=== PATIENT | male | born 1975 | race Caucasian/White ===

== ENCOUNTER 2024-08-25 13:56 | Outpatient (AMB) | payer OTHER, SELFPAY ==
--- OUTSIDE RECORDS SUMMARY | 2024-08-25 13:58 | XMS_ITS | Continuity of Care Document ---
Author Name [facility] Organization [facility] Care Team Providers Care Web Development Intern Name Role Phone [facility] Unavailable Unavailable Problems Combined list of problems from Department of Defense and Veterans Affairs facilities. It does not include entries that were removed or entered in error. Problem Status Onset Date Problem Type Date of Resolution Comments Source Adjustment disorder with anxious mood (SNOMED CT 49114645) Active Condition [facility] Chronic post-traumatic stress disorder Active Condition [facility] CLBP - chronic low back pain Active Condition Jun 23, 2019 Entered By: NIYAH DUQUE Comment: MRI DDD L4-S1 [place] Depression (SNOMED CT 86976636) Active Condition [place] Diverticular disease of colon Active Condition Jul 26 Entered By: MARIETTA HERNANDEZ Comment: descending and sigmoid on imaging 12/26 [facility] Exposure to potentially hazardous substance Active Condition Nov 07, 2023 Entered By: PREMA TATUM Comment: Original MARCY Screen completed 08/27/22 [facility] GERD - Gastro-esophageal reflux disease Active Condition Jun 23, 2019 Entered By: NIYAH DUQUE Comment: EGD normal 12/09/18Jul 20, 2024 Entered By: MARIETTA HERNANDEZ Comment: hx hiatal hernia [facility] History of traumatic brain injury Active Condition Jul 26, 2024 Entered By: MARIETTA HERNANDEZ Comment: concussion 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 following training blast [facility] HTN-Hypertension (SCT 03571057) Active Condition [facility] Hyperlipidemia (SNOMED CT 32319169) Active Condition Aug 19, 2024 Entered By: MARIETTA HERNANDEZ Comment: mild, no Rx [place] Migraine Active Condition [facility] Obesity Active Condition Nov 11, 20 24 Entered By: MARIETTA HERNANDEZ Comment: 01/13/24 BMI 42Nov 2023 Entered By: MARIETTA HERNANDEZ Comment: 07/22/24 BMI 42 [place] Obstructive sleep apnea syndrome Active Condition Jan 02, 2019 Entered By: NIYAH DUQUE Comment: using CPAP [facility] Panic disorder with agoraphobia Active Condition [facility] Pilonidal cyst without abscess [facility] Polyarthralgia Active Condition [facility] Resting tremor Active Condition [facility] Screening for malignant neoplasm of colon done Active Condition January 29, 2023 Entered By: ROSA ELENA LEONARDO Comment: Last Colonoscopy done at [facility] 07/17/2022 REPEAT in 5 YEARS = 2026Nov 2023 Entered By: MARIETTA HERNANDEZ Comment: diverticula desending and sigmoid noted 12/26 [place] Tinnitus Active Condition [place] Vitamin D Deficiency ([facility] 85339357) Active Condition [place] Bacteriuria Inactive Condition 07/20/2024 [facility] ECG: normal sinus rhythm Inactive Condition 07/20/2024 Nov 27, 2017 Entered By: NIYAH DUQUE Comment: 11/24 w SA, min voltage [facility] Erythrocytosis Inactive Condition 07/20/2024 Jan 02, 2019 Entered By: NIYAH DUQUE Comment: 03/26 JAK2 NEG, eletrophoresis normal [facility] Inguinal hernia Inactive Condition 07/20/2024 Dec 15, 2018 Entered By: NIYAH DUQUE Comment: right laporoscopic repair 01/02/[address] Betts [facility] Kidney stone Inactive Condition 07/20/2024Dec Entered By: NIYAH DUQUE Comment: LeftJan 02, 2019 Entered By: NIYAH DUQUE Comment: 12/10/18 cystoscopy, left retograde pyelogram-Dr. Mendoza [facility] Pilonidal cyst with abscess (ICD-9-CM 685.0) Inactive Condition 07/20/2024 [facility] Urine screening abnormal Inactive Condition 07/20/2024 [place] Diagnosis: ICD-10-CM M72.2 Plantar fascial fibromatosis Active Diagnosis [place] Diagnosis: ICD-10-CM G47.30 Sleep apnea, unspecified Active Diagnosis [facility] Diagnosis: ICD-10-CM G25.2 Other specified forms of tremor Active Diagnosis [facility] Diagnosis: ICD-10-CM Z02.89 Encounter for other administrative examinations Active Diagnosis [facility] Diagnosis: ICD-10-CM F43.12 Post-traumatic stress disorder, chronic Active Diagnosis [place] Diagnosis: ICD-10-CM Z46.1 Encounter for fitting and adjustment of hearing aid Active Diagnosis [facility] Diagnosis: ICD-10-CM H90.3 Sensorineural hearing loss, bilateral Active Diagnosis [facility] Diagnosis: ICD-10-CM M25.50 Pain in unspecified joint Active Diagnosis [facility] Diagnosis: ICD-10-CM M54.50 Low back pain, unspecified Active Diagnosis [facility] Diagnosis: ICD-10-CM I10 Essential (primary) hypertension Active Diagnosis [place] Diagnosis: ICD-10-CM Z46.0 Encounter for fit/adjst of spectacles and contact lenses Active Diagnosis [facility] Diagnosis: ICD-10-CM H40.053 Ocular hypertension, bilateral Active Diagnosis [facility] Diagnosis: ICD-10-CM H25.813 Combined forms of age-related cataract, bilateral Active Diagnosis [facility] Diagnosis: ICD-10-CM F33.0 Major depressive disorder, recurrent, mild Active Diagnosis [facility] Diagnosis: ICD-10-CM E78.5 Hyperlipidemia, unspecified Active Diagnosis [place] Diagnosis: ICD-10-CM Z00.00 Encntr for general adult medical exam w/o abnormal findings Active Diagnosis [facility] Medications Combined list of outpatient medications from Department of Defense and Veterans Affairs facilities.Medications provided include 1) outpatient medications from the last 15 months, and 2) patient-reported medications. Medication Details Route Status Patient Instructions Prescription Expires Prescription Number Last Dispense Date Ordering Provider Order Date Order Qty Source amLODIPine (U/D) 10 MG ORAL TAB TAKE ONE TABLET BY MOUTH ONCE DAILY FOR BLOOD PRESSURE /HEART, DO NOT TAKE WITH GRAPEFRU IT JUICE Active 10/02/2024 [id number] SHADEAFSHAN ROSA ELENA [address] [place] [address] amLODIPine (U/D) 10 MG ORAL TAB TAKE ONE TABLET BY MOUTH ONCE DAILY FOR BLOOD PRESSURE /HEART, DO NOT TAKE WITH GRAPEFRU IT JUICE Discont inued 08/06/2023 [id number] 3 JOSE EDEN [address] [place] [address] AMLODIPINE BESYLATE 10MG TAB TAKE ONE TABLET BY MOUTH ONCE DAILY FOR BLOOD PRESSURE /HEART, DO NOT TAKE WITH GRAPEFRU IT JUICE ORAL ACTIVE 10/02/2024 [id number] 4 JONATHAN LEONARDO MIMI [address] [place] [address] AMLODIPINE BESYLATE 10MG TAB TAKE ONE TABLET BY MOUTH ONCE DAILY FOR BLOOD PRESSURE /HEART, DO NOT TAKE WITH GRAPEFRU IT JUICE ORAL DISCONT INUED 08/06/2023 [id number] 3 JOSE EDEN 2022 [facility] CHOLECALCIF (VIT D3) 1,000 UNIT ORAL TAB TAKE ONE TABLET BY MOUTH ONCE DAILY FOR VITAMIN D DEFICIEN CY FOR VITAMIN SUPPLEME NTATION 06/13/2024 [id number] 4 ROSA ELENA LEONARDO [address] [place] [address] CHOLECALCIF (VIT D3) 1,000 UNIT ORAL TAB TAKE ONE TABLET BY MOUTH ONCE DAILY FOR VITAMIN D DEFICIEN CY FOR VITAMIN SUPPLEME NTATION 06/13/2024 [id number] 3 ROSA ELENA LEONARDO [address] [place] [address] CHOLECALCIF EFRA 25MCG (1,000UNIT) TAB TAKE ONE TABLET BY MOUTH ONCE DAILY FOR VITAMIN SUPPLEME NTATION ORAL ACTIVE 07/23/2025 [id number] 4 Alea HERNANDEZ 2023 [address] [place] CHOLECALCIF EFRA 25MCG (1,000UNIT) TAB TAKE ONE TABLET BY MOUTH ONCE DAILY FOR VITAMIN D DEFICIEN CY FOR VITAMIN SUPPLEME NTATION ORAL DISCONT INUED 06/13/2024 [id number] 4 SHADESALVATOREJONATHAN Pineda F 2022 [address] [place] Compounded Prilosec Capsule Conventiona l 20 mg Oral TAKE TWO CAPSULES BY MOUTH EVERY MORNING 30 MINUTES BEFORE BREAKFAS T Active 10/02/2024 [id number] 4 SHADESLAVATOREROSA ELENA Pineda F 2023 180 [facility] Compounded Prilosec Capsule Conventiona l 20 mg Oral TAKE TWO CAPSULES BY MOUTH EVERY MORNING 30 MINUTES BEFORE BREAKFAS T Discont inued 08/25/2023 [id number] 3 JOSE EDEN 2023 180 [facility] COZAAR (BRAND) 50 MG ORAL TAB TAKE ONE TABLET BY MOUTH ONCE DAILY FOR BLOOD PRESSURE /HEART Active 11/11/2024 [id number] 4 SHADESALVATOREROSA ELENA Pineda F 2023 90 [facility] DICLOFENAC NA 1% GEL,TOP APPLY 4 GRAMS TOPICALL Y TWICE DAILY NEEDED FOR OSTEOART HRITIS - USE DOSING CARD PROVIDED IN BOX TOPICA L ACTIVE 10/02/2024 [id number] 4 SHADESALVATOREJONATHAN PniedaMIMI F 2023 [address] [place] Diclofenac Sodium 0.01mg/mg, Gel/Jelly, Topical APPLY 4 GRAMS TOPICALL Y TWICE DAILY NEEDED FOR OSTEOART HRITIS - USE DOSING CARD PROVIDED IN BOX Active 10/02/2024 [id number] 4 SHADEROSA ELENA CAVANAUGH F 2023 400 [facility] FUROSEMIDE 20MG TAB TAKE ONE-HALF TABLET BY MOUTH ONCE DAILY TO REMOVE FLUID/CO NTROL BLOOD PRESSURE ORAL ACTIVE 07/23/2025 [id number] 4 Alea HERNANDEZ 2023 [address] [place] FUROSEMIDE 20MG TAB TAKE ONE-HALF TABLET BY MOUTH ONCE DAILY NEEDED TO REMOVE FLUID/CO NTROL BLOOD PRESSURE ORAL DISCONT INUED BY PROVIDE R 04/12/2024 [id number] 4 JONATHAN LEONARDO F 2023 [address] [place] hydrOXYzine HCL (U/D) 25 MG ORAL TAB TAKE ONE TABLET BY MOUTH THREE TIMES DAILY NEEDED FOR ANXIETY Active 09/24/2024 [id number] 4 CARRIE HECTOR F 2023 180 [facility] hydrOXYzine HCL (U/D) 25 MG ORAL TAB TAKE ONE TABLET BY MOUTH THREE TIMES DAILY NEEDED FOR ANXIETY Discont inued 02/13/2024 [id number] 3 CARRIE HECTOR F 2023 180 [facility] HYDROXYZINE HCL 25MG TAB TAKE ONE TABLET BY MOUTH THREE TIMES DAILY NEEDED FOR ANXIETY ORAL ACTIVE 09/24/2024 [id number] 4 SALVATORE BUTLER F 2023 [address] [place] HYDROXYZINE HCL 25MG TAB TAKE ONE TABLET BY MOUTH THREE TIMES DAILY NEEDED FOR ANXIETY ORAL DISCONT INUED 02/13/2024 [id number] 3 BUTLERSALVATORE F 2022 [address] [place] losartan (U/D) 25 MG ORAL TAB TAKE ONE TABLET BY MOUTH ONCE DAILY FOR BLOOD PRESSURE /HEART Discont inued 10/02/2024 [id number] 4 ROSA ELENA LEONARDO 2023 90 [facility] LOSARTAN 25MG TAB TAKE ONE TABLET BY MOUTH ONCE DAILY FOR BLOOD PRESSURE /HEART ORAL DISCONT INUED (EDIT) 10/02/2024 [id number] 4 JONATHAN LEONARDO F 2023 [address] [place] LOSARTAN 50MG TAB TAKE ONE TABLET BY MOUTH ONCE DAILY FOR BLOOD PRESSURE /HEART ORAL ACTIVE 11/11/2024 [id number] 4 JONATHAN LEONARDO F 2023 [address] [place] methocarbam ol (U/D) 500 MG ORAL TAB TAKE ONE TABLET BY MOUTH AT BEDTIME NEEDED FOR MUSCLE SPASM Active 10/02/2024 [id number] 4 ROSA ELENA LEONARDO 2023 90 [facility] methocarbam ol (U/D) 500 MG ORAL TAB TAKE ONE TABLET BY MOUTH THREE TIMES DAILY NEEDED Discont inued 08/06/2023 [id number] 3 JOSE EDEN 2023 60 [facility] METHOCARBAM OL 500MG TAB TAKE ONE TABLET BY MOUTH AT BEDTIME NEEDED FOR MUSCLE SPASM ORAL ACTIVE 10/02/2024 [id number] 4 JONATHAN LEONARDO F 2023 [address] [place] METHOCARBAM OL 500MG TAB TAKE ONE TABLET BY MOUTH THREE TIMES DAILY NEEDED ORAL DISCONT INUED BY PROVIDE R 08/06/2023 [id number] 3 JOSE EDEN 2021 60 [facility] OMEPRAZOLE 20MG CAP,EC TAKE TWO CAPSULES BY MOUTH EVERY MORNING 30 MINUTES BEFORE BREAKFAS T ORAL ACTIVE 10/02/2024 [id number] 4 JONATHAN LEONARDO F 2023 [address] [place] OMEPRAZOLE 20MG CAP,EC TAKE TWO CAPSULES BY MOUTH EVERY MORNING 30 MINUTES BEFORE BREAKFAS T ORAL DISCONT INUED 08/25/2023 [id number] 3 JOSE EDEN 2021 [address] [place] PREDNISONE 50MG TAB TAKE ONE TABLET BY MOUTH ONCE DAILY ORAL ACTIVE 09/18/2024 [id number] 4 Alea HERNANDEZ 2023 7 [place] PROPRANOLOL HCL 10MG TAB TAKE ONE TABLET BY MOUTH TWICE DAILY ORAL DISCONT INUED BY PROVIDE R 08/02/2023 [id number] 3 JOSE EDEN 2021 120 [facility] Propranolol Hydrochlori de (Inderal) Tablet 10 mg Oral TAKE ONE TABLET BY MOUTH TWICE DAILY Discont inued 08/02/2023 [id number] 3 JOSE EDEN 2023 120 [facility] SERTRALINE HCL 100MG TAB TAKE ONE-HALF TABLET BY MOUTH AM FOR 7 DAYS, THEN TAKE ONE TABLET AM FOR 60 DAYS FOR POSTTRAU MATIC STRESS SYNDROME ORAL ACTIVE 05/30/2024 [id number] 4 SALVATORE BUTLER 2023 124 [facility] Immunizations Combined list of available immunizations from the Department of Defense and Veterans Affairs facilities. Immunization Series Date Given Administered By Site Reaction Lot Number CVX Code Drug Neuropsychology Medical Consultant Status Comments Source INFLUENZA, UNSPECIFIED FORMULATION 2023 88 complet ed [facility] INFLUENZA, UNSPECIFIED FORMULATION 2022 88 complet ed [facility] INFLUENZA, UNSPECIFIED FORMULATION 2021 88 complet ed [facility] HEP B, ADULT 2 2017 NONE 43 complet ed [facility] HEP B, ADULT 1 2016 NONE 43 complet ed [facility] TYPHOID (HISTORICAL) 2016 91 complet ed [facility] DTAP, UNSPECIFIED FORMULATION 2007 107 complet ed [facility] TD(ADULT) UNSPECIFIED FORMULATION 2006 139 complet ed [facility] Results Combined list of recent chemistry, hematology and other laboratory results from Department of Defense and Veterans Affairs, ranging from 15 months to all on record, depending upon the facility. Order Name Results Value Reference Range Date Interpretation Specimen Comments Source T-SPOT TB PANEL MYCOBACTER IUM TUBERCULOS IS STIMULATED GAMMA INTERFERON [INTERPRET ATION] IN BLOOD QUALITATIV E Negative 05/21 Specimen Type: BLOOD Comment: A negative test result does not exclude the possibility of exposure to or infection with Mycobacteri um tuberculosi s (M. tuberculosi s). Patients with recent exposure to TB infected individuals exhibiting a negative T-SPOT.TB result should be considered for retesting within 6 weeks or if other relevant clinical symptoms indicate. Results from T-SPOT.TB testing must be used in conjunction with each individual' s epidemiolog ical history, current medical status, and results of other diagnostic evaluations . The T-SPOT.TB test is qualitative and results are reported as positive, borderline, or negative, given that the test controls perform as expected. In line with the Centers for Disease Control and Prevention' s 2010 recommendat ion to report quantitativ e measurement s alongside the qualitative result, the laboratory provides spot counts for information al purposes only. The T-SPOT.TB test should not be interpreted as a quantitativ e test. For additional information , please refer to http://educ ation.[employer] .Cloudmark/faq/FA Q215 (This link is being provided for information al/ educational purposes only.) Test Performed by [employer], [employer] [facility], [address] [place] [address] Julius Bell M.D., Ph.D., Director of Laboratorie s , CLIA [id number] TEST PERFORMED AT: , Ordering Provider: TORREY GRIER Report Released Date/Time: May 14, 2024 03:09 PM Reporting Lab: [facility] [address] [facility] [address] Performing Lab: [facility] [address] [address] [facility] T-SPOT TB PANEL MYCOBACTER IUM TUBERCULOS IS STIMULATED GAMMA INTERFERON ESAT-6 AG SPOT COUNT [#] IN BLOOD 0 05/21 Specimen Type: BLOOD Comment: A negative test result does not exclude the possibility of exposure to or infection with Mycobacteri um tuberculosi s (M. tuberculosi s). Patients with recent exposure to TB infected individuals exhibiting a negative T-SPOT.TB result should be considered for retesting within 6 weeks or if other relevant clinical symptoms indicate. Results from T-SPOT.TB testing must be used in conjunction with each individual' s epidemiolog ical history, current medical status, and results of other diagnostic evaluations . The T-SPOT.TB test is qualitative and results are reported as positive, borderline, or negative, given that the test controls perform as expected. In line with the Centers for Disease Control and Prevention' s 2010 recommendat ion to report quantitativ e measurement s alongside the qualitative result, the laboratory provides spot counts for information al purposes only. The T-SPOT.TB test should not be interpreted as a quantitativ e test. For additional information , please refer to http://educ [employer]/faq/FA Q215 (This link is being provided for information al/ educational purposes only.) Test Performed by [employer] [employer], [address] [place] [address] Julius Bell M.D., Ph.D., Director of Laboratorie s , [facility] [id number] TEST PERFORMED AT: , Ordering Provider: TORREY GRIER E Report Released Date/Time: May 14, 2024 03:09 PM Reporting Lab: [facility] [address] [facility] [address] Performing Lab: [facility] [address] [address] [facility] T-SPOT TB PANEL MYCOBACTER IUM TUBERCULOS IS STIMULATED GAMMA INTERFERON CFP10 AG SPOT COUNT [#] IN BLOOD 0 05/21 Specimen Type: BLOOD Comment: A negative test result does not exclude the possibility of exposure to or infection with Mycobacteri um tuberculosi s (M. tuberculosi s). Patients with recent exposure to TB infected individuals exhibiting a negative T-SPOT.TB result should be considered for retesting within 6 weeks or if other relevant clinical symptoms indicate. Results from T-SPOT.TB testing must be used in conjunction with each individual' s epidemiolog ical history, current medical status, and results of other diagnostic evaluations . The T-SPOT.TB test is qualitative and results are reported as positive, borderline, or negative, given that the test controls perform as expected. In line with the Centers for Disease Control and Prevention' s 2010 recommendat ion to report quantitativ e measurement s alongside the qualitative result, the laboratory provides spot counts for information al purposes only. The T-SPOT.TB test should not be interpreted as a quantitativ e test. For additional information , please refer to http://educ [employer]/faq/FA Q215 (This link is being provided for information al/ educational purposes only.) Test Performed by [employer] [employer], [address] [place] [address] Julius Bell M.D., Ph.D., Director of Laboratorie s , CLIA [id number] TEST PERFORMED AT: , Ordering Provider: TORREY GRIER Report Released Date/Time: May 14, 2024 03:09 PM Reporting Lab: [facility] [address] [facility] [address] Performing Lab: [facility] [address] [address] [facility] T-SPOT TB PANEL MITOGEN STIMULATED GAMMA INTERFERON POSITIVE CONTROL SPOT COUNT [#] IN BLOOD Passed 05/21 Specimen Type: BLOOD Comment: A negative test result does not exclude the possibility of exposure to or infection with Mycobacteri um tuberculosi s (M. tuberculosi s). Patients with recent exposure to TB infected individuals exhibiting a negative T-SPOT.TB result should be considered for retesting within 6 weeks or if other relevant clinical symptoms indicate. Results from T-SPOT.TB testing must be used in conjunction with each individual' s epidemiolog ical history, current medical status, and results of other diagnostic evaluations . The T-SPOT.TB test is qualitative and results are reported as positive, borderline, or negative, given that the test controls perform as expected. In line with the Centers for Disease Control and Prevention' s 2010 recommendat ion to report quantitativ e measurement s alongside the qualitative result, the laboratory provides spot counts for information al purposes only. The T-SPOT.TB test should not be interpreted as a quantitativ e test. For additional information , please refer to http://educ ation.[employer] .com/faq/FA Q215 (This link is being provided for information al/ educational purposes only.) Test Performed by [employer], [employer] [facility], [address] [place] [address] Julius Bell M.D., Ph.D., Director of Laboratorie s , CLIA [id number] TEST PERFORMED AT: , Ordering Provider: TORREY GRIER Report Released Date/Time: May 14, 2024 03:09 PM Reporting Lab: [facility] [address] [facility] [address] Performing Lab: [place] [id number] [facility] T-SPOT TB PANEL GAMMA INTERFERON NEGATIVE CONTROL SPOT COUNT [#] IN BLOOD Passed 05/21 Specimen Type: BLOOD Comment: A negative test result does not exclude the possibility of exposure to or infection with Mycobacteri um tuberculosi s (M. tuberculosi s). Patients with recent exposure to TB infected individuals exhibiting a negative T-SPOT.TB result should be considered for retesting within 6 weeks or if other relevant clinical symptoms indicate. Results from T-SPOT.TB testing must be used in conjunction with each individual' s epidemiolog ical history, current medical status, and results of other diagnostic evaluations . The T-SPOT.TB test is qualitative and results are reported as positive, borderline, or negative, given that the test controls perform as expected. In line with the Centers for Disease Control and Prevention' s 2010 recommendat ion to report quantitativ e measurement s alongside the qualitative result, the laboratory provides spot counts for information al purposes only. The T-SPOT.TB test should not be interpreted as a quantitativ e test. For additional information , please refer to http://educ ation.[employer] .com/faq/FA Q215 (This link is being provided for information al/ educational purposes only.) Test Performed by [employer], [employer] [facility], [address] [place] [address] Julius Bell M.D., Ph.D., Director of Laboratorie s , CLIA [id number] TEST PERFORMED AT: , Ordering Provider: TORREY GRIER Report Released Date/Time: May 14, 2024 03:09 PM Reporting Lab: [facility] [address] [facility] [address] Performing Lab: [address], [address] [place] [address] [facility] HEPATITI S B SURFACE ANTIBODY (HBsAb)- WH HEPATITIS B VIRUS SURFACE AB [PRESENCE] IN SERUM BY IMMUNOASSA Y REACTIVE 05/21 Specimen Type: SERUM Comment: A 'Reactive' result indicates HBsAb results >/= 12.0 mIU/mL and immunity to HBV infection. Ordering Provider: TORREY GRIER Report Released Date/Time: May 14, 2024 03:09 PM Reporting Lab: [address] [address] Performing Lab: [address] [address] [facility] MMRV (IGG) IMMUNE STATUS PANEL MEASLES VIRUS IGG AB [PRESENCE] IN SERUM BY IMMUNOASSA Y REACTIVE 05/21 Specimen Type: SERUM Comment: A result of 'REACTIVE' indicates presence of IgG to Measles, Mumps, Rubella or Varicella following exposure to these viruses through either infection or vaccination . If quantitativ e index values are required for clinical interpretat ion, call Virology Reference lab during weekday business hours. Ordering Provider: TORREY GRIER Report Released Date/Time: May 14, 2024 03:09 PM Reporting Lab: [address] [address] Performing Lab: [address] [address] [facility] MMRV (IGG) IMMUNE STATUS PANEL MUMPS VIRUS IGG AB [PRESENCE] IN SERUM BY IMMUNOASSA Y REACTIVE 05/21 Specimen Type: SERUM Comment: A result of 'REACTIVE' indicates presence of IgG to Measles, Mumps, Rubella or Varicella following exposure to these viruses through either infection or vaccination . If quantitativ e index values are required for clinical interpretat ion, call Virology Reference lab during weekday business hours. Ordering Provider: TORREY GRIER Report Released Date/Time: May 14, 2024 03:09 PM Reporting Lab: [address] [address] Performing Lab: [address] [place] [address] [facility] MMRV (IGG) IMMUNE STATUS PANEL RUBELLA VIRUS IGG AB [PRESENCE] IN SERUM OR PLASMA BY IMMUNOASSA Y REACTIVE 05/21 Specimen Type: SERUM Comment: A result of 'REACTIVE' indicates presence of IgG to Measles, Mumps, Rubella or Varicella following exposure to these viruses through either infection or vaccination . If quantitativ e index values are required for clinical interpretat ion, call Virology Reference lab during weekday business hours. Ordering Provider: TORREY GRIER E Report Released Date/Time: May 14, 2024 03:09 PM Reporting Lab: [address] [address] Performing Lab: [address] [address] [facility] MMRV (IGG) IMMUNE STATUS PANEL VARICELLA ZOSTER VIRUS IGG AB [PRESENCE] IN SERUM BY IMMUNOASSA Y REACTIVE 05/21 Specimen Type: SERUM Comment: A result of 'REACTIVE' indicates presence of IgG to Measles, Mumps, Rubella or Varicella following exposure to these viruses through either infection or vaccination . If quantitativ e index values are required for clinical interpretat ion, call Virology Reference lab during weekday business hours. Ordering Provider: TORREY GRIER E Report Released Date/Time: May 14, 2024 03:09 PM Reporting Lab: [address] [address] Performing Lab: [address] [address] [facility] HEMOGLOB IN A1C PANEL HEMOGLOBIN A1C/HEMOGL OBIN.TOTAL IN BLOOD BY HPLC 5.2 4.0 - 5.6 05/21 Specimen Type: BLOOD Comment: Values obtained from A1C measurement s can vary. For atypical A1C assays, a reported value of 7.0 could actually be between 6.72 and 7.28 if measured by a reference method. A reported value of 9.0 could actually be between 8.73 and 9.27. Ref: http://www. ngsp.org/[place] Pdata.asp Ordering Provider: TORREY GRIER Report Released Date/Time: May 14, 2024 03:09 PM Reporting Lab: [facility] [place] [facility] [address] [facility] [address] Performing Lab: [facility] [place] [facility] [address] [facility] [address] [facility] [place] [facility] LIPID PANEL, NON FASTING CHOLESTERO L [MASS/VOLU ME] IN SERUM OR PLASMA 227 mg/dL 05/21 H Specimen Type: SERUM No comment entered. Ordering Provider: TORREY GRIER Report Released Date/Time: May 14, 2024 03:09 PM Reporting Lab: [facility] [place] [facility] [address] [facility] [address] Performing Lab: [facility] [place] [facility] [address] [facility] [address] [facility] [place] [facility] LIPID PANEL, NON FASTING TRIGLYCERI DE [MASS/VOLU ME] IN SERUM OR PLASMA 143 mg/dL 0 - 150 05/21 Specimen Type: SERUM No comment entered. Ordering Provider: TORREY GRIER Report Released Date/Time: May 14, 2024 03:09 PM Reporting Lab: [facility] [place] [facility] [address] [facility] [address] Performing Lab: [facility] [place] [facility] [address] [facility] [address] [facility] [place] [facility] LIPID PANEL, NON FASTING CHOLESTERO L IN LDL [MASS/VOLU ME] IN SERUM OR PLASMA BY CALCULATIO N 146 mg/dL 0 - 129 05/21 H Specimen Type: SERUM No comment entered. Ordering Provider: TORREY GRIER Report Released Date/Time: May 14, 2024 03:09 PM Reporting Lab: [facility] [place] [facility] [address] [facility] [address] Performing Lab: [facility] [place] [facility] [address] [facility] [address] [facility] [place] [facility] LIPID PANEL, NON FASTING CHOLESTERO L.TOTAL/CH OLESTEROL IN HDL [MASS RATIO] IN SERUM OR PLASMA 4.4 05/21 Specimen Type: SERUM No comment entered. Ordering Provider: TORREY GRIER Report Released Date/Time: May 14, 2024 03:09 PM Reporting Lab: [address] [address] Performing Lab: [address] [address] [facility] LIPID PANEL, NON FASTING CHOLESTERO L IN HDL [MASS/VOLU ME] IN SERUM OR PLASMA 52 mg/dL 40 - 60 05/21 Specimen Type: SERUM No comment entered. Ordering Provider: TORREY GRIER Report Released Date/Time: May 14, 2024 03:09 PM Reporting Lab: [address] [address] Performing Lab: [address] [address] [facility] MICROSCO PIC AUTOMATE D, URINE LEUKOCYTES [#/AREA] IN URINE SEDIMENT BY MICROSCOPY HIGH POWER FIELD 11-20/[H PF] 0 - 5 05/21 H Specimen Type: URINE Comment: If Glucose = >500 and Ketones are positive, please alert the Physician. Ordering Provider: TORREY GRIER Report Released Date/Time: May 14, 2024 03:09 PM Reporting Lab: [address] [address] Performing Lab: [address] [address] [facility] MICROSCO PIC AUTOMATE D, URINE MUCUS [#/AREA] IN URINE SEDIMENT BY MICROSCOPY LOW POWER FIELD MANY/[LP F] 05/21 Specimen Type: URINE Comment: If Glucose = >500 and Ketones are positive, please alert the Physician. Ordering Provider: TORREY GRIER Report Released Date/Time: May 14, 2024 03:09 PM Reporting Lab: [facility] [place] [facility] [address] [facility] [address] Performing Lab: [facility] [place] [facility] [address] [facility] [address] [facility] [place] [facility] MICROSCO PIC AUTOMATE D, URINE ERYTHROCYT ES [#/AREA] IN URINE SEDIMENT BY MICROSCOPY HIGH POWER FIELD 3-5/[HPF ] 0 - 3 05/21 Specimen Type: URINE Comment: If Glucose = >500 and Ketones are positive, please alert the Physician. Ordering Provider: TORREY GRIER Report Released Date/Time: May 14, 2024 03:09 PM Reporting Lab: [facility] [place] [facility] [address] [facility] [address] Performing Lab: [facility] [place] [facility] [address] [facility] [address] [facility] [place] [facility] MICROSCO PIC AUTOMATE D, URINE EPITHELIAL CELLS.SQUA MOUS [#/AREA] IN URINE SEDIMENT BY MICROSCOPY HIGH POWER FIELD FEW/[HPF ] 05/21 Specimen Type: URINE Comment: If Glucose = >500 and Ketones are positive, please alert the Physician. Ordering Provider: TORREY GRIER Report Released Date/Time: May 14, 2024 03:09 PM Reporting Lab: [facility] [place] [facility] [address] [facility] [address] Performing Lab: [facility] [place] [facility] [address] [facility] [address] [facility] [place] [facility] URINALYS IS COLOR OF URINE Yellow 05/21 Specimen Type: URINE Comment: If Glucose = >500 and Ketones are positive, please alert the Physician. Ordering Provider: TORREY GRIER Report Released Date/Time: May 14, 2024 03:09 PM Reporting Lab: [facility] [place] [facility] [address] [facility] [address] Performing Lab: [facility] [place] [facility] [address] [facility] [address] [facility] [place] [facility] URINALYS IS APPEARANCE OF URINE Turbid 05/21 Specimen Type: URINE Comment: If Glucose = >500 and Ketones are positive, please alert the Physician. Ordering Provider: TORREY GRIER Report Released Date/Time: May 14, 2024 03:09 PM Reporting Lab: [facility] [place] [facility] [address] [facility] [address] Performing Lab: [facility] [place] [facility] [address] [facility] [address] [facility] [place] [facility] URINALYS IS GLUCOSE [MASS/VOLU ME] IN URINE Normalmg /dL 05/21 Specimen Type: URINE Comment: If Glucose = >500 and Ketones are positive, please alert the Physician. Ordering Provider: TORREY GRIER Report Released Date/Time: May 14, 2024 03:09 PM Reporting Lab: [facility] [place] [address] [address] Performing Lab: [facility] [place] [place] [facility] [address] [facility] [address] [facility] [place] [facility] URINALYS IS KETONES [MASS/VOLU ME] IN URINE BY TEST STRIP NEGATIVE mg/dL 05/21 Specimen Type: URINE Comment: If Glucose = >500 and Ketones are positive, please alert the Physician. Ordering Provider: TORREY GRIER Report Released Date/Time: May 14, 2024 03:09 PM Reporting Lab: [facility] [place] [facility] [address] [facility] [address] Performing Lab: [facility] [place] [facility] [address] [facility] [address] [facility] [place] [facility] URINALYS IS ERYTHROCYT ES [PRESENCE] IN URINE SEDIMENT BY LIGHT MICROSCOPY NEGATIVE mg/dL 05/21 Specimen Type: URINE Comment: If Glucose = >500 and Ketones are positive, please alert the Physician. Ordering Provider: TORREY GRIER Report Released Date/Time: May 14, 2024 03:09 PM Reporting Lab: [facility] [place] [facility] [address] [facility] [address] Performing Lab: [facility] [place] [facility] [address] [facility] [address] [facility] [place] [facility] URINALYS IS PROTEIN [MASS/VOLU ME] IN URINE BY TEST STRIP 30 mg/dL 05/21 Specimen Type: URINE Comment: If Glucose = >500 and Ketones are positive, please alert the Physician. Ordering Provider: TORREY GRIER Report Released Date/Time: May 14, 2024 03:09 PM Reporting Lab: [facility] [place] [facility] [address] [facility] [address] Performing Lab: [facility] [place] [facility] [address] [facility] [address] [facility] [place] [place] [facility] URINALYS IS NITRITE [PRESENCE] IN URINE NEGATIVE mg/dL 05/21 Specimen Type: URINE Comment: If Glucose = >500 and Ketones are positive, please alert the Physician. Ordering Provider: TORREY GRIER Report Released Date/Time: May 14, 2024 03:09 PM Reporting Lab: [facility] [place] [facility] [address] [facility] [address] Performing Lab: [facility] [place] [facility] [address] [facility] [address] [facility] [place] [facility] URINALYS IS BILIRUBIN. TOTAL [PRESENCE] IN URINE NEGATIVE mg/dL 05/21 Specimen Type: URINE Comment: If Glucose = >500 and Ketones are positive, please alert the Physician. Ordering Provider: TORREY GRIER Report Released Date/Time: May 14, 2024 03:09 PM Reporting Lab: [facility] [place] [facility] [address] [facility] [address] Performing Lab: [facility] [place] [facility] [address] [facility] [address] [facility] [place] [facility] URINALYS IS SPECIFIC GRAVITY OF URINE BY REFRACTOME TRY 1.027 1.016 - 1.022 05/21 H Specimen Type: URINE Comment: If Glucose = >500 and Ketones are positive, please alert the Physician. Ordering Provider: TORREY GRIER Report Released Date/Time: May 14, 2024 03:09 PM Reporting Lab: [facility] [place] [place] [facility] [address] [facility] [address] Performing Lab: [facility] [place] [facility] [address] [facility] [address] [facility] [place] [facility] URINALYS IS PH OF URINE BY TEST STRIP 6.0 5.0 - 9.0 05/21 Specimen Type: URINE Comment: If Glucose = >500 and Ketones are positive, please alert the Physician. Ordering Provider: TORREY GRIER Report Released Date/Time: May 14, 2024 03:09 PM Reporting Lab: [facility] [place] [facility] [address] [facility] [address] Performing Lab: [facility] [place] [facility] [address] [facility] [address] [facility] [place] [facility] URINALYS IS UROBILINOG EN [MASS/VOLU ME] IN URINE BY TEST STRIP Normalmg /dL <2.0 - 2.0 05/21 Specimen Type: URINE Comment: If Glucose = >500 and Ketones are positive, please alert the Physician. Ordering Provider: TORREY GRIER Report Released Date/Time: May 14, 2024 03:09 PM Reporting Lab: [facility] [place] [facility] [address] [facility] [address] Performing Lab: [facility] [facility] [address] [facility] [address] [facility] [place] [facility] URINALYS IS LEUKOCYTE ESTERASE [PRESENCE] IN URINE BY TEST STRIP TRACE 05/21 Specimen Type: URINE Comment: If Glucose = >500 and Ketones are positive, please alert the Physician. Ordering Provider: TORREY GRIER Report Released Date/Time: May 14, 2024 03:09 PM Reporting Lab: [facility] [place] [facility] [address] [facility] [address] Performing Lab: [facility] [place] [address] [address] [facility] [place] [facility] LIVER FUNCTION PROTEIN [MASS/VOLU ME] IN SERUM OR PLASMA 7.6 g/dL 6.0 - 8.3 05/21 Specimen Type: SERUM No comment entered. Ordering Provider: TORREY GRIER Report Released Date/Time: May 14, 2024 03:09 PM Reporting Lab: [facility] [place] [facility] [address] [facility] [address] Performing Lab: [facility] [place] [facility] [address] [facility] [address] [facility] [place] [facility] LIVER FUNCTION ALBUMIN [MASS/VOLU ME] IN SERUM OR PLASMA 4.0 g/dL 3.5 - 5.0 05/21 Specimen Type: SERUM No comment entered. Ordering Provider: TORREY GRIER Report Released Date/Time: May 14, 2024 03:09 PM Reporting Lab: [facility] [place] [facility] [address] [facility] [address] Performing Lab: [facility] [place] [facility] [address] [facility] [address] [facility] [place] [facility] LIVER FUNCTION ALKALINE PHOSPHATAS E [ENZYMATIC ACTIVITY/V OLUME] IN SERUM OR PLASMA 54 U/L 40 - 150 05/21 Specimen Type: SERUM No comment entered. Ordering Provider: TORREY GRIER Report Released Date/Time: May 14, 2024 03:09 PM Reporting Lab: [facility] [place] [facility] [address] [facility] [address] Performing Lab: [facility] [place] [facility] [address] [facility] [address] [facility] [place] [facility] LIVER FUNCTION ASPARTATE AMINOTRANS FERASE [ENZYMATIC ACTIVITY/V OLUME] IN SERUM OR PLASMA 29 U/L 5 - 34 05/21 Specimen Type: SERUM No comment entered. Ordering Provider: TORREY GRIER Report Released Date/Time: May 14, 2024 03:09 PM Reporting Lab: [facility] [place] [facility] [address] [facility] [address] Performing Lab: [facility] [place] [facility] [address] [facility] [address] [facility] LIVER FUNCTION ALANINE AMINOTRANS FERASE [ENZYMATIC ACTIVITY/V OLUME] IN SERUM OR PLASMA 30 U/L 05/21 Specimen Type: SERUM No comment entered. Ordering Provider: TORREY GRIER Report Released Date/Time: May 14, 2024 03:09 PM Reporting Lab: [facility] [place] [facility] [address] [facility] [address] Performing Lab: [facility] W[facility]ITALUSEMAT[facility] [address] [facility] [address] [facility]ERN [facility]OSPITALUSE [facility] LIVER FUNCTION BILIRUBIN. TOTAL [MASS/VOLU ME] IN SERUM OR PLASMA 1.3 mg/dL 0.2 - 1.2 05/21 H Specimen Type: SERUM No comment entered. Ordering Provider: TORREY GRIER Report Released Date/Time: May 14, 2024 03:09 PM Reporting Lab: [facility] [place] [place] [facility] [address] [facility] [address] Performing Lab: [facility]PITALUSETS [facility] [address] [facility] [address] [facility] TRN [facility]ITALUSE [facility] LIVER FUNCTION BILIRUBIN. DIRECT [MASS/VOLU ME] IN SERUM OR PLASMA 0.5 mg/dL 0 - 0.5 05/21 Specimen Type: SERUM No comment entered. Ordering Provider: TORREY GRIER Report Released Date/Time: May 14, 2024 03:09 PM Reporting Lab: [facility] [place] [place] [facility] [address] [facility] [address] Performing Lab: [facility]RL [facility]OSPITALUSETS [facility] [address] [facility] [address] [facility]ITALRL [facility]N [facility] HOSPITALUSE [facility] BASIC METABOLI C PANEL (non-fas ting) UREA NITROGEN [MASS/VOLU ME] IN SERUM OR PLASMA 11 mg/dL 7 - 25 05/21 Specimen Type: SERUM No comment entered. Ordering Provider: NEJMAN,GRAC E Report Released Date/Time: May 14, 2024 03:09 PM Reporting Lab: [facility] [place] [facility] [address] [facility] [address] Performing Lab: [facility] [place] [facility] [address] [facility] [address] [facility] [place] [facility] BASIC METABOLI C PANEL (non-fas ting) GLUCOSE [MASS/VOLU ME] IN SERUM OR PLASMA 97 mg/dL 65 - 100 05/21 Specimen Type: SERUM No comment entered. Ordering Provider: TORREY GRIER Report Released Date/Time: May 14, 2024 03:09 PM Reporting Lab: [facility] [place] [facility] [address] [facility] [address] Performing Lab: [facility] [place] [address] [address] [facility] [place] [facility] BASIC METABOLI C PANEL (non-fas ting) SODIUM [MOLES/VOL UME] IN SERUM OR PLASMA 138 mmol/L 135 - 145 05/21 Specimen Type: SERUM No comment entered. Ordering Provider: TORREY GRIER Report Released Date/Time: May 14, 2024 03:09 PM Reporting Lab: [facility] [place] [facility] [address] [facility] [address] Performing Lab: [facility] [place] [address] [address] [facility] [place] [facility] BASIC METABOLI C PANEL (non-fas ting) POTASSIUM [MOLES/VOL UME] IN SERUM OR PLASMA 3.9 mmol/L 3.5 - 5.0 05/21 Specimen Type: SERUM No comment entered. Ordering Provider: TORREY GRIER Report Released Date/Time: May 14, 2024 03:09 PM Reporting Lab: [facility] [place] [facility] [address] [facility] [address] Performing Lab: [facility] [place] [address] [address] [facility] [place] [facility] BASIC METABOLI C PANEL (non-fas ting) CHLORIDE [MOLES/VOL UME] IN SERUM OR PLASMA 106 mmol/L 100 - 110 05/21 Specimen Type: SERUM No comment entered. Ordering Provider: TORREY GRIER Report Released Date/Time: May 14, 2024 03:09 PM Reporting Lab: [address] [address] Performing Lab: [address] [address] [facility] BASIC METABOLI C PANEL (non-fas ting) CARBON DIOXIDE, TOTAL [MOLES/VOL UME] IN SERUM OR PLASMA 21 meq/L 20 - 30 05/21 Specimen Type: SERUM No comment entered. Ordering Provider: TORREY GRIER Report Released Date/Time: May 14, 2024 03:09 PM Reporting Lab: [address] [address] Performing Lab: [address] [address] [facility] BASIC METABOLI C PANEL (non-fas ting) CREATININE [MASS/VOLU ME] IN SERUM OR PLASMA 0.98 mg/dL 0.50 - 1.40 05/21 Specimen Type: SERUM No comment entered. Ordering Provider: TORREY GRIER Report Released Date/Time: May 14, 2024 03:09 PM [facility] [address] [address] [facility] [address] [address] [facility] BASIC METABOLI C PANEL (non-fas ting) GLOMERULAR FILTRATION RATE/1.73 SQ M.PREDICTE D [VOLUME RATE/AREA] IN SERUM, PLASMA OR BLOOD BY CREATININE -BASED FORMULA (CKD-EPI 2020) >90mL/mi n 60 05/21 Specimen Type: SERUM No comment entered. Ordering Provider: TORREY GRIER Report Released Date/Time: May 14, 2024 03:09 PM Reporting Lab: [facility] [place] [facility] [address] [facility] [address] Performing Lab: [facility] [place] [facility] [address] [facility] [address] [facility] CBC AND DIFF (AUTO) LEUKOCYTES [#/VOLUME] IN BLOOD BY AUTOMATED COUNT 9.16 10*3/uL 4.50 - 11.00 05/21 Specimen Type: BLOOD No comment entered. Ordering Provider: TORREY GRIER Report Released Date/Time: May 14, 2024 03:09 PM Reporting Lab: [facility] [place] [facility] [address] [facility] [address] Performing Lab: [facility] [place] [place] [facility] [address] [facility] [address] [facility] [place] [facility] CBC AND DIFF (AUTO) ERYTHROCYT ES [#/VOLUME] IN BLOOD BY AUTOMATED COUNT 6.29 10*6/uL 4.23 - 5.66 05/21 H Specimen Type: BLOOD No comment entered. Ordering Provider: TORREY GRIER Report Released Date/Time: May 14, 2024 03:09 PM Reporting Lab: [facility] [place] [facility] [address] [facility] [address] Performing Lab: [facility] [place] [facility] [address] [facility] [address] [facility] [place] [facility] CBC AND DIFF (AUTO) HEMOGLOBIN [MASS/VOLU ME] IN BLOOD 17.5 g/dL 12.8 - 17 05/21 H Specimen Type: BLOOD No comment entered. Ordering Provider: TORREY GRIER Report Released Date/Time: May 14, 2024 03:09 PM Reporting Lab: [facility] [place] [facility] [address] [facility] [address] Performing Lab: [facility] [place] [facility] [address] [facility] [address] [facility] [place] [facility] CBC AND DIFF (AUTO) HEMATOCRIT [VOLUME FRACTION] OF BLOOD BY AUTOMATED COUNT 52.6 39.2 - 50.4 05/21 H Specimen Type: BLOOD No comment entered. Ordering Provider: TORREY GRIER Report Released Date/Time: May 14, 2024 03:09 PM Reporting Lab: [facility] [address] [facility] [address] Performing Lab[facility] [facility] [address] [facility] [address] [facility] CBC AND DIFF (AUTO) MCV [ENTITIC VOLUME] BY AUTOMATED COUNT 83.6 fL 82 - 99 05/21 Specimen Type: BLOOD No comment entered. Ordering Provider: TORREY GRIER Report Released Date/Time: May 14, 2024 03:09 PM Reporting Lab: [facility] [address] [facility] [address] Performing Lab: [facility] [place] [facility] [address] [facility] [address] [facility] CBC AND DIFF (AUTO) MCHC [MASS/VOLU ME] BY AUTOMATED COUNT 33.3 g/dL 30.8 - 35.1 05/21 Specimen Type: BLOOD No comment entered. Ordering Provider: TORREY GRIER Report Released Date/Time: May 14, 2024 03:09 PM Reporting Lab: [facility] [address] [facility] [address] Performing Lab: [facility] [place] [facility] [address] [facility] [address] [facility] CBC AND DIFF (AUTO) PLATELETS [#/VOLUME] IN BLOOD BY AUTOMATED COUNT 287 10*3/uL 140 - 360 05/21 Specimen Type: BLOOD No comment entered. Ordering Provider: TORREY GRIER Report Released Date/Time: May 14, 2024 03:09 PM Reporting Lab: [facility] [facility] [address] [facility] [address] Performing Lab: [facility] [place] [facility] [address] [facility] [address] [facility] CBC AND DIFF (AUTO) ERYTHROCYT E DISTRIBUTI ON WIDTH [RATIO] BY AUTOMATED COUNT 13.6 12.0 - 16.0 05/21 Specimen Type: BLOOD No comment entered. Ordering Provider: TORREY GRIER Report Released Date/Time: May 14, 2024 03:09 PM Reporting Lab: [facility] [place] [facility] [address] [facility] [address] Performing Lab: [facility] [place] [facility] [address] [facility] [address] [facility] [facility] [place] [facility] CBC AND DIFF (AUTO) MONOCYTES [#/VOLUME] IN BLOOD BY AUTOMATED COUNT 0.97 10*3/uL 0.30 - 1.10 05/21 Specimen Type: BLOOD No comment entered. Ordering Provider: TORREY GRIER Report Released Date/Time: May 14, 2024 03:09 PM Reporting Lab[facility] [place] [facility] [address] [facility] [address] Performing Lab: [facility] [place] [facility] [address] [facility] [address] [facility] [place] [facility] CBC AND DIFF (AUTO) MCH [ENTITIC MASS] BY AUTOMATED COUNT 27.8 pg 26.2 - 32.6 05/21 Specimen Type: BLOOD No comment entered. Ordering Provider: TORREY GRIER Report Released Date/Time: May 14, 2024 03:09 PM Reporting Lab: [facility] [place] [facility] [address] [facility] [address] Performing Lab: [facility] [place] [facility] [address] [facility] [address] [facility] [place] [facility] CBC AND DIFF (AUTO) NEUTROPHIL S/100 LEUKOCYTES IN BLOOD BY AUTOMATED COUNT 54.4 43.7 - 75.8 05/21 Specimen Type: BLOOD No comment entered. Ordering Provider: TORREY GRIER Report Released Date/Time: May 14, 2024 03:09 PM Reporting Lab: [facility] [place] [facility] [address] [facility] [address] Performing Lab: [facility] [place] [facility] [address] [address] [facility] CBC AND DIFF (AUTO) LYMPHOCYTE S/100 LEUKOCYTES IN BLOOD BY AUTOMATED COUNT 31.6 14.0 - 42.3 05/21 Specimen Type: BLOOD No comment entered. Ordering Provider: TORREY GRIER Report Released Date/Time: May 14, 2024 03:09 PM Reporting Lab: [facility] [place] [facility] [address] [facility] [address] Performing Lab: [facility] [place] [facility] [address] [address] [facility] CBC AND DIFF (AUTO) MONOCYTES/ 100 LEUKOCYTES IN BLOOD BY AUTOMATED COUNT 10.6 5.1 - 13.7 05/21 Specimen Type: BLOOD No comment entered. Ordering Provider: TORREY GRIER Report Released Date/Time: May 14, 2024 03:09 PM Reporting Lab: [facility] [place] [facility] [address] [facility] [address] Performing Lab: [facility] [place] [facility] [address] [facility] [address] [facility] CBC AND DIFF (AUTO) EOSINOPHIL S/100 LEUKOCYTES IN BLOOD BY AUTOMATED COUNT 1.6 0.4 - 6.8 05/21 Specimen Type: BLOOD No comment entered. Ordering Provider: TORREY GRIER Report Released Date/Time: May 14, 2024 03:09 PM Reporting Lab: [facility] [place] [facility] [address] [facility] [address] Performing Lab: [facility] [place] [facility] [address] [facility] [address] [facility] CBC AND DIFF (AUTO) BASOPHILS/ 100 LEUKOCYTES IN BLOOD BY AUTOMATED COUNT 1.0 0.1 - 2.0 05/21 Specimen Type: BLOOD No comment entered. Ordering Provider: TORREY GRIER Report Released Date/Time: May 14, 2024 03:09 PM Reporting Lab: [facility] [place] [facility] [address] [facility] [address] Performing Lab: [facility] [place] [facility] [address] [facility] [address] [facility] CBC AND DIFF (AUTO) NEUTROPHIL S [#/VOLUME] IN BLOOD BY AUTOMATED COUNT 4.99 10*3/uL 2.20 - 7.60 05/21 Specimen Type: BLOOD No comment entered. Ordering Provider: TORREY GRIER Report Released Date/Time: May 14, 2024 03:09 PM Reporting Lab: [facility] [place] [facility] [address] [facility] [address] Performing Lab: [facility] [place] [facility] [address] [facility] [address] [facility] [place] CBC AND DIFF (AUTO) LYMPHOCYTE S [#/VOLUME] IN BLOOD BY AUTOMATED COUNT 2.89 10*3/uL 1.00 - 3.20 05/21 Specimen Type: BLOOD No comment entered. Ordering Provider: TORREY GRIER Report Released Date/Time: May 14, 2024 03:09 PM Reporting Lab: [facility] [place] [facility] [address] [facility] [address] Performing Lab: [facility] [place] [facility] [address] [facility] [address] [facility] CBC AND DIFF (AUTO) EOSINOPHIL S [#/VOLUME] IN BLOOD BY AUTOMATED COUNT 0.15 10*3/uL 0.03 - 0.44 05/21 Specimen Type: BLOOD No comment entered. Ordering Provider: TORREY GRIER Report Released Date/Time: May 14, 2024 03:09 PM Reporting Lab: [facility] [place] [facility] [address] [facility] [address] Performing Lab: [facility] [place] [facility] [address] [facility] [address] [facility] CBC AND DIFF (AUTO) BASOPHILS [#/VOLUME] IN BLOOD BY AUTOMATED COUNT 0.09 10*3/uL 0.01 - 0.13 05/21 Specimen Type: BLOOD No comment entered. Ordering Provider: TORREY GRIER Report Released Date/Time: May 14, 2024 03:09 PM Reporting Lab: [facility] [place] [facility] [address] [facility] [address] Performing Lab: [facility] [place] [facility] [address] [facility] [address] [facility] [place] [facility] CBC AND DIFF (AUTO) IMMATURE GRANULOCYT ES/100 LEUKOCYTES IN BLOOD BY AUTOMATED COUNT 0.8 0.0 - 0.7 05/21 H Specimen Type: BLOOD No comment entered. Ordering Provider: TORREY GRIER Report Released Date/Time: May 14, 2024 03:09 PM Reporting Lab: [facility] [place] [address] [address] Performing Lab: [facility] [place] [facility] [address] [facility] [address] [facility] [place] [facility] CBC AND DIFF (AUTO) IMMATURE GRANULOCYT ES [#/VOLUME] IN BLOOD 0.07 10*3/uL 0.00 - 0.06 05/21 H Specimen Type: BLOOD No comment entered. Ordering Provider: TORREY GRIER Report Released Date/Time: May 14, 2024 03:09 PM Reporting Lab: [facility] [place] [address] [address] Performing Lab: [facility] [place] [facility] [address] [facility] [address] [facility] [place] [facility] CBC AND DIFF (AUTO) NRBC % 0.0 0.0 - 0.0 05/21 Specimen Type: BLOOD No comment entered. Ordering Provider: TORREY GRIER Report Released Date/Time: May 14, 2024 03:09 PM Reporting Lab: [facility] [place] [address] [address] Performing Lab: [facility] [place] [address] [address] [facility] CBC AND DIFF (AUTO) NRBC, ABS 0.00 10*3/uL 0.00 - 0.00 05/21 Specimen Type: BLOOD No comment entered. Ordering Provider: TORREY GRIER Report Released Date/Time: May 14, 2024 03:09 PM Reporting Lab: [facility] [address] [address] Performing Lab: [facility] [address] [facility] [address] [facility] Vital Signs Combined list of inpatient and outpatient Vital Signs from Department of Defense and Veterans Affairs, ranging from 12 months to all on record, depending upon the facility. Vital Sign Value Date Comments Source SYSTOLIC BLOOD PRESSURE 161 08/19/2024 14:17:59 [place] DIASTOLIC BLOOD PRESSURE 104 08/19/2024 14:17:59 [place] PULSE OXIMETRY 97 08/19/2024 14:17:59 [place] WEIGHT 261 08/19/2024 14:17:59 [place] BMI 44kg/m2 08/19/2024 14:17:59 [place] PULSE 75 08/19/2024 14:17:59 [place] SYSTOLIC BLOOD PRESSURE 153 07/22/2024 08:41:22 [place] DIASTOLIC BLOOD PRESSURE 90 07/22/2024 08:41:22 [place] PULSE OXIMETRY 98 07/22/2024 08:41:22 [place] WEIGHT 253 07/22/2024 08:41:22 [place] BMI 42kg/m2 07/22/2024 08:41:22 [place] PULSE 75 07/22/2024 08:41:22 [place] SYSTOLIC BLOOD PRESSURE 137 01/13/2024 08:36:45 [place] DIASTOLIC BLOOD PRESSURE 82 01/13/2024 08:36:45 [place] PULSE OXIMETRY 97 01/13/2024 08:36:45 [place] WEIGHT 250 01/13/2024 08:36:45 [place] BMI 42kg/m2 01/13/2024 08:36:45 [place] PULSE 74 01/13/2024 08:36:45 [place] SYSTOLIC BLOOD PRESSURE 148 12/06/2023 08:32:48 [place] DIASTOLIC BLOOD PRESSURE 85 12/06/2023 08:32:48 [place] PULSE OXIMETRY 96 12/06/2023 08:32:48 [place] WEIGHT 247 12/06/2023 08:32:48 [place] BMI 41kg/m2 12/06/2023 08:32:48 [place] PULSE 72 12/06/2023 08:32:48 [place] SYSTOLIC BLOOD PRESSURE 126 11/05/2023 14:20:00 [place] DIASTOLIC BLOOD PRESSURE 86 11/05/2023 14:20:00 [place] SYSTOLIC BLOOD PRESSURE 126 11/05/2023 14:20:00 [place] DIASTOLIC BLOOD PRESSURE 86 11/05/2023 14:20:00 [place] PULSE 87 11/05/2023 14:20:00 [place] Encounters Combined list of: 1) Encounters from Department of Veterans Affairs facilities going back up to thelas 18 months. 2) Encounters from the Department of Cinario facilities going back up to 280 months. Location Location Details Encounter Type Encounter Number Reason For Visit Attending Provider ADM Date DC Date Status Disposition Source [facility] [place] Outpatient Encounter [id number] 03/04 [facility] [place] Outpatient Encounter [id number] 03/08 [facility] [place] [facility] Outpatient Encounter [id number] 03/08 [facility] [place] [facility] [place] [facility] Outpatient Encounter [id number] 04/05 [facility] [place] [facility] AUTOMATIC BP MONITOR, DIAL [id number] Diagnos is: ICD-10- CM I10 Essenti al (primar y) hyperte nsion<b r/> STELEA,CAR MEN F 04/09 [facility] [place] [facility] OFFICE O/P EST MOD 30-39 MIN [id number] Diagnos is: ICD-10- CM I10 Essenti al (primar y) hyperte nsion<b r/> LIZETTE LEONARDO 04/09 [place] [facility] [place] [facility] Outpatient Encounter [id number] LIZETTE LEONARDO 04/26 [facility] [place] [facility] [facility] OFF/OP EST JANUARY X REQ PHY/QHP [id number] Diagnos is: ICD-10- CM I10 Essenti al (primar y) hyperte nsion<b r/> FALJENARO,JASEN OLAS 05/15 [place] [facility] [place] [place] [facility] OFFICE O/P EST MOD 30-39 MIN [id number] Diagnos is: ICD-10- CM Z00.00 Encntr for general adult medical exam w/o abnorma l finding s
KEKE TATUM ALISON 06/12 [facility] [place] [facility] OFFICE O/P EST MOD 30-39 MIN [id number] Diagnos is: ICD-10- CM E78.5 Hyperli pidemia , unspeci fied
LIZETTE LEONARDO 06/13 [place] [facility] [place] [facility] Outpatient Encounter [id number] 07/10 [facility] [place] [place] [facility] [place] [facility] COLLJ & INTERPJ DATA EA 30 D [id number] Diagnos is: ICD-10- CM G47.30 Sleep apnea, unspeci fied
ASHOK GRANADO 07/22 [facility] [place] [facility] En[facility] [id number] 08/11 [facility] [place] [facility] Outpatient Encounter [id number] 08/[address] [place] [facility] Outpatient Encounter [id number] 08/13 [place] [facility] Encounter [id number] 08/21 [facility] En[facility] [id number] 08/26 [facility] Out[facility] Encounter [id number] 09/13 [facility] [place] [facility] [facility] OFFICE O/P EST LOW 20 MIN [id number] Diagnos is: ICD-10- CM F33.0 Major depress rhys disorde r, recurre nt, mild
CRYSTAL BUTLER OY F 09/24 [place] [facility] [place] [facility] COMPRE OPH EXAM EST PT 1/> [id number] Diagnos is: ICD-10- CM H25.813 Combine d forms of age-rel ated catarac t, bilater al
[place] LIZBETH 09/26 [facility] CMPTR OPHTH IMG OPTIC NERVE [id number] Diagnos is: ICD-10- CM H40.053 Ocular hyperte nsion, bilater al
[place] LIZBETH 09/26 [facility] FIT SPECTACLES MULTIFOCAL [id number] Diagnos is: ICD-10- CM Z46.0 Encount er for fit/adj st of spectac les and contact lenses< br/> LISA LUGO 09/26 [facility] Out[facility] Encounter [id number] 09/27 [facility] [place] OFFICE O/P EST MOD 30 MIN [id number] Diagnos is: ICD-10- CM I10 Essenti al (primar y) hyperte nsion<b r/> LIZETTE LEONARDO MEN F 10/02 [place] [facility] Encounter [id number] 10/02 [facility] Encounter [id number] 10/02 [facility] Encounter [id number] 10/02 [facility] [place] Encounter [id number] 10/02 [facility] Encounter [id number] 10/02 [facility] Out[facility] Encounter [id number] [place] 10/07 [facility] Encounter [id number] 10/17 [facility] [place] [facility] LD OFF/OP EST MAY X REQ PHY/QHP [id number] Diagnos is: ICD-10- CM I10 Essenti al (primar y) hyperte nsion<b r/> [place] PATRICIA 11/05 [place] [facility] Out[facility] Encounter [id number] 11/19 [facility] OFFICE O/P EST LOW 20 MIN [id number] Diagnos is: ICD-10- CM M54.50 Low back pain, unspeci fied
GAUNYA,CHR ISTOPHER M 11/25 [facility] [place] [place] [facility] [place] OFFICE O/P EST LOW 20 MIN [id number] Diagnos is: ICD-10- CM G25.2 Other specifi ed forms of tremor< br/> STELEA,CAR MEN F 12/05 [place] [facility] Out[facility] Encounter [id number] 12/25 [facility] [place] [facility] OFF[facility] O/P EST MOD 30 MIN [id number] Diagnos is: ICD-10- CM I10 Essenti al (primar y) hyperte nsion<b r/> STELEA,CAR MEN F 01/12 [place] [facility] Out[facility] Encounter [id number] 01/26 [facility] Encounter [id number] 02/05 [facility] Out[facility] Encounter [id number] [place] CHASE PATRICIA 02/09 [facility] INFRARED THERAPY [id number] Diagnos is: ICD-10- CM M54.50 Low back pain, unspeci fied
GAUNYA,CHR ISTOPHER M 02/13 [facility] PURE TONE AUDIOMETRY AIR [id number] Diagnos is: ICD-10- CM Z02.89 Encount er for other adminis trative examina tions<b r/> KHRIS DAVENPORT L 02/18 [facility] ACUPUNCT W/O STIMUL ADDL 15M [id number] Diagnos is: ICD-10- CM M25.50 Pain in unspeci fied joint<b r/> GAUNYA,CHR ISTOPHER M 02/27 [facility] HEARING AID EXAM BOTH EARS [id number] Diagnos is: ICD-10- CM H90.3 Sensori neural hearing loss, bilater al
Thea CHRISTOPHER ANIKA E 03/18 [facility] [place] [facility] [place] OFFICE O/P EST LOW 20 MIN [id number] Diagnos is: ICD-10- CM F43.12 Post-tr aumatic stress disorde r, chronic
CRYSTAL BUTLER OY F 03/24 [place] [facility] Out[facility] En[facility] [id number] 03/27 [facility] CONFORMITY EVALUATION [id number] Diagnos is: ICD-10- CM Z46.1 Encount er for fitting and adjustm ent of hearing aid<br/ > MARCUS VANCE 04/01 [facility] [place] [facility] OFFICE O/P EST LOW 20 MIN [id number] Diagnos is: ICD-10- CM F43.12 Post-tr aumatic stress disorde r, chronic
CRYSTAL BUTLER OY F 05/05 [place] [facility] [place] [facility] OFFICE O/P EST MOD 30 MIN [id number] 1. Diagnos is: ICD-10- CM Z02.89 Encount er for other adminis trative examina tions<b r/> RAMBO GRIER 05/22 [facility] [place] Outpatient Encounter [id number] 1.06/09 [facility] [place] [place] [facility] Outpatient Encounter [id number] [facility] [place] [place] [facility] Outpatient Encounter [id number] 1.07/16 [facility] [place] [facility] OFFICE O/P EST MOD 30 MIN [id number] Diagnos is: ICD-10- CM G25.2 Other specifi ed forms of tremor< br/> KEHINDE HERNANDEZ 07/22 [place] [facility] [place] Outpatient Encounter [id number] 07/27 [facility] Out[facility] Encounter [id number] RASHAUN GAMINO 08/12 [facility] En[facility] [id number] 08[facility] [place] [place] [facility] COLLJ & INTERPJ DATA EA 30 D [id number] 1. Diagnos is: ICD-10- CM G47.30 Sleep apnea, unspeci fied
ASHOK [facility]RANADO A [facility] O/P EST MOD 30 MIN [id number] Diagnos is: ICD-10- CM M72.2 Plantar fascial fibroma tosis<b r/> KEHINDE HERNANDEZ 08/19 [facility] [place] [facility] [facility] Outpatient Encounter [id number] 1.08/[facility] Social History Combined list of available smoking, tobacco, and other social history from Department of Defense and Veterans Affairs facilities. Social History Type Response Date Comment Sourc e Tobacco smoking status [facility] VA-TOBACCO NEVER USED 09/24/2023 [facility] D History of tobacco use NE-TOBACCO NEVER USED 08/14/2022 [facility] D History of tobacco use NE-TOBACCO NEVER USED 11/09/2020 [facility] D History of tobacco use VA-TOBACCO NEVER USED 11/10/2019 [facility] D History of tobacco use NE-TOBACCO NEVER USED 11/19/2018 [facility] [place] History of tobacco use QUIT TOBACCO USE > 7 YEARS AGO 10/09/2017 [place] History of tobacco use QUIT TOBACCO USE > 7 YEARS AGO 07/17/2016 [place] History of tobacco use QUIT TOBACCO USE > 7 YEARS AGO 08/09/2015 [place] History of tobacco use QUIT TOBACCO USE > 7 YEARS AGO 04/17/2012 [place] History of tobacco use CURRENT SMOKER 11/18/2008 Pt. quit smoking 15 years ago while his spouse when she was !! [place] This section is an empty social history section. [facility] Plan of Care List of future care activities from Department of Veterans Affairs facilities. Additional future care activities may be listed in the Assessment and Plan section. Date/Time Care Activity Care Activity Detail Facili ty 08/25/2024 AMBULAT[facility] - [facility] 08/25/2024 AMBULATORY - PSYCHIATRY [facility] 10/08/2024 AMBULATORY - MEDICINE AMBULATORY - [place]IC[place] [place] [facility] 10/20/2024 AMBULATORY - MEDICINE [facility] 11[facility]17/2024 AMBULATORY - MEDICINE AMBULATORY - MEDICI NE [place] 01/20/2025 AMBULATORY - MEDICINE AMBULATORY - MEDICI NE [place] 07/22/2024 Consult Order SURGERY/CWM OUTP T Cons Self Defense Instructor's Choice [place] 07/22/2024 Consult Order PHARMACY/SOPC OU TPT Cons Self Defense Instructor's Choice [place]
--- OUTSIDE RECORDS SUMMARY | 2024-08-25 13:59 | XMS_ITS | Encounter Summary ---
Author Name [facility] [place] [facility] [place] [facility] [facility] [place] Address [address] [place] [id number] Care Team Providers Care Mold Yarn Supervisor Name Role Phone MARIETTA HERNANDEZ Primary Care Provider Unavailabl e Insurance Providers: All historical and current Section Date Range: From patient's date of to the date document was created. This section includes the names of all active insurance providers for the patient. Insurance Provider Type of Coverage Plan Name Start of Policy Coverage End of Policy Coverage Group Number Member ID Insurance Provider's Telephone Number Policy Ornelas's Name Patient's Relationship to Policy Ornelas CAREMARK PRESCRIPT ION GEHA Aug 06, 2020 [id number] WELCH,CANDE RODRIGUEZDO PATIENT CAREMARK PRESCRIPT ION GEHA Aug 06, 2020 [id number] WELCH,CANDE GLORIA PATIENT CAREMARK PRESCRIPT ION GEHA Apr 01, 2016 [id number] WELCH,CANDE GLORIA PATIENT CAREMARK PRESCRIPT ION GEHA [employer] Apr 01, 2016 [id number] WELCH,CANDE GLORIA PATIENT CAREMARK PRESCRIPT ION GEHA Apr 01, 2016 [id number] [phone] WELCH,CANDE GLORIA PATIENT CAREMARK PRESCRIPT ION GEHA Apr 01, 2016 [id number] [phone] WELCH,CANDE GLORIA PATIENT CAREMARK PRESCRIPT ION [facility] Mar 09, 2016 [id number] [phone] WELCH,CANDE GLORIA PATIENT [facility] PREFERRED PROVIDER ORGANIZAT ION (PPO) Mathew al [facility] [place] [facility] Apr 01, 2016 [id number] WELCH,CANDE GLORIA PATIENT [facility] DENTAL ONLY [facility] Apr 01, 2016 [id number] WELCH,CANDE GLORIA PATIENT [facility] PREFERRED PROVIDER ORGANIZAT ION (PPO) Mathew al Empl[facility] [place] a Jul 27, 2020 [id number] WELCH,CANDE GLORIA PATIENT [facility] MATHEW AL EMPLO [facility] Sep 09, 2021 [id number] WELCH,CANDE GLORIA PATIENT [facility] MATHEW AL EMPLO [facility] Sep 09, 2021 [id number] WELCH,CANDE GLORIA PATIENT [facility] Sep 09, 2021 [id number] 3GEHA WELCH,CANDE GLORIA PATIENT [facility] PREFERRED PROVIDER ORGANIZAT ION (PPO) [facility] Sep 09, 2023 [id number] WELCH,CANDE GLORIA PATIENT [facility] PREFERRED PROVIDER ORGANIZAT ION (PPO) [facility]AND [facility] Sep 09, 2023 [id number] WELCH,CANDE GLORIA PATIENT [facility] MEDICAL EXPENSE (OPT/PROF ) [facility] Sep 09, 2023 [id number] WELCH,CANDE GLORIA PATIENT [facility] PREFERRED PROVIDER ORGANIZAT ION (PPO) MATHEW AL EMPLO [facility] Sep 09, 2023 [id number] WELCH,CANDE GLORIA PATIENT [facility] PREFERRED PROVIDER ORGANARPAN ADKINS (PPO) MATHEW SMALLWOODToni TRAOREMiriam Sep 09, 2023 [id number] CANDE WELCH PATIENT Selected Encounter This section includes the information on record at [place] for the Encounter. Date/Time Encounter Type Encounter Description Reason Provider Source Sep 24, 2023 03:30 PM OFFICE O/P EST LOW 20 [facility] - IND ICD-10-CM F33.0 Major depressive disorder, recurrent, mild BUTLER,MARVIN F Janny Encounter Template Text not used by [place] Assessments - Encounter Diagnoses This section includes the primary and secondary diagnoses documented for the Encounter. Date/Time Primary/Secondary Diagnosis Diagnosis Name Provider Source Sep 24, 2023 03:50 PM PRIMARY Major depressive disorder, recurrent, mild CARRIE,MARVIN F [facility] Plan of Treatment: Future Appointments (+ 6 months) and Future Tests (+/- 45 days) The Plan of Treatment section includes future care activities for the patient from all [place] treatmentfacilities. This section includes future appointments and future orders which are active, pending or scheduled. Future Appointments This section includes appointments that were scheduled to occur 6 months from the date of the Encounter, up to a maximum of 20 appointments. The data comes from all [place] treatment facilities. Appointment Date/Time Appointment Type Appointme nt Facility Name Sep 26, 2023 08:00 AM AMBULATORY [place]ICINE [place] [facility] [place] [facility] Sep 26, 2023 09:30 AM [place]ORY [place]IC[place] [facility] [place] [facility] Oct 02, 2023 09:30 AM [facility]ORY - MEDICINE [facility] Nov 05, 2023 02:00 PM [facility]ORY - MEDICINE [facility] Nov 26, 2023 08:30 AM [place]ICINE [place] [facility] [place] [facility] Dec 06, 2023 08:30 AM [facility]ORY - [facility]ICINE [facility] Dec 26, 2023 03:30 PM [place]ORY [place]ICINE [place] [facility] [place] [facility] January 13, 2024 08:30 AM [facility]ORY [facility] MEDICINE [facility] Feb 14, 2024 08:30 AM [place]INE [place] [facility] [place] [facility] Feb 19, 2024 08:00 AM AMBUL[place]ORY [place]ICINE [place] [facility] [place] [facility] Feb 28, 2024 08:00 AM AMBULATORY - MEDICINE [place] [facility] [place] [facility] Mar 18, 2024 08:00 AM AMBULATORY - REHAB MEDICIN [facility] [place] [facility] Mar 24, 2024 03:30 PM AMBULATORY - PSYCHIATRY [facility] Lab Results: +/- 30 days of the encounter This section includes the Chemistry and Hematology Lab Results on record with [place] for the patient. Radiology Reports and Pathology Reports are provided separately, in subsequent sections. Lab Results This section contains the Chemistry/Hematology Results that were resulted 30 days before or 30 daysafter the date of the Encounter. Date/Time Source Result Type Result - Unit Interpretation Reference Range Comment Oct 01, 2023 07:33 AM [facility] C REACTIVE PROTEIN (CRPH) Specimen Type : SERUM Comment: Reference range changed on 02/27/11 CRP reference ranges for ages >17 years: hsCRP in mg/L Risk According to AHA/CDC Guidelines <1.0 Lower relative cardiovascular risk. 1.0-3.0 Average cardiovascular risk. 3.1-10.0 Higher cardiovascular risk. Consider retesting in two weeks to exclude a benign transient elevation in the baseline CRP value secondary to infection or inflammation. >10.0 Persistent elevation, upon retesting, may be associated with infection and inflammation. Ordering Provider: ROAS ELENA LEONARDO Report Released Date/Time: Sep 24, 2023 07:10 PM Reporting Lab: [facility] [address] [facility] [address] Performing Lab: [facility]ITALR[facility]ITALTRN [facility] [address] [facility] [address] C REACTIVE PROTEIN (CRPH) 1.98 mg/L See eval. Oct 01, 2023 07:33 AM [facility] THYROID T4 FREE(FT4) Specimen Type: SERUM No comment entered. Ordering Provider: ROSA ELENA LEONARDO Report Released Date/Time: Sep 24, 2023 07:10 PM Reporting Lab: [place] [facility] [address] [facility] [address] Performing Lab: [facility]ITALR[facility]PITALTRN [facility]ENTERUSETS [facility] [address] [facility] [id number] THYROID T4 FREE(FT4) 1.03 ng/dL 0.6-1.6 Oct 01, 2023 07:33 AM [facility] SED RATE, AUTOMATED Specimen Type: BLOOD No comment entered. Ordering Provider: ROSA ELENA LEONARDO Report Released Date/Time: Sep 24, 2023 07:10 PM Reporting Lab: [facility]PITALTRN [facility] [address] [facility] [address] Performing Lab: [place] [facility]ENTER[facility]ETS [address] [address] SED RATE, AUTOMATED 12 mm/h 0-15 Oct 01, 2023 07:33 AM [facility] LIPID PANEL FASTING Specimen Type: SERUM No comment entered. Ordering Provider: ROSA ELENA LEONARDO Report Released Date/Time: Sep 24, 2023 07:10 PM Reporting Lab: [facility]ITALRCARRAW[facility]ERN [address] [address] Performing Lab: [facility] [address] [address] CHOLESTEROL 193 mg/dL TRIGLYCERIDE 124 mg/dL 0-150 LDL calculated 124 mg/dL 0-129 CHOL/HDL 4.4 HDL CHOLESTEROL 44 mg/dL 40-60 Oct 01, 2023 07:33 AM [facility] TSH Specimen Type: SERUM No comment entered. Ordering Provider: ROSA ELENA LEONARDO Report Released Date/Time: Sep 24, 2023 07:10 PM Reporting Lab: [facility]ITALRMON[facility]OSPITALTRN [facility]ENTERUSE[address] [address] Performing Lab: [facility]OSPITALRL TRN [facility] CENTERUSETS [address] [address] TSH 2.98 u[IU]/mL 0.35-5.00 Oct 01, 2023 07:33 AM [facility] BASIC METABOLIC PANEL (fasting) Specime n Type: SERUM No comment entered. Ordering Provider: ROSA ELENA LEONARDO Report Released Date/Time: Sep 24, 2023 07:10 PM Reporting Lab: [facility]ITALRL TRN [facility] CENTERUSETS [address] [address] Performing Lab: [facility]PITALRCARRAWAY [facility] CENTERN [facility]ENTERUSE[address] [address] UREA NITROGEN 9 mg/dL 7-25 GLUCOSE 92 mg/dL 65-100 SODIUM 140 mmol/L 135-145 POTASSIUM 3.6 mmol/L 3.5-5.0 CHLORIDE 107 mmol/L 100-110 CO2 21 meq/L 20-30 CREATININE, Serum 0.83 mg/dL 0.50-1.40 eGFR(CKD-EPI 2020) >90 mL/min >60 Oct 01, 2023 07:33 AM [facility] LIVER FUNCTION Specimen Type: SERUM No comment entered. Ordering Provider: ROSA ELENA LEONARDO Report Released Date/Time: Sep 24, 2023 07:10 PM Reporting Lab: [facility] [address] [facility] [address] Performing Lab: [facility] [address] [facility] [address] PROTEIN,TOTAL 7.1 g/dL 6.0-8.3 ALBUMIN 3.9 g/dL 3.5-5.0 ALKALINE PHOSPHATASE 53 U/L 40-150 AST 30 U/L 5-34 ALT 28 U/L BILIRUBIN, TOTAL 1.0 mg/dL 0.2-1.2 Social History: Smoking Status (Most current) and Tobacco Use (All prior to encounter date) This section includes the most current, and the historical, smoking and tobacco- related health factors from the [place] facility where the Encounter took place. Current Smoking Status This section includes the most current smoking, or tobacco-related health factor, from the [place] facility where the Encounter took place. Date/Time Current Smoking Status Comment Delon novoa Sep 24, 2023 03:30 PM [place]-TOBACCO NEVER USED [facility] Tobacco Use History This section includes a history of the smoking, or tobacco-related health factors, that were collected on or before the date of the Encounter. The data comes from the [place] facility where the Encounter took place. Date/Time Smoking Status/Tobacco Use Comment F acility Aug 14, 2022 01:30 PM VA-TOBACCO NEVER USED [facility] Nov 09, 2020 08:00 AM VA-TOBACCO NEVER USED [facility] Nov 10, 2019 11:10 AM VA-TOBACCO NEVER USED [facility] Nov 19, 2018 07:52 AM VA-TOBACCO NEVER USED [facility] Oct 09, 2017 09:01 AM QUIT TOBACCO USE > 7 YEARS AGO [facility] Jul 17, 2016 08:21 AM QUIT TOBACCO USE > 7 YEARS AGO [facility] Aug 09, 2015 11:33 AM QUIT TOBACCO USE > 7 YEARS AGO [facility] Apr 17, 2012 09:48 AM QUIT TOBACCO USE > 7 YEARS AGO [facility] Nov 18, 2008 10:43 AM CURRENT SMOKER Pt. quit smoking 15 years ago while his spouse when she was !! [facility] Nov 18, 2008 10:43 AM QUIT TOBACCO USE > 7 YEARS AGO quit 15 years ago [facility] Encounter Notes: All associated encounter notes This section contains the clinical notes associated to the Encounter. Date/Time Encounter Note(s) Provider Source Sep 24, 2023 03:22 PM CLINICAL NURSE SPE CIALIST NOTE: LOCAL TITLE: CLINICAL NURSE SPECIALIST/MENTAL HEALTH STANDARD TITLE: CLINICAL NURSE SPECIALIST NOTE DATE OF NOTE: SEP 24, 2023@15:22 ENTRY DATE: SEP 24, 2023@15:22:20 AUTHOR: MARVIN BUTLER EXP COSIGNER: URGENCY: STATUS: COMPLETED Adjustment Disorder with Mixed Anxiety and Depressed Mood -medication management. In person visit -22 min Employed by the [place] [employer], working in [place]- Taking Hydroxyzine to help reduce anxiety when needed - reports good effect- takes prn. SC for PTSD- reports mild anxiety at this time Active problems - Computerized Problem List is the source for the followin. Chronic low back pain 2. Depressive Disorder NOS * 3. Hyperlipidemia * 4. Pilonidal cyst with abscess 5. Pain in joint involving hand 6. Gastroesophageal Reflux Disorder 7. Unspecified Sleep Apnea 8. Hypothyroidism 9. Tinnitus * 10. Obesity 11. Adjustment Disorder with Mixed Anxiety and Depressed Mood The following VA and Non-VA medications were reconciled with the patient: Active Outpatient Medications (including Supplies): AMLODIPINE BESYLATE 10MG TAB TAKE ONE TABLET BY MOUTH ONCE ACTIVE DAILY FOR BLOOD PRESSURE/HEART, DO NOT TAKE WITH GRAPEFRUIT JUICE HYDROXYZINE HCL 25MG TAB TAKE ONE TABLET BY MOUTH THREE ACTIVE TIMES DAILY NEEDED FOR ANXIETY METHOCARBAMOL 500MG TAB TAKE ONE TABLET BY MOUTH THREE ACTIVE TIMES DAILY NEEDED OMEPRAZOLE 20MG CAP,EC TAKE TWO CAPSULES BY MOUTH EVERY ACTIVE MORNING 30 MINUTES BEFORE BREAKFAST PROPRANOLOL HCL 10MG TAB TAKE ONE TABLET BY MOUTH TWICE ACTIVE DAILY Well groomed, friendly MSE:Speech: normal rate, volume, and tone; answered questions appropriately understandable, and relevant to the topic. No S/I, mild anxiety at this time Cognition: intact Memory grossly intact SI/HI: denied suicidal or homicidal ideation or intent Abnormal perceptions: no auditory or visual hallucinations. Thought process: linear Thought content: no delusions Insight/Judgment: Both good at present time. Mood euthymic Assessment: Sleep improved with C pap. Marriage relationship stable His is working and they have a 28 y/o son who will be working out of state Labs/Radiology/Tests/Consultation _x_ none ordered __ obtained: labs reviewed Plan: Continue Hydroxyzine 25mg tid prn for anxiety - good response He also takes Propranolol 10 mg bid for htn which also helps with anxiety Rt in 6 months/prn by request Suicide Screen: C-SSRS Screening [place] Suicide Severity Rating Scale (C-SSRS) screener 1. Over the past month, have you wished you were or wished you could go to sleep and not wake up? No 2. Over the past month, have you had any actual thoughts of killing yourself? No 3. Over the past month, have you been thinking about how you might do this? Response not required due to responses to other questions. 4. Over the past month, have you had these thoughts and had some intention of acting on them? Response not required due to responses to other questions. 5. Over the past month, have you started to work out or worked out the details of how to kill yourself? Response not required due to responses to other questions. 6. If yes, at any time in the past month did you intend to carry out this plan? Response not required due to responses to other questions. 7. In your lifetime, have you ever done anything, started to do anything, or prepared to do anything to end your life (for example, collected pills, obtained a gun, gave away valuables, went to the roof but didn't jump)? No 8. If YES, was this within the past 3 months? Response not required due to responses to other questions. Depression Screening: Perform PHQ-2 A PHQ-2 screen was performed. The score was 0 which is a negative screen for depression. Over the past two weeks, how often have you been bothered by the following problems? 1. Little interest or pleasure in doing things Not at all 2. Feeling down, depressed, or hopeless Not at all Tobacco Use Screening: The patient has never used tobacco. Medication Reconciliation: Outpatient: Has the patient been taking medications as documented in the EMLR? YES: The patient has been taking medications as documented in the EMLR. Essential Medication List for Review used to complete this medication reconciliation. INCLUDED IN THIS LIST: Alphabetical list of active outpatient prescriptions dispensed from this [facility] (local) and dispensed from another [place] or [facility] facility (remote) as well as inpatient orders (local, pending and active), local clinic medications, locally documented non-VA medications, and local prescriptions that have or been discontinued in the past 90 days. - All changes in medications, including all non-VA/Herbal/OTC medications were entered into CPRS. - If there were any medications the patient should no longer take, they were discontinued. - The patient/caregiver was instructed to update this list, discard old lists, and take this list to the next appointment, whether with a VA or non-VA provider. Alcohol Use Screen (AUDIT-C): Alcohol Screen: SCREEN FOR ALCOHOL (AUDIT-C) An alcohol screening test (AUDIT-C) was negative (score=1). 1. How often did you have a drink containing alcohol in the past year? Consider a drink to be a 12 ounce can or bottle of regular beer, 8 ounces of malt liquor, a 5 ounce glass of table wine, or a 1.5 ounce shot of liquor (like scotch, gin, or vodka). Monthly or less 2. How many drinks containing alcohol did you have on a typical day when you were drinking in the past year? One or two drinks 3. How often did you have six or more drinks on one occasion in the past year? Never /es/ Marvin Butler APRN, STAFF CLINICAL NURSE SPECIALIST Signed: 09/24/2023 15:50 MARVIN BUTLER
--- OUTSIDE RECORDS SUMMARY | 2024-08-25 13:59 | XMS_ITS | Encounter Summary ---
Author Name Department [place] Organization [place] Address [address] [place] [address] Care Team Providers Care Club Steward Name Role Phone MARIETTA HERNANDEZ Primary Care [...] CAREMARK PRESCRIPT ION GEHA Aug 06, 2020 [id number] [phone] CANDE WELCH PATIENT CAREMARK PRESCRIPT ION GEHA Aug 06, 2020 [id number] [phone] WELCH,CANDE GLORIA PATIENT CAREMARK PRESCRIPT ION GEHA Apr 01, 2016 [id number] [phone] WELCH,CANDE GLORIA PATIENT CAREMARK PRESCRIPT ION GEHA STAND COLEMAN PLAN Apr 01, 2016 [id number] WELCH,CANDE GLORIA PATIENT CAREMARK PRESCRIPT ION GEHA Apr 01, 2016 [id number] [phone] WELCH,CANDE GLORIA PATIENT CAREMARK PRESCRIPT ION GEHA Apr 01, 2016 [id number] [phone] WELCH,CANDE GLORIA PATIENT CAREMARK PRESCRIPT ION HA Mar 09, 2016 [id number] [phone] WELCH,CANDE GLORIA PATIENT ON LICENSE OF [facility] PREFERRED PROVIDER ORGANIZAT ION (PPO) Mathew al Emplo [place] Hea Apr 01, 2016 [id number] WELCH,CANDE GLORIA PATIENT ON LICENSE OF [facility] DENTAL ONLY DENTAL INSURANCE [facility] CTION DENT Apr 01, 2016 [id number] [phone] WELCH,CANDE GLORIA PATIENT [facility] PREFERRED PROVIDER ORGANIZAT ION (PPO) Mathew al Emplo camarillo [facility] Jul 27, 2020 [id number] WELCH,CANDE GLORIA PATIENT [facility] MATHEW AL EMPLO [place] [facility] Sep 09, 2021 [id number] WELCH,CANDE GLORIA PATIENT [facility] Sep 09, 2021 [id number] 3GEHA WELCH,CANDE GLORIA PATIENT [facility] MATHEW AL EMPLO [facility] Sep 09, 2021 [id number] 3GEHA WELCH,CANDE GLORIA PATIENT [facility] PREFERRED PROVIDER ORGANIZAT ION (PPO) GEHA STAND COLEMAN Sep 09, 2023 [id number] WELCH,CANDE GLORIA PATIENT [facility] PREFERRED PROVIDER ORGANIZAT ION (PPO) GEHA STAND COLEMAN Sep 09, 2023 [id number] 3GEHA WELCH,CANDE GLORIA PATIENT [facility] PREFERRED PROVIDER ORGANIZAT ION (PPO) MATHEW AL EMPLO [place] [facility] Sep 09, 2023 [id number] 3GEHA WELCH,CANDE GLORIA PATIENT [facility] PREFERRED PROVIDER ORGANIZAT ION (PPO) MATHEW AL EMPLO [place] [facility] Sep 09, 2023 [id number] [phone] [facility] MEDICAL EXPENSE (OPT/PROF ) [facility] Sep 09, 2023 [id number] CANDE WELCH PATIENT Selected Encounter This section includes the information on record at [place] for the Encounter. Date/Time Encounter Type Encounter Description Reason Pro vider Source Sep 13, 2023 02:27 PM Outpatient Encounter PRIMARY CARE/MEDICINE IHE Encounter Template Text not used by [place] Plan of Treatment: Future Appointments (+ 6 months) and Future Tests (+/- 45 days) The Plan of Treatment section includes future care activities for the patient from all [place] [facility]. This section includes future appointments and future orders which are active, pending or scheduled. Future Appointments This section includes appointments that were scheduled to occur 6 months from the date of the Encounter, up to a maximum of 20 appointments. The data comes from all [place] treatment facilities. Appointment Date/Time Appointment Type Appointme Facility Name Sep 24, 2023 03:30 PM AMBULATORY - PSYCHIATRY [facility] Sep 26, 2023 08:00 AM AMBULATORY - MEDICINE [place] [facility] [place] [facility] Sep 26, 2023 09:30 AM AMBULATORY - MEDICINE [place] [facility] [place] [facility] Oct 02, 2023 09:30 AM [facility]ICINE [facility] Nov 05, 2023 02:00 PM [facility]BULATORY - MEDICINE [facility] Nov 26, 2023 08:30 AM AMBULATORY - MEDICINE [place] [facility] [place] [facility] Dec 06, 2023 08:30 AM [facility]ATORY - MEDICINE [facility] Dec 26, 2023 03:30 PM AMBULATORY - MEDICINE [place] [facility] [place] [facility] January 13, 2024 08:30 AM [facility]ATORY - MEDICINE [facility] Feb 14, 2024 08:30 AM AMBULATORY - MEDICINE [place] [facility] [place] [facility] Feb 19, 2024 08:00 AM AMBULATORY - MEDICINE [place] [facility] [place] [facility] Feb 28, 2024 08:00 AM AMBULATORY - MEDICINE [place] [facility] [place] [facility] Lab Results: +/- 30 days of the encounter This section includes the Chemistry and Hematology Lab Results on record with [place] for the patient. Radiology Reports and Pathology Reports are provided separately, in subsequent sections. Lab Results This section contains the Chemistry/Hematology Results that were resulted 30 days before or 30 daysafter the date of the Encounter. Date/Time Source Result Type Result - Unit Interpretation Reference Range Comment Oct 01, 2023 07:33 AM [facility] C REACTIVE PROTEIN (CRPH) Specimen Type : [...] associated with infection and inflammation. Ordering Provider: ROSA ELENA LEONARDO Report Released Date/Time: Sep 24, 2023 07:10 PM Reporting Lab: [address] [address] Performing Lab: [facility] [address] [facility] [address] C REACTIVE PROTEIN (CRPH) 1.98 mg/L See eval. Oct 01, 2023 07:33 AM [facility] THYROID T4 FREE(FT4) Specimen Type: SERUM No comment entered. Ordering Provider: ROSA ELENA LEONARDO Report Released Date/Time: Sep 24, 2023 07:10 PM Reporting Lab: [address] [address] Performing Lab: [facility] [address] [facility] [address] THYROID T4 FREE(FT4) 1.03 ng/dL 0.6-1.6 Oct 01, 2023 07:33 AM [facility] SED RATE, AUTOMATED Specimen Type: BLOOD No comment entered. Ordering Provider: ROSA ELENA LEONARDO Report Released Date/Time: Sep 24, 2023 07:10 PM Reporting Lab: [address] [address] Performing Lab: [address] [address] SED RATE, AUTOMATED 12 mm/h 0-15 Oct 01, 2023 07:33 AM [facility] TSH Specimen Type: SERUM No comment entered. Ordering Provider: ROSA ELENA LEONARDO Report Released Date/Time: Sep 24, 2023 07:10 PM Reporting Lab: [facility] [address] [address] Performing Lab: [facility] [address] [address] TSH 2.98 u[IU]/mL 0.35-5.00 Oct 01, 2023 07:33 AM [facility] LIPID PANEL FASTING Specimen Type: SERUM No comment entered. Ordering Provider: ROSA ELENA LEONARDO Report Released Date/Time: Sep 24, 2023 07:10 PM Reporting Lab: [facility] [address] [address] Performing Lab: [facility] [address] [address] CHOLESTEROL 193 mg/dL TRIGLYCERIDE 124 mg/dL 0-150 LDL calculated 124 mg/dL 0-129 CHOL/HDL 4.4 HDL CHOLESTEROL 44 mg/dL 40-60 Oct 01, 2023 07:33 AM [facility] BASIC METABOLIC PANEL (fasting) Specime n Type: SERUM No comment entered. Ordering Provider: ROSA ELENA LEONARDO Report Released Date/Time: Sep 24, 2023 07:10 PM Reporting Lab: [facility] [address] [address] Performing Lab: [facility] [address] [address] UREA NITROGEN 9 mg/dL 7-25 GLUCOSE 92 mg/dL 65-100 SODIUM 140 mmol/L 135-145 POTASSIUM 3.6 mmol/L 3.5-5.0 CHLORIDE 107 mmol/L 100-110 CO2 21 meq/L 20-30 CREATININE, Serum 0.83 mg/dL 0.50-1.40 eGFR(CKD-EPI 2020) >90 mL/min >60 Oct 01, 2023 07:33 AM [facility] LIVER FUNCTION Specimen Type: SERUM No comment entered. Ordering Provider: ROSA ELENA LEONARDO Report Released Date/Time: Sep 24, 2023 07:10 PM Reporting Lab: [facility] [address] [facility] [address] Performing Lab: [facility] [address] [facility] [address] PROTEIN,TOTAL 7.1 g/dL 6.0-8.3 ALBUMIN 3.9 g/dL 3.5-5.0 ALKALINE PHOSPHATASE 53 U/L 40-150 AST 30 U/L 5-34 ALT 28 U/L BILIRUBIN, TOTAL 1.0 mg/dL 0.2-1.2 Encounter Notes: All associated encounter notes This section contains the clinical notes associated to the Encounter. Date/Time Encounter Note(s) Provider Source Sep 13, 2023 02:27 PM ADMINISTRATIVE NOT E: LOCAL TITLE: ADMINISTRATIVE NOTE STANDARD TITLE: ADMINISTRATIVE NOTE DATE OF NOTE: SEP 13, 2023@14:27 ENTRY DATE: SEP 13, 2023@14:28:24 AUTHOR: LUCERO KERR COSIGNER: URGENCY: STATUS: COMPLETED THIS BOX ICER CALLED TO RESCHEDULE 10/11/2023 APPT. NO ANSWER LEFT MESSAGE FOR TO CALL AND RESCHEDULE APPT. ALSO MAILED OUT CANCELLED APPT. JUAN TO . /holger/ VINCE KERR ADVANCED SOCIAL SERVICE ASSISTANT Signed: 09/13/2023 14:29 VINCE KERR [facility]
--- OUTSIDE RECORDS SUMMARY | 2024-08-25 13:59 | XMS_ITS ---
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 Name Role Phone MARIETTA HERNANDEZ Primary Care [...] CAREMARK PRESCRIPT ION GEHA Aug 06, 2020 [id number] CANDE WELCH PATIENT CAREMARK PRESCRIPT ION GEHA Aug 06, 2020 [id number] WELCH,CANDE GLORIA PATIENT CAREMARK PRESCRIPT ION GEHA Apr 01, 2016 [id number] [phone] WELCH,CANDE GLORIA PATIENT CAREMARK PRESCRIPT ION GEHA STAND COLEMAN PLAN Apr 01, 2016 [id number] WELCH,CANDE GLORIA PATIENT CAREMARK PRESCRIPT ION GEHA Apr 01, 2016 [id number] [phone] WELCH,CANDE GLORIA PATIENT CAREMARK PRESCRIPT ION GEHA Apr 01, 2016 [id number] [phone] WELCH,CANDE GLORIA PATIENT CAREMARK PRESCRIPT ION HA Mar 09, 2016 [id number] WELCH,CANDE GLORIA PATIENT [facility] PREFERRED PROVIDER ORGANIZAT ION (PPO) Mathew al Emplo [place] Hea Apr 01, 2016 [id number] WELCH,CANDE GLORIA PATIENT [facility] DENTAL ONLY DENTAL INSURANCE [facility] CTION DENT Apr 01, 2016 [id number] WELCH,CANDE GLORIA PATIENT [facility] PREFERRED PROVIDER ORGANIZAT ION (PPO) Mathew al Emplo [place] [facility] Jul 27, 2020 [id number] WELCH,CANDE GLORIA PATIENT [facility] MATHEW AL EMPLO [place]AR[place] [facility] Sep 09, 2021 [id number] 3GEHA WELCH,CANDE GLORIA PATIENT [facility] Sep 09, 2021 [id number] 3GEHA WELCH,CANDE GLORIA PATIENT [facility] MATHEW AL EMPLO [facility] Sep 09, 2021 [id number] 3GEHA WELCH,CANDE GLORIA PATIENT [facility] PREFERRED PROVIDER ORGANIZAT ION (PPO) GEHA STAND [facility]LE[facility] Sep 09, 2023 [id number] 3 WELCH,CANDE GLORIA PATIENT [facility] PREFERRED PROVIDER ORGANIZAT ION (PPO) GEHA STAND [employer]LEMAN Sep 09, 2023 [id number] 3GEHA WELCH,CANDE GLORIA PATIENT [facility] PREFERRED PROVIDER ORGANIZAT ION (PPO) MATHEW AL EMPLO CAMARILLO [facility] Sep 09, 2023 [id number] 3GEHA WELCH,CANDE GLORIA PATIENT [facility] PREFERRED PROVIDER ORGANIZAT ION (PPO) MATHEW AL EMPLO [place] [facility] Sep 09, 2023 [id number] CANDE WELCH PATIENT [facility] MEDICAL EXPENSE (OPT/PROF ) [facility] Sep 09, 2023 [id number] [phone] CANDE WELCH PATIENT Selected Encounter This section includes the information on record at [place] for the Encounter. Date/Time Encounter Type Encounter Description Reason Pro vider Source Aug 26, 2023 12:49 PM Outpatient Encounter PRIMARY CARE/MEDICINE IHE Encounter Template Text not used by [place] Plan of Treatment: Future Appointments (+ 6 months) and Future Tests (+/- 45 days) The Plan of Treatment section includes future care activities for the patient from all [place] [facility]. This section includes future appointments and future orders which are active, pending or scheduled. Future Appointments This section includes appointments that were scheduled to occur 6 months from the date of the Encounter, up to a maximum of 20 appointments. The data comes from all [place] treatment facilities. Appointment Date/Time Appointment Type Appointme Facility Name Sep 24, 2023 03:30 PM AMBULATORY - PSYCHIATRY [facility] Sep 26, 2023 08:00 AM AMBULATORY - MEDICINE [place] [place] [facility] Sep 26, 2023 09:30 AM AMBULATORY - MEDICINE [place] [facility] [place] [facility] Oct 02, 2023 09:30 AM [facility]BULATORY - MEDICINE [facility] Nov 05, 2023 02:00 PM AMBULATORY - MEDICINE [facility] Nov 26, 2023 08:30 AM AMBULATORY - MEDICINE [place] [facility] [place] [place] [facility] Dec 06, 2023 08:30 AM AMBULATORY - MEDICINE [facility] Dec 26, 2023 03:30 PM AMBULATORY - MEDICINE [place] [facility] [place] [place] [facility] January 13, 2024 08:30 AM AMBULATORY - MEDICINE [facility] Feb 14, 2024 08:30 AM AMBULATORY - MEDICINE [place] [facility] [place] [place] [facility] Feb 19, 2024 08:00 AM AMBULATORY - MEDICINE [place] [facility] [place] [place] [facility] Lab Results: +/- 30 days of the encounter This section includes the Chemistry and Hematology Lab Results on record with [place] for the patient. Radiology Reports and Pathology Reports are provided separately, in subsequent sections. Lab Results This section contains the Chemistry/Hematology Results that were resulted 30 days before or 30 daysafter the date of the Encounter. Date/Time Source Result Type Result - Unit Interpretation Reference Range Comment Aug 06, 2023 07:33 AM [facility] THYROID T4 FREE(FT4) Specimen Type: SERUM No comment entered. Ordering Provider: HEATHER LEONARDO Report Released Date/Time: Jun 13, 2023 03:39 PM Reporting Lab: [facility] [address] [facility] [address] Performing Lab: [facility] [address] [facility] [address] THYROID T4 FREE(FT4) 1.01 ng/dL 0.6-1.6 Aug 06, 2023 07:33 AM [facility] TSH Specimen Type: SERUM No comment entered. Ordering Provider: HEATHER LEONARDO Report Released Date/Time: Jun 13, 2023 03:39 PM Reporting Lab: [facility] [address] [facility] [address] Performing Lab: [facility] [address] [facility] [address] TSH 5.09 u[IU]/mL H 0.35-5.00 Aug 06, 2023 07:33 AM [facility] MICROSCOPIC AUTOMATED, URINE Specimen Type: URINE Comment: If Glucose = >500 and Ketones are positive, please alert the Physician. Ordering Provider: HEATHER LEONARDO Report Released Date/Time: Jun 13, 2023 03:39 PM Reporting Lab: [facility] [address] [facility] [address] Performing Lab: [facility] [address] [facility] [address] UA WBC 0-5 /[HPF] 0-5 UA MUCUS MANY /[LPF] Trace UA RBC 3-5 /[HPF] 0-3 UA SQUAMOUS EPITH FEW /[HPF] Aug 06, 2023 07:33 AM [facility] URINALYSIS Specimen Type: URINE Comment: If Glucose = >500 and Ketones are positive, please alert the Physician. Ordering Provider: HEATHER LEONARDO Report Released Date/Time: Jun 13, 2023 03:39 PM Reporting Lab: [address] [address] Performing Lab: [address] [address] UA COLOR Yellow Yellow UA APPEARANCE Clear Clear UA GLUCOSE NEGATIVE mg/dL Negative UA KETONES TRACE mg/dL Negative UA BLOOD NEGATIVE mg/dL Negative UA PROTEIN 30 mg/dL Negative UA NITRITE NEGATIVE mg/dL Negative UA BILIRUBIN NEGATIVE mg/dL Negative UA SPECIFIC GRAVITY 1.030 H 1.016-1.022 UA pH 5.5 5.0-9.0 UA UROBILINOGEN <2.0 mg/dL <2.0 UA LEUKOCYTE TRACE Negative Aug 06, 2023 07:32 AM [facility] HEPATITIS C ANTIBODY (HCV)-ARC Specimen Type: SERUM Comment: Hep C Ab: No HCV antibody detected. If recent infection is suspected or other evidence suggests HCV infection, consider HCV nucleic acid testing Ordering Provider: ADRIANA EDEN Report Released Date/Time: Aug 31, 2022 02:35 PM Reporting Lab: [address] [address] Performing Lab: [address] [address] HEPATITIS C ANTIBODY NON-REACTIVE NON-REACTIV E Pathology Reports: +/- 30 days of the encounter Pathology Reports For cases when an order for pathology services may have been completed prior to the date of the Encounter, the report list includes the Pathology Reports that were completed up to 30 days before dateof the Encounter. For cases when an order for pathology services may have been completed after the date of the Encounter, the report list also includes the Pathology Reports that were completed up to30 days after date of the Encounter. The data comes from all [facility] facilities. Date/Time Pathology Report Provider Source Aug 06, 2023 07:33 AM MICROBIOLOGY RE PORT: Reporting Lab: [facility] [CLIA# [id number]] [address] [place] [address] Accession [UID]: [id number] [[id number]] Received: Aug 06, 2023@07:33 Collection sample: URINE CLEAN CATCH Collection date: Aug 06, 2023 07:33 Site/Specimen: URINE Provider: HEATHER LEONARDO Test(s) ordered: URINE CULTURE(MWROX).......... completed: Aug 09, 2023 12:43 * BACTERIOLOGY FINAL REPORT => Aug 09, 2023 12:43 TECH CODE: [id number] Bacteriology Remark(s): NO GROWTH IN 24 HOURS, FINAL REPORT TO FOLLOW. FINAL AEROBIC REPORT: NO GROWTH =--=--=--=--=--=--=--=--=--=--=--=--= --=--=--=--=--=--=--=--=--=--=--=--=- -=-- Performing Laboratory: Bacteriology Report Performed By: [facility] [CLIA# [id number]] [address] [place] [phone] [facility] Encounter Notes: All associated encounter notes This section contains the clinical notes associated to the Encounter. Date/Time Encounter Note(s) Provider Source Aug 26, 2023 12:51 PM LETTERS: LOCAL TITLE: PATIENT LETTER (T) STANDARD TITLE: LETTERS DATE OF NOTE: AUG 26, 2023@12:51 ENTRY DATE: AUG 26, 2023@12:51:35 AUTHOR: HEATHER LEONARDO EXP COSIGNER: URGENCY: STATUS: COMPLETED PATIENT LETTER (T) Has ADDENDA DEPARTMENT OF [facility] Toll Free Number Primary Care Telephone Assistance can be reached at extension [phone] [facility] scheduling can be reached at extension [phone] [facility] scheduling can be reached at ext [phone] MOUNIKA WELCH [address], [place], [address] Dear Anton, Your TSH is borderline elevated but with normal free T4-nothing to be done at this time we will continue to monitor. The urine is negative for infection. If you have any questions please call our office back Saturday to Saturday from 8 AM to 4 PM; the phone number is [phone]. Sincerely, Dr. Heather Leonardo 08/26/2023 ADDENDUM STATUS: COMPLETED THIS FRUIT PITTER MAILED LETTER TO SERGEY. /holger/ VINCE KERR ADVANCED ASSISTANT PROFESSOR OF MARINE BIOLOGY Signed: 08/26/2023 13:00 Sincerely, Your Primary Care Team [facility] [address] [address] [place] [address] [phone] [facility] [address] [place] [address] [place] [address] [phone] [facility] [address] [facility],[address] [place] [address] [place] [address] HEATHER LEONARDO [facility]
--- OUTSIDE RECORDS SUMMARY | 2024-08-25 14:00 | XMS_ITS ---
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 Name Role Phone MARIETTA HERNANDEZ Primary Care [...] CAREMARK PRESCRIPT ION GEHA Aug 06, 2020 [id number] [phone] CANDE WELCHDO PATIENT CAREMARK PRESCRIPT ION GEHA Aug 06, 2020 [id number] WELCH,CANDE GLORIA PATIENT CAREMARK PRESCRIPT ION GEHA Apr 01, 2016 [id number] WELCH,CANDE GLORIA PATIENT CAREMARK PRESCRIPT ION GEHA STAND [employer]LE[employer] PLAN Apr 01, 2016 [id number] WELCH,CANDE GLORIA PATIENT CAREMARK PRESCRIPT ION GEHA Apr 01, 2016 [id number] [phone] WELCH,CANDE GLORIA PATIENT CAREMARK PRESCRIPT ION GEHA Apr 01, 2016 [id number] WELCH,CANDE GLORIA PATIENT CAREMARK PRESCRIPT ION [facility] Mar 09, 2016 [id number] [phone] WELCH,CANDE GLORIA PATIENT [facility] PREFERRED PROVIDER ORGANIZAT ION (PPO) Mathew al [facility]pl[facility] [place] He[facility] Apr 01, 2016 [id number] [phone] WELCH,CANDE GLORIA PATIENT [facility] DENTAL ONLY DENTAL INSURANCE [facility] CTION DENT Apr 01, 2016 [id number] WELCH,CANDE GLORIA PATIENT [facility] PREFERRED PROVIDER ORGANIZAT ION (PPO) Mathew al Emplo [place] [facility] Jul 27, 2020 [id number] WELCH,CANDE GLORIA PATIENT [facility] MATHEW AL EMPLO [place] [facility] Sep 09, 2021 [id number] 3GEHA WELCH,CANDE GLORIA PATIENT [facility] MATHEW AL EMPLO [place] A Sep 09, 2021 [id number] 3GEHA WELCH,CANDE GLORIA PATIENT [facility] Sep 09, 2021 [id number] 3GEHA WELCH,CANDE GLORIA PATIENT [facility] PREFERRED PROVIDER ORGANIZAT ION (PPO) [facility] Sep 09, 2023 [id number] WELCH,CANDE GLORIA PATIENT [facility] PREFERRED PROVIDER ORGANIZAT ION (PPO) [facility] Sep 09, 2023 [id number] 3GEHA WELCH,CANDE GLORIA PATIENT [facility] PREFERRED PROVIDER ORGANIZAT ION (PPO) MATHEW AL EMPLO [place] A Sep 09, 2023 [id number] WELCH,CANDE GLORIA PATIENT [facility] MEDICAL EXPENSE (OPT/PROF ) [facility] Sep 09, 2023 [id number] [facility] CANDE WELCH PATIENT [facility] PREFERRED PROVIDER ORGANIZAT ION (PPO) MATHEW SMALLWOODToni TRAOREMiriam Sep 09, 2023 [id number] [facility] CANDE WELCH PATIENT Selected Encounter This section includes the information on record at OR for the Encounter. Date/Time Encounter Type Encounter Description Reason Provider Source Sep 26, 2023 08:00 AM COMPRE OPH EXAM EST PT 1/> OPTOMETRY ICD-10-CM H25.813 Combined forms of age-related cataract, bilateral BRITTNEY,RICH E IHE Encounter Template Text not used by OR Assessments - Encounter Diagnoses This section includes the primary and secondary diagnoses documented for the Encounter. Date/Time Primary/Secondary Diagnosis Diagnosis Name Provider Source Oct 08, 2023 10:59 AM PRIMARY Combined forms of age-related cataract, bilateral BRITTNEY,RICH E [facility] [place] [facility] Oct 08, 2023 10:59 AM SECONDARY Ocular hypertension, bilateral BRITTNEY,RICH E [facility] [place] [facility] Plan of Treatment: Future Appointments (+ 6 months) and Future Tests (+/- 45 days) The Plan of Treatment section includes future care activities for the patient from all OR treatmentfacilities. This section includes future appointments and future orders which are active, pending or scheduled. Future Appointments This section includes appointments that were scheduled to occur 6 months from the date of the Encounter, up to a maximum of 20 appointments. The data comes from all OR treatment facilities. Appointment Date/Time Appointment Type Appointme nt Facility Name Oct 02, 2023 09:30 AM AMBULATORY - MEDICINE [facility] Nov 05, 2023 02:00 PM AMBULATORY - MEDICINE [facility] Nov 26, 2023 08:30 AM AMBULATORY - MEDICINE [place] [facility] [place] [facility] Dec 06, 2023 08:30 AM [facility] Dec 26, 2023 03:30 PM AMBULATORY - MEDICINE [place] [facility] [place] [facility] January 13, 2024 08:30 AM AMBULATORY - MEDICINE [facility] Feb 14, 2024 08:30 AM AMBULATORY - MEDICINE [place] [facility] [place] [facility] Feb 19, 2024 08:00 AM AMBULATORY - MEDICINE OR [facility] [place] [facility] Feb 28, 2024 08:00 AM AMBULATORY - MEDICINE [facility] [place] [facility] Mar 18, 2024 08:00 AM AMBULATORY - REHAB MEDICIN E [facility] [place] [facility] Mar 24, 2024 03:30 PM AMBULATORY - PSYCHIATRY [facility] Lab Results: +/- 30 days of the encounter This section includes the Chemistry and Hematology Lab Results on record with OR for the patient. Radiology Reports and Pathology Reports are provided separately, in subsequent sections. Lab Results This section contains the Chemistry/Hematology Results that were resulted 30 days before or 30 daysafter the date of the Encounter. Date/Time Source Result Type Result - Unit Interpretation Reference Range Comment Oct 01, 2023 07:33 AM MASTIC C REACTIVE PROTEIN (CRPH) Specimen Type : [...] Sep 24, 2023 07:10 PM Reporting [facility] [address] [facility] [address] Performing Lab: [facility] [address] [facility] [address] C REACTIVE PROTEIN (CRPH) 1.98 mg/L See eval. Oct 01, 2023 07:33 AM MASTIC THYROID T4 FREE(FT4) Specimen Type: SERUM No comment entered. Ordering Provider: ROSA ELENA LEONARDO Report Released Date/Time: Sep 24, 2023 07:10 PM Reporting Lab: [place] [facility] [place] [facility] [address] [facility] [address] Performing Lab: [facility]RCLE[facility] HOMETRN [facility]US[facility] [address] [facility] [address] THYROID T4 FREE(FT4) 1.03 ng/dL 0.6-1.6 Oct 01, 2023 07:33 AM MASTIC SED RATE, AUTOMATED Specimen Type: BLOOD No comment entered. Ordering Provider: ROSA ELENA LEONARDO Report Released Date/Time: Sep 24, 2023 07:10 PM Reporting Lab: [facility] [address] [facility] [address] Performing Lab: [facility]ITAL[facility] [address] [address] SED RATE, AUTOMATED 12 mm/h 0-15 Oct 01, 2023 07:33 AM MASTIC TSH Specimen Type: SERUM No comment entered. Ordering Provider: ROSA ELENA LEONARDO Report Released Date/Time: Sep 24, 2023 07:10 PM Reporting Lab: [facility] HOMETRN [address] [address] Performing Lab: [facility]PITALRDECATUR MOR[facility]OSP[facility]-PARK[facility] CAMPUSN [facility]USE[address] [address] TSH 2.98 u[IU]/mL 0.35-5.00 Oct 01, 2023 07:33 AM MASTIC LIPID PANEL FASTING Specimen Type: SERUM No comment entered. Ordering Provider: ROSA ELENA LEONARDO Report Released Date/Time: Sep 24, 2023 07:10 PM Reporting Lab: [facility]ITALRDECAT[facility]PARK[facility] CAMPUSN [address] [address] Performing Lab: [facility] [address] [address] CHOLESTEROL 193 mg/dL TRIGLYCERIDE 124 mg/dL 0-150 LDL calculated 124 mg/dL 0-129 CHOL/HDL 4.4 HDL CHOLESTEROL 44 mg/dL 40-60 Oct 01, 2023 07:33 AM MASTIC BASIC METABOLIC PANEL (fasting) Specime n Type: SERUM No comment entered. Ordering Provider: ROSA ELENA LEONARDO Report Released Date/Time: Sep 24, 2023 07:10 PM Reporting Lab: [facility]ITALRL TRN [facility] [address] Performing Lab: [facility]ITALRCLEBURNE [facility] NURSING HOMETRN [facility]USE[address] [address] UREA NITROGEN 9 mg/dL 7-25 GLUCOSE 92 mg/dL 65-100 SODIUM 140 mmol/L 135-145 POTASSIUM 3.6 mmol/L 3.5-5.0 CHLORIDE 107 mmol/L 100-110 CO2 21 meq/L 20-30 CREATININE, Serum 0.83 mg/dL 0.50-1.40 eGFR(CKD-EPI 2020) >90 mL/min >60 Oct 01, 2023 07:33 AM MASTIC LIVER FUNCTION Specimen Type: SERUM No comment entered. Ordering Provider: ROSA ELENA LEONARDO Report Released Date/Time: Sep 24, 2023 07:10 PM Reporting Lab: [facility] [address] [facility] [address] Performing Lab: [facility] [address] [facility] [address] PROTEIN,TOTAL 7.1 g/dL 6.0-8.3 ALBUMIN 3.9 g/dL 3.5-5.0 ALKALINE PHOSPHATASE 53 U/L 40-150 AST 30 U/L 5-34 ALT 28 U/L BILIRUBIN, TOTAL 1.0 mg/dL 0.2-1.2 Encounter Notes: All associated encounter notes This section contains the clinical notes associated to the Encounter. Date/Time Encounter Note(s) Provider Source Sep 26, 2023 09:11 AM OPTOMETRY NOTE: LOCAL TITLE: OPTOMETRY NOTE STANDARD TITLE: OPTOMETRY NOTE DATE OF NOTE: SEP 26, 2023@09:11 ENTRY DATE: SEP 26, 2023@09:11:11 AUTHOR: KODAK LUGO EXP COSIGNER: URGENCY: STATUS: COMPLETED I saw this patient in conjunction with the student and agree with stated findings and plan as noted below after reviewing both the history and repeating maynard elements of the physical exam now. Patient last seen September 27, 2022 with previous history of ocular hypertension returns today for comprehensive eye examination. He notes increased difficulty reading with his current glasses which are distance vision only. Anterior segment evaluation shows clear cornea, deep and quiet anterior chamber, normal iris without transillumination defects as well as early nuclear sclerosis with peripheral cortical changes right greater than left eye without pseudoexfoliation each eye. Intraocular pressure today is noted to be 20 mmHg right eye 18 mmHg left eye. Pachymetry obtained and thicker than average each eye. Dilated fundus examination shows smaller disc size 0.40 cup-to-disc ratio right eye 0.50 left eye with distinct disc margins and intact rim tissue. Optic nerve OCT obtained with no evidence of nerve fiber layer loss or defect in any quadrant either eye. Normal macula each eye with no evidence of retinal hole, tear, detachment noted. Impression: Early nuclear sclerotic and cortical cataracts each not visually significant at present. Update glasses today. Previous history of ocular hypertension with lower IOP and not meeting criteria of ocular hypertension based on exam today. There is no evidence of pseudoexfoliation, pigment dispersion or positive family history for glaucoma. Pachymetry obtained today and somewhat thicker than average at 566 ??m right eye and 567 ??m left eye. Optic nerve OCT obtained as well which shows robust retinal nerve fiber layer thickness each eye without evidence of defect. Would not repeat visual imaging unless there are concerning changes to disc appearance, elevation in intraocular pressure or other physical signs suggestive of glaucomatous progression either eye. Plan: Patient education as noted above reviewed exam findings now. Order glasses today. Return in 12 months or sooner if need be. He is currently not taking or prescribed any ocular medications. Medication Reconciliation: Outpatient: Has the patient been taking medications as documented in the EMLR? YES: The patient has been taking medications as documented in the EMLR. Essential Medication List for Review used to complete this medication reconciliation. INCLUDED IN THIS LIST: Alphabetical list of active outpatient prescriptions dispensed from this [facility] (local) and dispensed from another OR or [facility] facility (remote) as well as inpatient orders [...] whether with a VA or non-VA provider. Medication List: JLV Link Data on this list may not be complete. Please check JLV. Allergies/ADRs (Tool #5) FACILITY ALLERGY/ADR -------- [facility] NO KNOWN ALLERGIES [facility] [place] [facility] No Known Allergies [facility] NO KNOWN ALLERGIES Med. Reconciliation (Tool #1) INCLUDED IN THIS LIST: Alphabetical list of active outpatient prescriptions dispensed from this OR (local) and dispensed from another OR or [facility] facility (remote) as well as inpatient orders (local pending and active), local clinic medications, locally documented non-VA medications, and local prescriptions that have or been discontinued in the past 90 days. Non-VA Meds Last Documented On: Jul 27, 2020 NOTE The display of VA prescriptions dispensed from another OR or [facility] facility (remote) is limited to active outpatient prescription entries matched to National Drug File at the originating site and may not include some items such as investigational drugs, compounds, etc. NOT INCLUDED IN THIS LIST: Medications self-entered by the patient into personal health records (i.e. Reds[employer]) are NOT included in this list. Non-VA medications documented outside this OR, remote inpatient orders (regardless of status) and remote clinic medications are NOT included in this list. The patient and provider must always discuss medications the patient is taking, regardless of where the medication was dispensed or obtained. OUTPT AMLODIPINE BESYLATE 10MG TAB (Status = ) TAKE ONE TABLET BY MOUTH ONCE DAILY FOR BLOOD PRESSURE/HEART, DO NOT TAKE WITH GRAPEFRUIT JUICE Rx# [id number] Last Released: 07/19/23 Qty/Days Supply: Rx Expiration Date: 08/06/23 Refills Remainin OUTPT CHOLECALCIF 25MCG (D3-1,000UNIT) TAB (Status = Active) TAKE ONE TABLET BY MOUTH ONCE DAILY FOR VITAMIN D DEFICIENCY FOR VITAMIN SUPPLEMENTATION Rx# [id number] Last Released: 06/19/23 Qty/Days Supply: 90/ Rx Expiration Date: 06/13/24 Refills Remainin Indication: FOR VITAMIN D DEFICIENCY OUTPT HYDROXYZINE HCL 25MG TAB (Status = Discontinued) TAKE ONE TABLET BY MOUTH THREE TIMES DAILY NEEDED FOR ANXIETY Rx# [id number] Last Released: 07/19/23 Qty/Days Supply: 180/60 Rx Expiration Date: 02/13/24 Refills Remainin OUTPT HYDROXYZINE HCL 25MG TAB (Status = Active) TAKE ONE TABLET BY MOUTH THREE TIMES DAILY NEEDED FOR ANXIETY Rx# [id number] Last Released: 09/27/23 Qty/Days Supply: 180/60 Rx Expiration Date: 09/24/24 Refills Remainin OUTPT METHOCARBAMOL 500MG TAB (Status = ) TAKE ONE TABLET BY MOUTH THREE TIMES DAILY NEEDED Rx# [id number] Last Released: 07/19/23 Qty/Days Supply: 60/ Rx Expiration Date: 08/06/23 Refills Remainin OUTPT OMEPRAZOLE 20MG EC CAP (Status = ) TAKE TWO CAPSULES BY MOUTH EVERY MORNING 30 MINUTES BEFORE BREAKFAST Rx# [id number] Last Released: 07/19/23 Qty/Days Supply: 180/90 Rx Expiration Date: 08/25/23 Refills Remainin OUTPT PROPRANOLOL HCL 10MG TAB (Status = ) TAKE ONE TABLET BY MOUTH TWICE DAILY Rx# [id number] Last Released: 07/19/23 Qty/Days Supply: 120/60 Rx Expiration Date: 08/02/23 Refills Remainin SUPPLIES PHARMACY TERMS AND POSSIBLE PATIENT ACTIONS INPT = OR inpatient order IV = OR intravenous medication OUTPT = OR outpatient prescription PHARMACY POSSIBLE PATIENT TERMS EXPLANATION ACTIONS -------- ----- ACTIVE A prescription that can be If you have refills, filled at the local [place] pharmacy. you may request a refill of this prescription from your VA pharmacy. CLINIC A medication you received during If you have questions a visit to a OR clinic or about this medication emergency department. contact your OR healthcare team. DISCONTINUED A prescription your provider has Contact your OR stopped. It is no longer healthcare team if you available to be sent to you or need more of this picked up at the OR pharmacy medication. window. A prescription which is too old Contact your VA to fill. This does not refer to healthcare team if you the expiration date of the need more of this medication in the container. medication. NON-VA A medication that came from If this medication someplace other than a VA information is pharmacy. This may be a incorrect or out of prescription from either the VA date, please tell your or non VA providers that was VA healthcare team. filled outside the VA. Or, it may be an [id number] (OTC), herbal, dietary supplements or sample medication. ON HOLD An active prescription that will Contact your VA not be filled until pharmacy pharmacy when you need resolves the issue. more of this medication. PARKED An active prescription that will Contact your VA not be filled until the patient pharmacy when you need requests it. this medication. PENDING This prescription order has been If you have been sent to the pharmacy for review instructed to start and is not ready yet. this medication now, contact your VA pharmacy. SUSPENDED An active prescription that is Contact your OR not scheduled to be filled yet. pharmacy if you need You should receive it before this medication now. you run out. Declines printed copy of medication list now. /holger/ Kodak Lugo OD CHIEF OF OPTOMETRY Signed: 09/29/2023 17:51 KODAK LUGO [facility] [place] [facility] Sep 26, 2023 07:49 AM OPTOMETRY NOTE: LOCAL TITLE: OPTOMETRY NOTE STANDARD TITLE: OPTOMETRY NOTE DATE OF NOTE: SEP 26, 2023@07:49 ENTRY DATE: SEP 26, 2023@07:49:39 AUTHOR: JORGE VICTORIA EXP COSIGNER: KODAK LUGO URGENCY: STATUS: COMPLETED Active problems - Computerized Problem List is the source for the followin. Urine screening abnormal 2. Tremor 3. LBP - Low back pain 4. Arthritis 5. History of colonoscopy 6. Bacteriuria 7. Vitamin D deficiency 8. Chronic post-traumatic stress disorder 9. Heartburn 10. Diverticular disease of colon 11. Kidney stone 12. Erythrocytosis 13. Inguinal hernia 14. Obstructive sleep apnea syndrome 15. HTN-Hypertension (SCT 13250001) 16. ECG: normal sinus rhythm 17. Panic disorder with agoraphobia 18. Anxiety disorder 19. Tremor 20. Chronic low back pain 21. Depression (SNOMED CT 98271205) 22. Hyperlipidemia (SNOMED CT 40143051) 23. Pilonidal cyst with abscess 24. Pain in joint involving hand 25. Gastroesophageal reflux disease (SNOMED CT 989011517) 26. Sleep apnea (SNOMED CT 20574068) 27. Hypothyroidism (SNOMED CT 39806395) 28. Tinnitus * 29. Obesity 30. Adjustment disorder with anxious mood (SNOMED CT 03118978) Active Outpatient Medications (including Supplies): Active Outpatient Medications Status 1) CHOLECALCIF 25MCG (D3-1,000UNIT) TAB TAKE ONE TABLET ACTIVE BY MOUTH ONCE DAILY FOR VITAMIN D DEFICIENCY FOR VITAMIN SUPPLEMENTATION 2) HYDROXYZINE HCL 25MG TAB TAKE ONE TABLET BY MOUTH ACTIVE (S) THREE TIMES DAILY NEEDED FOR ANXIETY Allergies: Patient has answered NKA All medications including those prescribed by outside VA's, community providers, and all OTC meds were reviewed and reconciled with patient to the best of their abilities. This 48 year old MALE is seen today for CEE Chief Complaint: Pt is starting to notice some near vision blur past arms length. No complatins of redness, watering , OLEARY, or glare. OHx (+/-)If Yes, explain: 1. Ocular Hypertension OU 2. Myopia and Astigmatism OU (-) Pain: (-) OLEARY: (-) Diplopia: (-) Flashes: (-) Floaters: (-) Amaurosis Fugax/Tia's: (-) Eye Injury: (-) Eye Surgery: (-) TBI FOHx: (-) Glaucoma/ARMD/Blindness (-) Smoker/Length of Time/PPD: Current Rx with last BCVA: OD: -2.50 -1.00 x 030 20/20 OS: -2.75 -2.00 x 170 20/20 Add: DVA ( )sc (X)cc OD: 20/20 OS: 20/20 Pupils: PERRL (-)APD EOMs: SAFE OU, (-)Pain/Diplopia CVF (facial, peripheral): FTFC OU Subjective Refraction: OD: -2.50 -1.00 x 030 20/20 OS: -2.75 -2.00 x 170 20/20 Add:+1.75 All the above performed by student, reviewed by attending Anterior segment: Performed by student, repeated by attending Lids: clear OU Conj: white and quiet OU Cornea: clear OU AC: 4x4 OU Iris: flat and clear OU, (-) TID OU Lens: ACC 1+ OD, Trace vacoules OS, (-)PXF/PDS OU Vit: clear OU Tonometry: GAT Performed by student, reviewed by attending OD 20 mmHg OS 18 mmHg Time: 8:08 am Pachy OD: 566 OS: 567 Fundus exam: Dilated: XXXX Non dilated: Dilating Drops: 1GTT 1 % Tropicamide OU & 1GTT 2.5% Phenylephrine OU@ 8:10 am (Pt. ed. on side effects, dilation warning given and verbal consent obtained) Patient advised not to drive if they feel they have any symptoms which could affect their ability to drive safely. Patient advised not to engage in any activities which could put themselves or others at risk if they feel they have any symptoms which could affect their ability to perform those activities safely. Performed by student, repeated by attending Vit: clear OU C/D: 0.3/0.3 OD, 0.35/0.35 OS Disc: Rim tissue is pink and healthy OU Macula: flat and clear OU PPole: clear A/V: 2/3 Vessels: normal caliber OU Periph: flat and intact (-)holes, tears, detachments 360 OU Impression/Plan 1. Ocular Hypertension OU - No family Hx of glaucoma with no PDS/PXE seen - Normotensive pressures taken today - OCT shows shows healthy RNFL thickness OU with slightly larger C/D ratio OS>OD - Pachy shows average thickness - Monitor at annual exam 2. Myopia and Astigmatism OU - Updated pt PAL fro first time user - Explained importance of using PAL as much as possible to adjust - Monitor at annual visit 3. Anterior Cortical Cataracts OU -Pt ed cataracts may cause reduction of BCVA and symptoms of glare -Educated the patient on the importance of UV protection -Report any changes to vision such as increased glare or haze -No surgical intervention at this time -Monitor at next visit Return to Clinic 1 year or earlier PRN Patient Education: Glaucoma: Patient was educated regarding glaucoma/glaucoma suspect as well as the natural history of this diagnosis including prognosis. Stress importance of compliance and persistency with glaucoma medication when prescribed, timely follow up as well as the role of ancillary testing. Exclusion criteria for ancillary testing include significantly reduced acuity, mental status changes affecting the patient's ability to attend to the test or other physical limitations that would prohibit the patient's ability to participate in testing. /holger/ JORGE VICTORIA OPTOMETERY STUDENT Signed: 09/26/2023 13:10 /holger/ Kodak Lugo OD CHIEF OF OPTOMETRY Cosigned: 09/29/2023 17:52 JORGE VICTORIA [facility]
--- OUTSIDE RECORDS SUMMARY | 2024-08-25 14:00 | XMS_ITS ---
Author Name [facility] [place] Address [address] [place] [id number] Care Team Providers Care Business Services Officer Name Role Phone MARIETTA HERNANDEZ Primary Care [...] CAREMARK PRESCRIPT ION GEHA Aug 06, 2020 [id number] [phone] CANDE WELCH PATIENT CAREMARK PRESCRIPT ION GEHA Aug 06, 2020 [id number] [phone] WELCHCANDE GLORIA PATIENT CAREMARK PRESCRIPT ION GEHA Apr 01, 2016 [id number] [phone] WELCH,CANDE RODRIGUEZDO PATIENT CAREMARK PRESCRIPT ION GEHA STAND COLEMAN PLAN Apr 01, 2016 [id number] WELCH,CANDE GLORIA PATIENT CAREMARK PRESCRIPT ION GEHA Apr 01, 2016 [id number] WELCH,CANDE RODRIGUEZDO PATIENT CAR[facility]ARK PRESCRIPT ION GEHA Apr 01, 2016 [id number] [phone] WELCH,CANDE GLORIA PATIENT CAREMARK PRESCRIPT ION [facility] Mar 09, 2016 [id number] [phone] WELCH,CANDE GLORIA PATIENT [facility] PREFERRED PROVIDER ORGANIZAT ION (PPO) Mathew al Emplo [place] Hea Apr 01, 2016 [id number] WELCH,CANDE GLORIA PATIENT [facility] DENTAL ONLY DENTAL INSURANCE [facility] CTION DENT Apr 01, 2016 [id number] WELCH,CANDE GLORIA PATIENT [facility] PREFERRED PROVIDER ORGANIZAT ION (PPO) Mathew al Emplo [place] Hea Jul 27, 2020 [id number] WELCH,CANDE GLORIA PATIENT [facility] MATHEW AL EMPLO [place] [facility] Sep 09, 2021 [id number] 3GEHA WELCH,CANDE GLORIA PATIENT [facility] MATHEW AL EMPLO [place] A Sep 09, 2021 [id number] 3GEHA WELCH,CANDE GLORIA PATIENT [facility] Sep 09, 2021 [id number] 3GEHA WELCH,CANDE GLORIA PATIENT [facility] PREFERRED PROVIDER ORGANIZAT ION (PPO) [facility] STAND [facility] Sep 09, 2023 [id number] 3 WELCH,CANDE GLORIA PATIENT [facility] PREFERRED PROVIDER ORGANIZAT ION (PPO) [facility] STAND [facility] Sep 09, 2023 [id number] 3GEHA WELCH,CANDE GLORIA PATIENT [facility] MEDICAL EXPENSE (OPT/PROF ) [facility] Sep 09, 2023 [id number] 3GEHA WELCH,CANDE GLORIA PATIENT [facility] PREFERRED PROVIDER ORGANIZAT ION (PPO) [facility]HEW AL EMPLO [place] Sep 09, 2023 [id number] [facility] PREFERRED PROVIDER ORGANIZAT ION (PPO) MATHEW [facility] [place] MICHAELA Sep 09, 2023 [id number] 3GEHA CANDE WELCH PATIENT Selected Encounter This section includes the information on record at [place] for the Encounter. Date/Time Encounter Type Encounter Description Reason Provider Source Sep 26, 2023 10:31 AM FIT SPECTACLES MULTIFOCAL OPTOMETRY ICD-10-CM Z46.0 Encounter for fit/adjst of spectacles and contact lenses RICH LUGO Janny Encounter Template Text not used by [place] Assessments - Encounter Diagnoses This section includes the primary and secondary diagnoses documented for the Encounter. Date/Time Primary/Secondary Diagnosis Diagnosis Name Provider Source Sep 26, 2023 10:31 AM PRIMARY Encounter for fit/adjst of spectacles and contact lenses DAVID JORGENSEN [place] [facility] [facility] Plan of Treatment: Future Appointments (+ 6 months) and Future Tests (+/- 45 days) The Plan of Treatment section includes future care activities for the patient from all [place] treatmentfacilities. This section includes future appointments and future orders which are active, pending or scheduled. Future Appointments This section includes appointments that were scheduled to occur 6 months from the date of the Encounter, up to a maximum of 20 appointments. The data comes from all [place] treatment facilities. Appointment Date/Time Appointment Type Appointme nt Facility Name Oct 02, 2023 09:30 AM [facility]BULATORY - MEDICINE [facility] Nov 05, 2023 02:00 PM AMBULATORY - MEDICINE [facility] Nov 26, 2023 08:30 AM [place]ORY [place]ICINE [place] [facility] [place] [facility] Dec 06, 2023 08:30 AM AMBULATORY - MEDICINE [facility] Dec 26, 2023 03:30 PM AMBULATORY - MEDICINE [place] [facility] [facility] January 13, 2024 08:30 AM AMBULATORY - MEDICINE [facility] Feb 14, 2024 08:30 AM AMBULATORY - MEDICINE [place] [facility] [facility] Feb 19, 2024 08:00 AM AMBULATORY - [place]ICINE [place] [facility] [facility] Feb 28, 2024 08:00 AM AM[place]ULATORY - [place]ICINE [place] [facility] Mar 18, 2024 08:00 AM AMBULATORY - REHAB MEDICIN [place] [facility] [facility] Mar 24, 2024 03:30 PM AMBULATORY - PSYCHIATRY [facility] Lab Results: +/- 30 days of the encounter This section includes the Chemistry and Hematology Lab Results on record with [place] for the patient. Radiology Reports and Pathology Reports are provided separately, in subsequent sections. Lab Results This section contains the Chemistry/Hematology Results that were resulted 30 days before or 30 daysafter the date of the Encounter. Date/Time Source Result Type Result - Unit Interpretation Reference Range Comment Oct 01, 2023 07:33 AM [facility] C REACTIVE PROTEIN (CRPH) Specimen Type : [...] Sep 24, 2023 07:10 PM Reporting Lab: [facility] [address] [address] Performing Lab: [facility] [address] [facility] [address] C REACTIVE PROTEIN (CRPH) 1.98 mg/L See robert. Oct 01, 2023 07:33 AM [facility] THYROID T4 FREE(FT4) Specimen Type: SERUM No comment entered. Ordering Provider: ROSA ELENA LEONARDO Report Released Date/Time: Sep 24, 2023 07:10 PM Reporting Lab: [facility] [address] [address] Performing Lab: [facility] [address] [facility] [address] THYROID T4 FREE(FT4) 1.03 ng/dL 0.6-1.6 Oct 01, 2023 07:33 AM [facility] SED RATE, AUTOMATED Specimen Type: BLOOD No comment entered. Ordering Provider: ROSA ELENA LEONARDO Report Released Date/Time: Sep 24, 2023 07:10 PM Reporting Lab: [facility]TRN [facility] [address] Performing Lab: [facility] TRN [facility]AREUSETS [address] [address] SED RATE, AUTOMATED 12 mm/h 0-15 Oct 01, 2023 07:33 AM [facility] LIPID PANEL FASTING Specimen Type: SERUM No comment entered. Ordering Provider: ROSA ELENA LEONARDO Report Released Date/Time: Sep 24, 2023 07:10 PM Reporting Lab: [facility] [address] [address] Performing Lab: [facility] [address] [address] CHOLESTEROL 193 mg/dL TRIGLYCERIDE 124 mg/dL 0-150 LDL calculated 124 mg/dL 0-129 CHOL/HDL 4.4 HDL CHOLESTEROL 44 mg/dL 40-60 Oct 01, 2023 07:33 AM [facility] TSH Specimen Type: SERUM No comment entered. Ordering Provider: ROSA ELENA LEONARDO Report Released Date/Time: Sep 24, 2023 07:10 PM Reporting Lab: [facility] [address] [address] Performing Lab: [facility] [address] TSH 2.98 u[IU]/mL 0.35-5.00 Oct 01, 2023 07:33 AM [facility] BASIC METABOLIC PANEL (fasting) Specime n Type: SERUM No comment entered. Ordering Provider: ROSA ELENA LEONARDO Report Released Date/Time: Sep 24, 2023 07:10 PM Reporting Lab: [facility]ENTERTRN [facility]ARE[facility]ETS [address] [address] Performing Lab: [facility] [address] UREA NITROGEN 9 mg/dL 7-25 GLUCOSE 92 mg/dL 65-100 SODIUM 140 mmol/L 135-145 POTASSIUM 3.6 mmol/L 3.5-5.0 CHLORIDE 107 mmol/L 100-110 CO2 21 meq/L 20-30 CREATININE, Serum 0.83 mg/dL 0.50-1.40 eGFR(CKD-EPI 2020) >90 mL/min >60 Oct 01, 2023 07:33 AM [facility] LIVER FUNCTION Specimen Type: SERUM No comment entered. Ordering Provider: ROSA ELENA LEONARDO Report Released Date/Time: Sep 24, 2023 07:10 PM Reporting Lab: [facility] [address] [address] Performing Lab: [facility] [address] [address] PROTEIN,TOTAL 7.1 g/dL 6.0-8.3 ALBUMIN 3.9 g/dL 3.5-5.0 ALKALINE PHOSPHATASE 53 U/L 40-150 AST 30 U/L 5-34 ALT 28 U/L BILIRUBIN, TOTAL 1.0 mg/dL 0.2-1.2 Encounter Notes: All associated encounter notes This section contains the clinical notes associated to the Encounter. Date/Time Encounter Note(s) Provider Source Sep 26, 2023 10:31 AM OPTOMETRY NOTE: LOCAL TITLE: OPTOMETRY NOTE STANDARD TITLE: OPTOMETRY NOTE DATE OF NOTE: SEP 26, 2023@10:31 ENTRY DATE: SEP 26, 2023@10:31:21 AUTHOR: STACY SOUZA EXP COSIGNER: URGENCY: STATUS: COMPLETED OPTOMETRY NOTE Has ADDENDA prog photo hearn The quote provided below is for informational purposes only. Please verify prior to the creation of a purchase order. MOUNIKA WELCH 1898 RX INFORMATION OD -2.50 -1.00 X30 Add:+1.75 Pzm:0.00 Dir: Prz2:0.00 Dir2: OS -2.75 -2.00 X170 Add:+1.75 Pzm:0.00 Dir: Prz2:0.00 Dir2: FITTING INFORMATION FPD: NPD:-3 Love:R:30.0 L:29.5 SEG HT:R:23 L:23 Tint:None Shade:None VA Billable Items FRAME: SLICK HEARN [phone] Right Lens: POLY VA PROGRESSIVE PHOTOCHROMIC HEARN 1.586 POLY Left Lens: POLY VA PROGRESSIVE PHOTOCHROMIC HEARN 1.586 POLY KLEAR ANTI-REFLECTIVE COATING /holger/ STACY SOUZA PULLMAN CLERK Signed: 09/26/2023 10:31 Receipt Acknowledged By: 09/26/2023 10:36 /holger/ DAVID JORGENSEN OPTOMETRY TECH 09/26/2023 ADDENDUM STATUS: COMPLETED PDS Supervisor Labor Gang fit patient with 1 pair(s) of progressive photo hearn eyeglasses on 09/26/2023. OPT HT entered consult(s) as requested for provider signature. /holger/ DAVID JORGENSEN OPTOMETRY TECH Signed: 09/26/2023 10:39 STACY SOUZA [place] [facility]
--- OUTSIDE RECORDS SUMMARY | 2024-08-25 14:00 | XMS_ITS ---
Author Name [facility] [place] [facility] [place] Address [address] [place] [address] Care Team Providers Care Space Buyer Name Role Phone MARIETTA HERNANDEZ Primary Care [...] CAREMARK PRESCRIPT ION GEHA Aug 06, 2020 [id number] [phone] CANDE WELCH PATIENT CAREMARK PRESCRIPT ION GEHA Aug 06, 2020 [id number] [phone] WELCH,CANDE RODRIGUEZDO PATIENT CAREMARK PRESCRIPT ION GEHA Apr 01, 2016 [id number] WELCH,CANDE CASTRO PATIENT CAREMARK PRESCRIPT ION GEHA STAND COLEMAN PLAN Apr 01, 2016 [id number] WELCH,CANDE GLROIA PATIENT CAREMARK PRESCRIPT ION GEHA Apr 01, 2016 [id number] [phone] CANDE WELCHDO PATIENT CAREMARK PRESCRIPT ION GEHA Apr 01, 2016 [id number] [phone] WELCH,CANDE GLORIA PATIENT CAREMARK PRESCRIPT ION [facility] Mar 09, 2016 [id number] [phone] WELCH,CANDE GLORIA PATIENT [facility] PREFERRED PROVIDER ORGANIZAT ION (PPO) Mathew al Emplo [place] Hea Apr 01, 2016 [id number] WELCH,CANDE GLORIA PATIENT [facility] DENTAL ONLY DENTAL INSURANCE [facility] CTION DENT Apr 01, 2016 [id number] WELCH,CANDE GLORIA PATIENT [facility] PREFERRED PROVIDER ORGANIZAT ION (PPO) Mathew al Emplo [place] [facility] Jul 27, 2020 [id number] WELCH,CANDE GLORIA PATIENT [facility] MATHEW AL EMPLO [place] [facility] Sep 09, 2021 [id number] 3GEHA WELCH,CANDE GLORIA PATIENT [facility] Sep 09, 2021 [id number] 3GEHA WELCH,CANDE GLORIA PATIENT [facility] MATHEW AL EMPLO [place] [facility] Sep 09, 2021 [id number] 3GEHA WELCH,CANDE GLORIA PATIENT [facility] MEDICAL EXPENSE (OPT/PROF ) [facility] Sep 09, 2023 [id number] 3GEHA WELCH,CANDE GLORIA PATIENT [facility] PREFERRED PROVIDER ORGANIZAT ION (PPO) [facility] STAND [facility] Sep 09, 2023 [id number] 3 WELCH,CANDE GLORIA PATIENT [facility] PREFERRED PROVIDER ORGANIZAT ION (PPO) [facility] STAND [facility] Sep 09, 2023 [id number] 3GEHA WELCH,CANDE GLORIA PATIENT [facility] PREFERRED PROVIDER ORGANIZAT ION (PPO) MATHEW AL EMPLO [place] [facility] Sep 09, 2023 [id number] 3 CANDE WELCH PATIENT [facility] PREFERRED PROVIDER ORGANIZAT ION (PPO) [facility] Sep 09, 2023 [id number] 3GEHA CANDE WELCH PATIENT Selected Encounter This section includes the information on record at [place] for the Encounter. Date/Time Encounter Type Encounter Description Reason Provider Source Sep 26, 2023 09:30 AM CMPTR OPHTH IMG OPTIC NERVE OPTOMETRY ICD-10-CM H40.053 Ocular hypertension, bilateral RICH LUGO IHE Encounter Template Text not used by [place] Assessments - Encounter Diagnoses This section includes the primary and secondary diagnoses documented for the Encounter. Date/Time Primary/Secondary Diagnosis Diagnosis Name Provider Source Oct 18, 2023 02:27 PM PRIMARY Ocular hypertension, bilateral RICH LUGO [place] [facility] [facility] Plan of Treatment: Future Appointments (+ 6 months) and Future Tests (+/- 45 days) The Plan of Treatment section includes future care activities for the patient from all [place] treatmentfacilities. This section includes future appointments and future orders which are active, pending or scheduled. Future Appointments This section includes appointments that were scheduled to occur 6 months from the date of the Encounter, up to a maximum of 20 appointments. The data comes from all [place] treatment facilities. Appointment Date/Time Appointment Type Appointme nt Facility Name Oct 02, 2023 09:30 AM AMBULATORY - MEDICINE [facility] Nov 05, 2023 02:00 PM AMBULATORY - MEDICINE [facility] Nov 26, 2023 08:30 AM AMBULATORY - MEDICINE [place] C [place] [facility] Dec 06, 2023 08:30 AM AMBULATORY - MEDICINE [facility] Dec 26, 2023 03:30 PM AMBULATORY - MEDICINE [place] C [place] [facility] January 13, 2024 08:30 AM AMBULATORY - MEDICINE [facility] Feb 14, 2024 08:30 AM AMBULATORY - MEDICINE [place] C [place] [facility] Feb 19, 2024 08:00 AM AMBULATORY - MEDICINE [place] C [place] [facility] Feb 28, 2024 08:00 AM AMBULATORY - MEDICINE [place] C [place] [facility] Mar 18, 2024 08:00 AM AM[facility]ULAT[facility] - [facility] Mar 24, 2024 03:30 PM AMBULATORY - PSYCHIATRY [facility] Lab Results: +/- 30 days of the encounter This section includes the Chemistry and Hematology Lab Results on record with [place] for the patient. Radiology Reports and Pathology Reports are provided separately, in subsequent sections. Lab Results This section contains the Chemistry/Hematology Results that were resulted 30 days before or 30 daysafter the date of the Encounter. Date/Time Source Result Type Result - Unit Interpretation Reference Range Comment Oct 01, 2023 07:33 AM [facility] C REACTIVE PROTEIN (CRPH) Specimen Type : [...] Sep 24, 2023 07:10 PM Reporting Lab: [facility] [address] [address] Performing Lab: [facility] [address] [address] C REACTIVE PROTEIN (CRPH) 1.98 mg/L See robert. Oct 01, 2023 07:33 AM [facility] THYROID T4 FREE(FT4) Specimen Type: SERUM No comment entered. Ordering Provider: ROSA ELENA LEONARDO Report Released Date/Time: Sep 24, 2023 07:10 PM Reporting Lab: [facility] [address] [address] Performing Lab: [facility] [address] [address] THYROID T4 FREE(FT4) 1.03 ng/dL 0.6-1.6 Oct 01, 2023 07:33 AM [facility] SED RATE, AUTOMATED Specimen Type: BLOOD No comment entered. Ordering Provider: ROSA ELENA LEONARDO Report Released Date/Time: Sep 24, 2023 07:10 PM Reporting Lab: [facility] [address] [address] Performing Lab: [facility] [address] [address] SED RATE, AUTOMATED 12 mm/h 0-15 Oct 01, 2023 07:33 AM [facility] TSH Specimen Type: SERUM No comment entered. Ordering Provider: ROSA ELENA LEONARDO Report Released Date/Time: Sep 24, 2023 07:10 PM Reporting Lab: [facility] [address] [address] Performing Lab: [facility] [address] [address] TSH 2.98 u[IU]/mL 0.35-5.00 Oct 01, 2023 07:33 AM [facility] LIPID PANEL FASTING Specimen Type: SERUM No comment entered. Ordering Provider: ROSA ELENA LEONARDO Report Released Date/Time: Sep 24, 2023 07:10 PM Reporting Lab: [facility] [address] [address] Performing Lab: [facility] [address] [address] CHOLESTEROL 193 mg/dL TRIGLYCERIDE 124 mg/dL 0-150 LDL calculated 124 mg/dL 0-129 CHOL/HDL 4.4 HDL CHOLESTEROL 44 mg/dL 40-60 Oct 01, 2023 07:33 AM [facility] BASIC METABOLIC PANEL (fasting) Specime n Type: SERUM No comment entered. Ordering Provider: ROSA ELENA LEONARDO Report Released Date/Time: Sep 24, 2023 07:10 PM Reporting Lab: [facility] [address] Performing Lab: [facility] [address] [address] UREA NITROGEN 9 mg/dL 7-25 GLUCOSE 92 mg/dL 65-100 SODIUM 140 mmol/L 135-145 POTASSIUM 3.6 mmol/L 3.5-5.0 CHLORIDE 107 mmol/L 100-110 CO2 21 meq/L 20-30 CREATININE, Serum 0.83 mg/dL 0.50-1.40 eGFR(CKD-EPI 2020) >90 mL/min >60 Oct 01, 2023 07:33 AM [facility] LIVER FUNCTION Specimen Type: SERUM No comment entered. Ordering Provider: ROSA ELENA LEONARDO Report Released Date/Time: Sep 24, 2023 07:10 PM Reporting Lab: [facility] [address] [address] Performing Lab: [facility] [address] [address] PROTEIN,TOTAL 7.1 g/dL 6.0-8.3 ALBUMIN 3.9 g/dL 3.5-5.0 ALKALINE PHOSPHATASE 53 U/L 40-150 AST 30 U/L 5-34 ALT 28 U/L BILIRUBIN, TOTAL 1.0 mg/dL 0.2-1.2 Encounter Notes: All associated encounter notes This section contains the clinical notes associated to the Encounter. Date/Time Encounter Note(s) Provider Source Sep 26, 2023 09:00 AM OPTOMETRY CONSULT: LOCAL TITLE: CONSULT REPORT/OPTOMETRY OCT STANDARD TITLE: OPTOMETRY CONSULT DATE OF NOTE: SEP 26, 2023@09:00 ENTRY DATE: SEP 26, 2023@09:00:42 AUTHOR: JORGE VICTORIA EXP COSIGNER: JONNATHAN LUGO URGENCY: STATUS: COMPLETED CONSULT REPORT/OPTOMETRY OCT Has ADDENDA OPTIC NERVE OCT REPORT: OCT of optic nerve obtained for patient with ocular hypertension ===== OD: Signal Strength 9/10 Average RNFL Thickness: 91 Disc Area: 1.53 vertical C/D 0.37 SECTORS: normal all sectors OS: Signal Strength 9/10 Average RNFL Thickness: 90 Disc Area: 1.65 vertical C/D 0.50 SECTORS: normal all sectors Pachy OD: 566 OS: 567 Baseline OCT, shows healthy RNFL thickness OU with slightly larger C/D ratio OS>OD with corneal thickness being slightly thicker than average ===== ASSESSMENT/PLAN: 1. Ocular Hypertension OU - No family Hx of glaucoma with no PDS/PXE seen - Normotensive pressures taken today - OCT shows shows healthy RNFL thickness OU with slightly larger C/D ratio OS>OD - Pachy shows average thickness - Monitor at annual exam /holger/ JORGE VICTORIA OPTOMETERY STUDENT Signed: 09/26/2023 13:09 /holger/ Jonnathan Lugo OD CHIEF OF OPTOMETRY Cosigned: 09/29/2023 17:52 09/29/2023 ADDENDUM STATUS: COMPLETED Review optic nerve OCT of patient followed as bilateral ocular hypertensive in the past. IOP lower on exam today with robust retinal nerve fiber layer thickness each eye and without evidence of glaucomatous loss or defect. Would not repeat visual imaging unless there are concerning changes to disc appearance, elevation in intraocular pressure or other signs suggestive of glaucomatous progression. /holger/ Jonnathan Lugo OD CHIEF OF OPTOMETRY Signed: 09/29/2023 17:53 JORGE VICTORIA CNTRL WSTRN [facility]
--- OUTSIDE RECORDS SUMMARY | 2024-08-25 14:01 | XMS_ITS | Encounter Summary ---
Author Name [facility] [facility] [place] Address [address] [place] [address] Care Team Providers Care Angle Furnaceman Name Role Phone MARIETTA HERNANDEZ Primary Care [...] CAREMARK PRESCRIPT ION GEHA Aug 06, 2020 [id number] [phone] WELCH,CANDE GLORIA PATIENT CAREMARK PRESCRIPT ION GEHA Aug 06, 2020 [id number] [phone] WELCH,CANDE GLORIA PATIENT CAREMARK PRESCRIPT ION GEHA Apr 01, 2016 [id number] WELCH,CANDE GLORIA PATIENT CAREMARK PRESCRIPT ION GEHA STAND COLEMAN PLAN Apr 01, 2016 [id number] [phone] WELCH,CANDE GLORIA PATIENT CAREMARK PRESCRIPT ION GEHA Apr 01, 2016 [id number] WELCH,CANDE GLORIA PATIENT CAREMARK PRESCRIPT ION GEHA Apr 01, 2016 [id number] WELCH,CANDE GLORIA PATIENT CAREMARK PRESCRIPT ION [facility] Mar 09, 2016 [id number] WELCH,CANDE GLORIA PATIENT [facility] PREFERRED PROVIDER ORGANIZAT ION (PPO) Mathew al [facility] [place] [facility] Apr 01, 2016 [id number] WELCH,CANDE GLORIA PATIENT [facility] DENTAL ONLY [facility] Apr 01, 2016 [id number] WELCH,CANDE GLORIA PATIENT [facility] PREFERRED PROVIDER ORGANIZAT ION (PPO) Mathew al [facility] [place] [facility] Jul 27, 2020 [id number] [phone] WELCH,CANDE GLORIA PATIENT [facility] MATHEW AL EM[facility] Sep 09, 2021 [id number] WELCH,CANDE GLORIA PATIENT [facility] Sep 09, 2021 [id number] 3GEHA WELCH,CANDE GLORIA PATIENT [facility] MATHEW AL [facility] Sep 09, 2021 [id number] 3GEHA WELCH,CANDE GLORIA PATIENT [facility] MEDICAL EXPENSE (OPT/PROF ) [facility] Sep 09, 2023 [id number] 3GEHA WELCH,CANDE GLORIA PATIENT [facility] PREFERRED PROVIDER ORGANIZAT ION (PPO) [facility] Sep 09, 2023 [id number] WELCH,CANDE GLORIA PATIENT [facility] PREFERRED PROVIDER ORGANIZAT ION (PPO) [facility] Sep 09, 2023 [id number] 3GEHA WELCH,CANDE GLORIA PATIENT [facility] PREFERRED PROVIDER ORGANIZAT ION (PPO) [facility] Sep 09, 2023 [id number] 3 WELCH,CANDE GLORIA PATIENT [facility] PREFERRED PROVIDER ORGANIZAT ION (PPO) MATHEW WALKERMiriam Sep 09, 2023 [id number] CANDE WELCH PATIENT Selected Encounter This section includes the information on record at [place] for the Encounter. Date/Time Encounter Type Encounter Description Reason Provider Source Oct 02, 2023 09:30 AM OFFICE O/P EST MOD 30 MIN PRIMARY CARE/MEDICINE ICD-10-CM I10 Essential (primary) hypertension ROSA ELENA LEONARDO Janny Encounter Template Text not used by [place] Assessments - Encounter Diagnoses This section includes the primary and secondary diagnoses documented for the Encounter. Date/Time Primary/Secondary Diagnosis Diagnosis Name Provider Source Oct 11, 2023 01:26 PM PRIMARY Essential (primary) hypertension SHADESALVATOREROSA ELENA Pineda GENNY Oct 11, 2023 01:26 PM SECONDARY Pain in unspecified joint ROSA ELENA LEONARDO Oct 11, 2023 01:26 PM SECONDARY Vitamin D deficiency, unspecified SHADEROSA ELENA [place]AVA[place]UGHFIELD Plan of Treatment: Future Appointments (+ 6 months) and Future Tests (+/- 45 days) The Plan of Treatment section includes future care activities for the patient [facility] This section includes future appointments and future orders which are active, pending or scheduled. Future Appointments This section includes appointments that were scheduled to occur 6 months from the date of the Encounter, up to a maximum of 20 appointments. The data comes from all [place] treatment facilities. Appointment Date/Time Appointment Type Appointme nt Facility Name Nov 05, 2023 02:00 PM AMBULATORY - MEDICINE [facility] Nov 26, 2023 08:30 AM [facility] [place] [facility] [facility] [place] [facility] Dec 06, 2023 08:30 AM [facility]ATORY - MEDICINE [facility] Dec 26, 2023 03:30 PM [facility] [place] [facility] [place] [facility] January 13, 2024 08:30 AM AMBULATORY - MEDICINE [facility] Feb 14, 2024 08:30 AM [facility]INE [facility] [place] [facility] Feb 19, 2024 08:00 AM [facility] [place] [facility] [facility] [place] [facility] Feb 28, 2024 08:00 AM AMBULATORY [facility] MEDICINE [facility] [place] [facility] Mar 18, 2024 08:00 AM AMBULATORY - REHAB MEDICIN [facility] [place] [facility] Mar 24, 2024 03:30 PM AMBULATORY - PSYCHIATRY [facility] Apr 01, 2024 08:00 AM AMBULATORY - REHAB MEDICIN E [facility] [place] [facility] Lab Results: +/- 30 days of the encounter This section includes the Chemistry and Hematology Lab Results on record with [place] for the patient. Radiology Reports and Pathology Reports are provided separately, in subsequent sections. Lab Results This section contains the Chemistry/Hematology Results that were resulted 30 days before or 30 daysafter the date of the Encounter. Date/Time Source Result Type Result - Unit Interpretation Reference Range Comment Oct 01, 2023 07:33 AM [facility] C REACTIVE PROTEIN (CRPH) Specimen Type : SERUM Comment: Reference range changed on 02/27/11 [facility] reference ranges for ages >17 years: hsCRP [...] Sep 24, 2023 07:10 PM Reporting [facility]: [facility] [address] [facility] [address] Performing Lab: [facility] [address] [facility] [facility] [facility] [address] C REACTIVE PROTEIN (CRPH) 1.98 mg/L See eval. Oct 01, 2023 07:33 AM [facility] THYROID T4 FREE(FT4) Specimen Type: SERUM No comment entered. Ordering Provider: ROSA ELENA LEONARDO Report Released Date/Time: Sep 24, 2023 07:10 PM Reporting Lab: [place] [facility] [place] [facility] [address] [facility] [address] Performing Lab: [facility] [address] [facility] [address] THYROID T4 FREE(FT4) 1.03 ng/dL 0.6-1.6 Oct 01, 2023 07:33 AM [facility] SED RATE, AUTOMATED Specimen Type: BLOOD No comment entered. Ordering Provider: ROSA ELENA LEONARDO Report Released Date/Time: Sep 24, 2023 07:10 PM Reporting Lab: [facility] [address] [address] Performing Lab: [facility] [address] [address] SED RATE, AUTOMATED 12 mm/h 0-15 Oct 01, 2023 07:33 AM [facility] TSH Specimen Type: SERUM No comment entered. Ordering Provider: ROSA ELENA LEONARDO Report Released Date/Time: Sep 24, 2023 07:10 PM Reporting Lab: [facility] [address] [address] Performing Lab: [facility] [address] TSH 2.98 u[IU]/mL 0.35-5.00 Oct 01, 2023 07:33 AM [facility] LIPID PANEL FASTING Specimen Type: SERUM No comment entered. Ordering Provider: ROSA ELENA LEONARDO Report Released Date/Time: Sep 24, 2023 07:10 PM Reporting Lab: [facility]ITALTR[facility] [address] Performing Lab: [facility] [address] CHOLESTEROL 193 mg/dL TRIGLYCERIDE 124 mg/dL 0-150 LDL calculated 124 mg/dL 0-129 CHOL/HDL 4.4 HDL CHOLESTEROL 44 mg/dL 40-60 Oct 01, 2023 07:33 AM [facility] BASIC METABOLIC PANEL (fasting) Specime n Type: SERUM No comment entered. Ordering Provider: ROSA ELENA LEONARDO Report Released Date/Time: Sep 24, 2023 07:10 PM Reporting Lab: [facility]TR[facility] [address] Performing Lab: [facility]ITALTRN [facility] [address] [address] UREA NITROGEN 9 mg/dL 7-25 GLUCOSE 92 mg/dL 65-100 SODIUM 140 mmol/L 135-145 POTASSIUM 3.6 mmol/L 3.5-5.0 CHLORIDE 107 mmol/L 100-110 CO2 21 meq/L 20-30 CREATININE, Serum 0.83 mg/dL 0.50-1.40 eGFR(CKD-EPI 2020) >90 mL/min >60 Oct 01, 2023 07:33 AM [facility] LIVER FUNCTION Specimen Type: SERUM No comment entered. Ordering Provider: ROSA ELENA LEONARDO Report Released Date/Time: Sep 24, 2023 07:10 PM Reporting Lab: [facility] [address] [facility] [address] Performing Lab: [address] [address] PROTEIN,TOTAL 7.1 g/dL 6.0-8.3 ALBUMIN 3.9 g/dL 3.5-5.0 ALKALINE PHOSPHATASE 53 U/L 40-150 AST 30 U/L 5-34 ALT 28 U/L BILIRUBIN, TOTAL 1.0 mg/dL 0.2-1.2 Vital Signs: All taken on the encounter date This section contains inpatient and outpatient Vital Signs collected on the date of the Encounter. Date/Time Temperature Pulse Blood Pressure Respiratory Rate SP02 Pain Height Weight Body Mass Index Source Oct 02, 2023 09:33 AM 97.6 64 150/90 98 240 40 [facility] IELD Social History: Smoking Status (Most current) and Tobacco Use (All prior to encounter date) This section includes the most current, and the historical, smoking and tobacco- related health factors from the [place] facility where the Encounter took place. Current Smoking Status This section includes the most current smoking, or tobacco-related health factor, from the [place] facility where the Encounter took place. Date/Time Current Smoking Status Comment Delon novoa Sep 24, 2023 03:30 PM [place]-TOBACCO NEVER USED [facility] Tobacco Use History This section includes a history of the smoking, or tobacco-related health factors, that were collected on or before the date of the Encounter. The data comes from the [place] facility where the Encounter took place. Date/Time Smoking Status/Tobacco Use Comment F acility Aug 14, 2022 01:30 PM [facility]-TOBACCO NEVER USED [facility] Nov 09, 2020 08:00 AM [facility]-TOBACCO NEVER USED [facility] Nov 10, 2019 11:10 AM VA-TOBACCO NEVER USED [facility] Nov 19, 2018 07:52 AM [facility]-TOBACCO NEVER USED [facility] Oct 09, 2017 09:01 AM QUIT TOBACCO USE > 7 YEARS AGO [facility] Jul 17, 2016 08:21 AM QUIT TOBACCO USE > 7 YEARS AGO [facility] Aug 09, 2015 11:33 AM QUIT TOBACCO USE > 7 YEARS AGO [facility] Apr 17, 2012 09:48 AM QUIT TOBACCO USE > 7 YEARS AGO [facility] Nov 18, 2008 10:43 AM CURRENT SMOKER Pt. quit smoking 15 years ago while his spouse when she was !! [facility] Nov 18, 2008 10:43 AM QUIT TOBACCO USE > 7 YEARS AGO quit 15 years ago [facility] Encounter Notes: All associated encounter notes This section contains the clinical notes associated to the Encounter. Date/Time Encounter Note(s) Provider Source Oct 02, 2023 09:33 AM PREVENTIVE MEDICIN E NURSING NOTE: LOCAL TITLE: CLINICAL REMINDERS/NURSING STANDARD TITLE: PREVENTIVE MEDICINE NURSING NOTE DATE OF NOTE: OCT 02, 2023@09:33 ENTRY DATE: OCT 02, 2023@09:33:56 AUTHOR: KRISTY CLEMENTSIGNER: URGENCY: STATUS: COMPLETED Advance Directive Screen MH AD: Patient does not have a completed advance directive on file at any facility, [place] or outside. S/he is not interested in completing one at this time. The patient received education about Advance Directives and written notification of his/her rights. Homelessness/Food Insecurity Screen: In the past 2 months, have you been living in stable housing that you own, rent, or stay in as part of a household? Yes - Living in stable housing. Are you worried or concerned that in the next 2 months you may NOT have stable housing that you own, rent, or stay in as part of a household? No - Not worried about housing near future [facility] [place] reports the following: Within the past 12 months, you worried whether your food would run out before you got money to buy more. Never true Within the past 12 months, the food you bought just didn't last and you didn't have money to get more. Never true PTSD Screening: PC-PTSD-5 A PTSD screening test (PC-PTSD-5) was negative (score=0). IN THE PAST MONTH, have you ever had any experience that was so frightening, horrible or traumatic. For example: A serious accident or fire a physical or sexual assault or abuse An earthquake or flood A war Seeing someone be killed or seriously injured Having a loved one through homicide or suicide 1. Have you ever experienced this kind of event? NO 2. Had nightmares about the event(s) or thought about the event(s) when you did not want to? Response not required due to responses to other questions. 3. Tried hard not to think about the event(s) or went out of your way to avoid situations that reminded you of the event(s)? Response not required due to responses to other questions. 4. Been constantly on guard, watchful, or easily startled? Response not required due to responses to other questions. 5. [place] numb or detached from people, activities, or your surroundings? Response not required due to responses to other questions. 6. [place] guilty or unable to stop blaming yourself or others for the event(s) or any problems the event(s) may have caused? Response not required due to responses to other questions. Influenza Immunization: The patient has received the seasonal influenza vaccine for the current season at another location. Documented: INFLUENZA, UNSPECIFIED FORMULATION Historical Date Administered: Jul 2023 Exact date unknown Outside Location: Outside Healthcare Provider Information Source: FROM PATIENT'S RECALL Td / Tdap Immunization: The patient declines to receive the recommended dose of Td/Tdap vaccine. Immunization: TD(ADULT) UNSPECIFIED FORMULATION Refusal Reason: PATIENT DECISION Patient refuses all immunization(s) in the Td group Date Documented: 10/02/23 09:35 Sexual Orientation: The patient thinks of their sexual orientation as: Straight or Heterosexual /es/ KRISTY CLEMENTS LPN Licensed Practical Nurse Signed: 10/02/2023 09:35 KRISTY CLEMENTS [facility] Oct 02, 2023 09:02 AM PHYSICIAN NOTE: LOCAL TITLE: NOTE STANDARD TITLE: PHYSICIAN NOTE DATE OF NOTE: OCT 02, 2023@09:02 ENTRY DATE: OCT 02, 2023@09:02:51 AUTHOR: ROSA ELENA LEONARDO EXP COSIGNER: URGENCY: STATUS: COMPLETED NOTE Has ADDENDA HISTORY OF PRESENT ILLNESS: MOUNIKA JR WELCH, is a 48 yo MALE , who presents at the [facility] for follow up visit for chronic medical conditions. [facility] had blood work done recently and the results were discussed with the patient today in office Non- [facility] providers PCP- Joy MATTHEWS Active problems - Computerized Problem List is the source for the followin-hypercholesterolemia 2-hypertriglyceridemia 3-elevated TSH 4-vitamin D insufficiency 5-mild elevated ESR 6- Uncontrolled HTN 7-chronic polyarthralgia The following VA and Non-VA meds were reconciled with patient: Active Outpatient Medications (including Supplies): Issue Date Status Last Fill Active Outpatient Medications Refills Expiration 1) CHOLECALCIF 25MCG (D3-1,000UNIT) TAB ACTIVE Issu:06-13-23 Qty: 90 for 90 days Sig: TAKE ONE Refills: 3 Last:06-14-23 TABLET BY MOUTH ONCE DAILY FOR VITAMIN Expr:06-13-24 D DEFICIENCY FOR VITAMIN SUPPLEMENTATION 2) HYDROXYZINE HCL 25MG TAB Qty: 180 for ACTIVE Issu:09-24-23 60 days Sig: TAKE ONE TABLET BY MOUTH Refills: 3 Last:09-26-23 THREE TIMES DAILY NEEDED FOR Expr:09-24-24 ANXIETY ALLERGIES: ========= Patient has answered [facility] LAB HISTORY: ESR12 Total cholesterol 193 and triglycerides 124 and LDL 124 TSH normal 2.98 PMH: Essential hypertension, GERD, vitamin D deficiency, PTSD/ anxiety,kidney stones, obesity, hypothyroidism- not on meds at this time, tinnitus, AGUILA on CPAP, Chronic low back pain, esential tremors SURGICAL HISTORY: B/L Inguinal hernia repair right knee surgery- bursectomy 3; pilonial cyst removal x3 FAMILY HISTORY: mother- DM, HTN father- DM, HTN 1 brother- HTN SOCIAL HISTORY: with one child Smoking quit in 1992 Drugs denies Alcohol denies HISTORY: PERIOD OF SERVICE - [employer] FROM Apr TO Apr COMBAT SERVICE INDICATED: No REVIEW OF SYSTEMS: CONSTITUTIONAL: negative for fever, chills, fatigue CARDIOVASCULAR: negative for chest pain, SOB , legs edema; somethimes palpitations RESPIRATORY: negative for cough or wheezing GASTROINTESTINAL: negative for abd pain, no N/V/D/C GENITOURINARY: negative for dysuria, MUSCULOSKELETAL: positive for chronic low back pain, hips, shoulders- on & off PHYSICAL EXAMINATION: GENERAL: WD/obese , seems to be in NAD the moment of examination HEART: S1/S2 ,RRR no murmurs, LUNGS: MIRIAM, CTA B/L, no wheezes, rales/ rhonchi/ crackles ABDOMEN: Soft, NT/ND, bowel sounds positive EXTREMITIES: no edema of lower extremities, NEUROLOGIC: AAO x3, ASSESSMENT/PLAN: 0-apvmylspmclqezxuvjan-udywavzu with changing in his diet and exercise program I advised to continue healthy diet and exercise 4-pyssydgikexlmakiirzt-jdihlu limits after changing his diet 3-elevated TSH-normal limits We will continue to monitor 4-vitamin D insufficiency-improving with supplements Continue to monitor 5-mild elevated ESR-now in normal limits 6- Uncontrolled HTN -elevated blood pressure today in office but asymptomatic The states his blood pressure at home sometimes is in 170 or low 180s I added losartan 25 mg p.o. daily I advised to decrease salt and caffeine intake and continue to exercise as tolerated I advised him to monitor blood pressure daily and keep a logbook The will follow up with our PACT RN in a few weeks 7- Chronic multiple joints pain-continue methocarbamol at nighttime as needed for muscle spasms Diclofenac gel ordered He states does not want to use NSAIDs p.o. too much; he states sometimes he uses ibuprofen Acupuncture consultation placed FOLLOW UP: ========= RTC - annual with fasting labs - january 2024 Today's documentation was made using voice recognition software. This note may contain spelling/grammatical errors secondary to this software. Every effort is made to correct errors, but if mistakes are found they need to be taken in context. UPCOMING APPOINTMENTS: 10/02/2023 09:30 CWM/SO/PACT EIGHT 03/24/2024 15:30 SPOPC/MHC/CARRIE No barriers; Patient understands and agrees to current treatment plan. If pt has any questions, concerns, or changes in current health status he/she will call or come [facility]. /holger/ ROSA ELENA LEONARDO MD PRIMARY CARE PHYSICIAN Signed: 10/02/2023 10:18 10/02/2023 ADDENDUM STATUS: COMPLETED Please note the propranolol was prescribed by mental health team; I will defer to mental health team the renewal of propranolol if consider appropriate [facility] is aware of this /holger/ ROSA ELENA LEONARDO MD PRIMARY CARE PHYSICIAN Signed: 10/02/2023 10:54 ROSA ELENA LEONARDO
--- OUTSIDE RECORDS SUMMARY | 2024-08-25 14:02 | XMS_ITS ---
Author Name [facility] Organization [facility] Address [address] [place] [id number] Care Team Providers Care Public Health Physician Name Role Phone MARIETTA HERNANDEZ Primary Care [...] CAREMARK PRESCRIPT ION GEHA Aug 06, 2020 [id number] CANDE WELCHDO PATIENT CAREMARK PRESCRIPT ION GEHA Aug 06, 2020 [id number] [phone] WELCH,CANDE GLORIA PATIENT CAREMARK PRESCRIPT ION GEHA Apr 01, 2016 [id number] WELCH,CANDE GLORIA PATIENT CAREMARK PRESCRIPT ION GEHA [facility] Apr 01, 2016 [id number] [phone] WELCH,CANDE GLORIA PATIENT CAREMARK PRESCRIPT ION GEHA Apr 01, 2016 [id number] WELCH,CANDE GLORIA PATIENT CAREMARK PRESCRIPT ION GEHA Apr 01, 2016 [id number] [phone] WELCH,CANDE GLORIA PATIENT CAREMARK PRESCRIPT ION [facility] Mar 09, 2016 [id number] [phone] WELCH,CANDE GLORIA PATIENT [facility] PREFERRED PROVIDER ORGANIZAT ION (PPO) Mathew al [facility] Apr 01, 2016 [id number] [phone] WELCH,CANDE GLORIA PATIENT [facility] DENTAL ONLY [facility] Apr 01, 2016 [id number] WELCH,CANDE GLORIA PATIENT [facility] PREFERRED PROVIDER ORGANIZAT ION (PPO) Mathew al [facility] Jul 27, 2020 [id number] WELCH,CANDE GLORIA PATIENT [facility]W AL [facility] Sep 09, 2021 [id number] 3GEHA WELCH,CANDE GLORIA PATIENT [facility] Sep 09, 2021 [id number] 3GEHA WELCH,CANDE GLORIA PATIENT [facility] MATHEW AL EMPLO [facility] Sep 09, 2021 [id number] WELCH,CANDE GLORIA PATIENT [facility] MEDICAL EXPENSE (OPT/PROF ) [facility] Sep 09, 2023 [id number] 3GEHA WELCH,CANDE GLORIA PATIENT [facility] PREFERRED PROVIDER ORGANIZAT ION (PPO) [facility] STAND [facility] Sep 09, 2023 [id number] WELCH,CANDE GLORIA PATIENT [facility] PREFERRED PROVIDER ORGANIZAT ION (PPO) [facility] STAND [facility] Sep 09, 2023 [id number] 3GEHA WELCH,CANDE GLORIA PATIENT [facility] PREFERRED PROVIDER ORGANIZAT ION (PPO) MATHEW AL EMPLO [facility] Sep 09, 2023 [id number] CANDE WELCH PATIENT [facility] PREFERRED PROVIDER ORGANIZAT ION (PPO) [facility]W [facility] Sep 09, 2023 [id number] CANDE WELCH PATIENT Selected Encounter This section includes the information on record at DC for the Encounter. Date/Time Encounter Type Encounter Description Reason Pro vider Source Oct 02, 2023 01:47 PM Outpatient Encounter OPTOMETRY IHE Encounter Template Text not used by DC Plan of Treatment: Future Appointments (+ 6 months) and Future Tests (+/- 45 days) The Plan of Treatment section includes future care activities for the patient from [facility] [place] This section includes future appointments and future orders which are active, pending or scheduled. Future Appointments This section includes appointments that were scheduled to occur 6 months from the date of the Encounter, up to a maximum of 20 appointments. The data comes from all [place] treatment facilities. Appointment Date/Time Appointment Type Appointme nt Facility Name Nov 05, 2023 02:00 PM AMBULATORY - MEDICINE [facility] Nov 26, 2023 08:30 AM AMBULATORY - MEDICINE [place] [facility] [place] [facility] Dec 06, 2023 08:30 AM [facility]ATORY - MEDICINE [facility] Dec 26, 2023 03:30 PM AMBULATORY - MEDICINE [place] [facility] [place] [facility] January 13, 2024 08:30 AM AMBULATORY - MEDICINE [facility] Feb 14, 2024 08:30 AM AMBULATORY - MEDICINE [place] [facility] [place] [facility] Feb 19, 2024 08:00 AM AMBULATORY - MEDICINE DC [facility] [place] [facility] Feb 28, 2024 08:00 AM AMBULATORY - MEDICINE [place] [facility] [place] [facility] Mar 18, 2024 08:00 AM AMBULATORY - REHAB MEDICIN E [facility] [place] [facility] Mar 24, 2024 03:30 PM AMBULATORY - PSYCHIATRY [facility] Apr 01, 2024 08:00 AM AMBULATORY - REHAB MEDICIN E [facility] [place] [facility] Lab Results: +/- 30 days of the encounter This section includes the Chemistry and Hematology Lab Results on record with DC for the patient. Radiology Reports and Pathology Reports are provided separately, in subsequent sections. Lab Results This section contains the Chemistry/Hematology Results that were resulted 30 days before or 30 daysafter the date of the Encounter. Date/Time Source Result Type Result - Unit Interpretation Reference Range Comment Oct 01, 2023 07:33 AM [facility] C REACTIVE PROTEIN (CRPH) Specimen Type : [...] Sep 24, 2023 07:10 PM Reporting [facility] [address] [facility] [address] Performing Lab: [facility] [address] [address] C REACTIVE PROTEIN (CRPH) 1.98 mg/L See eval. Oct 01, 2023 07:33 AM [facility] THYROID T4 FREE(FT4) Specimen Type: SERUM No comment entered. Ordering Provider: ROSA ELENA LEONARDO Report Released Date/Time: Sep 24, 2023 07:10 PM Reporting Lab: [facility] [address] [facility] [address] Performing Lab: [facility]ITAL[facility] [address] [facility] [address] THYROID T4 FREE(FT4) 1.03 ng/dL 0.6-1.6 Oct 01, 2023 07:33 AM [facility] SED RATE, AUTOMATED Specimen Type: BLOOD No comment entered. Ordering Provider: ROSA ELENA LEONARDO Report Released Date/Time: Sep 24, 2023 07:10 PM Reporting Lab: [facility]TR[facility]ITAL[facility] [address] [facility] [address] Performing Lab: [facility] [address] [facility] [address] SED RATE, AUTOMATED 12 mm/h 0-15 Oct 01, 2023 07:33 AM [facility] TSH Specimen Type: SERUM No comment entered. Ordering Provider: ROSA ELENA LEONARDO Report Released Date/Time: Sep 24, 2023 07:10 PM Reporting Lab: [facility] [address] [address] Performing Lab: [address] [address] TSH 2.98 u[IU]/mL 0.35-5.00 Oct 01, 2023 07:33 AM [facility] LIPID PANEL FASTING Specimen Type: SERUM No comment entered. Ordering Provider: ROSA ELENA LEONARDO Report Released Date/Time: Sep 24, 2023 07:10 PM Reporting Lab: [address] [address] Performing Lab: [address] [address] CHOLESTEROL 193 mg/dL TRIGLYCERIDE 124 mg/dL 0-150 LDL calculated 124 mg/dL 0-129 CHOL/HDL 4.4 HDL CHOLESTEROL 44 mg/dL 40-60 Oct 01, 2023 07:33 AM [facility] BASIC METABOLIC PANEL (fasting) Specime n Type: SERUM No comment entered. Ordering Provider: ROSA ELENA LEONARDO Report Released Date/Time: Sep 24, 2023 07:10 PM Reporting Lab: [address] [address] Performing Lab: [facility] [address] [address] UREA NITROGEN 9 mg/dL 7-25 GLUCOSE 92 mg/dL 65-100 SODIUM 140 mmol/L 135-145 POTASSIUM 3.6 mmol/L 3.5-5.0 CHLORIDE 107 mmol/L 100-110 CO2 21 meq/L 20-30 CREATININE, Serum 0.83 mg/dL 0.50-1.40 eGFR(CKD-EPI 2020) >90 mL/min >60 Oct 01, 2023 07:33 AM [facility] LIVER FUNCTION Specimen Type: SERUM No comment entered. Ordering Provider: ROSA ELENA LEONARDO Report Released Date/Time: Sep 24, 2023 07:10 PM Reporting Lab: [facility] CARLOS ALBERTOHerbie [facility] [address] [facility] [address] Performing Lab: [facility] [address] [facility] [address] PROTEIN,TOTAL 7.1 g/dL 6.0-8.3 ALBUMIN 3.9 g/dL 3.5-5.0 ALKALINE PHOSPHATASE 53 U/L 40-150 AST 30 U/L 5-34 ALT 28 U/L BILIRUBIN, TOTAL 1.0 mg/dL 0.2-1.2 Encounter Notes: All associated encounter notes This section contains the clinical notes associated to the Encounter. Date/Time Encounter Note(s) Provider Source Oct 02, 2023 01:47 PM LETTERS: LOCAL TITLE: PATIENT LETTER (B) STANDARD TITLE: LETTERS DATE OF NOTE: OCT 02, 2023@13:47 ENTRY DATE: OCT 02, 2023@13:47:18 AUTHOR: KWAME WALLACE COSIGNER: URGENCY: STATUS: COMPLETED [facility] Toll Free Number , ext [phone] OCT 02, 2023 MOUNIKA WELCH [address], [place] [address] Dear MOUNIKA WELCH JR Thank you for choosing the Department of [facility] ([place]) [facility] as your primary choice for health care. As a partner in your health care, we are contacting you in writing since we have been unsuccessful in our attempts to reach you to date. We want to assure you we are doing everything possible to schedule Veterans for their [place] medical care appointments. Our records indicate you are due for an appointment in optomtry Thank you for choosing [facility] ([place]) [facility] as your primary choice for health care. As a partner in your health care, we are contacting you in writing since we have been unsuccessful in our attempts to reach you to date. We want to assure you we are doing everything possible to schedule Veterans for their [place] medical care appointments. If you would like to be seen, please contact [facility] at [phone] Ext. [phone] to schedule an appointment. Thank you for your service to our nation, and we look forward to hearing from you soon. Sincerely, [facility] [address] [address] [place] [address] ext. [phone] [facility] Outpatient [facility] [address] [facility] [address] [place] [address] [place] [address] [phone] [facility] [address] [address] [place] [address] ext. [phone] [facility] [address] [place] [address] ext. [phone] K[facility] WALLACE [facility]
--- OUTSIDE RECORDS SUMMARY | 2024-08-25 14:02 | XMS_ITS | Encounter Summary ---
Author Name [facility] [place] [facility] [place] [facility] [place] Address [address] [place] [id number] Care Team Providers Care Handbag Stitcher Name Role Phone MARIETTA HERNANDEZ Primary Care [...] CAREMARK PRESCRIPT ION GEHA Aug 06, 2020 [id number] CANDE WELCH PATIENT CAREMARK PRESCRIPT ION GEHA Aug 06, 2020 [id number] [phone] WELCH,CANDE GLORIA PATIENT CAREMARK PRESCRIPT ION GEHA Apr 01, 2016 [id number] WELCH,CANDE GLORIA PATIENT CAREMARK PRESCRIPT ION GEHA [employer] [employer] [facility] Apr 01, 2016 [id number] WELCH,CANDE GLORIA PATIENT CAREMARK PRESCRIPT ION GEHA Apr 01, 2016 [id number] WELCH,CANDE GLORIA PATIENT CAREMARK PRESCRIPT ION GEHA Apr 01, 2016 [id number] [phone] WELCH,CANDE GLORIA PATIENT CAREMARK PRESCRIPT ION [facility] Mar 09, 2016 [id number] [phone] WELCH,CANDE GLORIA PATIENT [facility] PREFERRED PROVIDER ORGANIZAT ION (PPO) Mathew al [facility] [place] [facility] Apr 01, 2016 [id number] WELCH,CANDE GLORIA PATIENT [facility] DENTAL ONLY DENTAL INSURANCE [facility] CTION DENT Apr 01, 2016 [id number] WELCH,CANDE GLORIA PATIENT [facility] PREFERRED PROVIDER ORGANIZAT ION (PPO) Mathew al [facility] [place] [facility] [place] Jul 27, 2020 [id number] WELCH,CANDE GLORIA PATIENT [facility] MAT[place]W AL [facility] [place] [facility] Sep 09, 2021 [id number] 3GEHA WELCH,CANDE GLORIA PATIENT [facility] Sep 09, 2021 [id number] 3GEHA WELCH,CANDE GLORIA PATIENT [facility] MATHEW AL EMPLO [facility] Sep 09, 2021 [id number] 3GEHA WELCH,CANDE GLORIA PATIENT [facility] PREFERRED PROVIDER ORGANIZAT ION (PPO) [facility] STAND [facility] Sep 09, 2023 [id number] 3 WELCH,CANDE GLORIA PATIENT [facility] PREFERRED PROVIDER ORGANIZAT ION (PPO) GEHA STAND [facility] Sep 09, 2023 [id number] 3GEHA WELCH,CANDE GLORIA PATIENT [facility] PREFERRED PROVIDER ORGANIZAT ION (PPO) [place] [facility] [place] [facility] Sep 09, 2023 [id number] 3GEHA WELCH,CANDE GLORIA PATIENT [facility] PREFERRED PROVIDER ORGANIZAT ION (PPO) [place] [facility] [place] [facility] Sep 09, 2023 [id number] 3 CANDE WELCH PATIENT [facility] MEDICAL EXPENSE (OPT/PROF ) [facility] Sep 09, 2023 [id number] CANDE WELCH PATIENT Selected Encounter This section includes the information on record at [place] for the Encounter. Date/Time Encounter Type Encounter Description Reason Provider Source Nov 05, 2023 02:00 PM OFF/OP EST JANUARY X REQ PHY/QHP PRIMARY CARE/MEDICINE ICD-10-CM I10 Essential (primary) hypertension HARINDER ARRIOLA Janny Encounter Template Text not used by [place] Assessments - Encounter Diagnoses This section includes the primary and secondary diagnoses documented for the Encounter. Date/Time Primary/Secondary Diagnosis Diagnosis Name Provider Source Nov 16, 2023 06:54 AM PRIMARY Essential (primary) hypertension HARINDER ARRIOLA Nov 16, 2023 06:54 AM SECONDARY Other specified counseling HARINDER ARRIOLA Plan of Treatment: Future Appointments (+ 6 months) and Future Tests (+/- 45 days) The Plan of Treatment section includes future care activities for the patient from all [place] [facility]. This section includes future appointments and future orders which are active, pending or scheduled. Future Appointments This section includes appointments that were scheduled to occur 6 months from the date of the Encounter, up to a maximum of 20 appointments. The data comes from all [place] treatment facilities. Appointment Date/Time Appointment Type Appointme nt Facility Name Nov 26, 2023 08:30 AM [place] [facility] [place] [facility] Dec 06, 2023 08:30 AM AMBULATORY [facility] MED[facility] Dec 26, 2023 03:30 PM [place] [facility] [place] [facility] January 13, 2024 08:30 AM AMBULATORY [facility] MED[facility] Feb 14, 2024 08:30 AM [place] [facility] [place] [facility] Feb 19, 2024 08:00 AM [place] [facility] [place] [facility] Feb 28, 2024 08:00 AM [place] [facility] [place] [facility] Mar 18, 2024 08:00 AM AMBULATORY - REHAB MEDICIN [place] [facility] [place] [facility] Mar 24, 2024 03:30 PM AMBULATORY - PSYCHIATRY [facility] Apr 01, 2024 08:00 AM AMBULATORY - RE[facility]AB MEDICIN E [facility] May 05, 2024 03:30 PM AMBULATORY - PSYCHIATRY [facility] Active, Pending, and Scheduled Orders This section includes a listing of several types of active, pending, and scheduled orders, including clinic medications orders, diagnostic test orders, procedure orders and consult orders; where the start date of the order is 45 days before the date of the Encounter or 45 days after the date of theEncounter. The data comes from all [place] treatment facilities. Test Date/Time Test Type Test Details Facility Name Dec 06, 2023 09:02 AM Consult Order COMMUNITY CARE-NEUROLOGY Cons [facility] [employer] [facility] [place] Vital Signs: All taken on the encounter date This section contains inpatient and outpatient Vital Signs collected on the date of the Encounter. Date/Time Temperature Pulse Blood Pressure Respiratory Rate SP02 Pain Height Weight Body Mass Index Source Nov 05, 2023 02:20 PM 87 126/86 [facility] Social History: Smoking Status (Most current) and Tobacco Use (All prior to encounter date) This section includes the most current, and the historical, smoking and tobacco- related health factors from the [place] facility where the Encounter took place. Current Smoking Status This section includes the most current smoking, or tobacco-related health factor, from the [place] facility where the Encounter took place. Date/Time Current Smoking Status Comment Delon novoa Sep 24, 2023 03:30 PM VA-TOBACCO NEVER USED [place] Tobacco Use History This section includes a history of the smoking, or tobacco-related health factors, that were collected on or before the date of the Encounter. The data comes from the [place] facility where the Encounter took place. Date/Time Smoking Status/Tobacco Use Comment F acility Aug 14, 2022 01:30 PM VA-TOBACCO NEVER USED [place] Nov 09, 2020 08:00 AM VA-TOBACCO NEVER USED [place] Nov 10, 2019 11:10 AM VA-TOBACCO NEVER USED [place] Nov 19, 2018 07:52 AM VA-TOBACCO NEVER USED [place] Oct 09, 2017 09:01 AM QUIT TOBACCO USE > 7 YEARS AGO [place] Jul 17, 2016 08:21 AM QUIT TOBACCO USE > 7 YEARS AGO [place] Aug 09, 2015 11:33 AM QUIT TOBACCO USE > 7 YEARS AGO [place] Apr 17, 2012 09:48 AM QUIT TOBACCO USE > 7 YEARS AGO [place] Nov 18, 2008 10:43 AM CURRENT SMOKER Pt. quit smoking 15 years ago while his spouse when she was !! [place] Nov 18, 2008 10:43 AM QUIT TOBACCO USE > 7 YEARS AGO quit 15 years ago [place] Encounter Notes: All associated encounter notes This section contains the clinical notes associated to the Encounter. Date/Time Encounter Note(s) Provider Source Nov 20, 2023 12:33 PM ADDENDUM: LOCAL TITLE: Addendum STANDARD TITLE: ADDENDUM DATE OF NOTE: NOV 20, 2023@12:33:55 ENTRY DATE: NOV 20, 2023@12:33:56 AUTHOR: ROSA ELENA LEONARDO EXP COSIGNER: URGENCY: STATUS: COMPLETED I did not see anything documented in my note about tremor of his hands. We can discuss about his issue with a next visit in the office in the beginning of January or he can make earlier appointment to see me. /holger/ ROSA ELENA LEONARDO MD PRIMARY CARE PHYSICIAN Signed: 11/20/2023 12:34 Receipt Acknowledged By: 11/20/2023 13:00 /holger/ LESLYE WAKEFIELD RN-BC REGISTERED NURSE ======== --- Original Document --- 11/05/23 PRIMARY CARE NURSE NOTE: Patient identity was verified using two identifiers, per [place] Policy: Full Name, Date of MOUNIKA WELCH is a 48 year old who presents to the clinic for bp check per ROSA ELENA LEONARDO for diagnosis of: hypertension Visit Type: Clinic Scheduled Blood Pressure Check: S: Evaluation of blood pressure O: Blood Pressure Readings BP monitor reading #1 Systolic/diastolic: 142/92, Pulse: 87 BP monitor reading #2, after resting for 10 minutes: Systolic/diastolic: 126/86, Pulse: 87 Home BP monitor readings: as noted below. had photos on phone of readings but no record of dates or times. [place] reports that he does not check bp daily. bp results provided are noted below. 143/96 131/88 137/98 128/87 153/92 155/102 145/88 165/106 Abnormal Blood Pressure Symptom Review: Patient reports: Lightheadedness: No Dizziness: No Recent Fall: No Chest Pain: No SOB: No Vision Changes: No Headache: Yes reports hx of chronic headaches that occur daily. Edema: No Cough: No Other: A: Blood Pressure Medication Review: Changes since last appointment? Yes Patient-reported adherence to regimen? No BP medicine taken today? Yes, Time: [place] reports that due to his work schedule he has not been consistent with taking bp medications daily or at a consistent time of day. Active and Recently Outpatient Medications (including Supplies): Active Outpatient Medications Status === 1) AMLODIPINE BESYLATE 10MG TAB TAKE ONE TABLET BY MOUTH ACTIVE ONCE DAILY FOR BLOOD PRESSURE/HEART, DO NOT TAKE WITH GRAPEFRUIT JUICE 2) CHOLECALCIF 25MCG (D3-1,000UNIT) TAB TAKE ONE TABLET ACTIVE BY MOUTH ONCE DAILY FOR VITAMIN D DEFICIENCY FOR VITAMIN SUPPLEMENTATION 3) DICLOFENAC NA 1% TOP GEL APPLY 4 GRAMS TOPICALLY ACTIVE TWICE DAILY NEEDED FOR OSTEOARTHRITIS - USE DOSING CARD PROVIDED IN BOX 4) HYDROXYZINE HCL 25MG TAB TAKE ONE TABLET BY MOUTH ACTIVE THREE TIMES DAILY NEEDED FOR ANXIETY 5) LOSARTAN 25MG TAB TAKE ONE TABLET BY MOUTH ONCE DAILY ACTIVE FOR BLOOD PRESSURE/HEART 6) METHOCARBAMOL 500MG TAB TAKE ONE TABLET BY MOUTH AT ACTIVE BEDTIME NEEDED FOR MUSCLE SPASM 7) OMEPRAZOLE 20MG EC CAP TAKE TWO CAPSULES BY MOUTH ACTIVE EVERY MORNING 30 MINUTES BEFORE BREAKFAST Nursing reviewed medications and no changes at this time. Comments: Relevant Labs: FREE T-4 (WR): 1.03 CRP HI SENSITIVITY (WR): 1.98 GLUCOSE: 92 UREA NITROGEN: 9 SODIUM: 140 POTASSIUM: 3.6 CHLORIDE: 107 CO2: 21 CHOLESTEROL: 193 PROTEIN,TOTAL: 7.1 ALBUMIN: 3.9 ALKALINE PHOSPHATASE: 53 SGOT: 30 SGPT: 28 TRIGLYCERIDE: 124 LDL CHOL: 124 CHOL/HDL RATIO: 4.4 HDL: 44 BILIRUBIN,TOT.: 1.0 TSH (Access): 2.98 CREATININE-EGFR: 0.83 eGFR CKD-EPI 2020: >90 SED RATE AUTO: 12 FREE T-4 (WR): 1.01 TSH (Access): 5.09 H WBC/HPF: 0-5 RBC/HPF: 3-5 MUCUS: MANY SQUAMOUS EPITHELIAL: FEW Color, Urine (AX 4280): Yellow Appearance, Urine (AX 4280): Clear Glucose, Urine (AX 4280): NEGATIVE Ketones, Urine (AX 4280): TRACE Blood, Urine (AX 4280): NEGATIVE Protein, Urine (AX 4280): 30 Nitrite, Urine (AX 4280): NEGATIVE Bilirubin, Urine (AX 4280): NEGATIVE Specific Rhame, (AX 4280): 1.030 H pH, Urine ([id number]): 5.5 Urobilinogen, Urine (AX 4280): <2.0 Leukocyte Esterase, (AX 4280): TRACE HEPATITIS C AB: NON-REACTIVE HGB A1C (WR): 5.3 GLUCOSE: 89 UREA NITROGEN: 12 SODIUM: 139 POTASSIUM: 3.6 CHLORIDE: 104 CO2: 21 CHOLESTEROL: 217 H TRIGLYCERIDE: 153 H LDL CHOL: 139 H CHOL/HDL RATIO: 4.6 HDL: 47 CREATININE-EGFR: 0.98 eGFR CKD-EPI 2020: >90 WBC/HPF: 21-50 H RBC/HPF: 3-5 MUCUS: MANY SQUAMOUS EPITHELIAL: FEW Color, Urine (AX 4280): Yellow Appearance, Urine (AX 4280): Turbid Glucose, Urine (AX 4280): NEGATIVE Ketones, Urine (AX 4280): TRACE Blood, Urine (AX 4280): NEGATIVE Protein, Urine (AX 4280): 10 Nitrite, Urine (AX 4280): NEGATIVE Bilirubin, Urine (AX 4280): NEGATIVE Specific Rhame, (AX 4280): 1.026 H pH, Urine ([id number]): 6.0 Urobilinogen, Urine (AX 4280): <2.0 Leukocyte Esterase, (AX 4280): MODERATE HLA B27: Negative CCP AB: Negative ANTINUCLEAR ANTIBODY: NEG WBC: 8.47 RBC: 6.33 H HGB: 17.6 H HCT: 52.5 H MCV: 82.9 MCHC: 33.5 RDW: 12.9 PLT: 287 MCH: 27.8 SED RATE AUTO: 19 H VITAMIN D, 25-HYDROXY: 28 L VITAMIN D, 25-OH, D3: 28 VITAMIN D, 25-OH, D2: <4 RHEUM FACT (WR): <15 CRP HI SENSITIVITY (WR): 4.68 HEPATITIS B SURFACE ANTIGEN: Non Reactive HEPATITIS B SURFACE ANTIBODY: REACTIVE GLUCOSE: 92 UREA NITROGEN: 12 SODIUM: 140 POTASSIUM: 3.6 CHLORIDE: 105 CO2: 23 CHOLESTEROL: 220 H PROTEIN,TOTAL: 7.5 ALBUMIN: 4.2 ALKALINE PHOSPHATASE: 50 SGOT: 35 H SGPT: 32 TRIGLYCERIDE: 155 H LDL CHOL: 142 H CHOL/HDL RATIO: 4.7 VIT. B12 (WROX): 777 HDL: 47 BILIRUBIN,TOT.: 1.9 H BILIRUBIN,DIR.: 0.6 H TSH (Access): 5.84 H CREATININE-EGFR: 0.93 eGFR CKD-EPI 2020: >90 HEPATITIS C AB: NON-REACTIVE HGB A1C (WR): 5.3 Knowledge Assessment: good Patient received education on the following topics today: HTN/Stroke & his personal risk factors Diet: discussed Caffeine Intake: discussed Alcohol Intake: discussed Exercise: discussed Other habits: sleep, pain, and stress Life style modifications encouraged: Increase aerobic physical activity (30-45 minutes most days of the week), Limit alcohol intake, Reduce intake of saturated fat and cholesterol, Reduce sodium intake, Weight reduction Barriers to learning: None If other, list here: Strategy/motivation for lifestyle change: 's has been able to make positive changes to manage her diabetes and he is proud of her. Referral to [facility] peer partner: No Patient verbalized understanding: Yes Patient agreed with plan: Yes PCP notified: No P: Return to clinic/ Return to PCP clinic Clinician plan: Author advised [place] that will forward results of today's bp check to PCP and PACT will contact if changes to plan of care are recommended by PCP. Author provided [place] with nurse bp clinic handouts and reviewed information with . [place] verbalized understanding of information provided by author. reports that he does not exercise as much as he would like to due to chronic pain issues throughout his body. 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 Good reports that he does have cpap that he uses but still has difficult time with falling asleep and then waking up due to flashbacks and other issues. [place] reports that he has daily headaches, that are also listed as service connected, that he has experienced for many years. Author discussed with Good how all of the issues noted above can negatively impact his blood pressure. Author strongly encouraged Good to set a goal to find a way to take his blood pressure medications as prescribed daily by finding a time that he thinks he will be able to follow through with taking his medications. Author will follow up with Good in 3-4 weeks to see how he is doing with his bp management. Author encouraged to contact PACT as needed. Good has concerns about tremors in both hands that he has experienced for a while and discussed with PCP. reports that it causes him frustration when trying to use eating utensils or do any fine or gross motor movements involving his hands. [place] would like to have further evaluation of the tremors by specialty that PCP feels is appropriate. HTN Assess for Elevated BP>=140/90: Repeat blood pressure: 126/86 Other Reason: Good presented for nurse visit for bp check and results of visit will be forwarded to PCP for review and advice. The patient was counseled on the importance of regular exercise and/or physical activity in the control of blood pressure. The patient has a limited ability to exercise but was encouraged to increase physical activity as much as possible since any increase in activity may be beneficial in improving blood pressure control. The patient was counseled on the importance of diet and weight loss/ control in the regulation of blood pressure. The patient was counseled to reduce their weight to within 10 percent of their ideal body weight. The possible improvement in blood pressure control with even 5 to 10 pounds of weight loss was reviewed. The contribution of dietary sodium to elevated blood pressure was reviewed. The patient was counseled to have a goal sodium intake of 1500mg per day, with no more than 2300mg per day. The patient was counseled that a diet low in dietary saturated and trans fats is beneficial in lowering blood pressure. The patient was counseled that a diet rich in fresh fruits, vegetables and whole grains is beneficial in lowering blood pressure. The patient was counseled to limit alcohol intake to no more than 2 drinks per day for men and 1 drink per day for women. RHS Screen: RHS Screen Session Format: Face to Face Environmental Check Upon inquiry, the individual reports that the environment is safe to proceed. Informed Consent to Screen and Document The individual consents to proceed with screening. The individual consents to documentation of responses. PRIMARY SCREEN: In the past 12 months, how often did a current or former intimate partner (e.g., boyfriend, girlfriend, , , sexual partner): 1. Scream or curse at you Never 2. Insult or talk down to you Never 3. Threaten you with harm Never 4. Physically hurt you Never 5. Force or pressure you to have sexual contact against your will, or when you were unable to say no Never ?? The HITS tool (items 1-4 above) is [place] copyright protected by Imtiaz Oliveira MD, and the user has full rights to use it throughout the [place] system. PRIMARY SCREEN RESULT: The Primary Screen is NEGATIVE. The individual answered never to all forms of IPV above (i.e., answered never to all 5 items) The individual accepts education and/or resources: Yes - Offered verbal universal education about IPV EDUCATION: The individual indicated readiness to learn. Education offered during this session as noted above. The individual indicated understanding by asking relevant questions and making appropriate comments. No barriers to learning were observed or identified. /es/ GENTRY WAKEFIELDN RN-BC REGISTERED NURSE Signed: 11/06/2023 10:02 Receipt Acknowledged By: 11/11/2023 12:59 /es/ ROSA ELENA LEONARDO MD PRIMARY CARE PHYSICIAN 11/11/2023 ADDENDUM STATUS: COMPLETED I noticed his blood pressure is mostly elevated; I increase losartan to 50 mg p.o. daily. Please advised the to continue with his amlodipine Please advise the to keep low salt and caffeine intake and exercise as tolerated He should monitor blood pressure daily please follow-up with him a blood pressure readings in 1 month. He should monitor blood pressure 2 hours after taking the antihypertensive medications Please inform the [place] Thank you /katty LEONARDO MD PRIMARY CARE PHYSICIAN Signed: 11/11/2023 13:00 Receipt Acknowledged By: 11/14/2023 08:15 /LESLYE Manuel RN-ELSA REGISTERED NURSE 11/11/2023 ADDENDUM STATUS: COMPLETED Called and left voicemail requesting call back to PACT at [phone] /LESLYE Manuel RN-ELSA REGISTERED NURSE Signed: 11/11/2023 16:04 11/14/2023 ADDENDUM STATUS: COMPLETED [place] returned call to author and was advised of message above from provider. will watch for arrival of new medication dosing. [place] is inquiring into symptoms reported during nurse bp visit as noted below: has concerns about tremors in both hands that he has experienced for a while and discussed with PCP. reports that it causes him frustration when trying to use eating utensils or do any fine or gross motor movements involving his hands. would like to have further evaluation of the tremors by specialty that PCP feels is appropriate. /LESLYE Manuel RNREYNA REGISTERED NURSE Signed: 11/14/2023 08:17 Receipt Acknowledged By: 11/20/2023 12:33 /katty LEONARDO MD PRIMARY CARE PHYSICIAN ROSA ELENA LEONARDO [place] Nov 14, 2023 08:15 AM ADDENDUM: LOCAL TITLE: Addendum STANDARD TITLE: ADDENDUM DATE OF NOTE: NOV 14, 2023@08:15:56 ENTRY DATE: NOV 14, 2023@08:15:57 AUTHOR: HARINDER ARRIOLA COSIGNER: URGENCY: STATUS: COMPLETED returned call to author and was advised of message above from provider. [place] will watch for arrival of new medication dosing. is inquiring into symptoms reported during nurse bp visit as noted below: [place] has concerns about tremors in both hands that he has experienced for a while and discussed with PCP. reports that it causes him frustration when trying to use eating utensils or do any fine or gross motor movements involving his hands. [place] would like to have further evaluation of the tremors by specialty that PCP feels is appropriate. /holger/ LESLYE WAKEFIELD RN-BC REGISTERED NURSE Signed: 11/14/2023 08:17 Receipt Acknowledged By: 11/20/2023 12:33 /holger/ ROSA ELENA LEONARDO MD PRIMARY CARE PHYSICIAN ======== --- Original Document --- 11/05/23 PRIMARY CARE NURSE NOTE: Patient identity was verified using two identifiers, per [place] Policy: Full Name, Date of MOUNIKA WELCH is a 48 year old who presents to the clinic for bp check per ROSA ELENA LEONARDO for diagnosis of: hypertension Visit Type: Clinic Scheduled Blood Pressure Check: S: Evaluation of blood pressure O: Blood Pressure Readings BP monitor reading #1 Systolic/diastolic: 142/92, Pulse: 87 BP monitor reading #2, after resting for 10 minutes: Systolic/diastolic: 126/86, Pulse: 87 Home BP monitor readings: as noted below. had photos on phone of readings but no record of dates or times. reports that he does not check bp daily. bp results provided are noted below. 143/96 131/88 137/98 128/87 153/92 155/102 145/88 165/106 Abnormal Blood Pressure Symptom Review: Patient reports: Lightheadedness: No Dizziness: No Recent Fall: No Chest Pain: No SOB: No Vision Changes: No Headache: Yes [place] reports hx of chronic headaches that occur daily. Edema: No Cough: No Other: A: Blood Pressure Medication Review: Changes since last appointment? Yes Patient-reported adherence to regimen? No BP medicine taken today? Yes, Time: [place] reports that due to his work schedule he has not been consistent with taking bp medications daily or at a consistent time of day. Active and Recently Outpatient Medications (including Supplies): Active Outpatient Medications Status === 1) AMLODIPINE BESYLATE 10MG TAB TAKE ONE TABLET BY MOUTH ACTIVE ONCE DAILY FOR BLOOD PRESSURE/HEART, DO NOT TAKE WITH GRAPEFRUIT JUICE 2) CHOLECALCIF 25MCG (D3-1,000UNIT) TAB TAKE ONE TABLET ACTIVE BY MOUTH ONCE DAILY FOR VITAMIN D DEFICIENCY FOR VITAMIN SUPPLEMENTATION 3) DICLOFENAC NA 1% TOP GEL APPLY 4 GRAMS TOPICALLY ACTIVE TWICE DAILY NEEDED FOR OSTEOARTHRITIS - USE DOSING CARD PROVIDED IN BOX 4) HYDROXYZINE HCL 25MG TAB TAKE ONE TABLET BY MOUTH ACTIVE THREE TIMES DAILY NEEDED FOR ANXIETY 5) LOSARTAN 25MG TAB TAKE ONE TABLET BY MOUTH ONCE DAILY ACTIVE FOR BLOOD PRESSURE/HEART 6) METHOCARBAMOL 500MG TAB TAKE ONE TABLET BY MOUTH AT ACTIVE BEDTIME NEEDED FOR MUSCLE SPASM 7) OMEPRAZOLE 20MG EC CAP TAKE TWO CAPSULES BY MOUTH ACTIVE EVERY MORNING 30 MINUTES BEFORE BREAKFAST Nursing reviewed medications and no changes at this time. Comments: Relevant Labs: FREE T-4 (WR): 1.03 CRP HI SENSITIVITY (WR): 1.98 GLUCOSE: 92 UREA NITROGEN: 9 SODIUM: 140 POTASSIUM: 3.6 CHLORIDE: 107 CO2: 21 CHOLESTEROL: 193 PROTEIN,TOTAL: 7.1 ALBUMIN: 3.9 ALKALINE PHOSPHATASE: 53 SGOT: 30 SGPT: 28 TRIGLYCERIDE: 124 LDL CHOL: 124 CHOL/HDL RATIO: 4.4 HDL: 44 BILIRUBIN,TOT.: 1.0 TSH (Access): 2.98 CREATININE-EGFR: 0.83 eGFR CKD-EPI 2020: >90 SED RATE AUTO: 12 FREE T-4 (WR): 1.01 TSH (Access): 5.09 H WBC/HPF: 0-5 RBC/HPF: 3-5 MUCUS: MANY SQUAMOUS EPITHELIAL: FEW Color, Urine (AX 4280): Yellow Appearance, Urine (AX 4280): Clear Glucose, Urine (AX 4280): NEGATIVE Ketones, Urine (AX 4280): TRACE Blood, Urine (AX 4280): NEGATIVE Protein, Urine (AX 4280): 30 Nitrite, Urine (AX 4280): NEGATIVE Bilirubin, Urine (AX 4280): NEGATIVE Specific Rhame, (AX 4280): 1.030 H pH, Urine ([id number]): 5.5 Urobilinogen, Urine (AX 4280): <2.0 Leukocyte Esterase, (AX 4280): TRACE HEPATITIS C AB: NON-REACTIVE HGB A1C (WR): 5.3 GLUCOSE: 89 UREA NITROGEN: 12 SODIUM: 139 POTASSIUM: 3.6 CHLORIDE: 104 CO2: 21 CHOLESTEROL: 217 H TRIGLYCERIDE: 153 H LDL CHOL: 139 H CHOL/HDL RATIO: 4.6 HDL: 47 CREATININE-EGFR: 0.98 eGFR CKD-EPI 2020: >90 WBC/HPF: 21-50 H RBC/HPF: 3-5 MUCUS: MANY SQUAMOUS EPITHELIAL: FEW Color, Urine (AX 4280): Yellow Appearance, Urine (AX 4280): Turbid Glucose, Urine (AX 4280): NEGATIVE Ketones, Urine (AX 4280): TRACE Blood, Urine (AX 4280): NEGATIVE Protein, Urine (AX 4280): 10 Nitrite, Urine (AX 4280): NEGATIVE Bilirubin, Urine (AX 4280): NEGATIVE Specific Rhame, (AX 4280): 1.026 H pH, Urine ([id number]): 6.0 Urobilinogen, Urine (AX 4280): <2.0 Leukocyte Esterase, (AX 4280): MODERATE HLA B27: Negative CCP AB: Negative ANTINUCLEAR ANTIBODY: NEG WBC: 8.47 RBC: 6.33 H HGB: 17.6 H HCT: 52.5 H MCV: 82.9 MCHC: 33.5 RDW: 12.9 PLT: 287 MCH: 27.8 SED RATE AUTO: 19 H VITAMIN D, 25-HYDROXY: 28 L VITAMIN D, 25-OH, D3: 28 VITAMIN D, 25-OH, D2: <4 RHEUM FACT (WR): <15 CRP HI SENSITIVITY (WR): 4.68 HEPATITIS B SURFACE ANTIGEN: Non Reactive HEPATITIS B SURFACE ANTIBODY: REACTIVE GLUCOSE: 92 UREA NITROGEN: 12 SODIUM: 140 POTASSIUM: 3.6 CHLORIDE: 105 CO2: 23 CHOLESTEROL: 220 H PROTEIN,TOTAL: 7.5 ALBUMIN: 4.2 ALKALINE PHOSPHATASE: 50 SGOT: 35 H SGPT: 32 TRIGLYCERIDE: 155 H LDL CHOL: 142 H CHOL/HDL RATIO: 4.7 VIT. B12 (WROX): 777 HDL: 47 BILIRUBIN,TOT.: 1.9 H BILIRUBIN,DIR.: 0.6 H TSH (Access): 5.84 H CREATININE-EGFR: 0.93 eGFR CKD-EPI 2020: >90 HEPATITIS C AB: NON-REACTIVE HGB A1C (WR): 5.3 Knowledge Assessment: good Patient received education on the following topics today: HTN/Stroke & his personal risk factors Diet: discussed Caffeine Intake: discussed Alcohol Intake: discussed Exercise: discussed Other habits: sleep, pain, and stress Life style modifications encouraged: Increase aerobic physical activity (30-45 minutes most days of the week), Limit alcohol intake, Reduce intake of saturated fat and cholesterol, Reduce sodium intake, Weight reduction Barriers to learning: None If other, list here: Strategy/motivation for lifestyle change: Good's has been able to make positive changes to manage her diabetes and he is proud of her. Referral to [facility] peer partner: No Patient verbalized understanding: Yes Patient agreed with plan: Yes PCP notified: No P: Return to clinic/ Return to PCP clinic Clinician plan: Author advised that will forward results of today's bp check to PCP and PACT will contact [place] if changes to plan of care are recommended by PCP. Author provided [place] with nurse bp clinic handouts and reviewed information with [place]. verbalized understanding of information provided by author. Good reports that he does not exercise as much as he would like to due to chronic pain issues throughout his body. 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 Good reports that he does have cpap that he uses but still has difficult time with falling asleep and then waking up due to flashbacks and other issues. Good reports that he has daily headaches, that are also listed as service connected, that he has experienced for many years. Author discussed with how all of the issues noted above can negatively impact his blood pressure. Author strongly encouraged [place] to set a goal to find a way to take his blood pressure medications as prescribed daily by finding a time that he thinks he will be able to follow through with taking his medications. Author will follow up with [place] in 3-4 weeks to see how he is doing with his bp management. Author encouraged [place] to contact PACT as needed. [place] has concerns about tremors in both hands that he has experienced for a while and discussed with PCP. reports that it causes him frustration when trying to use eating utensils or do any fine or gross motor movements involving his hands. would like to have further evaluation of the tremors by specialty that PCP feels is appropriate. HTN Assess for Elevated BP>=140/90: Repeat blood pressure: 126/86 Other Reason: presented for nurse visit for bp check and results of visit will be forwarded to PCP for review and advice. The patient was counseled on the importance of regular exercise and/or physical activity in the control of blood pressure. The patient has a limited ability to exercise but was encouraged to increase physical activity as much as possible since any increase in activity may be beneficial in improving blood pressure control. The patient was counseled on the importance of diet and weight loss/ control in the regulation of blood pressure. The patient was counseled to reduce their weight to within 10 percent of their ideal body weight. The possible improvement in blood pressure control with even 5 to 10 pounds of weight loss was reviewed. The contribution of dietary sodium to elevated blood pressure was reviewed. The patient was counseled to have a goal sodium intake of 1500mg per day, with no more than 2300mg per day. The patient was counseled that a diet low in dietary saturated and trans fats is beneficial in lowering blood pressure. The patient was counseled that a diet rich in fresh fruits, vegetables and whole grains is beneficial in lowering blood pressure. The patient was counseled to limit alcohol intake to no more than 2 drinks per day for men and 1 drink per day for women. RHS Screen: RHS Screen Session Format: Face to Face Environmental Check Upon inquiry, the individual reports that the environment is safe to proceed. Informed Consent to Screen and Document The individual consents to proceed with screening. The individual consents to documentation of responses. PRIMARY SCREEN: In the past 12 months, how often did a current or former intimate partner (e.g., boyfriend, girlfriend, , , sexual partner): 1. Scream or curse at you Never 2. Insult or talk down to you Never 3. Threaten you with harm Never 4. Physically hurt you Never 5. Force or pressure you to have sexual contact against your will, or when you were unable to say no Never ?? The HITS tool (items 1-4 above) is [place] copyright protected by Imtiaz Oliveira MD, and the user has full rights to use it throughout the [place] system. PRIMARY SCREEN RESULT: The Primary Screen is NEGATIVE. The individual answered never to all forms of IPV above (i.e., answered never to all 5 items) The individual accepts education and/or resources: Yes - Offered verbal universal education about IPV EDUCATION: The individual indicated readiness to learn. Education offered during this session as noted above. The individual indicated understanding by asking relevant questions and making appropriate comments. No barriers to learning were observed or identified. /holger/ LESLYE WAKEFIELD RN-BC REGISTERED NURSE Signed: 11/06/2023 10:02 Receipt Acknowledged By: 11/11/2023 12:59 /katty LEONARDO MD PRIMARY CARE PHYSICIAN 11/11/2023 ADDENDUM STATUS: COMPLETED I noticed his blood pressure is mostly elevated; I increase losartan to 50 mg p.o. daily. Please advised the to continue with his amlodipine Please advise the to keep low salt and caffeine intake and exercise as tolerated He should monitor blood pressure daily please follow-up with him a blood pressure readings in 1 month. He should monitor blood pressure 2 hours after taking the antihypertensive medications Please inform the [place] Thank you /katty LEONARDO MD PRIMARY CARE PHYSICIAN Signed: 11/11/2023 13:00 Receipt Acknowledged By: 11/14/2023 08:15 /LESLYE Manuel RN-BC REGISTERED NURSE 11/11/2023 ADDENDUM STATUS: COMPLETED Called and left voicemail requesting call back to PACT at [phone] /LESLYE Manuel RN-BC REGISTERED NURSE Signed: 11/11/2023 16:04 HARINDER ARRIOLA Nov 11, 2023 12:59 PM ADDENDUM: LOCAL TITLE: Addendum STANDARD TITLE: ADDENDUM DATE OF NOTE: NOV 11, 2023@12:59:17 ENTRY DATE: NOV 11, 2023@12:59:18 AUTHOR: ROSA ELENA LEONARDO EXP COSIGNER: URGENCY: STATUS: COMPLETED I noticed his blood pressure is mostly elevated; I increase losartan to 50 mg p.o. daily. Please advised the [place] to continue with his amlodipine Please advise the [place] to keep low salt and caffeine intake and exercise as tolerated He should monitor blood pressure daily please follow-up with him a blood pressure readings in 1 month. He should monitor blood pressure 2 hours after taking the antihypertensive medications Please inform the [place] Thank you /holger/ ROSA ELENA LEONARDO MD PRIMARY CARE PHYSICIAN Signed: 11/11/2023 13:00 Receipt Acknowledged By: 11/14/2023 08:15 /holger/ LESLYE WAKEFIELD RN-BC REGISTERED NURSE ======== --- Original Document --- 11/05/23 PRIMARY CARE NURSE NOTE: Patient identity was verified using two identifiers, per [place] Policy: Full Name, Date of MOUNIKA WELCH is a 48 year old who presents to the clinic for bp check per ROSA ELENA LEONARDO for diagnosis of: hypertension Visit Type: Clinic Scheduled Blood Pressure Check: S: Evaluation of blood pressure O: Blood Pressure Readings BP monitor reading #1 Systolic/diastolic: 142/92, Pulse: 87 BP monitor reading #2, after resting for 10 minutes: Systolic/diastolic: 126/86, Pulse: 87 Home BP monitor readings: as noted below. [place] had photos on phone of readings but no record of dates or times. reports that he does not check bp daily. bp results provided are noted below. 143/96 131/88 137/98 128/87 153/92 155/102 145/88 165/106 Abnormal Blood Pressure Symptom Review: Patient reports: Lightheadedness: No Dizziness: No Recent Fall: No Chest Pain: No SOB: No Vision Changes: No Headache: Yes reports hx of chronic headaches that occur daily. Edema: No Cough: No Other: A: Blood Pressure Medication Review: Changes since last appointment? Yes Patient-reported adherence to regimen? No BP medicine taken today? Yes, Time: reports that due to his work schedule he has not been consistent with taking bp medications daily or at a consistent time of day. Active and Recently Outpatient Medications (including Supplies): Active Outpatient Medications Status === 1) AMLODIPINE BESYLATE 10MG TAB TAKE ONE TABLET BY MOUTH ACTIVE ONCE DAILY FOR BLOOD PRESSURE/HEART, DO NOT TAKE WITH GRAPEFRUIT JUICE 2) CHOLECALCIF 25MCG (D3-1,000UNIT) TAB TAKE ONE TABLET ACTIVE BY MOUTH ONCE DAILY FOR VITAMIN D DEFICIENCY FOR VITAMIN SUPPLEMENTATION 3) DICLOFENAC NA 1% TOP GEL APPLY 4 GRAMS TOPICALLY ACTIVE TWICE DAILY NEEDED FOR OSTEOARTHRITIS - USE DOSING CARD PROVIDED IN BOX 4) HYDROXYZINE HCL 25MG TAB TAKE ONE TABLET BY MOUTH ACTIVE THREE TIMES DAILY NEEDED FOR ANXIETY 5) LOSARTAN 25MG TAB TAKE ONE TABLET BY MOUTH ONCE DAILY ACTIVE FOR BLOOD PRESSURE/HEART 6) METHOCARBAMOL 500MG TAB TAKE ONE TABLET BY MOUTH AT ACTIVE BEDTIME NEEDED FOR MUSCLE SPASM 7) OMEPRAZOLE 20MG EC CAP TAKE TWO CAPSULES BY MOUTH ACTIVE EVERY MORNING 30 MINUTES BEFORE BREAKFAST Nursing reviewed medications and no changes at this time. Comments: Relevant Labs: FREE T-4 (WR): 1.03 CRP HI SENSITIVITY (WR): 1.98 GLUCOSE: 92 UREA NITROGEN: 9 SODIUM: 140 POTASSIUM: 3.6 CHLORIDE: 107 CO2: 21 CHOLESTEROL: 193 PROTEIN,TOTAL: 7.1 ALBUMIN: 3.9 ALKALINE PHOSPHATASE: 53 SGOT: 30 SGPT: 28 TRIGLYCERIDE: 124 LDL CHOL: 124 CHOL/HDL RATIO: 4.4 HDL: 44 BILIRUBIN,TOT.: 1.0 TSH (Access): 2.98 CREATININE-EGFR: 0.83 eGFR CKD-EPI 2020: >90 SED RATE AUTO: 12 FREE T-4 (WR): 1.01 TSH (Access): 5.09 H WBC/HPF: 0-5 RBC/HPF: 3-5 MUCUS: MANY SQUAMOUS EPITHELIAL: FEW Color, Urine (AX 4280): Yellow Appearance, Urine (AX 4280): Clear Glucose, Urine (AX 4280): NEGATIVE Ketones, Urine (AX 4280): TRACE Blood, Urine (AX 4280): NEGATIVE Protein, Urine (AX 4280): 30 Nitrite, Urine (AX 4280): NEGATIVE Bilirubin, Urine (AX 4280): NEGATIVE Specific Rhame, (AX 4280): 1.030 H pH, Urine ([id number]): 5.5 Urobilinogen, Urine (AX 4280): <2.0 Leukocyte Esterase, (AX 4280): TRACE HEPATITIS C AB: NON-REACTIVE HGB A1C (WR): 5.3 GLUCOSE: 89 UREA NITROGEN: 12 SODIUM: 139 POTASSIUM: 3.6 CHLORIDE: 104 CO2: 21 CHOLESTEROL: 217 H TRIGLYCERIDE: 153 H LDL CHOL: 139 H CHOL/HDL RATIO: 4.6 HDL: 47 CREATININE-EGFR: 0.98 eGFR CKD-EPI 2020: >90 WBC/HPF: 21-50 H RBC/HPF: 3-5 MUCUS: MANY SQUAMOUS EPITHELIAL: FEW Color, Urine (AX 4280): Yellow Appearance, Urine (AX 4280): Turbid Glucose, Urine (AX 4280): NEGATIVE Ketones, Urine (AX 4280): TRACE Blood, Urine (AX 4280): NEGATIVE Protein, Urine (AX 4280): 10 Nitrite, Urine (AX 4280): NEGATIVE Bilirubin, Urine (AX 4280): NEGATIVE Specific Rhame, (AX 4280): 1.026 H pH, Urine ([id number]): 6.0 Urobilinogen, Urine (AX 4280): <2.0 Leukocyte Esterase, (AX 4280): MODERATE HLA B27: Negative CCP AB: Negative ANTINUCLEAR ANTIBODY: NEG WBC: 8.47 RBC: 6.33 H HGB: 17.6 H HCT: 52.5 H MCV: 82.9 MCHC: 33.5 RDW: 12.9 PLT: 287 MCH: 27.8 SED RATE AUTO: 19 H VITAMIN D, 25-HYDROXY: 28 L VITAMIN D, 25-OH, D3: 28 VITAMIN D, 25-OH, D2: <4 RHEUM FACT (WR): <15 CRP HI SENSITIVITY (WR): 4.68 HEPATITIS B SURFACE ANTIGEN: Non Reactive HEPATITIS B SURFACE ANTIBODY: REACTIVE GLUCOSE: 92 UREA NITROGEN: 12 SODIUM: 140 POTASSIUM: 3.6 CHLORIDE: 105 CO2: 23 CHOLESTEROL: 220 H PROTEIN,TOTAL: 7.5 ALBUMIN: 4.2 ALKALINE PHOSPHATASE: 50 SGOT: 35 H SGPT: 32 TRIGLYCERIDE: 155 H LDL CHOL: 142 H CHOL/HDL RATIO: 4.7 VIT. B12 (WROX): 777 HDL: 47 BILIRUBIN,TOT.: 1.9 H BILIRUBIN,DIR.: 0.6 H TSH (Access): 5.84 H CREATININE-EGFR: 0.93 eGFR CKD-EPI 2020: >90 HEPATITIS C AB: NON-REACTIVE HGB A1C (WR): 5.3 Knowledge Assessment: good Patient received education on the following topics today: HTN/Stroke & his personal risk factors Diet: discussed Caffeine Intake: discussed Alcohol Intake: discussed Exercise: discussed Other habits: sleep, pain, and stress Life style modifications encouraged: Increase aerobic physical activity (30-45 minutes most days of the week), Limit alcohol intake, Reduce intake of saturated fat and cholesterol, Reduce sodium intake, Weight reduction Barriers to learning: None If other, list here: Strategy/motivation for lifestyle change: Good's has been able to make positive changes to manage her diabetes and he is proud of her. Referral to [facility] peer partner: No Patient verbalized understanding: Yes Patient agreed with plan: Yes PCP notified: No P: Return to clinic/ Return to PCP clinic Clinician plan: Author advised [place] that will forward results of today's bp check to PCP and PACT will contact if changes to plan of care are recommended by PCP. Author provided [place] with nurse bp clinic handouts and reviewed information with [place]. [place] verbalized understanding of information provided by author. reports that he does not exercise as much as he would like to due to chronic pain issues throughout his body. 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 [place] reports that he does have cpap that he uses but still has difficult time with falling asleep and then waking up due to flashbacks and other issues. reports that he has daily headaches, that are also listed as service connected, that he has experienced for many years. Author discussed with how all of the issues noted above can negatively impact his blood pressure. Author strongly encouraged [place] to set a goal to find a way to take his blood pressure medications as prescribed daily by finding a time that he thinks he will be able to follow through with taking his medications. Author will follow up with Good in 3-4 weeks to see how he is doing with his bp management. Author encouraged Good to contact [facility] as needed. Good has concerns about tremors in both hands that he has experienced for a while and discussed with PCP. Good reports that it causes him frustration when trying to use eating utensils or do any fine or gross motor movements involving his hands. Good would like to have further evaluation of the tremors by specialty that PCP feels is appropriate. HTN Assess for Elevated BP>=140/90: Repeat blood pressure: 126/86 Other Reason: Good presented for nurse visit for bp check and results of visit will be forwarded to PCP for review and advice. The patient was counseled on the importance of regular exercise and/or physical activity in the control of blood pressure. The patient has a limited ability to exercise but was encouraged to increase physical activity as much as possible since any increase in activity may be beneficial in improving blood pressure control. The patient was counseled on the importance of diet and weight loss/ control in the regulation of blood pressure. The patient was counseled to reduce their weight to within 10 percent of their ideal body weight. The possible improvement in blood pressure control with even 5 to 10 pounds of weight loss was reviewed. The contribution of dietary sodium to elevated blood pressure was reviewed. The patient was counseled to have a goal sodium intake of 1500mg per day, with no more than 2300mg per day. The patient was counseled that a diet low in dietary saturated and trans fats is beneficial in lowering blood pressure. The patient was counseled that a diet rich in fresh fruits, vegetables and whole grains is beneficial in lowering blood pressure. The patient was counseled to limit alcohol intake to no more than 2 drinks per day for men and 1 drink per day for women. RHS Screen: RHS Screen Session Format: Face to Face Environmental Check Upon inquiry, the individual reports that the environment is safe to proceed. Informed Consent to Screen and Document The individual consents to proceed with screening. The individual consents to documentation of responses. PRIMARY SCREEN: In the past 12 months, how often did a current or former intimate partner (e.g., boyfriend, girlfriend, , , sexual partner): 1. Scream or curse at you Never 2. Insult or talk down to you Never 3. Threaten you with harm Never 4. Physically hurt you Never 5. Force or pressure you to have sexual contact against your will, or when you were unable to say no Never ?? The HITS tool (items 1-4 above) is [place] copyright protected by Imtiaz Oliveira MD, and the user has full rights to use it throughout the [place] system. PRIMARY SCREEN RESULT: The Primary Screen is NEGATIVE. The individual answered never to all forms of IPV above (i.e., answered never to all 5 items) The individual accepts education and/or resources: Yes - Offered verbal universal education about IPV EDUCATION: The individual indicated readiness to learn. Education offered during this session as noted above. The individual indicated understanding by asking relevant questions and making appropriate comments. No barriers to learning were observed or identified. /holger/ LESLYE WAKEFIELD RN-BC REGISTERED NURSE Signed: 11/06/2023 10:02 Receipt Acknowledged By: 11/11/2023 12:59 /katty LEONARDO MD PRIMARY CARE PHYSICIAN 11/11/2023 ADDENDUM STATUS: COMPLETED Called [place] and left voicemail requesting call back to PACT at [phone] /LESLYE Manuel RN-BC REGISTERED NURSE Signed: 11/11/2023 16:04 ROSA ELENA LEONARDO Nov 05, 2023 03:15 PM NURSING NOTE: LOCAL TITLE: PRIMARY CARE NURSE NOTE STANDARD TITLE: NURSING NOTE DATE OF NOTE: NOV 05, 2023@15:15 ENTRY DATE: NOV 05, 2023@21:41:59 AUTHOR: HARINDER ARRIOLA EXP COSIGNER: URGENCY: STATUS: COMPLETED PRIMARY CARE NURSE NOTE Has ADDENDA Patient identity was verified using two identifiers, per [place] Policy: Full Name, Date of MOUNIKA WELCH is a 48 year old who presents to the clinic for bp check per ROSA ELENA LEONARDO for diagnosis of: hypertension Visit Type: Clinic Scheduled Blood Pressure Check: S: Evaluation of blood pressure O: Blood Pressure Readings BP monitor reading #1 Systolic/diastolic: 142/92, Pulse: 87 BP monitor reading #2, after resting for 10 minutes: Systolic/diastolic: 126/86, Pulse: 87 Home BP monitor readings: as noted below. [place] had photos on phone of readings but no record of dates or times. reports that he does not check bp daily. bp results provided are noted below. 143/96 131/88 137/98 128/87 153/92 155/102 145/88 165/106 Abnormal Blood Pressure Symptom Review: Patient reports: Lightheadedness: No Dizziness: No Recent Fall: No Chest Pain: No SOB: No Vision Changes: No Headache: Yes reports hx of chronic headaches that occur daily. Edema: No Cough: No Other: A: Blood Pressure Medication Review: Changes since last appointment? Yes Patient-reported adherence to regimen? No BP medicine taken today? Yes, Time: [place] reports that due to his work schedule he has not been consistent with taking bp medications daily or at a consistent time of day. Active and Recently Outpatient Medications (including Supplies): Active Outpatient Medications Status === 1) AMLODIPINE BESYLATE 10MG TAB TAKE ONE TABLET BY MOUTH ACTIVE ONCE DAILY FOR BLOOD PRESSURE/HEART, DO NOT TAKE WITH GRAPEFRUIT JUICE 2) CHOLECALCIF 25MCG (D3-1,000UNIT) TAB TAKE ONE TABLET ACTIVE BY MOUTH ONCE DAILY FOR VITAMIN D DEFICIENCY FOR VITAMIN SUPPLEMENTATION 3) DICLOFENAC NA 1% TOP GEL APPLY 4 GRAMS TOPICALLY ACTIVE TWICE DAILY NEEDED FOR OSTEOARTHRITIS - USE DOSING CARD PROVIDED IN BOX 4) HYDROXYZINE HCL 25MG TAB TAKE ONE TABLET BY MOUTH ACTIVE THREE TIMES DAILY NEEDED FOR ANXIETY 5) LOSARTAN 25MG TAB TAKE ONE TABLET BY MOUTH ONCE DAILY ACTIVE FOR BLOOD PRESSURE/HEART 6) METHOCARBAMOL 500MG TAB TAKE ONE TABLET BY MOUTH AT ACTIVE BEDTIME NEEDED FOR MUSCLE SPASM 7) OMEPRAZOLE 20MG EC CAP TAKE TWO CAPSULES BY MOUTH ACTIVE EVERY MORNING 30 MINUTES BEFORE BREAKFAST Nursing reviewed medications and no changes at this time. Comments: Relevant Labs: FREE T-4 (WR): 1.03 CRP HI SENSITIVITY (WR): 1.98 GLUCOSE: 92 UREA NITROGEN: 9 SODIUM: 140 POTASSIUM: 3.6 CHLORIDE: 107 CO2: 21 CHOLESTEROL: 193 PROTEIN,TOTAL: 7.1 ALBUMIN: 3.9 ALKALINE PHOSPHATASE: 53 SGOT: 30 SGPT: 28 TRIGLYCERIDE: 124 LDL CHOL: 124 CHOL/HDL RATIO: 4.4 HDL: 44 BILIRUBIN,TOT.: 1.0 TSH (Access): 2.98 CREATININE-EGFR: 0.83 eGFR CKD-EPI 2020: >90 SED RATE AUTO: 12 FREE T-4 (WR): 1.01 TSH (Access): 5.09 H WBC/HPF: 0-5 RBC/HPF: 3-5 MUCUS: MANY SQUAMOUS EPITHELIAL: FEW Color, Urine (AX 4280): Yellow Appearance, Urine (AX 4280): Clear Glucose, Urine (AX 4280): NEGATIVE Ketones, Urine (AX 4280): TRACE Blood, Urine (AX 4280): NEGATIVE Protein, Urine (AX 4280): 30 Nitrite, Urine (AX 4280): NEGATIVE Bilirubin, Urine (AX 4280): NEGATIVE Specific Rhame, (AX 4280): 1.030 H pH, Urine ([id number]): 5.5 Urobilinogen, Urine (AX 4280): <2.0 Leukocyte Esterase, (AX 4280): TRACE HEPATITIS C AB: NON-REACTIVE HGB A1C (WR): 5.3 GLUCOSE: 89 UREA NITROGEN: 12 SODIUM: 139 POTASSIUM: 3.6 CHLORIDE: 104 CO2: 21 CHOLESTEROL: 217 H TRIGLYCERIDE: 153 H LDL CHOL: 139 H CHOL/HDL RATIO: 4.6 HDL: 47 CREATININE-EGFR: 0.98 eGFR CKD-EPI 2020: >90 WBC/HPF: 21-50 H RBC/HPF: 3-5 MUCUS: MANY SQUAMOUS EPITHELIAL: FEW Color, Urine (AX 4280): Yellow Appearance, Urine (AX 4280): Turbid Glucose, Urine (AX 4280): NEGATIVE Ketones, Urine (AX 4280): TRACE Blood, Urine (AX 4280): NEGATIVE Protein, Urine (AX 4280): 10 Nitrite, Urine (AX 4280): NEGATIVE Bilirubin, Urine (AX 4280): NEGATIVE Specific Rhame, (AX 4280): 1.026 H pH, Urine ([id number]): 6.0 Urobilinogen, Urine (AX 4280): <2.0 Leukocyte Esterase, (AX 4280): MODERATE HLA B27: Negative CCP AB: Negative ANTINUCLEAR ANTIBODY: NEG WBC: 8.47 RBC: 6.33 H HGB: 17.6 H HCT: 52.5 H MCV: 82.9 MCHC: 33.5 RDW: 12.9 PLT: 287 MCH: 27.8 SED RATE AUTO: 19 H VITAMIN D, 25-HYDROXY: 28 L VITAMIN D, 25-OH, D3: 28 VITAMIN D, 25-OH, D2: <4 RHEUM FACT (WR): <15 CRP HI SENSITIVITY (WR): 4.68 HEPATITIS B SURFACE ANTIGEN: Non Reactive HEPATITIS B SURFACE ANTIBODY: REACTIVE GLUCOSE: 92 UREA NITROGEN: 12 SODIUM: 140 POTASSIUM: 3.6 CHLORIDE: 105 CO2: 23 CHOLESTEROL: 220 H PROTEIN,TOTAL: 7.5 ALBUMIN: 4.2 ALKALINE PHOSPHATASE: 50 SGOT: 35 H SGPT: 32 TRIGLYCERIDE: 155 H LDL CHOL: 142 H CHOL/HDL RATIO: 4.7 VIT. B12 (WROX): 777 HDL: 47 BILIRUBIN,TOT.: 1.9 H BILIRUBIN,DIR.: 0.6 H TSH (Access): 5.84 H CREATININE-EGFR: 0.93 eGFR CKD-EPI 2020: >90 HEPATITIS C AB: NON-REACTIVE HGB A1C (WR): 5.3 Knowledge Assessment: good Patient received education on the following topics today: HTN/Stroke & his personal risk factors Diet: discussed Caffeine Intake: discussed Alcohol Intake: discussed Exercise: discussed Other habits: sleep, pain, and stress Life style modifications encouraged: Increase aerobic physical activity (30-45 minutes most days of the week), Limit alcohol intake, Reduce intake of saturated fat and cholesterol, Reduce sodium intake, Weight reduction Barriers to learning: None If other, list here: Strategy/motivation for lifestyle change: 's has been able to make positive changes to manage her diabetes and he is proud of her. Referral to [facility] peer partner: No Patient verbalized understanding: Yes Patient agreed with plan: Yes PCP notified: No P: Return to clinic/ Return to PCP clinic Clinician plan: Author advised [place] that will forward results of today's bp check to PCP and PACT will contact if changes to plan of care are recommended by PCP. Author provided Good with nurse bp clinic handouts and reviewed information with . [place] verbalized understanding of information provided by author. Good reports that he does not exercise as much as he would like to due to chronic pain issues throughout his body. 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 Good reports that he does have cpap that he uses but still has difficult time with falling asleep and then waking up due to flashbacks and other issues. Good reports that he has daily headaches, that are also listed as service connected, that he has experienced for many years. Author discussed with Good how all of the issues noted above can negatively impact his blood pressure. Author strongly encouraged Good to set a goal to find a way to take his blood pressure medications as prescribed daily by finding a time that he thinks he will be able to follow through with taking his medications. Author will follow up with [place] in 3-4 weeks to see how he is doing with his bp management. Author encouraged [place] to contact PACT as needed. Good has concerns about tremors in both hands that he has experienced for a while and discussed with PCP. reports that it causes him frustration when trying to use eating utensils or do any fine or gross motor movements involving his hands. [place] would like to have further evaluation of the tremors by specialty that PCP feels is appropriate. HTN Assess for Elevated BP>=140/90: Repeat blood pressure: 126/86 Other Reason: presented for nurse visit for bp check and results of visit will be forwarded to PCP for review and advice. The patient was counseled on the importance of regular exercise and/or physical activity in the control of blood pressure. The patient has a limited ability to exercise but was encouraged to increase physical activity as much as possible since any increase in activity may be beneficial in improving blood pressure control. The patient was counseled on the importance of diet and weight loss/ control in the regulation of blood pressure. The patient was counseled to reduce their weight to within 10 percent of their ideal body weight. The possible improvement in blood pressure control with even 5 to 10 pounds of weight loss was reviewed. The contribution of dietary sodium to elevated blood pressure was reviewed. The patient was counseled to have a goal sodium intake of 1500mg per day, with no more than 2300mg per day. The patient was counseled that a diet low in dietary saturated and trans fats is beneficial in lowering blood pressure. The patient was counseled that a diet rich in fresh fruits, vegetables and whole grains is beneficial in lowering blood pressure. The patient was counseled to limit alcohol intake to no more than 2 drinks per day for men and 1 drink per day for women. RHS Screen: RHS Screen Session Format: Face to Face Environmental Check Upon inquiry, the individual reports that the environment is safe to proceed. Informed Consent to Screen and Document The individual consents to proceed with screening. The individual consents to documentation of responses. PRIMARY SCREEN: In the past 12 months, how often did a current or former intimate partner (e.g., boyfriend, girlfriend, , , sexual partner): 1. Scream or curse at you Never 2. Insult or talk down to you Never 3. Threaten you with harm Never 4. Physically hurt you Never 5. Force or pressure you to have sexual contact against your will, or when you were unable to say no Never ?? The HITS tool (items 1-4 above) is [place] copyright protected by Imtiaz Oliveira MD, and the user has full rights to use it throughout the [place] system. PRIMARY SCREEN RESULT: The Primary Screen is NEGATIVE. The individual answered never to all forms of IPV above (i.e., answered never to all 5 items) The individual accepts education and/or resources: Yes - Offered verbal universal education about IPV EDUCATION: The individual indicated readiness to learn. Education offered during this session as noted above. The individual indicated understanding by asking relevant questions and making appropriate comments. No barriers to learning were observed or identified. /holger/ LESLYE WAKEFIELD RN-BC REGISTERED NURSE Signed: 11/06/2023 10:02 Receipt Acknowledged By: 11/11/2023 12:59 /katty LEONARDO MD PRIMARY CARE PHYSICIAN 11/11/2023 ADDENDUM STATUS: COMPLETED I noticed his blood pressure is mostly elevated; I increase losartan to 50 mg p.o. daily. Please advised the [place] to continue with his amlodipine Please advise the [place] to keep low salt and caffeine intake and exercise as tolerated He should monitor blood pressure daily please follow-up with him a blood pressure readings in 1 month. He should monitor blood pressure 2 hours after taking the antihypertensive medications Please inform the [place] Thank you /katty LEONARDO MD PRIMARY CARE PHYSICIAN Signed: 11/11/2023 13:00 Receipt Acknowledged By: 11/14/2023 08:15 /LESLYE Manuel RN-BC REGISTERED NURSE 11/11/2023 ADDENDUM STATUS: COMPLETED Called [place] and left voicemail requesting call back to PACT at [phone] /LESLYE Manuel RN-ELSA REGISTERED NURSE Signed: 11/11/2023 16:04 11/14/2023 ADDENDUM STATUS: COMPLETED [place] returned call to author and was advised of message above from provider. [place] will watch for arrival of new medication dosing. is inquiring into symptoms reported during nurse bp visit as noted below: has concerns about tremors in both hands that he has experienced for a while and discussed with PCP. [place] reports that it causes him frustration when trying to use eating utensils or do any fine or gross motor movements involving his hands. would like to have further evaluation of the tremors by specialty that PCP feels is appropriate. /LESLYE Manuel REGISTERED NURSE Signed: 11/14/2023 08:17 Receipt Acknowledged By: 11/20/2023 12:33 /katty LEONARDO MD PRIMARY CARE PHYSICIAN 11/20/2023 ADDENDUM STATUS: COMPLETED I did not see anything documented in my note about tremor of his hands. We can discuss about his issue with a next visit in the office in the beginning of January or he can make earlier appointment to see me. /katty LEONARDO MD PRIMARY CARE PHYSICIAN Signed: 11/20/2023 12:34 Receipt Acknowledged By: * AWAITING SIGNATURE * HARINDER ARRIOLA KRISTIN [place]
--- OUTSIDE RECORDS SUMMARY | 2024-08-25 14:02 | XMS_ITS ---
Author Name [facility] [facility] [place] Address [address] [place] [id number] Care Team Providers Care Green Inspector Name Role Phone MARIETTA HERNANDEZ Primary Care [...] CAREMARK PRESCRIPT ION GEHA Aug 06, 2020 [id number] CANDE WELCHDO PATIENT CAREMARK PRESCRIPT ION GEHA Aug 06, 2020 [id number] [phone] WELCH,CANDE GLORIA PATIENT CAREMARK PRESCRIPT ION GEHA Apr 01, 2016 [id number] WELCH,CANDE GLORIA PATIENT CAREMARK PRESCRIPT ION GEHA [facility] [employer] Apr 01, 2016 [id number] WELCH,CANDE GLORIA PATIENT CAREMARK PRESCRIPT ION GEHA Apr 01, 2016 [id number] WELCH,CANDE GLORIA PATIENT CAREMARK PRESCRIPT ION GEHA Apr 01, 2016 [id number] [phone] WELCH,CANDE GLORIA PATIENT CAREMARK PRESCRIPT ION [facility] Mar 09, 2016 [id number] WELCH,CANDE GLORIA PATIENT [facility] PREFERRED PROVIDER ORGANIZAT ION (PPO) Mathew al [facility] [place] [facility] Apr 01, 2016 [id number] [phone] WELCH,CANDE GLORIA PATIENT [facility] DENTAL ONLY DENTAL INSURANCE [facility] CTION DENT Apr 01, 2016 [id number] [phone] WELCH,CANDE GLORIA PATIENT [facility] PREFERRED PROVIDER ORGANIZAT ION (PPO) Mathew al [facility] [place] [facility] Jul 27, 2020 [id number] WELCH,CANDE GLORIA PATIENT [facility] MATHEW AL EMPLO [place] [facility] Sep 09, 2021 [id number] 3GEHA WELCH,CANDE GLORIA PATIENT [facility] Sep 09, 2021 [id number] 3GEHA WELCH,CANDE GLORIA PATIENT [facility] MATHEW AL EMPLO [facility] Sep 09, 2021 [id number] 3GEHA WELCH,CANDE GLORIA PATIENT [facility] MEDICAL EXPENSE (OPT/PROF ) [facility] Sep 09, 2023 [id number] WELCH,CANDE GLORIA PATIENT [facility] PREFERRED PROVIDER ORGANIZAT ION (PPO) [facility] STAND [facility]LE[facility] Sep 09, 2023 [id number] WELCH,CANDE GLORIA PATIENT [facility] PREFERRED PROVIDER ORGANIZAT ION (PPO) [facility] STAND [facility] Sep 09, 2023 [id number] 3GEHA WELCH,CANDE GLORIA PATIENT [facility] PREFERRED PROVIDER ORGANIZAT ION (PPO) MATHEW AL EMPLO [place] [facility] Sep 09, 2023 [id number] CANDE WELCH PATIENT [facility] PREFERRED PROVIDER ORGANIZAT JDE (PPO) [facility]W [facility] TRAOR[facility] Sep 09, 2023 [id number] CANDE WELCH PATIENT Selected Encounter This section includes the information on record at [place] for the Encounter. Date/Time Encounter Type Encounter Description Reason Pro vider Source Oct 02, 2023 10:19 AM Outpatient Encounter [facility] Encounter Template Text not used by [place] Plan of Treatment: Future Appointments (+ 6 months) and Future Tests (+/- 45 days) The Plan of Treatment section includes future care activities for the [facility] [place] [facility] This section includes future appointments and future orders which are active, pending or scheduled. Future Appointments This section includes appointments that were scheduled to occur 6 months from the date of the Encounter, up to a maximum of 20 appointments. The data comes from all [place] treatment facilities. Appointment Date/Time Appointment Type Appointme nt Facility Name Nov 05, 2023 02:00 PM AMBULATORY - MEDICINE [facility] Nov 26, 2023 08:30 AM AMBULATORY - MEDICINE [place] [facility] [place] [facility] Dec 06, 2023 08:30 AM AMBULATORY - MEDICINE [facility] Dec 26, 2023 03:30 PM AMBULATORY - MEDICINE [place] [facility] [facility] January 13, 2024 08:30 AM AMBULATORY - MEDICINE [facility] Feb 14, 2024 08:30 AM AMBULATORY - MEDICINE [place] [facility] [place] [facility] Feb 19, 2024 08:00 AM AMBULATORY - MEDICINE [place] [facility] [place] [facility] Feb 28, 2024 08:00 AM AMBULATORY - MEDICINE [place] [facility] [place] [facility] Mar 18, 2024 08:00 AM AMBULATORY - REHAB MEDICIN [facility] [place] [facility] Mar 24, 2024 03:30 PM AMBULATORY - PSYCHIATRY [facility] Apr 01, 2024 08:00 AM AMBULATORY - REHAB MEDICIN [facility] [place] [facility] Lab Results: +/- 30 days of the encounter This section includes the Chemistry and Hematology Lab Results on record with [place] for the patient. Radiology Reports and Pathology Reports are provided separately, in subsequent sections. Lab Results This section contains the Chemistry/Hematology Results that were resulted 30 days before or 30 daysafter the date of the Encounter. Date/Time Source Result Type Result - Unit Interpretation Reference Range Comment Oct 01, 2023 07:33 AM [facility] C REACTIVE PROTEIN (CRPH) Specimen Type : SERUM Comment: Reference range changed on 02/27/11 [facility] reference ranges for ages >17 years: hsCRP [...] Sep 24, 2023 07:10 PM Reporting Lab: [facility] [address] [facility] [address] Performing Lab: [facility] [address] [facility] [address] C REACTIVE PROTEIN (CRPH) 1.98 mg/L See eval. Oct 01, 2023 07:33 AM [facility] THYROID T4 FREE(FT4) Specimen Type: SERUM No comment entered. Ordering Provider: ROSA ELENA LEONARDO Report Released Date/Time: Sep 24, 2023 07:10 PM Reporting Lab: [facility] [address] [facility] [address] Performing Lab: [facility] [address] [facility] [facility] [address] THYROID T4 FREE(FT4) 1.03 ng/dL 0.6-1.6 Oct 01, 2023 07:33 AM [facility] SED RATE, AUTOMATED Specimen Type: BLOOD No comment entered. Ordering Provider: ROSA ELENA LEONARDO Report Released Date/Time: Sep 24, 2023 07:10 PM Reporting Lab: [facility] [address] [facility] [address] Performing Lab: [facility] [address] SED RATE, AUTOMATED 12 mm/h 0-15 Oct 01, 2023 07:33 AM [facility] TSH Specimen Type: SERUM No comment entered. Ordering Provider: ROSA ELENA LEONARDO Report Released Date/Time: Sep 24, 2023 07:10 PM Reporting Lab: [facility] [address] [address] Performing Lab: [facility] [address] [address] TSH 2.98 u[IU]/mL 0.35-5.00 Oct 01, 2023 07:33 AM [facility] LIPID PANEL FASTING Specimen Type: SERUM No comment entered. Ordering Provider: ROSA ELENA LEONARDO Report Released Date/Time: Sep 24, 2023 07:10 PM Reporting Lab: [facility] [address] [address] Performing Lab: [address] [address] CHOLESTEROL 193 mg/dL TRIGLYCERIDE 124 mg/dL 0-150 LDL calculated 124 mg/dL 0-129 CHOL/HDL 4.4 HDL CHOLESTEROL 44 mg/dL 40-60 Oct 01, 2023 07:33 AM [facility] BASIC METABOLIC PANEL (fasting) Specime n Type: SERUM No comment entered. Ordering Provider: ROSA ELENA LEONARDO Report Released Date/Time: Sep 24, 2023 07:10 PM Reporting Lab: [facility] [address] [address] Performing Lab: [facility] [address] [address] UREA NITROGEN 9 mg/dL 7-25 GLUCOSE 92 mg/dL 65-100 SODIUM 140 mmol/L 135-145 POTASSIUM 3.6 mmol/L 3.5-5.0 CHLORIDE 107 mmol/L 100-110 CO2 21 meq/L 20-30 CREATININE, Serum 0.83 mg/dL 0.50-1.40 eGFR(CKD-EPI 2020) >90 mL/min >60 Oct 01, 2023 07:33 AM [facility] LIVER FUNCTION Specimen Type: SERUM No comment entered. Ordering Provider: ROSA ELENA LEONARDO Report Released Date/Time: Sep 24, 2023 07:10 PM Reporting Lab: [facility] [address] [facility] [address] Performing Lab: [facility] [address] [address] PROTEIN,TOTAL 7.1 g/dL 6.0-8.3 ALBUMIN 3.9 g/dL 3.5-5.0 ALKALINE PHOSPHATASE 53 U/L 40-150 AST 30 U/L 5-34 ALT 28 U/L BILIRUBIN, TOTAL 1.0 mg/dL 0.2-1.2 Encounter Notes: All associated encounter notes This section contains the clinical notes associated to the Encounter. Date/Time Encounter Note(s) Provider Source Oct 02, 2023 11:24 AM ADDENDUM: LOCAL TITLE: Addendum STANDARD TITLE: ADDENDUM DATE OF NOTE: OCT 02, 2023@11:24:23 ENTRY DATE: OCT 02, 2023@11:24:24 AUTHOR: MARVIN BUTLER EXP COSIGNER: URGENCY: STATUS: COMPLETED Of course - no problems with change /holger/ Marvin Butler APRN, STAFF CLINICAL NURSE SPECIALIST Signed: 10/02/2023 11:26 Receipt Acknowledged By: 10/02/2023 11:59 /katty Puente Nurse ====== --- Original Document --- 10/02/23 MHC/MEDICATION REFIL NOTE: presents to clinic, had alternate appt with pcp and the team would like to consider dc'ing medication. propanalol. would like to consult MH provider at this time to see if this would be ok. please call, number on file has been confirmed. states issue appears to be BP is through the roof /holger/ THADDEUS HUNTER ADVANCED SERVICE DELIVERY MANAGEMENT CONSULTANT Signed: 10/02/2023 10:23 Receipt Acknowledged By: 10/02/2023 11:58 /katty OLSEN Registered Nurse 10/02/2023 11:23 /katty Butler APRN, STAFF CLINICAL NURSE SPECIALIST 10/02/2023 ADDENDUM STATUS: UNSIGNED You may not VIEW this UNSIGNED Addendum. MARVIN BUTLER Oct 02, 2023 10:20 AM MENTAL HEALTH MEDI CATION MGT NOTE: LOCAL TITLE: MHC/MEDICATION REFIL NOTE STANDARD TITLE: MENTAL HEALTH MEDICATION MGT NOTE DATE OF NOTE: OCT 02, 2023@10:20 ENTRY DATE: OCT 02, 2023@10:20:14 AUTHOR: THADDEUS HUNTER EXP COSIGNER: URGENCY: STATUS: COMPLETED MHC/MEDICATION REFIL NOTE Has ADDENDA presents to clinic, had alternate appt with pcp and the team would like to consider dc'ing medication. propanalol. would like to consult MH provider at this time to see if this would be ok. please call, number on file has been confirmed. states issue appears to be BP is through the roof /holger/ THADDEUS HUNTER ADVANCED SERVICE DELIVERY MANAGEMENT CONSULTANT Signed: 10/02/2023 10:23 Receipt Acknowledged By: 10/02/2023 11:58 /katty OLSEN Registered Nurse 10/02/2023 11:23 /holger/ Marvin Butler APRN, STAFF CLINICAL NURSE SPECIALIST 10/02/2023 ADDENDUM STATUS: COMPLETED Of course - no problems with change /katty Butler APRN, STAFF CLINICAL NURSE SPECIALIST Signed: 10/02/2023 11:26 Receipt Acknowledged By: 10/02/2023 11:59 /katty OLSEN Registered Nurse 10/02/2023 ADDENDUM STATUS: COMPLETED Left generic VM stating ok to discontinue that med . left my call back info if he has questions /katty OLSEN Registered Nurse Signed: 10/02/2023 12:00 THADDEUS HUNTER
--- OUTSIDE RECORDS SUMMARY | 2024-08-25 14:02 | XMS_ITS | Encounter Summary ---
Author Name Department of Vetera Affairs ([place]) Organization Department of Vetera [place] Affairs ([place]) Address [address] [place] [id number] Care Team Providers Care Automobile Rental Representative Name Role Phone MARIETTA HERNANDEZ Primary Care [...] CAREMARK PRESCRIPT ION GEHA Aug 06, 2020 [id number] [phone] CANDE WELCH PATIENT CAREMARK PRESCRIPT ION GEHA Aug 06, 2020 [id number] [phone] WELCH,CANDE GLORIA PATIENT CAREMARK PRESCRIPT ION GEHA Apr 01, 2016 [id number] WELCH,CANDE GLORIA PATIENT CAREMARK PRESCRIPT ION GEHA STAND [employer] PLAN Apr 01, 2016 [id number] WELCH,CANDE GLORIA PATIENT CAREMARK PRESCRIPT ION GEHA Apr 01, 2016 [id number] WELCH,CANDE GLORIA PATIENT CAREMARK PRESCRIPT ION GEHA Apr 01, 2016 [id number] [phone] WELCH,CANDE GLORIA PATIENT CAREMARK PRESCRIPT ION [facility] Mar 09, 2016 [id number] WELCH,CANDE GLORIA PATIENT [facility] PREFERRED PROVIDER ORGANIZAT ION (PPO) [facility]w [facility] [place] [facility] Apr 01, 2016 [id number] WELCH,CANDE GLORIA PATIENT [facility] DENTAL ONLY DENTAL INSURANCE [facility] CTION DENT Apr 01, 2016 [id number] [phone] WELCH,CANDE GLORIA PATIENT [facility] PREFERRED PROVIDER ORGANIZAT ION (PPO) Mathew al [facility] [place] [facility] Jul 27, 2020 [id number] [phone] WELCH,CANDE GLORIA PATIENT [facility] Sep 09, 2021 [id number] 3GEHA WELCH,CANDE GLORIA PATIENT [facility] Sep 09, 2021 [id number] 3GEHA WELCH,CANDE GLORIA PATIENT [facility] MAT[facility]W AL [facility] Sep 09, 2021 [id number] 3GEHA WELCH,CANDE GLORIA PATIENT [facility] MEDICAL EXPENSE (OPT/PROF ) [facility] Sep 09, 2023 [id number] 3GEHA WELCH,CANDE GLORIA PATIENT [facility] PREFERRED PROVIDER ORGANIZAT ION (PPO) [facility] STAND [facility] Sep 09, 2023 [id number] WELCH,CANDE GLORIA PATIENT [facility] PREFERRED PROVIDER ORGANIZAT ION (PPO) [facility] STAND [facility] Sep 09, 2023 [id number] 3GEHA WELCH,CANDE GLORIA PATIENT [facility] PREFERRED PROVIDER ORGANIZAT ION (PPO) [facility]HEW AL [facility] Sep 09, 2023 [id number] CANDE WELCH PATIENT [facility] PREFERRED PROVIDER ORGANARPAN ADKINS (PPO) MATHEW COXE MICHAELA Sep 09, 2023 [id number] CANDE WELCH PATIENT Selected Encounter This section includes the information on record at OR for the Encounter. Date/Time Encounter Type Encounter Description Reason Pro vider Source Nov 20, 2023 01:00 PM Outpatient Encounter PRIMARY CARE/MEDICINE IHE Encounter Template Text not used by OR Plan of Treatment: Future Appointments (+ 6 months) and Future Tests (+/- 45 days) The Plan of Treatment section includes future care activities for the patient from all [place] [facility]. This section includes future appointments and [...] - MEDICINE [place] [facility] [place] [place] [facility] Dec 06, 2023 08:30 AM AMBULATORY - MEDICINE [facility] Dec 26, 2023 03:30 PM AMBULATORY - MEDICINE [place] [facility] [place] [facility] January 13, 2024 08:30 AM AMBULATORY - MEDICINE [facility] Feb 14, 2024 08:30 AM AMBULATORY - MEDICINE [place] [facility] [place] [facility] Feb 19, 2024 08:00 AM AMBULATORY - MEDICINE [place] [facility] [place] [facility] Feb 28, 2024 08:00 AM AMBULATORY - MEDICINE [place] [facility] [place] [facility] Mar 18, 2024 08:00 AM AMBULATORY - REHAB MEDICIN [facility] [place] [facility] Mar 24, 2024 03:30 PM AMBULATORY - PSYCHIATRY [facility] Apr 01, 2024 08:00 AM AMBULATORY - REHAB MEDICIN E [facility] [place] [facility] May 05, 2024 03:30 PM AMBULATORY - PS[facility]CHIATRY [facility] May 22, 2024 09:15 AM AMBULATORY - MEDICINE [place] [facility] [place] [facility] Active, Pending, and Scheduled Orders This section includes a listing of several types of active, pending, and scheduled orders, including clinic medications orders, diagnostic test orders, procedure orders and consult orders; where the start date of the order is 45 days before the date of the Encounter or 45 days after the date of theEncounter. The data comes from all [place] treatment facilities. Test Date/Time Test Type Test Details Facility Name Dec 06, 2023 09:02 AM Consult Order [facility]-NEUROLOGY Cons [facility] [employer] [facility] [place] Encounter Notes: All associated encounter notes This section contains the clinical notes associated to the Encounter. Date/Time Encounter Note(s) Provider Source Nov 20, 2023 01:00 PM ADMINISTRATIVE NOT E: LOCAL TITLE: ADMINISTRATIVE NOTE STANDARD TITLE: ADMINISTRATIVE NOTE DATE OF NOTE: NOV 20, 2023@13:00 ENTRY DATE: NOV 20, 2023@13:00:30 AUTHOR: HARINDER ARRIOLA COSIGNER: URGENCY: STATUS: COMPLETED ADMINISTRATIVE NOTE Has ADDENDA Please contact [place] and offer him a problem focused visit for hand tremor assessment. /holger/ LESLYE WAKEFIELD RN-BC REGISTERED NURSE Signed: 11/20/2023 13:00 Receipt Acknowledged By: 11/20/2023 14:00 /katty KERR ADVANCED SPECIAL AGENT IN CHARGE 11/20/2023 ADDENDUM STATUS: COMPLETED THIS MILLER HEAD WET PROCESS HAD SPOKEN TO TO SCHEDULE F2F APPT. WITH CWM/SO/PACT EIGHT PROVIDER FOR F/U HAND TREMORS ON 12/06/2023 AT 8:30AM. /katty KERR ADVANCED SPECIAL AGENT IN CHARGE Signed: 11/20/2023 14:02 HARINDER ARRIOLA
--- OUTSIDE RECORDS SUMMARY | 2024-08-25 14:02 | XMS_ITS ---
Author Name Department of Vetera Affairs ([place]) Organization Department of Vetera ns Affairs [place] Address [address] [place] [address] Care Team Providers Care Patient Experience Coordinator Name Role Phone MARIETTA HERNANDEZ Primary Care [...] CAREMARK PRESCRIPT ION GEHA Aug 06, 2020 [id number] CANDE WELCHDO PATIENT CAREMARK PRESCRIPT ION GEHA Aug 06, 2020 [id number] WELCH,CANDE GLORIA PATIENT CAREMARK PRESCRIPT ION GEHA Apr 01, 2016 [id number] WELCH,CANDE GLORIA PATIENT CAREMARK PRESCRIPT ION GEHA [employer] PL[employer] Apr 01, 2016 [id number] [phone] WELCH,CANDE GLORIA PATIENT CAREMARK PRESCRIPT ION GE[facility] Apr 01, 2016 [id number] WELCH,CANDE GLORIA PATIENT CAREMARK PRESCRIPT ION GE[facility] Apr 01, 2016 [id number] WELCH,CANDE GLORIA PATIENT CAREMARK PRESCRIPT ION [facility] Mar 09, 2016 [id number] WELCH,CANDE GLORIA PATIENT [facility] PREFERRED PROVIDER ORGANIZAT ION (PPO) Mathew [facility] [place] [facility] Apr 01, 2016 [id number] WELCH,CANDE GLORIA PATIENT [facility] DENTAL ONLY DENTAL INSURANCE [facility] DENT Apr 01, 2016 [id number] [phone] WELCH,CANDE GLORIA PATIENT [facility] PREFERRED PROVIDER ORGANIZAT ION (PPO) Mathew al [facility] [place] [facility] Jul 27, 2020 [id number] WELCH,CANDE GLORIA PATIENT [facility] MATHEW AL EMPL[facility] [place] [facility] Sep 09, 2021 [id number] [phone] WELCH,CANDE GLORIA PATIENT [facility] MATHEW AL EMPLO [place] [facility] Sep 09, 2021 [id number] 3GEHA WELCH,CANDE GLORIA PATIENT [facility] Sep 09, 2021 [id number] 3GEHA WELCH,CANDE GLORIA PATIENT [facility] PREFERRED PROVIDER ORGANIZAT ION (PPO) [facility] Sep 09, 2023 [id number] 3 WELCH,CANDE GLORIA PATIENT [facility] PREFERRED PROVIDER ORGANIZAT ION (PPO) [facility] STAND [facility] Sep 09, 2023 [id number] 3GEHA WELCH,CANDE GLORIA PATIENT [facility] MEDICAL EXPENSE (OPT/PROF ) [facility] Sep 09, 2023 [id number] 3GEHA WELCH,CANDE GLORIA PATIENT [facility] PREFERRED PROVIDER ORGANIZAT ION (PPO) MATHEW AL [facility]O [place] [facility] Sep 09, 2023 [id number] CANDE WELCH PATIENT [facility] PREFERRED PROVIDER ORGANIZAT ION (PPO) [facility] Sep 09, 2023 [id number] 3GEHA CANDE WELCH PATIENT Selected Encounter This section includes the information on record at [place] for the Encounter. Date/Time Encounter Type Encounter Description Reason Pro vider Source Oct 17, 2023 01:35 PM Outpatient Encounter OPTOMETRY IHE Encounter Template Text not used by ME Plan of Treatment: Future Appointments (+ 6 months) and Future Tests (+/- 45 days) The Plan of Treatment section includes future care activities for the patient from all [place] [facility]. This section includes future appointments and future orders which are active, pending or scheduled. Future Appointments This section includes appointments that were scheduled to occur 6 months from the date of the Encounter, up to a maximum of 20 appointments. The data comes from all [place] treatment facilities. Appointment Date/Time Appointment Type Appointme nt Facility Name Nov 05, 2023 02:00 PM AMBULATORY - MEDICINE [facility] Nov 26, 2023 08:30 AM AMBULATORY - MEDICINE [place] [facility] [place] [place] [facility] Dec 06, 2023 08:30 AM AM[facility]ULATORY - MEDICINE [facility] Dec 26, 2023 03:30 PM AMBULATORY - MEDICINE [place] [place] [facility] January 13, 2024 08:30 AM AM[facility]ULATORY - MEDICINE [facility] Feb 14, 2024 08:30 AM AMBULATORY - MEDICINE [place] [facility] [place] [place] [facility] Feb 19, 2024 08:00 AM AMBULATORY - MEDICINE [place] [facility] [place] [place] [facility] Feb 28, 2024 08:00 AM AMBULATORY - MEDICINE [place] [place] [facility] Mar 18, 2024 08:00 AM AMBULATORY - REHAB MEDICIN E [facility] [place] [place] [facility] Mar 24, 2024 03:30 PM AMBULATORY - PSYCHIATRY [facility] Apr 01, 2024 08:00 AM AMBULATORY - REHAB MEDICIN E [facility] [place] [place] [facility] Lab Results: +/- 30 days of the encounter This section includes the Chemistry and Hematology Lab Results on record with ME for the patient. Radiology Reports and Pathology Reports are provided separately, in subsequent sections. Lab Results This section contains the Chemistry/Hematology Results that were resulted 30 days before or 30 daysafter the date of the Encounter. Date/Time Source Result Type Result - Unit Interpretation Reference Range Comment Oct 01, 2023 07:33 AM [facility] C REACTIVE PROTEIN (CRPH) Specimen Type : [...] Sep 24, 2023 07:10 PM Reporting [facility]: [facility] [address] [address] Performing Lab: [facility] [address] [facility] [address] C REACTIVE PROTEIN (CRPH) 1.98 mg/L See eval. Oct 01, 2023 07:33 AM [facility] THYROID T4 FREE(FT4) Specimen Type: SERUM No comment entered. Ordering Provider: ROSA ELENA LEONARDO Report Released Date/Time: Sep 24, 2023 07:10 PM Reporting Lab: [facility] [address] [address] Performing Lab: [facility] [address] [facility] [address] THYROID T4 FREE(FT4) 1.03 ng/dL 0.6-1.6 Oct 01, 2023 07:33 AM [facility] SED RATE, AUTOMATED Specimen Type: BLOOD No comment entered. Ordering Provider: ROSA ELENA LEONARDO Report Released Date/Time: Sep 24, 2023 07:10 PM Reporting Lab: [facility] [address] [address] Performing Lab: [facility] [address] [address] SED RATE, AUTOMATED 12 mm/h 0-15 Oct 01, 2023 07:33 AM [facility] LIPID PANEL FASTING Specimen Type: SERUM No comment entered. Ordering Provider: ROSA ELENA LEONARDO Report Released Date/Time: Sep 24, 2023 07:10 PM Reporting Lab: [facility] [address] [address] Performing Lab: [address] [address] CHOLESTEROL 193 mg/dL TRIGLYCERIDE 124 mg/dL 0-150 LDL calculated 124 mg/dL 0-129 CHOL/HDL 4.4 HDL CHOLESTEROL 44 mg/dL 40-60 Oct 01, 2023 07:33 AM [facility] TSH Specimen Type: SERUM No comment entered. Ordering Provider: ROSA ELENA LEONARDO Report Released Date/Time: Sep 24, 2023 07:10 PM Reporting Lab: [address] [address] Performing Lab: [address] [address] TSH 2.98 u[IU]/mL 0.35-5.00 Oct 01, 2023 07:33 AM [facility] BASIC METABOLIC PANEL (fasting) Specime n Type: SERUM No comment entered. Ordering Provider: ROSA ELENA LEONARDO Report Released Date/Time: Sep 24, 2023 07:10 PM Reporting Lab: [address] [address] Performing Lab: [address] [address] UREA NITROGEN 9 mg/dL 7-25 GLUCOSE 92 mg/dL 65-100 SODIUM 140 mmol/L 135-145 POTASSIUM 3.6 mmol/L 3.5-5.0 CHLORIDE 107 mmol/L 100-110 CO2 21 meq/L 20-30 CREATININE, Serum 0.83 mg/dL 0.50-1.40 eGFR(CKD-EPI 2020) >90 mL/min >60 Oct 01, 2023 07:33 AM [facility] LIVER FUNCTION Specimen Type: SERUM No comment entered. Ordering Provider: ROSA ELENA LEONARDO Report Released Date/Time: Sep 24, 2023 07:10 PM Reporting Lab: [facility] [address] [address] Performing Lab: [facility] [address] [address] PROTEIN,TOTAL 7.1 g/dL 6.0-8.3 ALBUMIN 3.9 g/dL 3.5-5.0 ALKALINE PHOSPHATASE 53 U/L 40-150 AST 30 U/L 5-34 ALT 28 U/L BILIRUBIN, TOTAL 1.0 mg/dL 0.2-1.2 Encounter Notes: All associated encounter notes This section contains the clinical notes associated to the Encounter. Date/Time Encounter Note(s) Provider Source Oct 17, 2023 01:35 PM TELEPHONE ENCOUNTE R NOTE: LOCAL TITLE: TELEPHONE NOTE/SPECIALTY CLINIC STANDARD TITLE: TELEPHONE ENCOUNTER NOTE DATE OF NOTE: OCT 17, 2023@13:35 ENTRY DATE: OCT 17, 2023@13:35:32 AUTHOR: KWAME WALLACE EXP COSIGNER: URGENCY: STATUS: COMPLETED RTC pid 10/03/2024 dispositioned due to veterans failure to respond to all contact efforts per department standards. 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
--- OUTSIDE RECORDS SUMMARY | 2024-08-25 14:02 | XMS_ITS | Encounter Summary ---
Author Name [place] Address [address] [place] [address] Care Team Providers Care City Carrier Assistant Name Role Phone MARIETTA HERNANDEZ Primary Care [...] CAREMARK PRESCRIPT ION GEHA Aug 06, 2020 [id number] CANDE WELCHDO PATIENT CAREMARK PRESCRIPT ION GEHA Aug 06, 2020 [id number] WELCH,CANDE GLORIA PATIENT CAREMARK PRESCRIPT ION GEHA Apr 01, 2016 [id number] [phone] WELCH,CANDE GLORIA PATIENT CAREMARK PRESCRIPT ION GEHA STAND COLEMAN PLAN Apr 01, 2016 [id number] WELCH,CANDE GLORIA PATIENT CAREMARK PRESCRIPT ION GEHA Apr 01, 2016 [id number] [phone] WELCH,CANDE GLORIA PATIENT CAREMARK PRESCRIPT ION GEHA Apr 01, 2016 [id number] [phone] WELCH,CANDE GLORIA PATIENT CAREMARK PRESCRIPT ION [facility] Mar 09, 2016 [id number] [phone] WELCH,CANDE GLORIA PATIENT [facility] PREFERRED PROVIDER ORGANIZAT ION (PPO) Mathew al Emplo [place] [facility] Apr 01, 2016 [id number] [phone] WELCH,CANDE GLORIA PATIENT [facility] DENTAL ONLY DENTAL INSURANCE [facility] CTION DENT Apr 01, 2016 [id number] WELCH,CANDE GLORIA PATIENT [facility] PREFERRED PROVIDER ORGANIZAT ION (PPO) Mathew al Emplo [place] [facility] Jul 27, 2020 [id number] [phone] WELCH,CANDE GLORIA PATIENT [facility] MATHEW AL EMPLO [place] [facility] Sep 09, 2021 [id number] WELCH,CANDE GLORIA PATIENT [facility] Sep 09, 2021 [id number] WELCH,CANDE GLORIA PATIENT [facility] MATHEW AL EMPLO [facility] Sep 09, 2021 [id number] 3GEHA WELCH,CANDE GLORIA PATIENT [facility] PREFERRED PROVIDER ORGANIZAT ION (PPO) [facility] STAND [facility] Sep 09, 2023 [id number] WELCH,CANDE GLORIA PATIENT [facility] PREFERRED PROVIDER ORGANIZAT ION (PPO) GEHA STAND COLEMAN Sep 09, 2023 [id number] 3GEHA WELCH,CANDE GLORIA PATIENT [facility] PREFERRED PROVIDER ORGANIZAT ION (PPO) MATHEW AL EMPLO [facility] Sep 09, 2023 [id number] 3GEHA WELCH,CANDE GLORIA PATIENT [facility] PREFERRED PROVIDER ORGANIZAT ION (PPO) MATHEW AL EMPLO [facility] Sep 09, 2023 [id number] [phone] [facility] MEDICAL EXPENSE (OPT/PROF ) [facility] Sep 09, 2023 [id number] [phone] CANDE WELCH PATIENT Selected Encounter This section includes the information on record at [place] for the Encounter. Date/Time Encounter Type Encounter Description Reason Pro vider Source Oct 02, 2023 02:13 PM Outpatient Encounter [facility] IHE Encounter Template Text not used by [place] Plan of Treatment: Future Appointments (+ 6 months) and Future Tests (+/- 45 days) The Plan of Treatment section includes future care activities for the patient from [facility] [place] [facility] [place] This section includes future appointments and future [...] - MEDICINE [place] [facility] Dec 06, 2023 08:30 AM AMBULATORY - MEDICINE [facility] Dec 26, 2023 03:30 PM [place] [facility] January 13, 2024 08:30 AM AMBULATORY - MEDICINE [facility] Feb 14, 2024 08:30 AM AM[place]UL[place]ORY [place]IC[place] [facility] Feb 19, 2024 08:00 AM AMBULATORY [place]ICINE [place] [facility] Feb 28, 2024 08:00 AM AMBULATORY - [place]ICINE [place] [facility] Mar 18, 2024 08:00 AM AMBULATORY - REHAB MEDICIN [place] [place] [facility] Mar 24, 2024 03:30 PM AMBULATORY - PSYCHIATRY [facility] Apr 01, 2024 08:00 AM AMBULATORY - REHAB MEDICIN E [place] [place] [facility] Lab Results: +/- 30 days of the encounter This section includes the Chemistry and Hematology Lab Results on record with [place] for the patient. Radiology Reports and Pathology Reports are provided separately, in subsequent sections. Lab Results This section contains the Chemistry/Hematology Results that were resulted 30 days before or 30 daysafter the date of the Encounter. Date/Time Source Result Type Result - Unit Interpretation Reference Range Comment Oct 01, 2023 07:33 AM [place] C REACTIVE PROTEIN (CRPH) Specimen Type : [...] Sep 24, 2023 07:10 PM Reporting Lab: [facility] [address] [address] Performing Lab: [facility] [address] [address] C REACTIVE PROTEIN (CRPH) 1.98 mg/L See eval. Oct 01, 2023 07:33 AM [place] THYROID T4 FREE(FT4) Specimen Type: SERUM No comment entered. Ordering Provider: ROSA ELENA LEONARDO Report Released Date/Time: Sep 24, 2023 07:10 PM Reporting Lab: [facility] [address] [address] Performing Lab: [facility]ITALRATMORE [facility]OSPITALTRN [facility]ITALUSETS [facility] [address] [address] THYROID T4 FREE(FT4) 1.03 ng/dL 0.6-1.6 Oct 01, 2023 07:33 AM [place] SED RATE, AUTOMATED Specimen Type: BLOOD No comment entered. Ordering Provider: ROSA ELENA LEONARDO Report Released Date/Time: Sep 24, 2023 07:10 PM Reporting Lab: [facility]ITALRATMORE [facility]PITALTRN [facility]ITALUSETS [facility] [address] [address] Performing Lab: [facility]TR[facility]ITALUSE[address] [address] SED RATE, AUTOMATED 12 mm/h 0-15 Oct 01, 2023 07:33 AM [place] TSH Specimen Type: SERUM No comment entered. Ordering Provider: ROSA ELENA LEONARDO Report Released Date/Time: Sep 24, 2023 07:10 PM Reporting Lab: [facility] [address] [address] Performing Lab: [facility] [address] [address] TSH 2.98 u[IU]/mL 0.35-5.00 Oct 01, 2023 07:33 AM [place] LIPID PANEL FASTING Specimen Type: SERUM No comment entered. Ordering Provider: ROSA ELENA LEONARDO Report Released Date/Time: Sep 24, 2023 07:10 PM Reporting Lab: [facility] [address] [address] Performing Lab: [address] [address] CHOLESTEROL 193 mg/dL TRIGLYCERIDE 124 mg/dL 0-150 LDL calculated 124 mg/dL 0-129 CHOL/HDL 4.4 HDL CHOLESTEROL 44 mg/dL 40-60 Oct 01, 2023 07:33 AM [place] BASIC METABOLIC PANEL (fasting) Specime n Type: SERUM No comment entered. Ordering Provider: ROSA ELENA LEONARDO Report Released Date/Time: Sep 24, 2023 07:10 PM Reporting Lab: [facility] [address] [address] Performing Lab: [facility] [address] [address] [place] NITROGEN 9 mg/dL 7-25 GLUCOSE 92 mg/dL 65-100 SODIUM 140 mmol/L 135-145 POTASSIUM 3.6 mmol/L 3.5-5.0 CHLORIDE 107 mmol/L 100-110 CO2 21 meq/L 20-30 CREATININE, Serum 0.83 mg/dL 0.50-1.40 eGFR(CKD-EPI 2020) >90 mL/min >60 Oct 01, 2023 07:33 AM [place] LIVER FUNCTION Specimen Type: SERUM No comment entered. Ordering Provider: ROSA ELENA LEONARDO Report Released Date/Time: Sep 24, 2023 07:10 PM Reporting Lab: [facility] [address] [address] Performing Lab: [facility]ENTERHer[facility] [address] [address] PROTEIN,TOTAL 7.1 g/dL 6.0-8.3 ALBUMIN 3.9 g/dL 3.5-5.0 ALKALINE PHOSPHATASE 53 U/L 40-150 AST 30 U/L 5-34 ALT 28 U/L BILIRUBIN, TOTAL 1.0 mg/dL 0.2-1.2 Encounter Notes: All associated encounter notes This section contains the clinical notes associated to the Encounter. Date/Time Encounter Note(s) Provider Source Oct 02, 2023 02:13 PM LETTERS: LOCAL TITLE: PATIENT LETTER (B) STANDARD TITLE: LETTERS DATE OF NOTE: OCT 02, 2023@14:13 ENTRY DATE: OCT 02, 2023@14:13:42 AUTHOR: HEMA CARMICHAEL EXP COSIGNER: URGENCY: STATUS: COMPLETED [facility] Toll Free Number ext [phone] [facility] scheduling can be reached at ext. [phone] [facility]- ext. [phone] [facility]- ext. [phone] [facility]- ext. [phone] OCT 02, 2023 MOUNIKA WELCH [address] [place] [address] Dear MOUNIKA WELCH JR Thank you for choosing the [facility] as your primary choice for health care. As a partner in your health care, we are contacting you in writing since we have been unsuccessful in our attempts to reach you to date. We want to assure you we are doing everything possible to schedule Veterans for their VA medical care appointments. Our records indicate you are due for an appointment in acupuncture. If you would like to be seen, please contact [facility] at ext. [phone] to schedule an appointment. Thank you for your service to our nation, and we look forward to hearing from you soon. Sincerely, [facility] [address] [facility] [address] [place] [address] [place] [address] ext [phone] [place] [facility] Outpatient [facility] [address] [address] [place] [address] [place] [address] ext. [phone] HEMA CARMICHAEL [place] CNTRL W[facility]IB[facility]WY[facility]
--- OUTSIDE RECORDS SUMMARY | 2024-08-25 14:02 | XMS_ITS ---
Author Name [facility] [place] Address [address] [place] [address] Care Team Providers Care Almond Blancher Hand Name Role Phone MARIETTA HERNANDEZ Primary Care [...] CAREMARK PRESCRIPT ION GEHA Aug 06, 2020 [id number] CANDE WELCHDO PATIENT CAREMARK PRESCRIPT ION GEHA Aug 06, 2020 [id number] [phone] WELCH,CANDE GLORIA PATIENT CAREMARK PRESCRIPT ION GEHA Apr 01, 2016 [id number] WELCH,CANDE GLORIA PATIENT CAREMARK PRESCRIPT ION GEHA STAND COLEMAN PLAN Apr 01, 2016 [id number] WELCH,CANDE GLORIA PATIENT CAREMARK PRESCRIPT ION GEHA Apr 01, 2016 [id number] WELCH,CANDE GLORIA PATIENT CAREMARK PRESCRIPT ION GEHA Apr 01, 2016 [id number] [phone] WELCH,CANDE GLORIA PATIENT CAREMARK PRESCRIPT ION HA Mar 09, 2016 [id number] WELCH,CANDE GLORIA PATIENT [facility] PREFERRED PROVIDER ORGANIZAT ION (PPO) Mathew al Emplo [place] Hea Apr 01, 2016 [id number] [phone] WELCH,CANDE GLORIA PATIENT [facility] DENTAL ONLY DENTAL INSURANCE [facility] CTION DENT Apr 01, 2016 [id number] WELCH,CANDE GLORIA PATIENT [facility] PREFERRED PROVIDER ORGANIZAT ION (PPO) Mathew al Emplo [place] [facility] Jul 27, 2020 [id number] WELCH,CANDE GLORIA PATIENT [facility] MATHEW AL EMPLO [place] [facility] Sep 09, 2021 [id number] 3GEHA WELCH,CANDE GLORIA PATIENT [facility] Sep 09, 2021 [id number] 3GEHA WELCH,CANDE GLORIA PATIENT [facility] MATHEW AL EMPLO [facility] Sep 09, 2021 [id number] 3GEHA WELCH,CANDE GLORIA PATIENT [facility] PREFERRED PROVIDER ORGANIZAT ION (PPO) HA STAND [facility] Sep 09, 2023 [id number] WELCH,CANDE GLORIA PATIENT [facility] PREFERRED PROVIDER ORGANIZAT ION (PPO) GEHA STAND COLEMAN Sep 09, 2023 [id number] WELCH,CANDE GLORIA PATIENT [facility] PREFERRED PROVIDER ORGANIZAT ION (PPO) MATHEW AL EMPLO [place] [facility] Sep 09, 2023 [id number] WELCH,CANDE GLORIA PATIENT [facility] PREFERRED PROVIDER ORGANIZAT ION (PPO) MATHEW AL EMPLO [place] [facility] Sep 09, 2023 [id number] [phone] CANDE WELCH PATIENT [facility] MEDICAL EXPENSE (OPT/PROF ) [facility] Sep 09, 2023 [id number] [phone] CANDE WELCH PATIENT Selected Encounter This section includes the information on record at [place] for the Encounter. Date/Time Encounter Type Encounter Description Reason Pro vider Source Oct 02, 2023 01:46 PM Outpatient Encounter OPTOMETRY IHE Encounter Template Text not used by [place] Plan of Treatment: Future Appointments (+ 6 months) and Future Tests (+/- 45 days) The Plan of Treatment section includes future care activities for the patient from all [place] [facility]. This section includes future appointments and future orders which are active, pending or scheduled. Future Appointments This section includes appointments that were scheduled to occur 6 months from the date of the Encounter, up to a maximum of 20 appointments. The data comes from all [place] treatment facilities. Appointment Date/Time Appointment Type Appointme nt Facility Name Nov 05, 2023 02:00 PM AMBULATORY - MEDICINE [facility] Nov 26, 2023 08:30 AM AMBULATORY - MEDICINE [place] [facility] Dec 06, 2023 08:30 AM AMBULATORY - MEDICINE [facility] Dec 26, 2023 03:30 PM AMBULATORY - MEDICINE [place] [facility] January 13, 2024 08:30 AM AMBULATORY - MEDICINE [facility] Feb 14, 2024 08:30 AM AMBULATORY - MEDICINE [place] [facility] Feb 19, 2024 08:00 AM AMBULATORY - MEDICINE [place] [facility] Feb 28, 2024 08:00 AM AMBULATORY - MEDICINE [place] [facility] Mar 18, 2024 08:00 AM AMBULATORY - REHAB MEDICIN E [place] [facility] [place] [facility] Mar 24, 2024 03:30 PM AMBULATORY - PSYCHIATRY [facility] Apr 01, 2024 08:00 AM AMBULATORY - REHAB MEDICIN E [place] [place] [facility] Lab Results: +/- 30 days of the encounter This section includes the Chemistry and Hematology Lab Results on record with [place] for the patient. Radiology Reports and Pathology Reports are provided separately, in subsequent sections. Lab Results This section contains the Chemistry/Hematology Results that were resulted 30 days before or 30 daysafter the date of the Encounter. Date/Time Source Result Type Result - Unit Interpretation Reference Range Comment Oct 01, 2023 07:33 AM [place] C REACTIVE PROTEIN (CRPH) Specimen Type : [...] Sep 24, 2023 07:10 PM Reporting Lab: [facility] [address] [facility] [address] Performing Lab: [facility]ITALR[facility]ITALN [facility] [address] [address] C REACTIVE PROTEIN (CRPH) 1.98 mg/L See eval. Oct 01, 2023 07:33 AM [place] THYROID T4 FREE(FT4) Specimen Type: SERUM No comment entered. Ordering Provider: ROSA ELENA LEONARDO Report Released Date/Time: Sep 24, 2023 07:10 PM Reporting Lab: [facility]ITALRWALK[facility]ENTERTRN [facility]USEBR[facility] [address] [address] Performing Lab: [facility]ITALRNOR[facility] HOSPITALN [facility]ITAL[facility] [address] [address] THYROID T4 FREE(FT4) 1.03 ng/dL 0.6-1.6 Oct 01, 2023 07:33 AM [place] SED RATE, AUTOMATED Specimen Type: BLOOD No comment entered. Ordering Provider: ROSA ELENA LEONARDO Report Released Date/Time: Sep 24, 2023 07:10 PM Reporting Lab: [facility]ITALRWALKER BAP[facility] CENTERTRN [facility]ITALUSETS [facility] [address] [address] Performing Lab: [facility]ITALUSEBRUNSWICK [facility] [address] [address] SED RATE, AUTOMATED 12 mm/h 0-15 Oct 01, 2023 07:33 AM [place] TSH Specimen Type: SERUM No comment entered. Ordering Provider: ROSA ELENA LEONARDO Report Released Date/Time: Sep 24, 2023 07:10 PM Reporting Lab: [address] [address] Performing Lab: [address] [address] TSH 2.98 u[IU]/mL 0.35-5.00 Oct 01, 2023 07:33 AM [place] BASIC METABOLIC PANEL (fasting) Specime n Type: SERUM No comment entered. Ordering Provider: ROSA ELENA LEONARDO Report Released Date/Time: Sep 24, 2023 07:10 PM Reporting Lab: [address] [address] Performing Lab: [address] [address] [place] NITROGEN 9 mg/dL 7-25 GLUCOSE 92 mg/dL 65-100 SODIUM 140 mmol/L 135-145 POTASSIUM 3.6 mmol/L 3.5-5.0 CHLORIDE 107 mmol/L 100-110 CO2 21 meq/L 20-30 CREATININE, Serum 0.83 mg/dL 0.50-1.40 eGFR(CKD-EPI 2020) >90 mL/min >60 Oct 01, 2023 07:33 AM [place] LIVER FUNCTION Specimen Type: SERUM No comment entered. Ordering Provider: ROSA ELENA LEONARDO Report Released Date/Time: Sep 24, 2023 07:10 PM Reporting Lab: [address] [address] Performing Lab: [address] [address] PROTEIN,TOTAL 7.1 g/dL 6.0-8.3 ALBUMIN 3.9 g/dL 3.5-5.0 ALKALINE PHOSPHATASE 53 U/L 40-150 AST 30 U/L 5-34 ALT 28 U/L BILIRUBIN, TOTAL 1.0 mg/dL 0.2-1.2 Oct 01, 2023 07:33 AM [place] LIPID PANEL FASTING Specimen Type: SERUM No comment entered. Ordering Provider: ROSA ELENA LEONARDO Report Released Date/Time: Sep 24, 2023 07:10 PM Reporting Lab: [facility] [address] [facility] [address] Performing Lab: [facility] [address] [facility] [address] CHOLESTEROL 193 mg/dL TRIGLYCERIDE 124 mg/dL 0-150 LDL calculated 124 mg/dL 0-129 CHOL/HDL 4.4 HDL CHOLESTEROL 44 mg/dL 40-60 Encounter Notes: All associated encounter notes This section contains the clinical notes associated to the Encounter. Date/Time Encounter Note(s) Provider Source Oct 02, 2023 01:46 PM ADMINISTRATIVE NOT E: LOCAL TITLE: ADMINISTRATIVE RECALL NOTE STANDARD TITLE: ADMINISTRATIVE NOTE DATE OF NOTE: OCT 02, 2023@13:46 ENTRY DATE: OCT 02, 2023@13:46:24 AUTHOR: KWAME WALLACE EXP COSIGNER: URGENCY: STATUS: COMPLETED RTC orders: Unable to contact patient: Attempts to contact: 1st attempt: Left voicemail 2nd attempt: Letter mailedDisposition onFe 3rd attempt: 4th attempt: /holger/ KWAME WALLACE ADVANCED DIRECTOR REHABILITATION PROGRAM Signed: 10/02/2023 13:46 KWAME WALLACE [facility]
--- OUTSIDE RECORDS SUMMARY | 2024-08-25 14:02 | XMS_ITS ---
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 Name Role Phone MARIETTA HERNANDEZ Primary Care [...] CAREMARK PRESCRIPT ION GEHA Aug 06, 2020 [id number] CANDE WELCH PATIENT CAREMARK PRESCRIPT ION GEHA Aug 06, 2020 [id number] [phone] WELCH,CANDE GLORIA PATIENT CAREMARK PRESCRIPT ION GEHA Apr 01, 2016 [id number] WELCH,CANDE GLORIA PATIENT CAREMARK PRESCRIPT ION GEHA STAND COLEMAN PLAN Apr 01, 2016 [id number] [phone] WELCH,CANDE GLORIA PATIENT CAREMARK PRESCRIPT ION GEHA Apr 01, 2016 [id number] [phone] WELCH,CANDE GLORIA PATIENT CAREMARK PRESCRIPT ION GEHA Apr 01, 2016 [id number] WELCH,CANDE GLORIA PATIENT CAREMARK PRESCRIPT ION HA Mar 09, 2016 [id number] WELCH,CANDE GLORIA PATIENT [facility] PREFERRED PROVIDER ORGANIZAT ION (PPO) Mathew al Emplo [place] Hea Apr 01, 2016 [id number] WELCH,CANDE GLORIA PATIENT [facility] DENTAL ONLY DENTAL INSURANCE [facility] CTION DENT Apr 01, 2016 [id number] WELCH,CANDE GLORIA PATIENT [facility] PREFERRED PROVIDER ORGANIZAT ION (PPO) Mathew al Emplo [place] [facility] Jul 27, 2020 [id number] WELCH,CANDE GLORIA PATIENT [facility] MATHEW AL EMPLO [place] [facility] Sep 09, 2021 [id number] 3GEHA WELCH,CANDE GLORIA PATIENT [facility] Sep 09, 2021 [id number] 3GEHA WELCH,CANDE GLORIA PATIENT [facility] MATHEW AL EMPLO [facility] Sep 09, 2021 [id number] 3GEHA WELCH,CANDE GLORIA PATIENT [facility] PREFERRED PROVIDER ORGANIZAT ION (PPO) GEHA STAND COLEMAN Sep 09, 2023 [id number] WELCH,CANDE GLORIA PATIENT [facility] PREFERRED PROVIDER ORGANIZAT ION (PPO) GEHA STAND COLEMAN Sep 09, 2023 [id number] 3GEHA WELCH,CANDE GLORIA PATIENT [facility] PREFERRED PROVIDER ORGANIZAT ION (PPO) MATHEW AL EMPLO [place] [facility] Sep 09, 2023 [id number] 3GEHA WELCH,CANDE GLORIA PATIENT [facility] PREFERRED PROVIDER ORGANIZAT ION (PPO) MATHEW AL EMPLO [place] [facility] Sep 09, 2023 [id number] CANDE WELCH PATIENT [facility] MEDICAL EXPENSE (OPT/PROF ) [facility] Sep 09, 2023 [id number] CANDE WELCH PATIENT Selected Encounter This section includes the information on record at CT for the Encounter. Date/Time Encounter Type Encounter Description Reason Provider Source Oct 07, 2023 04:27 PM Outpatient Encounter PRIMARY CARE/MEDICINE HARINDER ARRIOLA Encounter Template Text not used by CT Plan of Treatment: Future Appointments (+ 6 months) and Future Tests (+/- 45 days) The Plan of Treatment section includes future care activities for the patient from all [facility]. This section includes future appointments and future orders which are active, pending or scheduled. Future Appointments This section includes appointments that were scheduled to occur 6 months from the date of the Encounter, up to a maximum of 20 appointments. The data comes from all CT treatment facilities. Appointment Date/Time Appointment Type Appointme nt Facility Name Nov 05, 2023 02:00 PM AMBULATORY - MEDICINE [facility] Nov 26, 2023 08:30 AM AMBULATORY - MEDICINE [facility] [place] [facility] Dec 06, 2023 08:30 AM AMBULATORY - MEDICINE [facility] Dec 26, 2023 03:30 PM AMBULATORY - MEDICINE [facility] [place] [facility] January 13, 2024 08:30 AM [facility] Feb 14, 2024 08:30 AM AMBULATORY - MEDICINE [facility] [place] [facility] Feb 19, 2024 08:00 AM AMBULATORY - MEDICINE [facility] [place] [facility] Feb 28, 2024 08:00 AM AMBULATORY - MEDICINE [facility] [place] [facility] Mar 18, 2024 08:00 AM AMBULATORY - REHAB MEDICIN [facility] [place] [facility] Mar 24, 2024 03:30 PM AMBULATORY - PSYCHIATRY [facility] Apr 01, 2024 08:00 AM AMBULATORY - REHAB MEDICIN E [facility] [place] [facility] Lab Results: +/- 30 days of the encounter This section includes the Chemistry and Hematology Lab Results on record with CT for the patient. Radiology Reports and Pathology Reports are provided separately, in subsequent sections. Lab Results This section contains the Chemistry/Hematology Results that were resulted 30 days before or 30 daysafter the date of the Encounter. Date/Time Source Result Type Result - Unit Interpretation Reference Range Comment Oct 01, 2023 07:33 AM [facility] C REACTIVE PROTEIN (CRPH) Specimen Type : SERUM Comment: Reference range changed on 02/27/11 [facility] reference ranges for ages >17 [...] Sep 24, 2023 07:10 PM Reporting Lab: [facility] [address] [facility] [address] Performing Lab: [facility] [address] [facility] [address] C REACTIVE PROTEIN (CRPH) 1.98 mg/L See eval. Oct 01, 2023 07:33 AM [facility] THYROID T4 FREE(FT4) Specimen Type: SERUM No comment entered. Ordering Provider: ROSA ELENA LEONARDO Report Released Date/Time: Sep 24, 2023 07:10 PM Reporting Lab: [facility] [address] [address] Performing Lab: [facility]TR[facility] [address] [facility] [address] THYROID T4 FREE(FT4) 1.03 ng/dL 0.6-1.6 Oct 01, 2023 07:33 AM [facility] SED RATE, AUTOMATED Specimen Type: BLOOD No comment entered. Ordering Provider: ROSA ELENA LEONARDO Report Released Date/Time: Sep 24, 2023 07:10 PM Reporting Lab: [facility] [address] Performing Lab: [facility] [address] SED RATE, AUTOMATED 12 mm/h 0-15 Oct 01, 2023 07:33 AM [facility] TSH Specimen Type: SERUM No comment entered. Ordering Provider: ROSA ELENA LEONARDO Report Released Date/Time: Sep 24, 2023 07:10 PM Reporting Lab: [facility] [address] [facility] [address] Performing Lab: [facility] [address] [address] TSH 2.98 u[IU]/mL 0.35-5.00 Oct 01, 2023 07:33 AM [facility] BASIC METABOLIC PANEL (fasting) Specime n Type: SERUM No comment entered. Ordering Provider: ROSA ELENA LEONARDO Report Released Date/Time: Sep 24, 2023 07:10 PM Reporting Lab: [address] [address] Performing Lab: [facility] [address] [address] UREA NITROGEN 9 mg/dL 7-25 GLUCOSE 92 mg/dL 65-100 SODIUM 140 mmol/L 135-145 POTASSIUM 3.6 mmol/L 3.5-5.0 CHLORIDE 107 mmol/L 100-110 CO2 21 meq/L 20-30 CREATININE, Serum 0.83 mg/dL 0.50-1.40 eGFR(CKD-EPI 2020) >90 mL/min >60 Oct 01, 2023 07:33 AM [facility] LIVER FUNCTION Specimen Type: SERUM No comment entered. Ordering Provider: ROSA ELENA LEONARDO Report Released Date/Time: Sep 24, 2023 07:10 PM Reporting Lab: [facility] [address] [address] Performing Lab: [address] [address] PROTEIN,TOTAL 7.1 g/dL 6.0-8.3 ALBUMIN 3.9 g/dL 3.5-5.0 ALKALINE PHOSPHATASE 53 U/L 40-150 AST 30 U/L 5-34 ALT 28 U/L BILIRUBIN, TOTAL 1.0 mg/dL 0.2-1.2 Oct 01, 2023 07:33 AM [facility] LIPID PANEL FASTING Specimen Type: SERUM No comment entered. Ordering Provider: ROSA ELENA LEONARDO Report Released Date/Time: Sep 24, 2023 07:10 PM Reporting Lab: [facility] [address] [facility] [address] Performing Lab: [address] [address] CHOLESTEROL 193 mg/dL TRIGLYCERIDE 124 mg/dL 0-150 LDL calculated 124 mg/dL 0-129 CHOL/HDL 4.4 HDL CHOLESTEROL 44 mg/dL 40-60 Encounter Notes: All associated encounter notes This section contains the clinical notes associated to the Encounter. Date/Time Encounter Note(s) Provider Source Oct 08, 2023 10:48 AM ADDENDUM: LOCAL TITLE: Addendum STANDARD TITLE: ADDENDUM DATE OF NOTE: OCT 08, 2023@10:48:22 ENTRY DATE: OCT 08, 2023@10:48:22 AUTHOR: HARINDER ARRIOLA EXP COSIGNER: URGENCY: STATUS: COMPLETED Forwarding information received from [place] via secure message to PCP for update. [place] is currently taking amlodipine as ordered, awaiting delivery of losartan medication, and has discontinued propanolol. /holger/ LESLYE WAKEFIELD RN-BC REGISTERED NURSE Signed: 10/08/2023 10:51 Receipt Acknowledged By: 10/09/2023 08:47 /holger/ ROSA ELENA LEONARDO MD PRIMARY CARE PHYSICIAN ========= --- Original Document --- 10/08/23 PRIMARY CARE SECURE MESSAGING: ------Original Message -------- Sent: 10/07/2023 07:44 PM ET From: MOUNIKA WELCH To: Miriam LEONARDO,_PRIMARYCARE_[facility] Subject: General:General Inquiry I am still on the amlodipine and yes the propranolol has been discontinued. I haven't received the losartan yet, it's been shipped. /katty KERR ADVANCED ACID PURIFIER Signed: 10/08/2023 09:35 Receipt Acknowledged By: 10/08/2023 10:48 /LESLYE Manuel RN-ELSA REGISTERED NURSE HARINDER ARRIOLA [facility] Oct 08, 2023 09:35 AM PRIMARY CARE SECUR E MESSAGING: LOCAL TITLE: PRIMARY CARE SECURE MESSAGING STANDARD TITLE: PRIMARY CARE SECURE MESSAGING DATE OF NOTE: OCT 08, 2023@09:35 ENTRY DATE: OCT 08, 2023@09:35 AUTHOR: LUCERO KERR COSIGNER: URGENCY: STATUS: COMPLETED PRIMARY CARE SECURE MESSAGING Has ADDENDA ------Original Message -------- Sent: 10/07/2023 07:44 PM ET From: MOUNIKA WELCH To: Miriam LEONARDO,_PRIMARYCARE_[facility] Subject: General:General Inquiry I am still on the amlodipine and yes the propranolol has been discontinued. I haven't received the losartan yet, it's been shipped. /katty KERR ADVANCED ACID PURIFIER Signed: 10/08/2023 09:35 Receipt Acknowledged By: 10/08/2023 10:48 /holger/ LESLYE WAKEFIELD RN-ELSA REGISTERED NURSE 10/08/2023 ADDENDUM STATUS: COMPLETED Forwarding information received from [place] via secure message to PCP for update. [place] is currently taking amlodipine as ordered, awaiting delivery of losartan medication, and has discontinued propanolol. /LESLYE Manuel REGISTERED NURSE Signed: 10/08/2023 10:51 Receipt Acknowledged By: * AWAITING SIGNATURE * ROSA ELENA LEONARDO SHAR I K [facility] [place] [facility] Oct 07, 2023 04:27 PM PRIMARY CARE SECUR E MESSAGING: LOCAL TITLE: PRIMARY CARE SECURE MESSAGING STANDARD TITLE: PRIMARY CARE SECURE MESSAGING DATE OF NOTE: OCT 07, 2023@16:27 ENTRY DATE: OCT 07, 2023@16:27:52 AUTHOR: HARINDER ARRIOLA EXP COSIGNER: URGENCY: STATUS: COMPLETED ------Original Message -------- Sent: 10/07/2023 04:27 PM ET From: HARINDER ARRIOLA To: MOUNIKA WELCH Subject: General:General Inquiry good afternoon, We received your secure message last week and just wanted to verify what blood pressure medications you are taking at this time. According to your medication list we have the following medications noted: Amlodipine besylate 10 mg daily losartan 25 mg daily I do see the propranolol was discontinued from your active medication list Harinder Parker RN /holger/ GENTRY WAKEFIELDN RN-BC REGISTERED NURSE Signed: 10/07/2023 16:27 HARINDER ARRIOLA [facility]
--- OUTSIDE RECORDS SUMMARY | 2024-08-25 14:02 | XMS_ITS ---
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 Name Role Phone MARIETTA HERNANDEZ Primary Care [...] CAREMARK PRESCRIPT ION GEHA Aug 06, 2020 [id number] [phone] CANDE WELCHDO PATIENT CAREMARK PRESCRIPT ION GEHA Aug 06, 2020 [id number] [phone] WELCH,CANDE GLORIA PATIENT CAREMARK PRESCRIPT ION GEHA Apr 01, 2016 [id number] WELCH,CANDE GLORIA PATIENT CAREMARK PRESCRIPT ION GEHA [employer] PLAN Apr 01, 2016 [id number] [phone] WELCH,CANDE GLORIA PATIENT CAREMARK PRESCRIPT ION GEHA Apr 01, 2016 [id number] [phone] WELCH,CANDE GLORIA PATIENT CAREMARK PRESCRIPT ION GEHA Apr 01, 2016 [id number] [phone] WELCH,CANDE GLORIA PATIENT CAREMARK PRESCRIPT ION [facility] Mar 09, 2016 [id number] WELCH,CANDE GLORIA PATIENT [facility] PREFERRED PROVIDER ORGANIZAT ION (PPO) Mathew al [facility] [place] Hea Apr 01, 2016 [id number] [phone] WELCH,CANDE GLORIA PATIENT [facility] DENTAL ONLY DENTAL INSURANCE [facility] CTION DENT Apr 01, 2016 [id number] WELCH,CANDE GLORIA PATIENT [facility] PREFERRED PROVIDER ORGANIZAT ION (PPO) Mathew al Empl[facility] [place] Hea Jul 27, 2020 [id number] WELCH,CANDE GLORIA PATIENT [facility] MATHEW AL EMPLO [place] [facility] Sep 09, 2021 [id number] [phone] WELCH,CANDE GLORIA PATIENT [facility] MATHEW AL EMPLO [place] A Sep 09, 2021 [id number] WELCH,CANDE GLORIA PATIENT [facility]3] Sep 09, 2021 [id number] WELCH,CANDE GLORIA PATIENT [facility] PREFERRED PROVIDER ORGANIZAT ION (PPO) [facility] STAND [facility] Sep 09, 2023 [id number] WELCH,CANDE GLORIA PATIENT [facility] PREFERRED PROVIDER ORGANIZAT ION (PPO) [facility] STAND [facility] Sep 09, 2023 [id number] WELCH,CANDE GLORIA PATIENT [facility] PREFERRED PROVIDER ORGANIZAT ION (PPO) MATHEW AL EMPLO [place]AR[place]O A Sep 09, 2023 [id number] WELCH,CANDE GLORIA PATIENT [facility] MEDICAL EXPENSE (OPT/PROF ) [facility] Sep 09, 2023 [id number] CANDE WELCH PATIENT [facility] PREFERRED PROVIDER ORGANIZAT JED (PPO) MATHEW SMALLWOODToni TRAOREMiriam Sep 09, 2023 [id number] CANDE WELCH PATIENT Selected Encounter This section includes the information on record at [place] for the Encounter. Date/Time Encounter Type Encounter Description Reason Pro vider Source Oct 02, 2023 01:29 PM Outpatient Encounter PRIMARY CARE/MEDICINE IHE Encounter Template Text not used by ME Plan of Treatment: Future Appointments (+ 6 months) and Future Tests (+/- 45 days) The Plan of Treatment section includes future care activities for the patient [facility] This section includes future appointments and [...] 2023 02:00 PM AMBULATORY - MEDICINE [facility] Nov 26, 2023 08:30 AM AMBULATORY - MEDICINE [place] [place] [facility] Dec 06, 2023 08:30 AM AMBULATORY - MEDICINE [facility] Dec 26, 2023 03:30 PM AMBULATORY - MEDICINE [place] [facility] [place] [facility] January 13, 2024 08:30 AM [facility] Feb 14, 2024 08:30 AM AMBULATORY - MEDICINE [place] [facility] [place] [facility] Feb 19, 2024 08:00 AM AMBULATORY - MEDICINE [place] [place] [facility] Feb 28, 2024 08:00 AM AMBULATORY - MEDICINE [place] [facility] [place] [facility] Mar 18, 2024 08:00 AM AMBULATORY - REHAB MEDICIN E [place] [facility] [place] [facility] Mar 24, 2024 03:30 PM AMBULATORY - [facility]ATRY [facility] Apr 01, 2024 08:00 AM AMBULATORY - REHAB MEDICIN E [place] [facility] [place] [facility] Lab Results: +/- 30 days [...] Range Comment Oct 01, 2023 07:33 AM [place] C REACTIVE PROTEIN (CRPH) Specimen Type : [...] Sep 24, 2023 07:10 PM Reporting Lab: [facility] [address] [address] Performing Lab: [facility] [address] [address] C REACTIVE PROTEIN (CRPH) 1.98 mg/L See eval. Oct 01, 2023 07:33 AM [place] THYROID T4 FREE(FT4) Specimen Type: SERUM No comment entered. Ordering Provider: ROSA ELENA LEONARDO Report Released Date/Time: Sep 24, 2023 07:10 PM Reporting Lab: [facility] [address] [address] Performing Lab: [facility]N [facility]ITALUS[facility] [address] [address] THYROID T4 FREE(FT4) 1.03 ng/dL 0.6-1.6 Oct 01, 2023 07:33 AM [place] SED RATE, AUTOMATED Specimen Type: BLOOD No comment entered. Ordering Provider: ROSA ELENA LEONARDO Report Released Date/Time: Sep 24, 2023 07:10 PM Reporting Lab: [facility]ITALTRN [facility] [address] [facility] [address] Performing Lab: [facility]PITALUSE[address] [address] SED RATE, AUTOMATED 12 mm/h 0-15 Oct 01, 2023 07:33 AM [place] TSH Specimen Type: SERUM No comment entered. Ordering Provider: ROSA ELENA LEONARDO Report Released Date/Time: Sep 24, 2023 07:10 PM Reporting Lab: [facility] [address] [address] Performing Lab: [facility] [address] [address] TSH 2.98 u[IU]/mL 0.35-5.00 Oct 01, 2023 07:33 AM [place] LIPID PANEL FASTING Specimen Type: SERUM No comment entered. Ordering Provider: ROSA ELENA LEONARDO Report Released Date/Time: Sep 24, 2023 07:10 PM Reporting Lab: [facility] [address] [address] Performing Lab: [facility] [address] [address] CHOLESTEROL 193 mg/dL TRIGLYCERIDE 124 mg/dL 0-150 LDL calculated 124 mg/dL 0-129 CHOL/HDL 4.4 HDL CHOLESTEROL 44 mg/dL 40-60 Oct 01, 2023 07:33 AM [place] BASIC METABOLIC PANEL (fasting) Specime n Type: SERUM No comment entered. Ordering Provider: ROSA ELENA LEONARDO Report Released Date/Time: Sep 24, 2023 07:10 PM Reporting Lab: [facility] [address] [address] Performing Lab: [facility] [address] [address] UREA NITROGEN 9 mg/dL 7-25 GLUCOSE 92 mg/dL 65-100 SODIUM 140 mmol/L 135-145 POTASSIUM 3.6 mmol/L 3.5-5.0 CHLORIDE 107 mmol/L 100-110 CO2 21 meq/L 20-30 CREATININE, Serum 0.83 mg/dL 0.50-1.40 eGFR(CKD-EPI 2020) >90 mL/min >60 Oct 01, 2023 07:33 AM [place] LIVER FUNCTION Specimen Type: SERUM No comment entered. Ordering Provider: ROSA ELENA LEONARDO Report Released Date/Time: Sep 24, 2023 07:10 PM Reporting Lab: [facility]AM[facility] [address] [address] Performing Lab: [address] [address] PROTEIN,TOTAL 7.1 g/dL 6.0-8.3 ALBUMIN 3.9 g/dL 3.5-5.0 ALKALINE PHOSPHATASE 53 U/L 40-150 AST 30 U/L 5-34 ALT 28 U/L BILIRUBIN, TOTAL 1.0 mg/dL 0.2-1.2 Encounter Notes: All associated encounter notes This section contains the clinical notes associated to the Encounter. Date/Time Encounter Note(s) Provider Source Oct 04, 2023 01:26 PM ADDENDUM: LOCAL TITLE: Addendum STANDARD TITLE: ADDENDUM DATE OF NOTE: OCT 04, 2023@13:26:25 ENTRY DATE: OCT 04, 2023@13:26:26 AUTHOR: ROSA ELENA LEONARDO EXP COSIGNER: URGENCY: STATUS: COMPLETED I already started the [place] on losartan on October 02, 2023. We have to see the response to this medication prior to add new medication. Thank you /holger/ ROSA ELENA LEONARDO MD PRIMARY CARE PHYSICIAN Signed: 10/04/2023 13:27 Receipt Acknowledged By: 10/07/2023 16:19 /holger/ LESLYE WAKEFIELD RN-BC REGISTERED NURSE ========= --- Original Document --- 10/02/23 PRIMARY CARE SECURE MESSAGING: ------Original Message -------- Sent: 10/02/2023 12:05 PM ET From: MOUNIKA WELCH To: Miriam LEONARDO,_PRIMARYCARE_[facility] Subject: Medication:Propranolol Spoke with Marvin's nurse and she said it is ok for me to stop the propranolol so I can start the new high blood pressure med. /holger/ VINCE KERR ADVANCED PIN CLEANER Signed: 10/02/2023 13:29 Receipt Acknowledged By: 10/02/2023 14:05 /holger/ LESLYE WAKEFIELD RN-BC REGISTERED NURSE 10/02/2023 ADDENDUM STATUS: COMPLETED forwarding information provide by above to PCP for review. /holger/ LESLYE WAKEFIELD RN-ELSA REGISTERED NURSE Signed: 10/02/2023 14:06 Receipt Acknowledged By: 10/04/2023 13:25 /katty LEONARDO MD PRIMARY CARE PHYSICIAN ROSA ELENA LEONARDO [place] [facility] [place] [facility] Oct 02, 2023 02:05 PM ADDENDUM: LOCAL TITLE: Addendum STANDARD TITLE: ADDENDUM DATE OF NOTE: OCT 02, 2023@14:05:58 ENTRY DATE: OCT 02, 2023@14:05:59 AUTHOR: HARINDER ARRIOLA COSIGNER: URGENCY: STATUS: COMPLETED forwarding information provide by Good above to PCP for review. /LESLYE Manuel RN-ELSA REGISTERED NURSE Signed: 10/02/2023 14:06 Receipt Acknowledged By: 10/04/2023 13:25 /holger/ ROSA ELENA LEONARDO MD PRIMARY CARE PHYSICIAN ========= --- Original Document --- 10/02/23 PRIMARY CARE SECURE MESSAGING: ------Original Message -------- Sent: 10/02/2023 12:05 PM ET From: MOUNIKA WELCH To: Miriam LEONARDO,_PRIMARYCARE_[facility] Subject: Medication:Propranolol Spoke with Marvin's nurse and she said it is ok for me to stop the propranolol so I can start the new high blood pressure med. /holger/ VINCE KERR ADVANCED PIN CLEANER Signed: 10/02/2023 13:29 Receipt Acknowledged By: 10/02/2023 14:05 /holger/ LESLYE WAKEFIELD RN-BC REGISTERED NURSE HARINDER ARRIOLA [facility] [place] [facility] Oct 02, 2023 01:29 PM PRIMARY CARE SECUR E MESSAGING: LOCAL TITLE: PRIMARY CARE SECURE MESSAGING STANDARD TITLE: PRIMARY CARE SECURE MESSAGING DATE OF NOTE: OCT 02, 2023@13:29 ENTRY DATE: OCT 02, 2023@13:29:43 AUTHOR: LUCERO KERR COSIGNER: URGENCY: STATUS: COMPLETED PRIMARY CARE SECURE MESSAGING Has ADDENDA ------Original Message -------- Sent: 10/02/2023 12:05 PM ET From: MOUNIKA WELCH To: Miriam LEONARDO,_PRIMARYCARE_[facility] Subject: Medication:Propranolol Spoke with Marvin's nurse and she said it is ok for me to stop the propranolol so I can start the new high blood pressure med. /holger/ VINCE KERR ADVANCED PIN CLEANER Signed: 10/02/2023 13:29 Receipt Acknowledged By: 10/02/2023 14:05 /LESLYE Manuel RN-ELSA REGISTERED NURSE 10/02/2023 ADDENDUM STATUS: COMPLETED forwarding information provide by above to PCP for review. /holger/ LESLYE WAKEFIELD RN-ELSA REGISTERED NURSE Signed: 10/02/2023 14:06 Receipt Acknowledged By: 10/04/2023 13:25 /holger/ ROSA ELENA LEONARDO MD PRIMARY CARE PHYSICIAN 10/04/2023 ADDENDUM STATUS: COMPLETED I already started the on losartan on October 02, 2023. We have to see the response to this medication prior to add new medication. Thank you /katty LEONARDO MD PRIMARY CARE PHYSICIAN Signed: 10/04/2023 13:27 Receipt Acknowledged By: 10/07/2023 16:19 /LESLYE Manuel RN-ELSA REGISTERED NURSE 10/07/2023 ADDENDUM STATUS: COMPLETED Reply sent to via secure message /es/ GENTRY WAKEFIELDN RN-BC REGISTERED NURSE Signed: 10/07/2023 16:28 LUCERO KERR [facility]TRL [facility]
--- OUTSIDE RECORDS SUMMARY | 2024-08-25 14:02 | XMS_ITS ---
Author Name [facility] [place] [facility] [place] [facility] [place] [facility] [place] Address [address] [place] [address] Care Team Providers Care Operator Control Room Name Role Phone MARIETTA HERNANDEZ Primary Care [...] CAREMARK PRESCRIPT ION GEHA Aug 06, 2020 [id number] CANDE WELCH PATIENT CAREMARK PRESCRIPT ION GEHA Aug 06, 2020 [id number] [phone] WELCH,CANDE RODRIGUEZDO PATIENT CAREMARK PRESCRIPT ION GEHA Apr 01, 2016 [id number] WELCH,CANDE CASTRO PATIENT CAREMARK PRESCRIPT ION GEHA [facility] [employer] [facility] Apr 01, 2016 [id number] [phone] WELCH,CANDE GLORIA PATIENT CAREMARK PRESCRIPT ION GEHA Apr 01, 2016 [id number] WELCH,CANDE RODRIGUEZDO PATIENT CAREMARK PRESCRIPT ION GEHA Apr 01, 2016 [id number] [phone] WELCH,CANDE GLORIA PATIENT CAREMARK PRESCRIPT ION [facility] Mar 09, 2016 [id number] WELCH,CANDE GLORIA PATIENT [facility] PREFERRED PROVIDER ORGANIZAT ION (PPO) Mathew al [facility] [place] [facility] Apr 01, 2016 [id number] [phone] WELCH,CANDE GLORIA PATIENT [facility] DENTAL ONLY DENTAL INSURANCE [facility] CTION DENT Apr 01, 2016 [id number] WELCH,CANDE GLORIA PATIENT [facility] PREFERRED PROVIDER ORGANIZAT ION (PPO) Mathew al Empl[facility] [place] [facility] Jul 27, 2020 [id number] [phone] WELCH,CANDE GLORIA PATIENT [facility] MATHEW AL EMPLO [place] [facility] Sep 09, 2021 [id number] 3GEHA WELCH,CANDE GLORIA PATIENT [facility] Sep 09, 2021 [id number] 3GEHA WELCH,CANDE GLORIA PATIENT [facility] MATHEW AL EMPLO [place] [facility] Sep 09, 2021 [id number] 3GEHA WELCH,CANDE GLORIA PATIENT [facility] MEDICAL EXPENSE (OPT/PROF ) [facility] Sep 09, 2023 [id number] 3GEHA WELCH,CANDE GLORIA PATIENT [facility] PREFERRED PROVIDER ORGANIZAT ION (PPO) [facility] STAND [facility] Sep 09, 2023 [id number] WELCH,CANDE GLORIA PATIENT [facility] PREFERRED PROVIDER ORGANIZAT ION (PPO) [facility] STAND [facility] Sep 09, 2023 [id number] 3GEHA WELCH,CANDE GLORIA PATIENT [facility] PREFERRED PROVIDER ORGANIZAT ION (PPO) MATHEW AL EMPLO [place] [facility] Sep 09, 2023 [id number] [phone] CANDE WELCH PATIENT [facility] PREFERRED PROVIDER ORGANIZAT ION (PPO) MATHEW [facility] Sep 09, 2023 [id number] CANDE WELCH PATIENT Selected Encounter This section includes the information on record at [place] for the Encounter. Date/Time Encounter Type Encounter Description Reason Provider Source Nov 26, 2023 08:30 AM OFFICE O/P EST LOW 20 MIN CI TREATMENT ICD-10-CM M54.50 Low back pain, unspecified GAUNYA,ROSENDA PHER M E Encounter Template Text not used by [place] Assessments - Encounter Diagnoses This section includes the primary and secondary diagnoses documented for the Encounter. Date/Time Primary/Secondary Diagnosis Diagnosis Name Provider Source Nov 26, 2023 09:24 AM PRIMARY Low back pain, unspecified GAUNYA,ROSENDA PHER M [place] [facility] [place] [facility] Nov 26, 2023 09:24 AM SECONDARY Pain in unspecified joint GAUNYA,ROSENDA PHER M [place] [facility] [place] [facility] Nov 26, 2023 09:24 AM SECONDARY Post-traumatic stress disorder, chronic GAUNYA,ROSENDA PHER M [place] [facility] [place] [facility] Plan of Treatment: Future Appointments (+ 6 months) and Future Tests (+/- 45 days) The Plan of Treatment section includes future care activities for the patient from all [place] treatmentfacilities. This section includes future appointments and future orders which are active, pending or scheduled. Future Appointments This section includes appointments that were scheduled to occur 6 months from the date of the Encounter, up to a maximum of 20 appointments. The data comes from all [place] treatment facilities. Appointment Date/Time Appointment Type Appointme nt Facility Name Dec 06, 2023 08:30 AM AMBULATORY - MEDICINE [facility] Dec 26, 2023 03:30 PM AMBULATORY - MEDICINE [place] [facility] [place] [facility] January 13, 2024 08:30 AM AMBULATORY - MEDICINE [facility] Feb 14, 2024 08:30 AM AMBULATORY - MEDICINE [place] [facility] [place] [facility] Feb 19, 2024 08:00 AM AMBULATORY - MEDICINE [place] [facility] [place] [facility] Feb 28, 2024 08:00 AM AMBULATORY - MEDICINE [place] [facility] [place] [facility] Mar 18, 2024 08:00 AM AMBULATORY - REHAB MEDICIN E [facility] [place] [facility] Mar 24, 2024 03:30 PM AMBULATORY - PSYCHIATRY [facility] Apr 01, 2024 08:00 AM [facility] [place] [facility] May 05, 2024 03:30 PM AMBULATORY - PSYCHIATRY [facility] May 22, 2024 09:15 AM AMBULATORY - MEDICINE [facility] Active, Pending, and Scheduled Orders This section includes a listing of several types of active, pending, and scheduled orders, including clinic medications orders, diagnostic test orders, procedure orders and consult orders; where the start date of the order is 45 days before the date of the Encounter or 45 days after the date of theEncounter. The data comes from all [place] treatment facilities. Test Date/Time Test Type Test Details Facility Name Dec 06, 2023 09:02 AM Consult Order [facility] [employer] [facility] Encounter Notes: All associated encounter notes This section contains the clinical notes associated to the Encounter. Date/Time Encounter Note(s) Provider Source Nov 26, 2023 09:09 AM ACUPUNCTURE CONSULT: LOCAL TITLE: CONSULT REPORT/ACUPUNCTURE STANDARD TITLE: ACUPUNCTURE CONSULT DATE OF NOTE: NOV 26, 2023@09:09 ENTRY DATE: NOV 26, 2023@09:09:28 AUTHOR: ROMMEL RAMAN EXP COSIGNER: URGENCY: STATUS: COMPLETED MOUNIKA WELCH JR is a 48 WHITE MALE who presents with Polyarthralgia, low back pain, elbow and shoulder pain, knee pain. PTSD. Active Problem Exposure to potentially hazardous s 11/07/2023 PREMA TATUM Polyarthralgia M25.50 10/02/2023 ROSA ELENA LEONARDO Vitamin D Deficiency ([facility] [id number]) 10/02/2023 ROSA ELENA LEONARDO Urine screening abnormal R82.90 06/13/2023 ROSA ELENA LEONARDO Tremor R25.1 04/09/2023 ROSA ELENA LEONARDO LBP - Low back pain M54.50 04/09/2023 ROSA ELENA LEONARDO Arthritis M19.90 04/09/2023 JORDENROSA ELENA Chip History of colonoscopy Z98.890 01/29/2023 SHADEAFSHANROSA ELENA Chip Bacteriuria R69. 09/11/2022 JOSE EDEN Vitamin D deficiency E55.9 07/27/2020 SHANIKA DUQUE Chronic post-traumatic stress disor 06/14/2020 HECTOR BUTLER Heartburn R12. 07/27/2020 SHANIKA DUQUE Diverticular disease of colon K57.3 07/13/2021 JOSE EDEN Kidney stone N20.0 01/02/2019 SHANIKA DUQUE Erythrocytosis D75.0 01/02/2019 SHANIKA DUQUE Inguinal hernia R69. 12/15/2018 SHANIKA DUQUE Obstructive sleep apnea syndrome G4 06/14/2022 JUSTA JACKSON Yaniv HTN-Hypertension ([facility] [id number]) I10 12/13/2017 SHANIKA DUQUE ECG: normal sinus rhythm R69. 11/27/2017 SHANIKA DUQUE Panic disorder with agoraphobia R69 10/30/2016 HECTOR BUTLER Anxiety disorder F32.A 08/14/2022 HECTOR BUTLER Tremor 781.0 02/21/2015 LEOBARDO,JODI Chronic low back pain M54.5 06/23/2019 SHANIKA DUQUE Depression (SNOMED CT 13831546) F33 11/10/2019 HECTOR BUTLER Hyperlipidemia (SNOMED CT 23232820) 08/09/2015 SHANIKA DUQUE Pilonidal cyst with abscess (ICD-9- 10/31/2012 LEOBARDO,JODI Pain in joint involving hand (ICD-9 10/23/2012 LEOBARDO,JODI Gastroesophageal reflux disease (SN 08/09/2015 SHANIKA DUQUE Sleep apnea (SNOMED CT 57236096) G4 03/30/2017 DORENE RAGLAND Hypothyroidism (SNOMED CT 37961927) 07/13/2021 JOSE EDEN Tinnitus * (ICD-9-CM 388.30) 388.30 11/22/2008 LEOBARDORICKYJODI Obesity 278.00 11/22/2008 LEOBARDOJODI Adjustment disorder with anxious mo 05/28/2018 HECTOR BUTLER Date Nov CC / HPI - Good presents with a long history of joint pain. 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 Good states his primary pain site is his low back. He states the pain is bilateral and a constant 6-7/10. He states that a couple times a month the pain can get as bad as 10/10 and he is unable to get out of bed for a few days. Good states he has a TENS unit which can help with the pain along with ibuprofen. Good sleeps in an adjustable bed and finds raising his legs is helpful at night. Good has utilized career center advisor in the past but has not done so recently. Good also has chronic pain in his shoulders and elbows. For the past several months his right elbow has been exceptionally painful and Good reports that doing something as simple as opening a pickle jar can be excruciatingly painful. At its worst pain is 8/10. Good states there is no visible swelling or discoloration in his elbow. Elbow does not feel hot. Good also has bilateral knee pain which is an average of 5/10. Good states he has trouble tying his shoes and wears adjustable laces that do not require tying. Good states his sleep is poor and that he has sleep apnea. He gets about 4 broken hours of sleep per night. He wakes hourly and states his mind often races at night and he suffers from night terrors. He also reports that he is hypervigilant and often hears noises in the house. Godo is not currently utilizing mental health services at the [place] and states he does not want to be on more medication. Appetite is mixed. 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 Bowel movements are regular and unremarkable reports no issues with urination. TREATMENT HISTORY of Main Complaint: states he is utilize chiropractic and pain medication for symptom management. CLIENT GOALS FOR TREATMENT: Reduce joint pain and feel more functional. PAST MEDICAL HISTORY: See co-morbidity in Assessment PAST SURGICAL HISTORY: Hernia surgery REVIEW OF SYSTEMS: Except for what is mentioned in the HPI/SYMPTOMS there are no complaint of: Headache, Radicalgia, weakness, fever, sore throat, chest pain, shortness of breath, joint swelling, dizziness, vision loss, unexplained weight loss, bowel or bladder incontinence/retention or saddle anesthesia OBJECTIVE: Unless otherwise noted noted in HPI/Symptoms. General: . Patient in no apparent distress . appropriate attire . here with equanimity Skin: . No effusion/edema . No ecchymosis . No erythema MUSCULOSKELETAL: Observed . no signs of trauma Ambulation . independent ambulation . non-antalgic ambulation Physical Ability to Transfer: . Patient was able to get on/off the treatment table unassisted. Posture . no antalgic posture Extremities . functional AROM BACK / SPINE . no overt deformity of spine . no pelvic unleveling NEUROLOGIC: Mentation . A&Ox3 Gait [ ]antalgic [X]non-antalgic [ ]ataxic [ ]Wheel Chair, Walker, Cane ASSESSMENT / SUMMARY Affected Channel(s)/OM Dx: Qi and blood stagnation. Qi deficiency Medical Decision Making (MDM) [ ]Straightforward o [ ]Minimal = 1 self-limited or minor problem [ ]Low o - 2 or more self-limited or minor problems o - 1 stable chronic illness o - 1 acute, uncomplicated illness or injury [X]Moderate o - 1 or more chronic illness with exacerbation, progression or side effect from treatment o - 2 or more stable chronic illnesses o - 1 undiagnosed new problem w/uncertain prognosis o - 1 acute illness w/ systemic symptoms o - 1 acute complicated injury [ ]High o - 1 or more chronic illnesses w/ severe exacerbation, progression, or side effect from treatment o - 1 acute or chronic illness/injury that poses threat to life or bodily function PLAN / RECOMMENDATION: Weekly or biweekly acupuncture for several visits then assess. Refer for nutritional consult. Refer for yoga consult. Follow-up visit [X]1 WEEK [ ]2 WEEKS [ ]3 WEEKS [ ]1 MONTH FREQUENCY OF CARE [X]1 X WEEKLY, [ ]2 X WEEKLY [X]Bi-Weekly, [ ]Monthly, [ ]Other Seeking: [ ]access to acupuncture for: [X]pain control [X]Stress/anxiety reduction, [ ]Depression [ ]Other mental health: [ ]Addiction/dependence: [ ]Nicotine [ ]Alcohol [ ]Chemical [ ]Other: Patient Education: [X]Encouraged self-care management using active therapies. [X](exercises, therapeutic movement, PT, biofeedback, smoking cessation, health coaching) to manage chronic pain while engaging passive therapies (acupuncture / chiropractic / massage) to manage [ ]acute / [ ]subacute (persistent) pain. [ ]Counseled not to view exercise as an analgesic, but as modalities to improve flexibility, strength, and conditioning. [ ]Additionally, counseled to stay within tolerances when doing daily tasks / exercise i.e. use pacing to moderate aggravation of sx. [ ]Attempt 2 to 3 times per week [ ]Modify as needed [ ]Refrain from exercises if aggravation or new symptoms appear [ ]Do not use acupressure over area where you have a wound, severe swelling or lump, active infection, recent blood clots, rash, or areas that are numb. However, you may use other points away from these areas. If you take medications to thin your blood, or have a bleeding or clotting disorder, only use light pressure. [X]Self-care management encouraged by focus on self-care strategies to improve flexibility, strength and conditioning, not to view exercise as an analgesic yet modalities to improve gross motion as chronic pain undermines core movements. [X]Discussed expected course of condition and self-care management via weight-management, healthy diet, regular exercise within patient tolerance and pragmatic use of passive modalities for short-term relief stressing not to solely rely on passive modalities. Also counseled on non-pharmacological therapies/treatments such as acupuncture / acupressure on acute episodes of pain. Furthermore, consider exercise therapy, yoga, qigong, mak chi, relaxation technique and/or cognitive-behavior methodologies regarding chronic and/or persistent sub-acute pain. INSTRUCTIONS: [X]Rest, hydrate, eat [ ]BFA Patient Information Home Removal - [ ]Remove after 3 days and dispose of in approved sharpes container or comparable container - [ ]or return to clinic or PCP in three days to remove auricular needles - [ ]Pyonex Needle: remove prior to bathing per fitter up INFORMED CONSENT: Oral Consent obtained on Nov The patient was positioned comfortably. Oral consent was obtained. There was no evidence of infection at the site of needle insertions. Time out was conducted by Rommel Raman L.Ac. Correct patient was identified using two identifiers. Acupuncture treatment including risk/side effects, benefits, alternatives to treatment and the management plan were reviewed with the patient who expressed understanding and agreed. Correct procedure verified by the patient and the provider. PROCEDURES: Number of Acupuncture Sets: [ ]1 [X]2 [ ]3 Set 1 TIME SPENT: 15 Minutes Position:[X]Prone [ ]Supine [ ]Left Side [ ] Right Side [ ]Seated Chair [ ] Massage Chair Points used: [X]Ear:[ ]Left [ ]Right [X]Bilateral [X]BFA Protocol, [ ][place] Protocol, [ ] Ear: [ ]Rangel Men, [ ]Point Zero, [ ]Sympathetic [X]Ear Other:Standard acupuncture needles not retained. [ ]Head: [ ]Neck: [ ]Torso: [ ]Hip / Glute Area: [ ]LUE: [ ]RUE: [ ]LLE: [ ]RLE: Set 2 TIME SPENT: 15 Minutes Position:[X]Prone [ ]Supine [ ]Left Side [ ] Right Side [ ]Seated Chair [ ] Massage Chair Points used: [ ]Ear:[ ]Left [ ]Right [ ]Bilateral [ ]BFA Protocol, [ ][place] Protocol, [ ] Ear: [ ]Rangel Men, [ ]Point Zero, [ ]Sympathetic [ ]Ear Other: [ ]Head: [ ]Neck: [ ]Torso: [ ]Hip / Glute Area: [X]LUE:LK, DB, DAVION 7, LI 10 [X]RUE:LK, DB, DAVION 7, LI 10 [X]LLE:GB 34, ST 36, SP 9, SP 6, KD 3, GB 40, LR 3 [X]RLE:GB 34, ST 36, SP 9, SP 6, KD 3, GB 40, LR 3 [ ]Other therapies: [ ]Cold Laser [ ]Cupping: [ ]Peizo Pen: [ ]External Qigong: [X]TDP Lamp:Right elbow 25 minutes [ ]Tui Na: [ ]Guasha: [X]Nutrition Counseling:Discussed Nightshade elimination diet. The procedures were performed and needles removed without complication. Treatment Response: [ ]nominal / [ ]negative / [ ]aborted due to [ ]F/U PRN self-schedule upon unresolving re-aggravation or with degrading pain control An RTC order will be necessary if patient is seeking self-schedule beyond one year; If beyond three years, a new consult is required /holger/ ROMMEL RAMAN LA.C DIPL.AC SITE ACQUISITION MANAGER Signed: 11/26/2023 09:41 ROMMEL RAMAN CN[facility]L [facility]
--- OUTSIDE RECORDS SUMMARY | 2024-08-25 14:03 | XMS_ITS | Encounter Summary ---
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 Name Role Phone MARIETTA HERNANDEZ Primary Care [...] CAREMARK PRESCRIPT ION GEHA Aug 06, 2020 [id number] CANDE WELCHDO PATIENT CAREMARK PRESCRIPT ION GEHA Aug 06, 2020 [id number] WELCH,CANDE GLORIA PATIENT CAREMARK PRESCRIPT ION GEHA Apr 01, 2016 [id number] WELCH,CANDE GLORIA PATIENT CAREMARK PRESCRIPT ION GEHA STAND COLEMAN PLAN Apr 01, 2016 [id number] WELCH,CANDE GLORIA PATIENT CAREMARK PRESCRIPT ION GEHA Apr 01, 2016 [id number] WELCH,CANDE GLORIA PATIENT CAREMARK PRESCRIPT ION GEHA Apr 01, 2016 [id number] [phone] WELCH,CANDE GLORIA PATIENT CAREMARK PRESCRIPT ION [facility] Mar 09, 2016 [id number] [phone] WELCH,CANDE GLORIA PATIENT [facility] PREFERRED PROVIDER ORGANIZAT ION (PPO) Mathew al Emplo [place] Hea Apr 01, 2016 [id number] WELCH,CANDE GLORIA PATIENT [facility] DENTAL ONLY DENTAL INSURANCE [facility] Apr 01, 2016 [id number] WELCH,CANDE GLORIA PATIENT [facility] PREFERRED PROVIDER ORGANIZAT ION (PPO) Mathew al Emplo [place] a Jul 27, 2020 [id number] [phone] WELCH,CANDE GLORIA PATIENT [facility] MATHEW AL EMPLO [place] [facility] Sep 09, 2021 [id number] [phone] WELCH,CANDE GLORIA PATIENT [facility] MATHEW AL EMPLO [place] A Sep 09, 2021 [id number] WELCH,CANDE GLORIA PATIENT [facility] Sep 09, 2021 [id number] 3GEHA WELCH,CANDE GLORIA PATIENT [facility] PREFERRED PROVIDER ORGANIZAT ION (PPO) [facility] STAND [facility] Sep 09, 2023 [id number] WELCH,CANDE GLORIA PATIENT [facility] PREFERRED PROVIDER ORGANIZAT ION (PPO) [facility] STAND [facility] Sep 09, 2023 [id number] WELCH,CANDE GLORIA PATIENT [facility] PREFERRED PROVIDER ORGANIZAT ION (PPO) MATHEW AL EMPLO [place] A Sep 09, 2023 [id number] 3 WELCH,CANDE GLORIA PATIENT [facility] MEDICAL EXPENSE (OPT/PROF ) [facility] Sep 09, 2023 [id number] CANDE WELCH PATIENT [facility] PREFERRED PROVIDER ORGANARPAN ADKINS (PPO) MATHEW SANDERS DAHLIA TRAOREMiriam Sep 09, 2023 [id number] [facility] CANDE WELCH PATIENT Selected Encounter This section includes the information on record at [place] for the Encounter. Date/Time Encounter Type Encounter Description Reason Pro vider Source Dec 26, 2023 03:42 PM Outpatient Encounter [facility] TREATMENT IHE Encounter Template Text not used by PA Plan of Treatment: Future Appointments (+ 6 months) and Future Tests (+/- 45 days) The Plan of Treatment section includes future care activities for the patient from [facility] This section includes future appointments and future orders which are active, pending or scheduled. Future Appointments This section includes appointments that were scheduled to occur 6 months from the date of the Encounter, up to a maximum of 20 appointments. The data comes from all [facility]. Appointment Date/Time Appointment Type Appointme nt Facility Name January 13, 2024 08:30 AM AMBULATORY - MEDICINE [facility] Feb 14, 2024 08:30 AM AMBULATORY - MEDICINE [place] [facility] Feb 19, 2024 08:00 AM AMBULATORY - MEDICINE [facility] [place] [facility] Feb 28, 2024 08:00 AM AMBULATORY - MEDICINE [place] [facility] Mar 18, 2024 08:00 AM AMBULATORY - REHAB MEDICIN E [place] [place] [facility] Mar 24, 2024 03:30 PM AMBULATORY - PSYCHIATRY [facility] Apr 01, 2024 08:00 AM AMBULATORY - REHAB MEDICIN E [place] [facility] May 05, 2024 03:30 PM AMBULATORY - PSYCHIATRY [facility] May 22, 2024 09:15 AM AMBULATORY - MEDICINE [facility] Active, Pending, and Scheduled Orders This section includes a listing of several types of active, pending, and scheduled orders, including clinic medications orders, diagnostic test orders, procedure orders and consult orders; where the start date of the order is 45 days before the date of the Encounter or 45 days after the date of theEncounter. The data comes from all VA treatment facilities. Test Date/Time Test Type Test Details Facility Name Dec 06, 2023 09:02 AM Consult Order COMMUNITY CARE-NEUROLOGY Cons Insurance Appraiser's Choice [place] Encounter Notes: All associated encounter notes This section contains the clinical notes associated to the Encounter. Date/Time Encounter Note(s) Provider Source Dec 26, 2023 03:42 PM CLERICAL NOTE: LOCAL TITLE: APPOINTMENT NO SHOW STANDARD TITLE: CLERICAL NOTE DATE OF NOTE: DEC 26, 2023@15:42 ENTRY DATE: DEC 26, 2023@15:42:35 AUTHOR: TALI CORDOVA COSIGNER: URGENCY: STATUS: COMPLETED Per embroidery supervisor's message, this is considered a low risk clinic. Per scheduling directive for low risk clinics contact attempts are not needed. RTC PID has been dispositioned. Patient Name: MOUNIKA WELCH JR Patient SSN: [id number] Date and time of Appointment No show : 12/26/23 15:42 PATIENT PHONE - PHONE NUMBER [CELLULAR] - Patient's medical record was reviewed. Follow-up actions were determined and initiated: Please check/complete as applies: [ ]Telephoned Directly [ ]Re-scheduled for next available appt [ ]Sent a N0-show letter ( must call for appointment) [X]Other (Emergent/Overbook, etc.): Additional Comments: Per embroidery supervisor's message, this is considered a low risk clinic. Per scheduling directive for low risk clinics contact attempts are not needed. RTC PID 12/17/2023 has been dispositioned. Future acupuncture appts already scheduled. Future Clinic Visits 01/13/2024 08:30 CWM/SO/PACT EIGHT 01/31/2024 08:30 CWM/NO/ACUPUNCTURE R1 02/14/2024 08:30 CWM/NO/ACUPUNCTURE R1 03/24/2024 15:30 SPOPC/MHC/BUTLER 10/08/2024 07:30 CWM/NO/OPTOMETRY/AIME DA /es/ TALI CORDOVA Signed: 12/26/2023 15:43 TALI CORDOVA [facility]
--- OUTSIDE RECORDS SUMMARY | 2024-08-25 14:03 | XMS_ITS | Encounter Summary ---
Author Name [facility] [place] Address [address] [place] [id number] Care Team Providers Care Talent Development Director Name Role Phone MARIETTA HERNANDEZ Primary Care [...] CAREMARK PRESCRIPT ION GEHA Aug 06, 2020 [id number] WELCH,CANDE RODRIGUEZDO PATIENT CAREMARK PRESCRIPT ION GEHA Aug 06, 2020 [id number] WELCH,CANDE GLORIA PATIENT CAREMARK PRESCRIPT ION GEHA Apr 01, 2016 [id number] [phone] WELCH,CANDE GLORIA PATIENT CAREMARK PRESCRIPT ION GEHA STAND COLEMAN PLAN Apr 01, 2016 [id number] WELCH,CANDE GLORIA PATIENT CAREMARK PRESCRIPT ION GEHA Apr 01, 2016 [id number] WELCH,CANDE GLORIA PATIENT CAREMARK PRESCRIPT ION GEHA Apr 01, 2016 [id number] WELCH,CANDE GLORIA PATIENT CAREMARK PRESCRIPT ION [facility] Mar 09, 2016 [id number] WELCH,CANDE GLORIA PATIENT [facility] PREFERRED PROVIDER ORGANIZAT ION (PPO) Mathew al Emplo [place] [facility] Apr 01, 2016 [id number] WELCH,CANDE GLORIA PATIENT [facility] DENTAL ONLY [facility] Apr 01, 2016 [id number] [phone] WELCH,CANDE GLORIA PATIENT [facility] PREFERRED PROVIDER ORGANIZAT ION (PPO) Mathew al Emplo [place] [facility] Jul 27, 2020 [id number] [phone] WELCH,CANDE GLORIA PATIENT [facility] MATHEW AL EMPLO [facility] Sep 09, 2021 [id number] WELCH,CANDE GLORIA PATIENT [facility] Sep 09, 2021 [id number] 3GEHA WELCH,CANDE GLORIA PATIENT [facility] MATHEW AL EMPLO [facility] Sep 09, 2021 [id number] WELCH,CANDE GLORIA PATIENT [facility] MEDICAL EXPENSE (OPT/PROF ) [facility] Sep 09, 2023 [id number] WELCH,CANDE GLORIA PATIENT [facility] PREFERRED PROVIDER ORGANIZAT ION (PPO) [facility] Sep 09, 2023 [id number] WELCH,CANDE GLORIA PATIENT [facility] PREFERRED PROVIDER ORGANIZAT ION (PPO) [facility] Sep 09, 2023 [id number] 3GEHA WELCH,CANDE GLORIA PATIENT [facility] PREFERRED PROVIDER ORGANIZAT ION (PPO) MATHEW AL EMPLO [facility] Sep 09, 2023 [id number] 3 WELCH,CANDE GLORIA PATIENT [facility] PREFERRED PROVIDER ORGANIZAT ION (PPO) MATHEW DAO Sep 09, 2023 [id number] CANDE WELCH PATIENT Selected Encounter This section includes the information on record at [place] for the Encounter. Date/Time Encounter Type Encounter Description Reason Provider Source Dec 06, 2023 08:30 AM OFFICE O/P EST LOW 20 MIN PRIMARY CARE/MEDICINE ICD-10-CM G25.2 Other specified forms of tremor ROSA ELENA LEONARDO Janny Encounter Template Text not used by [place] Assessments - Encounter Diagnoses This section includes the primary and secondary diagnoses documented for the Encounter. Date/Time Primary/Secondary Diagnosis Diagnosis Name Provider Source Dec 24, 2023 02:03 PM PRIMARY Other specified forms of tremor ROSA ELENA LEONARDO GENNY Dec 24, 2023 02:03 PM SECONDARY Essential (primary) hypertension ROSA ELENA LEONARDO Chip ALGER Plan of Treatment: Future Appointments (+ 6 months) and Future Tests (+/- 45 days) The Plan of Treatment section includes future care activities for the patient from all [place] treatmentfacilities. This section includes future appointments and future orders which are active, pending or scheduled. Future Appointments This section includes appointments that were scheduled to occur 6 months from the date of the Encounter, up to a maximum of 20 appointments. The data comes from all [place] treatment facilities. Appointment Date/Time Appointment Type Appointme nt Facility Name Dec 26, 2023 03:30 PM AMBULATORY - MEDICINE [place] [facility] January 13, 2024 08:30 AM AMBULATORY - MEDICINE [facility] Feb 14, 2024 08:30 AM AMBULATORY - MEDICINE [place] [facility] Feb 19, 2024 08:00 AM AMBULATORY - MEDICINE [place] [facility] Feb 28, 2024 08:00 AM AMBULATORY - MEDICINE [place] [facility] Mar 18, 2024 08:00 AM AMBULATORY - REHAB MEDICIN [place] [place] [facility] Mar 24, 2024 03:30 PM AMBULATORY - PSYCHIATRY [facility] Apr 01, 2024 08:00 AM AMBULATORY - REHAB MEDICIN [place] [place] [facility] May 05, 2024 03:30 PM AMBULATORY - PSYCHIATRY [facility] May 22, 2024 09:15 AM AMBULATORY - MEDICINE [facility] Active, Pending, and Scheduled Orders This section includes a listing of several types of active, pending, and scheduled orders, including clinic medications orders, diagnostic test orders, procedure orders and consult orders; where the start date of the order is 45 days before the date of the Encounter or 45 days after the date of theEncounter. The data comes from all [place] treatment facilities. Test Date/Time Test Type Test Details Facility Name Dec 06, 2023 09:02 AM Consult Order COMMUNITY CARE-NEUROLOGY Cons Education Faculty Member's Choice ALGER Vital Signs: All taken on the encounter date This section contains inpatient and outpatient Vital Signs collected on the date of the Encounter. Date/Time Temperature Pulse Blood Pressure Respiratory Rate SP02 Pain Height Weight Body Mass Index Source Dec 06, 2023 08:32 AM 72 148/85 96 247 41 [facility] IE Social History: Smoking Status (Most current) and Tobacco Use (All prior to encounter date) This section includes the most current, and the historical, smoking and tobacco- related health factors from the [place] facility where the Encounter took place. Current Smoking Status This section includes the most current smoking, or tobacco-related health factor, from the [place] facility where the Encounter took place. Date/Time Current Smoking Status Comment Delon novoa Sep 24, 2023 03:30 PM VA-TOBACCO NEVER USED ALGER Tobacco Use History This section includes a history of the smoking, or tobacco-related health factors, that were collected on or before the date of the Encounter. The data comes from the [place] facility where the Encounter took place. Date/Time Smoking Status/Tobacco Use Comment F acchelo Aug 14, 2022 01:30 PM VA-TOBACCO NEVER USED ALGER Nov 09, 2020 08:00 AM VA-TOBACCO NEVER USED ALGER Nov 10, 2019 11:10 AM VA-TOBACCO NEVER USED ALGER Nov 19, 2018 07:52 AM VA-TOBACCO NEVER USED ALGER Oct 09, 2017 09:01 AM QUIT TOBACCO USE > 7 YEARS AGO ALGER Jul 17, 2016 08:21 AM QUIT TOBACCO USE > 7 YEARS AGO ALGER Aug 09, 2015 11:33 AM QUIT TOBACCO USE > 7 YEARS AGO ALGER Apr 17, 2012 09:48 AM QUIT TOBACCO USE > 7 YEARS AGO ALGER Nov 18, 2008 10:43 AM CURRENT SMOKER Pt. quit smoking 15 years ago while his spouse when she was !! ALGER Nov 18, 2008 10:43 AM QUIT TOBACCO USE > 7 YEARS AGO quit 15 years ago ALGER Encounter Notes: All associated encounter notes This section contains the clinical notes associated to the Encounter. 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 He states noticed the tremors first time in 1997 , but the symptoms become worse no new labs Active problems - Computerized Problem List is the source for the followin- Biltaeral hands resting tremors 2-essential hypertension The following VA and Non-VA meds were reconciled with patient: Active Outpatient Medications (including Supplies): Issue Date Status Last Fill Active Outpatient Medications Refills Expiration === 1) AMLODIPINE BESYLATE 10MG TAB Qty: 90 ACTIVE Issu:10-02-23 for 90 days Sig: TAKE ONE TABLET BY Refills: 2 Last:10-04-23 MOUTH ONCE DAILY FOR BLOOD Expr:10-02-24 PRESSURE/HEART, DO NOT TAKE WITH GRAPEFRUIT JUICE 2) CHOLECALCIF 25MCG (D3-1,000UNIT) TAB ACTIVE Issu:06-13-23 Qty: 90 for 90 days Sig: TAKE ONE Refills: 3 Last:10-06-23 TABLET BY MOUTH ONCE DAILY FOR VITAMIN Expr:06-13-24 D DEFICIENCY FOR VITAMIN SUPPLEMENTATION 3) DICLOFENAC NA 1% TOP GEL Qty: 400 for ACTIVE Issu:10-02-23 90 days Sig: APPLY 4 GRAMS TOPICALLY Refills: 3 Last:10-02-23 TWICE DAILY NEEDED FOR Expr:10-02-24 OSTEOARTHRITIS - USE DOSING CARD PROVIDED IN BOX 4) HYDROXYZINE HCL 25MG TAB Qty: 180 for ACTIVE Issu:09-24-23 60 days Sig: TAKE ONE TABLET BY MOUTH Refills: 3 Last:09-26-23 THREE TIMES DAILY NEEDED FOR Expr:09-24-24 ANXIETY 5) LOSARTAN 50MG TAB Qty: 90 for 90 days ACTIVE Issu:11-11-23 Sig: TAKE ONE TABLET BY MOUTH ONCE Refills: 1 Last:11-11-23 DAILY FOR BLOOD PRESSURE/HEART Expr:11-11-24 6) METHOCARBAMOL 500MG TAB Qty: 90 for 90 ACTIVE Issu:10-02-23 days Sig: TAKE ONE TABLET BY MOUTH AT Refills: 1 Last:10-02-23 BEDTIME NEEDED FOR MUSCLE SPASM Expr:10-02-24 7) OMEPRAZOLE 20MG EC CAP Qty: 180 for 90 ACTIVE Issu:10-02-23 days Sig: TAKE TWO CAPSULES BY MOUTH Refills: 3 Last:10-07-23 EVERY MORNING 30 MINUTES BEFORE Expr:10-02-24 BREAKFAST ALLERGIES: ========= Patient has answered NKA LAB HISTORY: No new labs HISTORY: PERIOD OF SERVICE - [facility] FROM Apr TO Apr COMBAT SERVICE INDICATED: No REVIEW OF SYSTEMS: No fever, chills, fatigue No chest pain shortness of breath or palpitations No cough or wheezing No headaches or dizziness; positive for bilateral hands resting tremors getting progressively worse Negative for ataxia negative for tremor voice PHYSICAL EXAMINATION: WD/obese seems to be in nonacute distress at the moment of examination S1-S2 positive, RRR MIRIAM, CTA bilateral Abdomen soft nontender to palpation No edema lower extremities AAO x3; ambulates without help ASSESSMENT/PLAN: 1- Biltaeral hands resting tremors See HPI The noticed a change in his handwriting The tremor is present at rest and getting worse trying to work with his hands He denies any caffeine intake; alcohol only social, no smoking 2-essential hypertension-mild elevated today in office but asymptomatic The states did not take losartan or amlodipine in the morning as he takes both medications in the afternoon He states his systolic blood pressure usually is in the 130s FOLLOW UP: ========= RTC -annual in January with fasting labs Today's documentation was made using voice recognition software. This note may contain spelling/grammatical errors secondary to this software. Every effort is made to correct errors, but if mistakes are found they need to be taken in context. UPCOMING APPOINTMENTS: 12/26/2023 15:30 CWM/NO/[place] ACUP G 01/13/2024 08:30 CWM/SO/PACT EIGHT WH 01/31/2024 08:30 CWM/NO/ACUPUNCTURE R1 02/14/2024 08:30 CWM/NO/ACUPUNCTURE R1 03/24/2024 15:30 SPOPC/MHC/BUTLER 10/08/2024 07:30 CWM/NO/OPTOMETRY/BRITTNEY No barriers; Patient understands and agrees to current treatment plan. If pt has any questions, concerns, or changes in current health status he/she will call or come in to the VA. Medication Reconciliation: Outpatient: Has the patient been taking medications as documented in the EMLR? YES: The patient has been taking medications as documented in the EMLR. Essential Medication List for Review used to complete this medication reconciliation. INCLUDED IN THIS LIST: Alphabetical list of active outpatient prescriptions dispensed from this [place] (local) and dispensed from another VA or DoD facility (remote) as well as inpatient orders [...] whether with a VA or non-VA provider. JLV Link Data on this list may not be complete. Please check JLV. Allergies/ADRs (Tool #5) FACILITY ALLERGY/ADR -------- [facility] NO KNOWN ALLERGIES [place] [facility] [facility] No Known Allergies [facility] NO KNOWN ALLERGIES [facility] NoGloary (Tool #1) INCLUDED IN THIS LIST: Alphabetical list of active outpatient prescriptions dispensed from this [place] (local) and dispensed from another VA or DoD facility (remote) as well as inpatient orders (local pending and active), local clinic medications, locally documented non-VA medications, and local prescriptions that have or been discontinued in the past 90 days. Non-VA Meds Last Documented On: Jul 27, 2020 NOTE The display of VA prescriptions dispensed from another VA or DoD facility (remote) is limited to active outpatient prescription entries matched to National Drug File at the originating site and may not include some items such as investigational drugs, compounds, etc. NOT INCLUDED IN THIS LIST: Medications self-entered by the patient into personal health records (i.e. [employer]) are NOT included in this list. Non-VA medications documented outside this [place], remote inpatient orders (regardless of status) and remote clinic medications are NOT included in this list. The patient and provider must always discuss medications the patient is taking, regardless of where the medication was dispensed or obtained. -- OUTPT AMLODIPINE BESYLATE 10MG TAB (Status = Active) TAKE ONE TABLET BY MOUTH ONCE DAILY FOR BLOOD PRESSURE/HEART, DO NOT TAKE WITH GRAPEFRUIT JUICE Rx# [id number] Last Released: 10/04/23 Qty/Days Supply: Rx Expiration Date: 10/02/24 Refills Remainin OUTPT CHOLECALCIF 25MCG (D3-1,000UNIT) TAB (Status = Active) TAKE ONE TABLET BY MOUTH ONCE DAILY FOR VITAMIN D DEFICIENCY FOR VITAMIN SUPPLEMENTATION Rx# [id number] Last Released: 06/19/23 Qty/Days Supply: Rx Expiration Date: 06/13/24 Refills Remainin Indication: FOR VITAMIN D DEFICIENCY OUTPT DICLOFENAC NA 1% TOP GEL (Status = Active) APPLY 4 GRAMS TOPICALLY TWICE DAILY NEEDED FOR OSTEOARTHRITIS - USE DOSING CARD PROVIDED IN BOX Rx# [id number] Last Released: 10/05/23 Qty/Days Supply: 400/ Rx Expiration Date: 10/02/24 Refills Remainin Indication: FOR JOINT PAIN OUTPT HYDROXYZINE HCL 25MG TAB (Status = Discontinued) TAKE ONE TABLET BY MOUTH THREE TIMES DAILY NEEDED FOR ANXIETY Rx# [id number] Last Released: 07/19/23 Qty/Days Supply: 180/60 Rx Expiration Date: 02/13/24 Refills Remainin OUTPT HYDROXYZINE HCL 25MG TAB (Status = Active) TAKE ONE TABLET BY MOUTH THREE TIMES DAILY NEEDED FOR ANXIETY Rx# [id number] Last Released: 09/27/23 Qty/Days Supply: 18060 Rx Expiration Date: 09/24/24 Refills Remainin OUTPT LOSARTAN 25MG TAB (Status = Discontinued) TAKE ONE TABLET BY MOUTH ONCE DAILY FOR BLOOD PRESSURE/HEART Rx# [id number] Last Released: 10/04/23 Qty/Days Supply: 90 Rx Expiration Date: 10/02/24 Refills Remainin Indication: FOR HIGH BLOOD PRESSURE OUTPT LOSARTAN 50MG TAB (Status = Active) TAKE ONE TABLET BY MOUTH ONCE DAILY FOR BLOOD PRESSURE/HEART Rx# [id number] Last Released: 11/13/23 Qty/Days Supply: 90 Rx Expiration Date: 11/11/24 Refills Remainin Indication: FOR HIGH BLOOD PRESSURE OUTPT METHOCARBAMOL 500MG TAB (Status = Active) TAKE ONE TABLET BY MOUTH AT BEDTIME NEEDED FOR MUSCLE SPASM Rx# [id number] Last Released: 10/04/23 Qty/Days Supply: Rx Expiration Date: 10/02/24 Refills Remainin Indication: FOR MUSCLE SPASM OUTPT OMEPRAZOLE 20MG EC CAP (Status = Active) TAKE TWO CAPSULES BY MOUTH EVERY MORNING 30 MINUTES BEFORE BREAKFAST Rx# [id number] Last Released: 10/04/23 Qty/Days Supply: Rx Expiration Date: 10/02/24 Refills Remainin -- SUPPLIES -- /holger/ ROSA ELENA LEONARDO MD PRIMARY CARE PHYSICIAN Signed: 12/06/2023 09:02 ROSA ELENA LEONARDO ALGER
--- OUTSIDE RECORDS SUMMARY | 2024-08-25 14:04 | XMS_ITS ---
Author Name [facility] [place] Address [address] [place] [id number] Care Team Providers Care Bowling Floor Desk Clerk Name Role Phone MARIETTA HERNANDEZ Primary Care [...] CAREMARK PRESCRIPT ION GEHA Aug 06, 2020 [id number] [phone] CANDE WELCHDO PATIENT CAREMARK PRESCRIPT ION GEHA Aug 06, 2020 [id number] [phone] WELCH,CANDE GLORIA PATIENT CAREMARK PRESCRIPT ION GEHA Apr 01, 2016 [id number] [phone] WELCH,CANDE GLORIA PATIENT CAREMARK PRESCRIPT ION GEHA STAND COLEMAN PLAN Apr 01, 2016 [id number] WELCH,CANDE GLORIA PATIENT CAREMARK PRESCRIPT ION GEHA Apr 01, 2016 [id number] [phone] WELCH,CANDE GLORIA PATIENT CAREMARK PRESCRIPT ION GEHA Apr 01, 2016 [id number] WELCH,CANDE GLORIA PATIENT CAREMARK PRESCRIPT ION [facility] Mar 09, 2016 [id number] WELCH,CANDE GLORIA PATIENT [facility] PREFERRED PROVIDER ORGANIZAT ION (PPO) Mathew al Empl[facility] [place] [facility] Apr 01, 2016 [id number] WELCH,CANDE GLORIA PATIENT [facility] DENTAL ONLY [facility] Apr 01, 2016 [id number] [phone] WELCH,CANDE GLORIA PATIENT [facility] PREFERRED PROVIDER ORGANIZAT ION (PPO) Mathew al Emplo [place] [facility] Jul 27, 2020 [id number] WELCH,CANDE GLORIA PATIENT [facility] MATHEW AL EMPLO [facility] Sep 09, 2021 [id number] 3GEHA WELCH,CANDE GLORIA PATIENT [facility] Sep 09, 2021 [id number] 3GEHA WELCH,CANDE GLORIA PATIENT [facility] MATHEW AL EMPLO [facility] Sep 09, 2021 [id number] 3GEHA WELCH,CANDE GLORIA PATIENT [facility] MEDICAL EXPENSE (OPT/PROF ) [facility] Sep 09, 2023 [id number] 3GEHA WELCH,CANDE GLORIA PATIENT [facility] PREFERRED PROVIDER ORGANIZAT ION (PPO) [facility] STAND [facility] Sep 09, 2023 [id number] 3 WELCH,CANDE GLORIA PATIENT [facility] PREFERRED PROVIDER ORGANIZAT ION (PPO) [facility] STAND [facility] Sep 09, 2023 [id number] 3GEHA WELCH,CANDE GLORIA PATIENT [facility] PREFERRED PROVIDER ORGANIZAT ION (PPO) MATHEW [place] EMPLO [place] [facility] Sep 09, 2023 [id number] CANDE WELCH PATIENT [facility] PREFERRED PROVIDER ORGANIZAT ION (PPO) MATHEW [facility] MICHAELA Sep 09, 2023 [id number] CANDE WELCH PATIENT Selected Encounter This section includes the information on record at [place] for the Encounter. Date/Time Encounter Type Encounter Description Reason Provider Source Feb 14, 2024 08:30 AM INFRARED THERAPY CI TREATMENT ICD-10-CM M54.50 Low back pain, unspecified GAUNYA,ROSENDA PHER M E Encounter Template Text not used by [place] Assessments - Encounter Diagnoses This section includes the primary and secondary diagnoses documented for the Encounter. Date/Time Primary/Secondary Diagnosis Diagnosis Name Provider Source Mar 13, 2024 01:14 PM PRIMARY Low back pain, unspecified GAUNYA,ROSENDA PHER M [place] [facility] [facility] Mar 13, 2024 01:14 PM SECONDARY Pain in right elbow GAUNYA,ROSENDA PHER M [place] [facility] [place] [facility] Mar 13, 2024 01:14 PM SECONDARY Pain in thoracic spine GAUNYA,ROSENDA PHER M [place] [facility] [place] [facility] Mar 13, 2024 01:14 PM SECONDARY Pain in unspecified joint GAUNYA,ROSENDA PHER M [place] [facility] [place] [facility] Mar 13, 2024 01:14 PM SECONDARY Post-traumatic stress disorder, chronic GAUNYA,ROSENDA PHER M [place] [facility] [place] [facility] Plan of Treatment: Future Appointments (+ 6 months) and Future Tests (+/- 45 days) The Plan of Treatment section includes future care activities for the patient from all [place] [facility] This section includes future appointments and future orders which are active, pending or scheduled. Future Appointments This section includes appointments that were scheduled to occur 6 months from the date of the Encounter, up to a maximum of 20 appointments. The data comes from all [place] treatment facilities. Appointment Date/Time Appointment Type Appointme nt Facility Name Feb 19, 2024 08:00 AM [facility]BULATORY - [facility] Feb 28, 2024 08:00 AM AMBULATORY - MEDICINE [place] [facility] Mar 18, 2024 08:00 AM AMBULATORY - [facility] Mar 24, 2024 03:30 PM AMBULATORY - PSYCHIATRY [facility] Apr 01, 2024 08:00 AM AMBULATORY - REHAB MEDICIN E [place] [place] [facility] May 05, 2024 03:30 PM AMBULATORY - PSYCHIATRY [facility] May 22, 2024 09:15 AM AMBULATORY - MEDICINE [place] C [facility]TRL [facility] Jul 22, 2024 09:00 AM AMBULATORY - MEDICINE [facility] Encounter Notes: All associated encounter notes This section contains the clinical notes associated to the Encounter. Date/Time Encounter Note(s) Provider Source Feb 14, 2024 08:50 AM ACUPUNCTURE NOTE: LOCAL TITLE: ACUPUNCTURE TREATMENT STANDARD TITLE: ACUPUNCTURE NOTE DATE OF NOTE: FEB 14, 2024@08:50 ENTRY DATE: FEB 14, 2024@08:50:18 AUTHOR: ROMMEL MARQUIS EXP COSIGNER: URGENCY: STATUS: COMPLETED VISIT Number: MOUNIKA WELCH JR is a 49 WHITE MALE who presents with Low back pain, Shoulder/upper back pain, Right elbow pain, generalized joint pain Active Problem Resting tremor G25.2 12/06/2023 ROSA ELENA LEONARDO Exposure to potentially hazardous s 11/07/2023 PREMA TATUM Polyarthralgia M25.50 10/02/2023 ROSA ELENA LEONARDO Vitamin D Deficiency ([facility] [id number]) 10/02/2023 ROSA ELENA LEONARDO Urine screening abnormal R82.90 06/13/2023 ROSA ELENA LEONARDO Tremor R25.1 04/09/2023 ROSA ELENA LEONARDO LBP - Low back pain M54.50 04/09/2023 ROSA ELENA LEONARDO Arthritis M19.90 04/09/2023 ROSA ELENA LEONARDO History of colonoscopy Z98.890 01/29/2023 ROSA ELENA LEONARDO Bacteriuria R69. 09/11/2022 JOSE EDEN Vitamin D deficiency E55.9 07/27/2020 SHANIKA DUQUE Chronic post-traumatic stress disor 06/14/2020 HECTOR BUTLER Heartburn R12. 07/27/2020 SHANIKA DUQUE Diverticular disease of colon K57.3 07/13/2021 JOSE EDEN Kidney stone N20.0 01/02/2019 SHANIKA DUQUE Erythrocytosis D75.0 01/02/2019 SHANIKA DUQUE Inguinal hernia R69. 12/15/2018 SHANIKA DUQUE Obstructive sleep apnea syndrome G4 06/14/2022 JUSTA MUSE HTN-Hypertension ([facility] [id number]) I10 12/13/2017 SHANIKA DUQUE ECG: normal sinus rhythm R69. 11/27/2017 SHANIKA DUQUE Panic disorder with agoraphobia R69 10/30/2016 HECTOR BUTLER Anxiety disorder F32.A 08/14/2022 HECTOR BUTLER Tremor 781.0 02/21/2015 LEOBARDOJODI SHAH Chronic low back pain M54.5 06/23/2019 SHANIKA DUQUE Depression (SNOMED CT 27059729) F33 11/10/2019 HECTOR BUTLER Hyperlipidemia (SNOMED CT 83601085) 08/09/2015 SHANIKA DUQUE Pilonidal cyst with abscess (ICD-9- 10/31/2012 LEOBARDOJODI Pain in joint involving hand (ICD-9 10/23/2012 LEOBARDO,JODI Gastroesophageal reflux disease (SN 08/09/2015 SHANIKA DUQUE Sleep apnea (SNOMED CT 27842929) G4 03/30/2017 DORENE RAGLAND Hypothyroidism (SNOMED CT 26675667) 07/13/2021 JOSE EDEN Tinnitus * (ICD-9-CM 388.30) 388.30 11/22/2008 LEOBARDO,JODI Obesity 278.00 11/22/2008 LEOBARDO,JODI Adjustment disorder with anxious mo 05/28/2018 HECTOR BUTLER Date Feb CC / HPI - Good presents with [...] is helpful at night. Good has utilized customer care coordinator in the past but has not done [...] and often hears noises in the house. Good is not currently utilizing mental health services at the [place] and states he does not want to be on more medication. Appetite is mixed. 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 Often eats grab and go foods while at work and sometimes has to skip dinner if his is not home on time before his night manager. Bowel movements are regular and unremarkable Good reports no issues with urination. RESPONSE TO PREVIOUS TREATMENT. [place] reports that he had a moderate reduction of pain that lasted a couple of days. missed his subsequent acupuncture appointment and we discussed frequency of treatment as an essential element of acupuncture. Good is going to try to come in more frequently in the initial phases of care. [place] states today that his low back is his primary pain site. He is also having pain between his scapula and across his upper trapezius. He also reports that his right elbow is quite sore today. Generalized joint pain is elevated. _ OBJECTIVE General: . Patient in no apparent distress [...] Gait [ ]antalgic [X]non-antalgic [ ]ataxic [ ]wheel chair, walker, cane ASSESSMENT / SUMMARY Affected Channel: Medical Decision Making (MDM) [ ]Straightforward o [...] life or bodily function PLAN / RECOMMENDATION: Follow-up [ ]1 WEEK [X]2 WEEKS [ ]3 WEEKS [ ]1 MONTH FREQUENCY OF CARE [ ]1 X WEEKLY, [ ]2 X WEEKLY [ ]Bi-Weekly, [ ]Monthly, [ ]Other Seeking: [ ]access to acupuncture for: [X]pain control [ ]frequency or [ ]as needed [X]Stress/anxiety reduction, [ ]Other mental health [ ]Addiction/dependence: [ ]Nicotene [ ]Alcohol [ ]Chemical Patient Education: [ ]Encouraged self-care management using active therapies [ ](exercises, therapeutic movement, PT, biofeedback, smoking cessation, health coaching) to manage chronic pain while engaging passive therapies (acupuncture / chiropractic / massage) to manage [ ]acute / [ ]subacute (persistent) pain [ ]Counseled not to view exercise as [...] or clotting disorder, only use light pressure. [ ]Self-care management encouraged by focus on self-care strategies to improve flexibility, strength and conditioning, not to view exercise as an analgesic yet modalities to improve gross motion as chronic pain undermines core movements. [ ]Discussed expected course of condition and self-care management [...] ]Pyonex Needle: remove prior to bathing per senior center director INFORMED CONSENT: Oral Consent obtained on Feb The patient was positioned comfortably. Oral consent was obtained. There was no evidence of infection at the site of needle insertions. Time out was conducted by Rommel Marquis L.Ac. Correct patient was identified using two identifiers. Acupuncture treatment including risk/side effects, benefits, alternatives to treatment and the management plan were reviewed with the patient who expressed understanding and agreed. Correct procedure verified by the patient and the provider. PROCEDURES: Set 1 TIME SPENT: 15 Minutes Position:[X]Prone [ ]Supine [ ]Left Side [ ]Right Side [ ]Seated Chair [ ] Massage Chair Points used: [X]Ear:[ ]Left [ ]Right [X]Bilateral [X]BFA Protocol, [ ]NADA Protocol, [ ]Shen[place], Point Zero, Sympathetic [ ] Ear: [ ]Rangel Men, [ ]Point Zero, [ ]Sympathetic [ ]Ear Other: [ ]Head: [ ]Neck: [ ]Torso: [ ]Hip / Glute Area: [ ]LUE: [ ]RUE: [ ]LLE: [ ]RLE: Set 2 TIME SPENT: 15 Minutes Position:[X]Prone [ ]Supine [ ]Left Side [ ]Right Side [ ]Seated Chair [ ] Massage Chair Points used: [ ]Ear:[ ]Left [ ]Right [ ]Bilateral [ ]BFA Protocol, [ ]NADA Protocol, [ ][place]hen[place], Point Zero, Sympathetic [ ] Ear: [ ]Rangel Men, [ ]Point Zero, [ ]Sympathetic [ ]Ear Other: [ ]Head: [ ]Neck: [ ]Torso: [ ]Hip / Glute Area: [X] LUE: LK, DB, ZB, SI 4 [X] RUE: Marie Tze, Marie Hsien, LI 10, LI 11 [X] LLE: LR 4.2, LR 4.5, LR 4.8, LR 5, SP 5.5, SP 6, KD 7 [X] RLE: UB 65, GB 41, GB 40, GB 34 [ ]Other therapies: [ ]Cupping: [ ]Cold Laser [ ]Peizo Pen: [ ]External Qigong: [X]TDP Lamp:Right elbow [ ]Tui Na: [ ]Guasha: [ ]Nutrition Counseling: The procedures were performed and needles removed without complication. Treatment Response: [X]nominal / [ ]negative / [ ]aborted due to [ ]F/U PRN self-schedule upon unresolving re-aggravation or with degrading pain control An RTC order will be necessary if patient is seeking self-schedule beyond one year; If beyond three years, a new consult is required /holger/ ROMMEL MARQUIS LA.C DIPL.AC GRADE RECORDER Signed: 02/14/2024 11:42 ROMMEL MARQUIS CNTRL [facility]
--- OUTSIDE RECORDS SUMMARY | 2024-08-25 14:04 | XMS_ITS ---
Author Name [place] Address [address] [place] [id number] Care Team Providers Care Fly Rail Operator Name Role Phone MARIETTA HERNANDEZ Primary [...] CAREMARK PRESCRIPT ION GEHA Aug 06, 2020 [id number] [phone] CANDE WELCH PATIENT CAREMARK PRESCRIPT ION GEHA Aug 06, 2020 [id number] WELCH,CANDE GLORIA PATIENT CAREMARK PRESCRIPT ION GEHA Apr 01, 2016 [id number] WELCH,CANDE GLORIA PATIENT CAREMARK PRESCRIPT ION GEHA STAND COLEMAN PLAN Apr 01, 2016 [id number] 300 WELCH,CANDE GLORIA PATIENT CAREMARK PRESCRIPT ION GEHA Apr 01, 2016 [id number] WELCH,CANDE GLORIA PATIENT CAREMARK PRESCRIPT ION GEHA Apr 01, 2016 [id number] [phone] WELCH,CANDE GLORIA PATIENT CAREMARK PRESCRIPT ION HA Mar 09, 2016 [id number] WELCH,CANDE GLORIA PATIENT [facility] PREFERRED PROVIDER ORGANIZAT ION (PPO) Mathew al Emplo [place] [facility] Apr 01, 2016 [id number] [phone] WELCH,CANDE GLORIA PATIENT [facility] DENTAL ONLY D[facility]AL [facility]ANCE [facility] Apr 01, 2016 [id number] WELCH,CANDE GLORIA PATIENT [facility] PREFERRED PROVIDER ORGANIZAT ION (PPO) Mathew al Emplo [place] [facility] Jul 27, 2020 [id number] 3 WELCH,CANDE GLORIA PATIENT [facility] MATHEW AL EMPLO [place] [facility] Sep 09, 2021 [id number] 3GEHA WELCH,CANDE GLORIA PATIENT [facility] Sep 09, 2021 [id number] 3GEHA WELCH,CANDE GLORIA PATIENT [facility] MATHEW AL EMPLO [facility] Sep 09, 2021 [id number] 3GEHA WELCH,CANDE GLORIA PATIENT [facility] PREFERRED PROVIDER ORGANIZAT ION (PPO) GEHA STAND [place]LEMAN Sep 09, 2023 [id number] 3 WELCH,CANDE GLORIA PATIENT [facility] PREFERRED PROVIDER ORGANIZAT ION (PPO) GEHA STAND [employer]MAN Sep 09, 2023 [id number] 3GEHA WELCH,CANDE GLORIA PATIENT [facility] PREFERRED PROVIDER ORGANIZAT ION (PPO) MATHEW AL EMPLO [place] [facility] Sep 09, 2023 [id number] 3GEHA WELCH,CANDE GLORIA PATIENT [facility] PREFERRED PROVIDER ORGANIZAT ION (PPO) MATHEW AL EMPLO [place] [facility] Sep 09, 2023 [id number] CANDE WELCH PATIENT [facility] MEDICAL EXPENSE (OPT/PROF ) [facility] Sep 09, 2023 [id number] 3GEHA CANDE WELCH PATIENT Selected Encounter This section includes the information on record at [place] for the Encounter. Date/Time Encounter Type Encounter Description Reason Provider Source Feb 10, 2024 11:45 AM Outpatient Encounter PRIMARY CARE/MEDICINE HARINDER ARRIOLA Encounter Template Text not used by [place] Plan of Treatment: Future Appointments (+ 6 months) and Future Tests (+/- 45 days) The Plan of Treatment section includes future care activities for the patient from all [place] [facility]. This section includes future appointments and future orders which are active, pending or scheduled. Future Appointments This section includes appointments that were scheduled to occur 6 months from the date of the Encounter, up to a maximum of 20 appointments. The data comes from all [place] treatment facilities. Appointment Date/Time Appointment Type Appointme nt Facility Name Feb 14, 2024 08:30 AM AM[place]ULATORY [place]ICINE [place] [facility] Feb 19, 2024 08:00 AM AMBULATORY - MEDICINE [place] [facility] Feb 28, 2024 08:00 AM AMBULATORY - MEDICINE [place] [facility] Mar 18, 2024 08:00 AM AMBULATORY - REHAB MEDICIN E [place] [facility] [place] [facility] Mar 24, 2024 03:30 PM AMBULATORY - PS[facility]CHIATRY [facility] Apr 01, 2024 08:00 AM AMBULATORY - REHAB MEDICIN E [place] [place] [facility] May 05, 2024 03:30 PM AMBULATORY - [facility]RY [facility] May 22, 2024 09:15 AM AMBULATORY - MEDICINE [place] [facility] Jul 22, 2024 09:00 AM AMBULATORY - MEDICINE [facility] Encounter Notes: All associated encounter notes This section contains the clinical notes associated to the Encounter. Date/Time Encounter Note(s) Provider Source Feb 10, 2024 11:45 AM PRIMARY CARE SECUR E MESSAGING: LOCAL TITLE: PRIMARY CARE SECURE MESSAGING STANDARD TITLE: PRIMARY CARE SECURE MESSAGING DATE OF NOTE: FEB 10, 2024@11:45 ENTRY DATE: FEB 10, 2024@12:46 AUTHOR: HARINDER ARRIOLA EXP COSIGNER: URGENCY: STATUS: COMPLETED ------Original Message ----- Sent: 02/10/2024 12:45 PM ET From: HARINDER ARRIOLA To: WELCH MOUNIKA Subject: General:General Inquiry Good afternoon, Your community care neurology consult was placed on 12/06/23 and has been sent to [facility]. [address], [address] [place] [address] Group for review and scheduling. Your [place] authorization number is [id number]. If you would like to follow up with that clinic to check on status of authorization and to discuss scheduling consult visit you can reach out to them at the above noted contact number. If you are in need of any other assistance, please reach out. Harinder Parker RN /holger/ GENTRY WAKEFIELDN RN-BC REGISTERED NURSE Signed: 02/10/2024 12:46 HARINDER ARRIOLA [place] [facility]
--- OUTSIDE RECORDS SUMMARY | 2024-08-25 14:04 | XMS_ITS | Encounter Summary ---
Author Name [facility] [place] [facility] [place] Address [address] [place] [id number] Care Team Providers Care Driver Sales Name Role Phone MARIETTA HERNANDEZ Primary Care [...] CAREMARK PRESCRIPT ION GEHA Aug 06, 2020 [id number] CANDE WELCHDO PATIENT CAREMARK PRESCRIPT ION GEHA Aug 06, 2020 [id number] WELCH,CANDE GLORIA PATIENT CAREMARK PRESCRIPT ION GEHA Apr 01, 2016 [id number] WELCH,CANDE GLORIA PATIENT CAREMARK PRESCRIPT ION GEHA STAND [employer] PLAN Apr 01, 2016 [id number] WELCH,CANDE GLORIA PATIENT CAREMARK PRESCRIPT ION GEHA Apr 01, 2016 [id number] WELCH,CANDE GLORIA PATIENT CAREMARK PRESCRIPT ION GEHA Apr 01, 2016 [id number] WELCH,CANDE GLORIA PATIENT CAREMARK PRESCRIPT ION [facility] Mar 09, 2016 [id number] [phone] WELCH,CANDE GLORIA PATIENT [facility] PREFERRED PROVIDER ORGANIZAT ION (PPO) Mathew al [facility] [facility] Apr 01, 2016 [id number] WELCH,CANDE GLORIA PATIENT [facility] DENTAL ONLY DENTAL INSURANCE [facility] CTION DENT Apr 01, 2016 [id number] WELCH,CANDE GLORIA PATIENT [facility] PREFERRED PROVIDER ORGANIZAT ION (PPO) Mathew al [facility] [place] a Jul 27, 2020 [id number] 3 WELCH,CANDE GLORIA PATIENT [facility] MATHEW AL EM[facility] Sep 09, 2021 [id number] 3GEHA WELCH,CANDE GLORIA PATIENT [facility] MAT[facility]W AL EMPLO [facility] Sep 09, 2021 [id number] 3GEHA WELCH,CANDE GLORIA PATIENT [facility] Sep 09, 2021 [id number] 3GEHA WELCH,CANDE GLORIA PATIENT [facility] PREFERRED PROVIDER ORGANIZAT ION (PPO) [facility]AND [facility] Sep 09, 2023 [id number] 3 WELCH,CANDE GLORIA PATIENT [facility] PREFERRED PROVIDER ORGANIZAT ION (PPO) [facility] Sep 09, 2023 [id number] 3GEHA WELCH,CANDE GLORIA PATIENT [facility] PREFERRED PROVIDER ORGANIZAT ION (PPO) [facility]W [facility] EMPLO [place] [facility] Sep 09, 2023 [id number] 3 WELCH,CANDE GLORIA PATIENT [facility] MEDICAL EXPENSE (OPT/PROF ) [facility] Sep 09, 2023 [id number] 3GEHA WELCH,CANDE GLORIA PATIENT [facility] PREFERRED PROVIDER ORGANIZAT ION (PPO) MATHEW WALKERMiriam Sep 09, 2023 [id number] CANDE WELCH PATIENT Selected Encounter This section includes the information on record at [place] for the Encounter. Date/Time Encounter Type Encounter Description Reason Provider Source January 13, 2024 08:30 AM OFFICE O/P EST MOD 30 MIN PRIMARY CARE/MEDICINE ICD-10-CM I10 Essential (primary) hypertension ROSA ELENA LEONARDO Janny Encounter Template Text not used by [place] Assessments - Encounter Diagnoses This section includes the primary and secondary diagnoses documented for the Encounter. Date/Time Primary/Secondary Diagnosis Diagnosis Name Provider Source Jun 17, 2024 12:46 PM PRIMARY Essential (primary) hypertension SHADELEROSA ELENA Pineda [place] Jun 17, 2024 12:46 PM SECONDARY Hyperlipidemia, unspecified STELEA,ROSA ELENA Saunders [place] Jun 17, 2024 12:46 PM SECONDARY Tremor, unspecified STELEA,ROSA ELENA Saunders [place] Jun 17, 2024 12:46 PM SECONDARY Vitamin D deficiency, unspecified STELEALIZETTEROSA ELENA Chip [place] Plan of Treatment: Future Appointments (+ 6 months) and Future Tests (+/- 45 days) The Plan of Treatment section includes future care activities for the patient [facility] [place] [facility] This section includes future appointments and future orders which are active, pending or scheduled. Future Appointments This section includes appointments that were scheduled to occur 6 months from the date of the Encounter, up to a maximum of 20 appointments. The data comes from all [place] treatment facilities. Appointment Date/Time Appointment Type Appointme nt Facility Name Feb 14, 2024 08:30 AM AMBULATORY [place] MEDICINE [place] [facility] [place] [facility] Feb 19, 2024 08:00 AM AMBULATORY - MEDICINE [place] [facility] [place] [facility] Feb 28, 2024 08:00 AM AMBULATORY - MEDICINE [place] [facility] [facility] Mar 18, 2024 08:00 AM AMBULATORY - REHAB MEDICIN [place] [facility] [place] [place] [facility] Mar 24, 2024 03:30 PM AMBULATORY - PSYCHIATRY [facility] Apr 01, 2024 08:00 AM AMBULAT[facility] May 05, 2024 03:30 PM AMBULATORY - PSYCHIATRY [facility] May 22, 2024 09:15 AM AMBULATORY - MEDICINE [facility] Active, Pending, and Scheduled Orders This section includes a listing of several types of active, pending, and scheduled orders, including clinic medications orders, diagnostic test orders, procedure orders and consult orders; where the start date of the order is 45 days before the date of the Encounter or 45 days after the date of theEncounter. The data comes from all [place] treatment facilities. Test Date/Time Test Type Test Details Facility Name Dec 06, 2023 09:02 AM Consult Order COMMUNITY CARE-NEUROLOGY Cons Forensic Toxicologist's Choice [place] Vital Signs: All taken on the encounter date This section contains inpatient and outpatient Vital Signs collected on the date of the Encounter. Date/Time Temperature Pulse Blood Pressure Respiratory Rate SP02 Pain Height Weight Body Mass Index Source January 13, 2024 08:36 AM 74 137/82 97 250 42 [facility] IE Social History: Smoking Status (Most current) and Tobacco Use (All prior to encounter date) This section includes the most current, and the historical, smoking and tobacco- related health factors from the [place] facility where the Encounter took place. Current Smoking Status This section includes the most current smoking, or tobacco-related health factor, from the [place] facility where the Encounter took place. Date/Time Current Smoking Status Comment Delon novoa Sep 24, 2023 03:30 PM [place]-TOBACCO NEVER USED [place] Tobacco Use History This section includes a history of the smoking, or tobacco-related health factors, that were collected on or before the date of the Encounter. The data comes from the [place] facility where the Encounter took place. Date/Time Smoking Status/Tobacco Use Comment F acility Aug 14, 2022 01:30 PM VA-TOBACCO NEVER USED [place] Nov 09, 2020 08:00 AM VA-TOBACCO NEVER USED [place] Nov 10, 2019 11:10 AM VA-TOBACCO NEVER USED [place] Nov 19, 2018 07:52 AM VA-TOBACCO NEVER USED [place] Oct 09, 2017 09:01 AM QUIT TOBACCO USE > 7 YEARS AGO [place] Jul 17, 2016 08:21 AM QUIT TOBACCO USE > 7 YEARS AGO [place] Aug 09, 2015 11:33 AM QUIT TOBACCO USE > 7 YEARS AGO [place] Apr 17, 2012 09:48 AM QUIT TOBACCO USE > 7 YEARS AGO [place] Nov 18, 2008 10:43 AM CURRENT SMOKER Pt. quit smoking 15 years ago while his spouse when she was !! [place] Nov 18, 2008 10:43 AM QUIT TOBACCO USE > 7 YEARS AGO quit 15 years ago [place] Encounter Notes: All associated encounter notes This section contains the clinical notes associated to the Encounter. Date/Time Encounter Note(s) Provider Source January 13, 2024 08:26 AM PHYSICIAN NOTE: LOCAL TITLE: MD NOTE STANDARD TITLE: PHYSICIAN NOTE DATE OF NOTE: JANUARY 13, 2024@08:26 ENTRY DATE: JANUARY 13, 2024@08:26:52 AUTHOR: ROSA ELENA LEONARDO COSIGNER: URGENCY: STATUS: COMPLETED HISTORY OF PRESENT ILLNESS: MOUNIKA WELCH, is a 49 yo MALE [place], who presents at the [facility] for annual physical examination. labs-pending Active problems - Computerized Problem List is the source for the followin- Annual physical examination 2- HTN 3- HLP 4- Vitamin d insuficiency 5- bilateral hands tremor The following VA and Non-VA meds were [...] ========= Patient has answered NKA LAB HISTORY: Pending PMH: Essential hypertension, GERD, vitamin D deficiency, [...] Alcohol denies HISTORY: PERIOD OF SERVICE - [facility] [employer] FROM Apr TO Apr COMBAT SERVICE INDICATED: No REVIEW OF SYSTEMS: No fever, chills, fatigue No chest pain shortness of breath or palpitations No cough or wheezing No abdominal pain nausea or vomiting No dysuria No joints pain No headaches or dizziness; positive for chronic bilateral hands tremor PHYSICAL EXAMINATION: WD/WN [place] seems to be in nonacute distress at the moment of examination S1-S2 positive, RRR MIRIAM, CTA bilateral Abdomen soft nontender to palpation, obese Trace edema lower extremities AAO x3; ambulates without help ASSESSMENT/PLAN: 1- Annual physical examination Fasting blood work pending Colonoscopy--but patient was done to years ago and he was found to repeat in 5 years PSA-outside screening age 2- HTN-blood pressure controlled today in office Continue healthy diet and exercise as tolerated Continue amlodipine and losartan He admits of not monitoring his blood pressure for the last month being sick but he will restart to check blood pressure twice a week and keep a logbook 3- HLP-continue healthy diet and exercise as tolerated Labs are pending 4- Vitamin d insuficiency-on supplements 5- bilateral hands tremor-he was on propranolol for 10 years; off medication at this time the [place] noticed worsening of tremor for a while-he is waiting for his neurology consultation 6-intermittent mild ankle edemafurosemide low-dose prescribed and advised to take it as needed FOLLOW UP: ========= RTC -6 months follow-up with fasting labs Today's documentation was made using voice recognition software. This note may contain spelling/grammatical errors secondary to this software. Every effort is made to correct errors, but if mistakes are found they need to be taken in context. UPCOMING APPOINTMENTS: 01/13/2024 08:30 CWM/SO/PACT EIGHT 01/31/2024 08:30 CWM/NO/ACUPUNCTURE R1 02/14/2024 08:30 CWM/NO/ACUPUNCTURE R1 03/24/2024 15:30 SPOPC/MHC/BUTLER 10/08/2024 07:30 CWM/NO/OPTOMETRY/BRITTNEY No barriers; Patient understands and agrees to current treatment plan. If pt has any questions, concerns, or changes in current health status he/she will call or come in to the VA. HIV Screening: Patient has been offered HIV testing and has declined. I have explained that HIV testing is recommended for all adults, even if all risk factors are absent. The patient was educated on the risk of delayed screening. Medication Reconciliation: Outpatient: Has the patient been taking medications as documented in the EMLR? YES: The patient has been taking medications as documented in the EMLR. Essential Medication List for Review used to complete this medication reconciliation. INCLUDED IN THIS LIST: Alphabetical list of active outpatient prescriptions dispensed from this VA (local) and dispensed from another VA or [...] JLV. Allergies/ADRs (Tool #5) FACILITY ALLERGY/ADR -------- [facility] NO KNOWN ALLERGIES [place] [facility] [place] [facility] No Known Allergies [facility] NO KNOWN ALLERGIES Med Recon NoGvijay (Tool #1) INCLUDED IN THIS LIST: Alphabetical list of active outpatient prescriptions dispensed from this VA (local) and dispensed from another VA or DoD facility (remote) as well as inpatient orders (local pending and active), local clinic medications, locally documented non-VA medications, and local prescriptions that have or been discontinued in the past 90 days. Non-VA Meds Last Documented On: Jul 27, 2020 NOTE The display of VA prescriptions dispensed from another [place] or [facility] facility (remote) is limited to active outpatient prescription entries matched to National Drug File at the originating site and may not include some items such as investigational drugs, compounds, etc. NOT INCLUDED IN THIS LIST: Medications self-entered by the patient into personal health records (i.e. Symptom.ly) are NOT included in this list. Non-VA medications documented outside this [place], remote inpatient orders (regardless of status) and remote clinic medications are NOT included in this list. The patient and provider must always discuss medications the patient is taking, regardless of where the medication was dispensed or obtained. -- OUTPT AMLODIPINE BESYLATE 10MG TAB (Status = Active) TAKE ONE TABLET BY MOUTH ONCE DAILY FOR BLOOD PRESSURE/HEART, DO NOT TAKE WITH GRAPEFRUIT JUICE Rx# [id number] Last Released: 10/04/23 Qty/Days Supply: Rx Expiration Date: 10/02/24 Refills Remainin OUTPT CHOLECALCIF 25MCG (D3-1,000UNIT) TAB (Status = Active) TAKE ONE TABLET BY MOUTH ONCE DAILY FOR VITAMIN D DEFICIENCY FOR VITAMIN SUPPLEMENTATION Rx# [id number] Last Released: 06/19/23 Qty/Days Supply: Rx Expiration Date: 06/13/24 Refills Remainin Indication: FOR VITAMIN D DEFICIENCY OUTPT DICLOFENAC NA 1% TOP GEL (Status = Active) APPLY 4 GRAMS TOPICALLY TWICE DAILY NEEDED FOR OSTEOARTHRITIS - USE DOSING CARD PROVIDED IN BOX Rx# [id number] Last Released: 10/05/23 Qty/Days Supply: Rx Expiration Date: 10/02/24 Refills Remainin Indication: FOR JOINT PAIN OUTPT HYDROXYZINE HCL 25MG TAB (Status = Active) TAKE ONE TABLET BY MOUTH THREE TIMES DAILY NEEDED FOR ANXIETY Rx# [id number] Last Released: 09/27/23 Qty/Days Supply: 18060 Rx Expiration Date: 09/24/24 Refills Remainin OUTPT LOSARTAN 25MG TAB (Status = Discontinued) TAKE ONE TABLET BY MOUTH ONCE DAILY FOR BLOOD PRESSURE/HEART Rx# [id number] Last Released: 10/04/23 Qty/Days Supply: Rx Expiration Date: 10/02/24 Refills Remainin Indication: FOR HIGH BLOOD PRESSURE OUTPT LOSARTAN 50MG TAB (Status = Active) TAKE ONE TABLET BY MOUTH ONCE DAILY FOR BLOOD PRESSURE/HEART Rx# [id number] Last Released: 11/13/23 Qty/Days Supply: Rx Expiration Date: 11/11/24 Refills Remainin Indication: FOR HIGH BLOOD PRESSURE OUTPT METHOCARBAMOL 500MG TAB (Status = Active) TAKE ONE TABLET BY MOUTH AT BEDTIME NEEDED FOR MUSCLE SPASM Rx# [id number] Last Released: 10/04/23 Qty/Days Supply: 90 Rx Expiration Date: 10/02/24 Refills Remainin Indication: FOR MUSCLE SPASM OUTPT OMEPRAZOLE 20MG EC CAP (Status = Active) TAKE TWO CAPSULES BY MOUTH EVERY MORNING 30 MINUTES BEFORE BREAKFAST Rx# [id number] Last Released: 10/04/23 Qty/Days Supply: Rx Expiration Date: 10/02/24 Refills Remainin -- SUPPLIES -- /holger/ ROSA ELENA LEONARDO MD PRIMARY CARE PHYSICIAN Signed: 01/16/2024 14:04 ROSA ELENA LEONARDO
--- OUTSIDE RECORDS SUMMARY | 2024-08-25 14:04 | XMS_ITS ---
Author Name [facility] [place] [facility] [place] Address [address] [place] [id number] Care Team Providers Care Child Care Leader Name Role Phone MARIETTA HERNANDEZ Primary Care [...] CAREMARK PRESCRIPT ION GEHA Aug 06, 2020 [id number] [phone] FANTASMA WELCH PATIENT CAREMARK PRESCRIPT ION GEHA Aug 06, 2020 [id number] [phone] WELCH,FANTASMA GLORIA PATIENT CAREMARK PRESCRIPT ION GEHA Apr 01, 2016 [id number] [phone] WELCH,FANTASMA GLORIA PATIENT CAREMARK PRESCRIPT ION GEHA [employer]AND [employer] PLAN Apr 01, 2016 [id number] WELCH,FANTASMA GLORIA PATIENT CAREMARK PRESCRIPT ION GEHA Apr 01, 2016 [id number] WELCH,FANTASMA GLORIA PATIENT CAREMARK PRESCRIPT ION GEHA Apr 01, 2016 [id number] [phone] WELCH,FANTASMA GLORIA PATIENT CAREMARK PRESCRIPT ION [facility] Mar 09, 2016 [id number] WELCH,FANTASMA GLORIA PATIENT [facility] PREFERRED PROVIDER ORGANIZAT ION (PPO) Mathew al [facility] [place] [facility] Apr 01, 2016 [id number] [phone] WELCH,FANTASMA GLORIA PATIENT [facility] DENTAL ONLY DENTAL INSURANCE [facility] CTION DENT Apr 01, 2016 [id number] [phone] WELCH,FANTASMA GLORIA PATIENT [facility] PREFERRED PROVIDER ORGANIZAT ION (PPO) Mathew al Empl[facility] [place] [facility] Jul 27, 2020 [id number] 3 WELCH,FANTASMA GLORIA PATIENT [facility] Sep 09, 2021 [id number] 3GEHA WELCH,FANTASMA GLORIA PATIENT [facility] Sep 09, 2021 [id number] 3GEHA WELCH,FANTASMA GLORIA PATIENT [facility] Sep 09, 2021 [id number] 3GEHA WELCH,FANTASMA GLORIA PATIENT [facility] MEDICAL EXPENSE (OPT/PROF ) [facility] Sep 09, 2023 [id number] 3GEHA WELCH,FANTASMA GLORIA PATIENT [facility] PREFERRED PROVIDER ORGANIZAT ION (PPO) [facility] STAND [facility] Sep 09, 2023 [id number] 3 WELCH,FANTASMA GLORIA PATIENT [facility] PREFERRED PROVIDER ORGANIZAT ION (PPO) [facility] STAND [facility] Sep 09, 2023 [id number] 3GEHA WELCH,FANTASMA GLORIA PATIENT [facility] PREFERRED PROVIDER ORGANIZAT ION (PPO) MATHEW AL EMPLO [place] [facility] Sep 09, 2023 [id number] FANTASMA WELCH PATIENT [facility] PREFERRED PROVIDER ORGANARPAN ADKINS (PPO) MATHEW DAO Sep 09, 2023 [id number] 3GEHA FANTASMA WELCH PATIENT Selected Encounter This section includes the information on record at [place] for the Encounter. Date/Time Encounter Type Encounter Description Reason Pro vider Source February 06, 2024 08:26 AM Outpatient Encounter PRIMARY CARE/MEDICINE IHE Encounter Template Text not used by [place] Plan of Treatment: Future Appointments (+ 6 months) and Future Tests (+/- 45 days) The Plan of Treatment section includes future care activities for the patient from all [place] treatmentfacilities. This section includes future appointments and [...] - MEDICINE [place] [facility] [place] [place] [facility] Feb 19, 2024 08:00 AM AMBULATORY - MEDICINE [place] [place] [facility] Feb 28, 2024 08:00 AM AMBULATORY - MEDICINE [place] [place] [facility] Mar 18, 2024 08:00 AM AMBULATORY - REHAB MEDICIN E [place] [facility] [place] [facility] Mar 24, 2024 03:30 PM AMBULATORY - PSYCHIATRY [facility] Apr 01, 2024 08:00 AM AMBULATORY - REHAB MEDICIN E [place] [facility] [place] [facility] May 05, 2024 03:30 PM AMBULATORY - PSYCHIATRY [facility] May 22, 2024 09:15 AM AMBULATORY - MEDICINE [place] [facility] Jul 22, 2024 09:00 AM AMBULATORY - MEDICINE [facility] Encounter Notes: All associated encounter notes This section contains the clinical notes associated to the Encounter. Date/Time Encounter Note(s) Provider Source February 06, 2024 08:26 AM PRIMARY CARE SECUR E MESSAGING: LOCAL TITLE: PRIMARY CARE SECURE MESSAGING STANDARD TITLE: PRIMARY CARE SECURE MESSAGING DATE OF NOTE: FEBRUARY 06, 2024@08:26 ENTRY DATE: FEBRUARY 06, 2024@09:26:25 AUTHOR: LUCERO KERR COSIGNER: URGENCY: STATUS: COMPLETED PRIMARY CARE SECURE MESSAGING Has ADDENDA ------Original Message -------- Sent: 02/04/2024 08:45 PM ET From: MOUNIKA WELCH To: Miriam LEONARDO,_PRIMARYCARE_[facility] Subject: General:Referral Just wondering if there is any word on the referral to neurology for my shaking hands. Thanks Fantasma /holger/ VINCE KERR ADVANCED SURGICAL ATTENDANT Signed: 02/06/2024 09:26 Receipt Acknowledged By: 02/10/2024 12:37 /holger/ LESLYE WAKEFIELD RN-BC REGISTERED NURSE 02/10/2024 ADDENDUM STATUS: COMPLETED Called and no answer so voicemail left requesting call back to [facility] at [phone] if needed. Reply sent to [place] via secure message /holger/ LESLYE WAKEFIELD RN-BC REGISTERED NURSE Signed: 02/10/2024 12:46 LUCERO KERR [facility]
--- OUTSIDE RECORDS SUMMARY | 2024-08-25 14:04 | XMS_ITS | Encounter Summary ---
Author Name [place] Address [address] [place] [address] Care Team Providers Care Echo Vasc Tech Name Role Phone MARIETTA HERNANDEZ Primary Care [...] CAREMARK PRESCRIPT ION GEHA Aug 06, 2020 [id number] CANDE WELCHDO PATIENT CAREMARK PRESCRIPT ION GEHA Aug 06, 2020 [id number] WELCH,CANDE GLORIA PATIENT CAREMARK PRESCRIPT ION GEHA Apr 01, 2016 [id number] WELCH,CANDE GLORIA PATIENT CAREMARK PRESCRIPT ION GEHA STAND [employer] PLAN Apr 01, 2016 [id number] [phone] WELCH,CANDE GLORIA PATIENT CAREMARK PRESCRIPT ION GEHA Apr 01, 2016 [id number] WELCH,CANDE GLORIA PATIENT CAREMARK PRESCRIPT ION GEHA Apr 01, 2016 [id number] WELCH,CANDE GLORIA PATIENT CAREMARK PRESCRIPT ION [facility] Mar 09, 2016 [id number] WELCH,CANDE GLORIA PATIENT [facility] PREFERRED PROVIDER ORGANIZAT ION (PPO) Mathew al Emplo [place] [facility] Apr 01, 2016 [id number] [phone] WELCH,CANDE GLORIA PATIENT [facility] DENTAL ONLY DENTAL INSURANCE [facility] CTION DENT Apr 01, 2016 [id number] [phone] WELCH,CANDE GLORIA PATIENT [facility] PREFERRED PROVIDER ORGANIZAT ION (PPO) Mathew al Emplo [place] [facility] Jul 27, 2020 [id number] WELCH,CANDE GLORIA PATIENT [facility] Sep 09, 2021 [id number] 3GEHA WELCH,CANDE GLORIA PATIENT [facility] Sep 09, 2021 [id number] 3GEHA WELCH,CANDE GLORIA PATIENT [facility]W AL EMPLO [facility] Sep 09, 2021 [id number] 3GEHA WELCH,CANDE GLORIA PATIENT [facility] MEDICAL EXPENSE (OPT/PROF ) [facility] Sep 09, 2023 [id number] 3GEHA WELCH,CANDE GLORIA PATIENT [facility] PREFERRED PROVIDER ORGANIZAT ION (PPO) [facility] STAND [facility] Sep 09, 2023 [id number] 3 WELCH,CANDE GLORIA PATIENT [facility] PREFERRED PROVIDER ORGANIZAT ION (PPO) [facility] STAND [facility] Sep 09, 2023 [id number] 3GEHA WELCH,CANDE GLORIA PATIENT [facility] PREFERRED PROVIDER ORGANIZAT ION (PPO) MATHEW AL [facility] Sep 09, 2023 [id number] CANDE WELCH PATIENT [facility] PREFERRED PROVIDER ORGANIZAT ION (PPO) MATHEW COXE MICHAELA Sep 09, 2023 [id number] 3GEHA CANDE WELCH PATIENT Selected Encounter This section includes the information on record at [place] for the Encounter. Date/Time Encounter Type Encounter Description Reason Pro vider Source January 27, 2024 11:31 AM Outpatient Encounter [facility] Encounter Template Text not used by [place] Plan of Treatment: Future Appointments (+ 6 months) and Future Tests (+/- 45 days) The Plan of Treatment section includes future care activities for the patient from all [place] treatmentfacilities. This section includes future appointments and future orders which are active, pending or scheduled. Future Appointments This section includes appointments that were scheduled to occur 6 months from the date of the Encounter, up to a maximum of 20 appointments. The data comes from all [place] treatment facilities. Appointment Date/Time Appointment Type Appointme nt Facility Name Feb 14, 2024 08:30 AM AMBULATORY - MEDICINE [place] [facility] Feb 19, 2024 08:00 AM AMBULATORY - MEDICINE [place] [facility] [facility] Feb 28, 2024 08:00 AM AMBULATORY - MEDICINE [place] [facility] [facility] Mar 18, 2024 08:00 AM AMBULATORY - REHAB MEDICIN E [facility] [place] [facility] Mar 24, 2024 03:30 PM AMBULATORY - PSYCHIATRY [facility] Apr 01, 2024 08:00 AM AMBULATORY - REHAB MEDICIN E [facility] [place] [facility] May 05, 2024 03:30 PM AMBULATORY - PSYCHIATRY [facility] May 22, 2024 09:15 AM AMBULATORY - MEDICINE [place] [facility] Jul 22, 2024 09:00 AM AMBULATORY - MEDICINE [facility] Encounter Notes: All associated encounter notes This section contains the clinical notes associated to the Encounter. Date/Time Encounter Note(s) Provider Source January 27, 2024 11:31 AM TELEPHONE ENCOUNTE R NOTE: LOCAL TITLE: TELEPHONE NOTE/SPECIALTY CLINIC STANDARD TITLE: TELEPHONE ENCOUNTER NOTE DATE OF NOTE: JANUARY 27, 2024@11:31 ENTRY DATE: JANUARY 27, 2024@11:31:24 AUTHOR: HEMA CARMICHAEL EXP COSIGNER: URGENCY: STATUS: COMPLETED Dispositioned RTC PID 01/22/2024 no longer necessary. vet cx appt and has future appt scheduled. This is considered a low risk clinic. Per scheduling directive low risk clinics no contact attempts are needed. /holger/ HEMA CARMICHAEL [employer] [facility] AGENT Signed: 01/27/2024 11:33 HEMA CARMICHAEL [place] CN[facility]L [facility]
--- OUTSIDE RECORDS SUMMARY | 2024-08-25 14:05 | XMS_ITS | Encounter Summary ---
Author Name [place] Address [address] [place] [address] Care Team Providers Care Financial Analysis Consultant Name Role Phone MARIETTA HERNANDEZ Primary Care [...] CAREMARK PRESCRIPT ION GEHA Aug 06, 2020 [id number] [phone] CANDE WELCHDO PATIENT CAREMARK PRESCRIPT ION GEHA Aug 06, 2020 [id number] [phone] WELCH,CANDE GLORIA PATIENT CAREMARK PRESCRIPT ION GEHA Apr 01, 2016 [id number] [phone] WELCH,CANDE GLORIA PATIENT CAREMARK PRESCRIPT ION GEHA STAND [employer] PLAN Apr 01, 2016 [id number] 300 WELCH,CANDE GLORIA PATIENT CAREMARK PRESCRIPT ION GEHA Apr 01, 2016 [id number] [phone] WELCH,CANDE GLORIA PATIENT CAREMARK PRESCRIPT ION GEHA Apr 01, 2016 [id number] WELCH,CANDE GLORIA PATIENT CAREMARK PRESCRIPT ION [facility] Mar 09, 2016 [id number] WELCH,CANDE GLORIA PATIENT [facility] PREFERRED PROVIDER ORGANIZAT ION (PPO) Mathew al Emplo [place] Hea Apr 01, 2016 [id number] WELCH,CANDE GLORIA PATIENT [facility] DENTAL ONLY DENTAL INSURANCE [facility] CTION DENT Apr 01, 2016 [id number] WELCH,CANDE GLORIA PATIENT [facility] PREFERRED PROVIDER ORGANIZAT ION (PPO) Mathew al Emplo [place] [facility] Jul 27, 2020 [id number] WELCH,CANDE GLORIA PATIENT [facility] MATHEW AL [facility] Sep 09, 2021 [id number] 3GEHA WELCH,CANDE GLORIA PATIENT [facility] Sep 09, 2021 [id number] 3GEHA WELCH,CANDE GLORIA PATIENT [facility] MATHEW AL EMPLO [facility] Sep 09, 2021 [id number] 3GEHA WELCH,CANDE GLORIA PATIENT [facility] MEDICAL EXPENSE (OPT/PROF ) [facility] Sep 09, 2023 [id number] 3GEHA WELCH,CANDE GLORIA PATIENT [facility] PREFERRED PROVIDER ORGANIZAT ION (PPO) [facility] STAND [facility] Sep 09, 2023 [id number] 3 WELCH,CANDE GLORIA PATIENT [facility] PREFERRED PROVIDER ORGANIZAT ION (PPO) [facility] STAND [facility] Sep 09, 2023 [id number] 3GEHA WELCH,CANDE GLORIA PATIENT [facility] PREFERRED PROVIDER ORGANIZAT ION (PPO) MATHEW AL EMPLO [facility] Sep 09, 2023 [id number] 3 CANDE WELCH PATIENT [facility] PREFERRED PROVIDER ORGANARPAN ADKINS (PPO) MATHEW SMALLWOODToni TRAOREMiriam Sep 09, 2023 [id number] 3GEHA CANDE WELCH PATIENT Selected Encounter This section includes the information on record at [place] for the Encounter. Date/Time Encounter Type Encounter Description Reason Pro vider Source Mar 27, 2024 08:03 AM Outpatient Encounter [facility] Encounter Template Text not used by [place] Plan of Treatment: Future Appointments (+ 6 months) and Future Tests (+/- 45 days) The Plan of Treatment section includes future care activities for the patient from all [place] treatmentfacilities. This section includes future appointments and future orders which are active, pending or scheduled. Future Appointments This section includes appointments that were scheduled to occur 6 months from the date of the Encounter, up to a maximum of 20 appointments. The data comes from all [place] treatment facilities. Appointment Date/Time Appointment Type Appointme nt Facility Name Apr 01, 2024 08:00 AM [facility] May 05, 2024 03:30 PM AMBULATORY - PSYCHIATRY [facility] May 22, 2024 09:15 AM AMBULATORY - MEDICINE [facility] NTR WSN [facility] Jul 22, 2024 09:00 AM AMBULATORY - MEDICINE [facility] Aug 19, 2024 02:30 PM AMBULATORY - MEDICINE [facility] Aug 25, 2024 02:30 PM AMBULATORY - MEDICINE [facility] Aug 25, 2024 03:30 PM AMBULATORY - PSYCHIATRY [facility] Encounter Notes: All associated encounter notes This section contains the clinical notes associated to the Encounter. Date/Time Encounter Note(s) Provider Source Mar 27, 2024 08:03 AM ADMINISTRATIVE NOTE: LOCAL TITLE: ADMINISTRATIVE NOTE STANDARD TITLE: ADMINISTRATIVE NOTE DATE OF NOTE: MAR 27, 2024@08:03 ENTRY DATE: MAR 27, 2024@08:03:55 AUTHOR: TALI CORDOVA EXP COSIGNER: URGENCY: STATUS: COMPLETED Per track repair supervisor's message, this is considered a low risk clinic. Per scheduling directive for low risk clinics contact attempts are not needed. RTC PID 04/03/2024 has been dispositioned. Future appt already scheduled. /holger/ TALI CORDOVA ADVANCED SENIOR PARTNER Signed: 03/27/2024 08:05 TALI CORDOVA [facility]
--- OUTSIDE RECORDS SUMMARY | 2024-08-25 14:05 | XMS_ITS ---
Author Name [place] Address [address] [place] [address] Care Team Providers Care Lumber Sticker Name Role Phone MARIETTA HERNANDEZ Primary Care [...] CAREMARK PRESCRIPT ION GEHA Aug 06, 2020 [id number] [phone] CANDE WELCH PATIENT CAREMARK PRESCRIPT ION GEHA Aug 06, 2020 [id number] 300 WELCH,CANDE GLORIA PATIENT CAREMARK PRESCRIPT ION GEHA Apr 01, 2016 [id number] WELCH,CANDE CASTRO PATIENT CAREMARK PRESCRIPT ION GEHA STAND [employer] PLAN Apr 01, 2016 [id number] 300 WELCH,CANDE GLORIA PATIENT CAREMARK PRESCRIPT ION GEHA Apr 01, 2016 [id number] [phone] WELCH,CANDE RODRIGUEZDO PATIENT CAREMARK PRESCRIPT ION GEHA Apr 01, 2016 [id number] WELCH,CANDE GLORIA PATIENT CAREMARK PRESCRIPT ION [facility] Mar 09, 2016 [id number] [phone] WELCH,CANDE GLORIA PATIENT [facility] PREFERRED PROVIDER ORGANIZAT ION (PPO) Mathew al Emplo [place] Hea Apr 01, 2016 [id number] [phone] WELCH,CANDE GLORIA PATIENT [facility] DENTAL ONLY DENTAL INSURANCE [facility] CTION DENT Apr 01, 2016 [id number] WELCH,CANDE GLORIA PATIENT [facility] PREFERRED PROVIDER ORGANIZAT ION (PPO) Mathew al Emplo [place] [facility] Jul 27, 2020 [id number] [phone] WELCH,CANDE GLORIA PATIENT [facility] MATHEW AL EMPLO [facility] Sep 09, 2021 [id number] 3GEHA WELCH,CANDE GLORIA PATIENT [facility] Sep 09, 2021 [id number] 3GEHA WELCH,CANDE GLORIA PATIENT [facility] MATHEW AL EMPLO [place] [facility] Sep 09, 2021 [id number] 3GEHA WELCH,CANDE GLORIA PATIENT [facility] MEDICAL EXPENSE (OPT/PROF ) [facility] Sep 09, 2023 [id number] 3GEHA WELCH,CANDE GLORIA PATIENT [facility] PREFERRED PROVIDER ORGANIZAT ION (PPO) [facility] STAND [facility] Sep 09, 2023 [id number] 3 WELCH,CANDE GLORIA PATIENT [facility] PREFERRED PROVIDER ORGANIZAT ION (PPO) [facility] STAND [facility] Sep 09, 2023 [id number] 3GEHA WELCH,CANDE GLORIA PATIENT [facility] PREFERRED PROVIDER ORGANIZAT ION (PPO) MATHEW AL EMPLO [facility] Sep 09, 2023 [id number] 3 CANDE WELCH PATIENT [facility] PREFERRED PROVIDER ORGANIZAT ION (PPO) MATHEW DAO Sep 09, 2023 [id number] 3GEHA CANDE WELCH PATIENT Selected Encounter This section includes the information on record at [place] for the Encounter. Date/Time Encounter Type Encounter Description Reason Provider Source May 22, 2024 09:15 AM OFFICE O/P EST MOD 30 MIN OCCUPATIONAL HEALTH ICD-10-CM Z02.89 Encounter for other administrative examinations NICOLE GRIER [facility] Encounter Template Text not used by [place] Assessments - Encounter Diagnoses This section includes the primary and secondary diagnoses documented for the Encounter. Date/Time Primary/Secondary Diagnosis Diagnosis Name Provider Source May 22, 2024 01:00 PM PRIMARY Encounter for other administrative examinations NICOLE GRIER [facility] Plan of Treatment: Future Appointments (+ 6 months) and Future Tests (+/- 45 days) The Plan of Treatment section includes future care activities for the patient from all [place] treatmentfacilities. This section includes future appointments and future orders which are active, pending or scheduled. Future Appointments This section includes appointments that were scheduled to occur 6 months from the date of the Encounter, up to a maximum of 20 appointments. The data comes from all [place] treatment facilities. Appointment Date/Time Appointment Type Appointme nt Facility Name Jul 22, 2024 09:00 AM AMBULATORY [facility] Aug 19, 2024 02:30 PM AMBULATORY [facility] Aug 25, 2024 02:30 PM AMBULATORY - MEDICINE [place] [facility] Aug 25, 2024 03:30 PM AMBULATORY - PSYCHIATRY [facility] Oct 08, 2024 07:30 AM AMBULATORY - MEDICINE [place] [facility] Oct 20, 2024 02:00 PM AMBULATORY - MEDICINE [place] C [place] [facility] Nov 17, 2024 01:30 PM [facility] Lab Results: +/- 30 days of the encounter This section includes the Chemistry and Hematology Lab Results on record with [place] for the patient. Radiology Reports and Pathology Reports are provided separately, in subsequent sections. Lab Results This section contains the Chemistry/Hematology Results that were resulted 30 days before or 30 daysafter the date of the Encounter. Date/Time Source Result Type Result - Unit Interpretation Reference Range Comment May 21, 2024 09:37 AM [facility] T-SPOT TB PANEL Specimen Type: BLOOD Comment: A negative test result does not exclude the possibility of exposure to or infection with Mycobacterium tuberculosis (M. tuberculosis). Patients with recent exposure to TB infected individuals exhibiting a negative T-SPOT.TB result should be considered for retesting within 6 weeks or if other relevant clinical symptoms indicate. Results from T-SPOT.TB testing must be used in conjunction with each individual's epidemiological history, current medical status, and results of other diagnostic evaluations. The T-SPOT.TB test is qualitative and results are reported as positive, borderline, or negative, given that the test controls perform as expected. In line with the Centers for Disease Control and Prevention's 2010 recommendation to report quantitative measurements alongside the qualitative result, the laboratory provides spot counts for informational purposes only. The T-SPOT.TB test should not be interpreted as a quantitative test. For additional information, please refer to http://education .[employer]/faq/RVK104 (This link is being provided for informational/ educational purposes only.) Test Performed by [facility], [facility], [address] [place] [address] Julius Bell M.D., Ph.D., Director of Laboratories , [place] [id number] TEST PERFORMED AT: , Ordering Provider: NICOLE GRIER Report Released Date/Time: May 14, 2024 03:09 PM Reporting Lab: [facility] [address] [facility] [address] Performing Lab: [facility] [address] [address] G-[id number] (o) Negative Negative T-SPOT-PNLA 0 T-SPOT-PNLB 0 Q-AEXI-HRYUJN L Passed Y-FYGD-[id number] L Passed May 21, 2024 09:37 AM [facility] HEPATITIS B SURFACE ANTIBODY (HBsAb)-WH Specimen Type : SERUM Comment: A 'Reactive' result indicates HBsAb results >/= 12.0 mIU/mL and immunity to HBV infection. Ordering Provider: NICOLE GRIER Report Released Date/Time: May 14, 2024 03:09 PM Reporting Lab: [facility] [address] [facility] [address] Performing Lab: [facility] [address] [facility] [address] HBsAb REACTIVE Non Reactive May 21, 2024 09:37 AM [facility] MMRV (IGG) IMMUNE STATUS PANEL Specimen Type: SERUM Comment: A result of 'REACTIVE' indicates presence of IgG to Measles, Mumps, Rubella or Varicella following exposure to these viruses through either infection or vaccination. If quantitative index values are required for clinical interpretation, call Virology Reference lab during weekday business hours. Ordering Provider: NICOLE GRIER Report Released Date/Time: May 14, 2024 03:09 PM Reporting Lab: [address] [address] Performing Lab: [address] [address] MEASLES (IGG) REACTIVE SEE COMMENT MUMPS (IGG) REACTIVE SEE COMMENT RUBELLA (IGG) REACTIVE SEE COMMENT VARICELLA (IGG) REACTIVE SEE COMMENT May 21, 2024 09:37 AM [facility] HEMOGLOBIN A1C PANEL Specimen Type: BLOOD Comment: Values obtained from A1C measurements can vary. For atypical A1C assays, a reported value of 7.0 could actually be between 6.72 and 7.28 if measured by a reference method. A reported value of 9.0 could actually be between 8.73 and 9.27. Ref: http://www.ngsp. org/CAPdata.asp Ordering Provider: NICOLE GRIER Report Released Date/Time: May 14, 2024 03:09 PM Reporting Lab: [address] [address] Performing Lab: [address] [address] HEMOGLOBIN A1C 5.2 4.0-5.6 May 21, 2024 09:37 AM [facility] LIPID PANEL, NON FASTING Specimen Type: SERUM No comment entered. Ordering Provider: NICOLE GRIER Report Released Date/Time: May 14, 2024 03:09 PM Reporting Lab: [facility] [address] [facility] [address] Performing Lab: [address] [address] CHOLESTEROL 227 mg/dL H TRIGLYCERIDE 143 mg/dL 0-150 LDL calculated 146 mg/dL H 0-129 CHOL/HDL 4.4 HDL CHOLESTEROL 52 mg/dL 40-60 May 21, 2024 09:37 AM [facility] BASIC METABOLIC PANEL (non-fasting) Specimen Type: SERUM No comment entered. Ordering Provider: NICOLE GRIER Report Released Date/Time: May 14, 2024 03:09 PM Reporting Lab: [address] [address] Performing Lab: [address] [address] UREA NITROGEN 11 mg/dL 7-25 GLUCOSE 97 mg/dL 65-100 SODIUM 138 mmol/L 135-145 POTASSIUM 3.9 mmol/L 3.5-5.0 CHLORIDE 106 mmol/L 100-110 CO2 21 meq/L 20-30 CREATININE, Serum 0.98 mg/dL 0.50-1.40 eGFR(CKD-EPI 2020) >90 mL/min >60 May 21, 2024 09:37 AM [facility] MICROSCOPIC AUTOMATED, URINE Specimen Type: URINE Comment: If Glucose = >500 and Ketones are positive, please alert the Physician. Ordering Provider: NICOLE GRIER Report Released Date/Time: May 14, 2024 03:09 PM Reporting Lab: [address] [address] Performing Lab: [address] [address] UA WBC 11-20 /[HPF] H 0-5 UA MUCUS MANY /[LPF] Trace UA RBC 3-5 /[HPF] 0-3 UA SQUAMOUS EPITH FEW /[HPF] May 21, 2024 09:37 AM [facility] URINALYSIS Specimen Type: URINE Comment: If Glucose = >500 and Ketones are positive, please alert the Physician. Ordering Provider: NICOLE GRIER Report Released Date/Time: May 14, 2024 03:09 PM Reporting Lab: [address] [address] Performing Lab: [address] [address] UA COLOR Yellow Yellow UA APPEARANCE Turbid Clear UA GLUCOSE Normal mg/dL Negative UA KETONES NEGATIVE mg/dL Negative UA BLOOD NEGATIVE mg/dL Negative UA PROTEIN 30 mg/dL Negative UA NITRITE NEGATIVE mg/dL Negative UA BILIRUBIN NEGATIVE mg/dL Negative UA SPECIFIC GRAVITY 1.027 H 1.016-1.02 2 UA pH 6.0 5.0-9.0 UA UROBILINOGEN Normal mg/dL <2.0 UA LEUKOCYTE TRACE Negative May 21, 2024 09:37 AM [facility] LIVER FUNCTION Specimen Type: SERUM No comment entered. Ordering Provider: NICOLE GRIER Report Released Date/Time: May 14, 2024 03:09 PM Reporting Lab: [facility] [address] [facility] [address] Performing Lab: [address] [address] PROTEIN,TOTAL 7.6 g/dL 6.0-8.3 ALBUMIN 4.0 g/dL 3.5-5.0 ALKALINE PHOSPHATASE 54 U/L 40-150 AST 29 U/L 5-34 ALT 30 U/L BILIRUBIN, TOTAL 1.3 mg/dL H 0.2-1.2 BILIRUBIN, DIRECT 0.5 mg/dL 0-0.5 May 21, 2024 09:37 AM [facility] CBC AND DIFF (AUTO) Specimen Type: BLOOD No comment entered. Ordering Provider: NICOLE GRIER Report Released Date/Time: May 14, 2024 03:09 PM Reporting Lab: [facility] [address] [facility] [address] Performing Lab: [facility] [address] [facility] [address] WBC 9.16 10*3/uL 4.50-11.00 RBC 6.29 10*6/uL H 4.23-5.66 HGB 17.5 g/dL H 12.8-17 HCT 52.6 H 39.2-50.4 MCV 83.6 fL 82-99 MCHC 33.3 g/dL 30.8-35.1 PLT 287 10*3/uL 140-360 RDW-CV 13.6 12.0-16.0 MONO, ABS 0.97 10*3/uL 0.30-1.10 MCH 27.8 pg 26.2-32.6 NEUT % 54.4 43.7-75.8 LYMPH % 31.6 14.0-42.3 MONO % 10.6 5.1-13.7 EOS % 1.6 0.4-6.8 BASO % 1.0 0.1-2.0 NEUT, ABS 4.99 10*3/uL 2.20-7.60 LYMPH, ABS 2.89 10*3/uL 1.00-3.20 EOS, ABS 0.15 10*3/uL 0.03-0.44 BASO, ABS 0.09 10*3/uL 0.01-0.13 IMMATURE GRAN % 0.8 H 0.0-0.7 IMMATURE GRAN, ABS 0.07 10*3/uL H 0.00-0.06 NRBC % 0.0 0.0-0.0 NRBC, ABS 0.00 10*3/uL 0.00-0.00 Encounter Notes: All associated encounter notes This section contains the clinical notes associated to the Encounter. Date/Time Encounter Note(s) Provider Source May 22, 2024 07:53 AM OCCUPATIONAL MEDIC INE NOTE: LOCAL TITLE: EMPLOYEE HEALTH VISIT STANDARD TITLE: OCCUPATIONAL MEDICINE NOTE DATE OF NOTE: MAY 22, 2024@07:53 ENTRY DATE: MAY 22, 2024@07:53:09 AUTHOR: NICOLE GRIER EXP COSIGNER: URGENCY: STATUS: COMPLETED You may not VIEW this COMPLETED EMPLOYEE HEALTH VISIT. [facility] MUNGUIA [facility]
--- OUTSIDE RECORDS SUMMARY | 2024-08-25 14:05 | XMS_ITS | Encounter Summary ---
Author Name [place] Address [address] [place] [id number] Care Team Providers Care Manager Media Name Role Phone MARIETTA HERNANDEZ Primary Care [...] CAREMARK PRESCRIPT ION GEHA Aug 06, 2020 [id number] [phone] CANDE WELCHDO PATIENT CAREMARK PRESCRIPT ION GEHA Aug 06, 2020 [id number] [phone] WELCH,CANDE GLORIA PATIENT CAREMARK PRESCRIPT ION GEHA Apr 01, 2016 [id number] [phone] WELCH,CANDE GLORIA PATIENT CAREMARK PRESCRIPT ION GEHA STAND COLEMAN PLAN Apr 01, 2016 [id number] WELCH,CANDE GLORIA PATIENT CAREMARK PRESCRIPT ION GEHA Apr 01, 2016 [id number] WELCH,CANDE GLORIA PATIENT CAREMARK PRESCRIPT ION GEHA Apr 01, 2016 [id number] WELCH,CANDE GLORIA PATIENT CAREMARK PRESCRIPT ION [facility] Mar 09, 2016 [id number] [phone] WELCH,CANDE GLORIA PATIENT [facility] PREFERRED PROVIDER ORGANIZAT ION (PPO) Mathew al [facility] [place] [facility] Apr 01, 2016 [id number] WELCH,CANDE GLORIA PATIENT [facility] DENTAL ONLY DENTAL INSURANCE [facility] Apr 01, 2016 [id number] [phone] WELCH,CANDE GLORIA PATIENT [facility] PREFERRED PROVIDER ORGANIZAT ION (PPO) Mathew al Em[facility]o [place] [facility] Jul 27, 2020 [id number] [phone] WELCH,CANDE GLORIA PATIENT [facility] Sep 09, 2021 [id number] 3GEHA WELCH,CANDE GLORIA PATIENT [facility] Sep 09, 2021 [id number] 3GEHA WELCH,CANDE GLORIA PATIENT [facility] MATHEW AL EMPLO [facility] Sep 09, 2021 [id number] 3GEHA WELCH,CANDE GLORIA PATIENT [facility] MEDICAL EXPENSE (OPT/PROF ) [facility] Sep 09, 2023 [id number] 3GEHA WELCH,CANDE GLORIA PATIENT [facility] PREFERRED PROVIDER ORGANIZAT ION (PPO) [facility] STAND [facility] Sep 09, 2023 [id number] 3 WELCH,CANDE GLORIA PATIENT [facility] PREFERRED PROVIDER ORGANIZAT ION (PPO) [facility] STAND [facility] Sep 09, 2023 [id number] 3GEHA WELCH,CANDE GLORIA PATIENT [facility] PREFERRED PROVIDER ORGANIZAT ION (PPO) [facility] Sep 09, 2023 [id number] CANDE WELCH PATIENT [facility] PREFERRED PROVIDER ORGANIZAT ION (PPO) MATHEWJUNAID WALKERMiriam Sep 09, 2023 [id number] 3GEHA CANDE WELCH PATIENT Selected Encounter This section includes the information on record at [place] for the Encounter. Date/Time Encounter Type Encounter Description Reason Provider Source Apr 01, 2024 08:00 AM CONFORMITY EVALUATION AUDIOLOGY ICD-10-CM Z46.1 Encounter for fitting and adjustment of hearing aid MARCELA VANCE Janny Encounter Template Text not used by [place] Assessments - Encounter Diagnoses This section includes the primary and secondary diagnoses documented for the Encounter. Date/Time Primary/Secondary Diagnosis Diagnosis Name Provider Source Apr 01, 2024 08:36 AM PRIMARY Encounter for fitting and adjustment of hearing aid TERESA VANCE Rupinder [facility] [facility] Apr 01, 2024 08:36 AM SECONDARY Sensorineural hearing loss, bilateral VANCEAURELINAOLENO Rupinder [place] [facility] [place] [facility] Apr 01, 2024 08:36 AM SECONDARY Tinnitus, bilateral TERESA VANCE [facility] [place] [facility] Plan of Treatment: Future Appointments (+ 6 months) and Future Tests (+/- 45 days) The Plan of Treatment section includes future care activities for the patient from all [place] treatmentfacilities. This section includes future appointments and future orders which are active, pending or scheduled. Future Appointments This section includes appointments that were scheduled to occur 6 months from the date of the Encounter, up to a maximum of 20 appointments. The data comes from all [place] treatment facilities. Appointment Date/Time Appointment Type Appointme nt Facility Name May 05, 2024 03:30 PM AMBULATORY - PSYCHIATRY [facility] May 22, 2024 09:15 AM AMBULATORY - MEDICINE [place] [facility] [place] [place] [facility] Jul 22, 2024 09:00 AM AMBULATORY - MEDICINE [facility] Aug 19, 2024 02:30 PM AMBULATORY - MEDICINE [facility] Aug 25, 2024 02:30 PM AMBULATORY - MEDICINE [place] [facility] [place] [facility] Aug 25, 2024 03:30 PM AMBULATORY - PSYCHIATRY [facility] Encounter Notes: All associated encounter notes This section contains the clinical notes associated to the Encounter. Date/Time Encounter Note(s) Provider Source Apr 01, 2024 07:10 AM AUDIOLOGY E & M NOTE: LOCAL TITLE: AUDIOLOGY CLINIC STANDARD TITLE: AUDIOLOGY E & M NOTE DATE OF NOTE: APR 01, 2024@07:10 ENTRY DATE: APR 01, 2024@07:10:17 AUTHOR: MARCELA VANCE COSIGNER: URGENCY: STATUS: COMPLETED Dx CODE: Z46.1- Encounter for Fitting/Programming Hearing Aid(s); H90.3- Sensorineural Hearing Loss, Bilateral APPOINTMENT TYPE: Hearing Aid Fitting SUBJECTIVE (S): The patient was seen for hearing aid fitting and issuance. He had previously been evaluated and found to exhibit significant hearing loss for which amplification was recommended. How does the patient best learn? Verbal instruction, demonstration Does the patient have any cultural and rastafari beliefs, emotional barriers, physical or cognitive limitations, and communication barriers which may impact his ability to learn? No Desire and motivation to learn? Good OBJECTIVE (O): Physical fit of hearing aids was good. Patient verified comfort. Verification of an appropriate acoustic response was obtained using Real Ear measurements (speech mapping) and NAL-NL2 targets. The patient reported good subjective benefit as well. Feedback insurance agency manager was run. Hearing aids were found to be meeting targets adequately and MPO was not exceeding estimated UCL. Settings stored in SILVIA. ASSESSMENT (A): The following devices were issued: Make: Joaquin Model: Signature Series CIC R NW Right Serial Number: [id number] Left Serial Number: [id number] Battery size: RECHARGEABLE Warranty ends: 04/19/27 Trial Period ends: 09/16/24 Domes/Wax guards: Hear Clear Program(s): Automatic Button(s): push button disabled Fitting Formula: NAL-NL2 Bluetooth: n/a Counseling was completed throughout todays appointment using a standardized curriculum that includes but is not limited to; realistic expectations with amplification in adverse listening environments, acclimatization to own voice and environmental sounds (following real-ear measurements), the importance of consistent use of amplification, proper insertion/removal, care and maintenance (including wax guards/domes if applicable), signal and alerts of devices, and charging/batteries. The was provided the opportunity to practice in office and reports confidence/understanding in all items reviewed. Time Spent= 20 minutes The patient was informed of and signed/agreed to [place] policy on hearing aid issuance: Yes Users are responsible for the maintenance and security of their devices. Determination of need to replace a hearing aid is made by the [place] milk vendor. Hearing aids will not be replaced in cases of neglect, abuse, or excessive loss. Items issued are for personal use only. Prognosis for successful hearing aid use is good. PLAN (P): 1. Follow-up for programming/adjustments as needed. 2. The International Outcome Inventory-Hearing Aids (IOI-OLEARY) will be mailed to the in four weeks. He was asked to complete and mail back to clinic after completion. Patient Education Education provided on the following topics: Hearing aid use, care, maintenance Education provided to: P Response to Education: ERICK SIMON, PI [place] Patient P Family F Significant Other SO Verbalizes Understanding VU Returns Demonstration RD Performs Independently PI Lacks Comprehension LC Refused Education RE Not Applicable NA /holger/ MARCELA VANCE STAFF CONTRACT WRITER Signed: 04/01/2024 08:36 MARCELA VANCE [place] [facility] [place] [facility]
--- OUTSIDE RECORDS SUMMARY | 2024-08-25 14:05 | XMS_ITS | Encounter Summary ---
Author Name [place] Address [address] [place] [address] Care Team Providers Care Landscape Engineer Name Role Phone MARIETTA HERNANDEZ Primary Care [...] CAREMARK PRESCRIPT ION GEHA Aug 06, 2020 [id number] [phone] CANDE WELCH PATIENT CAREMARK PRESCRIPT ION GEHA Aug 06, 2020 [id number] [phone] WELCH,CANDE GLORIA PATIENT CAREMARK PRESCRIPT ION GEHA Apr 01, 2016 [id number] [phone] WELCH,CANDE GLORIA PATIENT CAREMARK PRESCRIPT ION GEHA STAND COLEMAN PLAN Apr 01, 2016 [id number] WELCH,CANDE GLORIA PATIENT CAREMARK PRESCRIPT ION GEHA Apr 01, 2016 [id number] [phone] WELCH,CANDE GLORIA PATIENT CAREMARK PRESCRIPT ION GEHA Apr 01, 2016 [id number] [phone] WELCH,CANDE GLORIA PATIENT CAREMARK PRESCRIPT ION HA Mar 09, 2016 [id number] [phone] WELHC,CANDE GLORIA PATIENT [facility] PREFERRED PROVIDER ORGANIZAT ION (PPO) Mathew al Emplo [place] Hea Apr 01, 2016 [id number] WELCH,CANDE GLORIA PATIENT [facility] DENTAL ONLY DENTAL INSURANCE [facility] CTION DENT Apr 01, 2016 [id number] WELCH,CANDE GLORIA PATIENT [facility] PREFERRED PROVIDER ORGANIZAT ION (PPO) Mathew al Emplo [place] [facility] Jul 27, 2020 [id number] 3 WELCH,CANDE GLORIA PATIENT [facility] MAT[place]W AL EMPLO [place] [facility] Sep 09, 2021 [id number] 3GEHA WELCH,CANDE GLORIA PATIENT [facility] Sep 09, 2021 [id number] 3GEHA WELCH,CANDE GLORIA PATIENT [facility] COUNTS INCLUDE 234 BEDS AT THE [facility] MATHEW AL EMPLO [facility] Sep 09, 2021 [id number] 3GEHA WELCH,CANDE GLORIA PATIENT [facility] PREFERRED PROVIDER ORGANIZAT ION (PPO) GEHA [facility] Sep 09, 2023 [id number] 3 WELCH,CANDE GLORIA PATIENT [facility] PREFERRED PROVIDER ORGANIZAT ION (PPO) GEHA [facility]AND [facility] Sep 09, 2023 [id number] 3GEHA WELCH,CANDE GLORIA PATIENT [facility] PREFERRED PROVIDER ORGANIZAT ION (PPO) MAT[place]W AL EMPLO [place] [facility] Sep 09, 2023 [id number] 3GEHA WELCH,CANDE GLORIA PATIENT [facility] PREFERRED PROVIDER ORGANIZAT ION (PPO) MATHEW AL EMPLO [place] [facility] Sep 09, 2023 [id number] 3 CANDE WELCH PATIENT [facility] MEDICAL EXPENSE (OPT/PROF ) [facility] Sep 09, 2023 [id number] 3GEHA CANDE WELCH PATIENT Selected Encounter This section includes the information on record at [place] for the Encounter. Date/Time Encounter Type Encounter Description Reason Pro vider Source Jul 16, 2024 01:31 PM Outpatient Encounter PRIMARY CARE/MEDICINE IHE Encounter Template Text not used by [place] Plan of Treatment: Future Appointments (+ 6 months) and Future Tests (+/- 45 days) The Plan of Treatment section includes future care activities for the patient from all [place] [facility] This section includes future appointments and future orders which are active, pending or scheduled. Future Appointments This section includes appointments that were scheduled to occur 6 months from the date of the Encounter, up to a maximum of 20 appointments. The data comes from all [facility]. Appointment Date/Time Appointment Type Appointme nt Facility Name Jul 22, 2024 09:00 AM [facility]ORY [facility]ICINE [facility] Aug 19, 2024 02:30 PM [facility]UL[facility]ORY - MEDICINE [facility] Aug 25, 2024 02:30 PM AMBULATORY - MEDICINE [facility] Aug 25, 2024 03:30 PM AMBULATORY - PSYCHIATRY [facility] Oct 08, 2024 07:30 AM [facility] Oct 20, 2024 02:00 PM AMBULATORY - MEDICINE [facility] Nov 17, 2024 01:30 PM AMBULATORY - MEDICINE [facility] Active, Pending, and Scheduled Orders This section includes a listing of several types of active, pending, and scheduled orders, including clinic medications orders, diagnostic test orders, procedure orders and consult orders; where the start date of the order is 45 days before the date of the Encounter or 45 days after the date of theEncounter. The data comes from all [facility]. Test Date/Time Test Type Test Details Facility Name Jul 22, 2024 06:07 PM Consult Order SURGERY/CW M OUTPT [facility] Jul 22, 2024 06:09 PM Consult Order PHARMACY/S OPC OUTPT [facility] Encounter Notes: All associated encounter notes This section contains the clinical notes associated to the Encounter. Date/Time Encounter Note(s) Provider Source Jul 16, 2024 01:31 PM PRIMARY CARE TELEP [place] ENCOUNTER NOTE: LOCAL TITLE: TELEPHONE NOTE/PRIMARY CARE STANDARD TITLE: PRIMARY CARE TELEPHONE ENCOUNTER NOTE DATE OF NOTE: JUL 16, 2024@13:31 ENTRY DATE: JUL 16, 2024@13:31:41 AUTHOR: ARLENE NUÑEZ EXP COSIGNER: URGENCY: STATUS: COMPLETED This is a reminder call for your upcoming PCP appt with MARIETTA HERNANDEZ and the need for a lab appointment for bloodwork prior to your upcoming appt. Fasting blood work NON fasting blood work (X)NO BLOODWORK needed for appt Bloodwork already completed Action taken: [X] Called , left voice message Jul [ ] Called , unable to leave voice mail [ ] Spoke to /neonatal intensive care unit nurse to remind them of upcoming appt/bloodwork Upcoming Appointments: 07/22/2024 09:00 CWM/SO/PACT 7 08/25/2024 14:30 COM CARE-NEUROLOGY 08/25/2024 15:30 SPOPC/MHC/BUTLER 10/08/2024 07:30 CWM/NO/OPTOMETRY/BRITTNEY /holger/ ARLENE NUÑEZ ADVANCED MOVE COORDINATOR Signed: 07/16/2024 13:33 ARLENE NUÑEZ
--- OUTSIDE RECORDS SUMMARY | 2024-08-25 14:05 | XMS_ITS | Encounter Summary ---
Author Name [place] Address [address] [place] [address] Care Team Providers Care Project Controls Scheduler Name Role Phone MARIETTA HERNANDEZ Primary Care [...] CAREMARK PRESCRIPT ION GEHA Aug 06, 2020 [id number] [phone] CANDE WELCHDO PATIENT CAREMARK PRESCRIPT ION GEHA Aug 06, 2020 [id number] [phone] WELCH,CANDE GLORIA PATIENT CAREMARK PRESCRIPT ION GEHA Apr 01, 2016 [id number] WELCH,CANDE GLORIA PATIENT CAREMARK PRESCRIPT ION GEHA STAND COLEMAN PLAN Apr 01, 2016 [id number] [phone] WELCH,CANDE GLORIA PATIENT CAREMARK PRESCRIPT ION GEHA Apr 01, 2016 [id number] WELCH,CANDE GLORIA PATIENT CAREMARK PRESCRIPT ION GEHA Apr 01, 2016 [id number] WELCH,CANDE GLORIA PATIENT CAREMARK PRESCRIPT ION [facility] Mar 09, 2016 [id number] [phone] WELCH,CANDE GLORIA PATIENT [facility] PREFERRED PROVIDER ORGANIZAT ION (PPO) Mathew al Emplo [place] Hea Apr 01, 2016 [id number] 3 WELCH,CANDE GLORIA PATIENT [facility] DENTAL ONLY DENTAL INSURANCE [facility] CTION DENT Apr 01, 2016 [id number] WELCH,CANDE GLORIA PATIENT [facility] PREFERRED PROVIDER ORGANIZAT ION (PPO) Mathew al Emplo [place] a Jul 27, 2020 [id number] 3 WELCH,CANDE GLORIA PATIENT [facility] MATHEW AL EMPLO [place] [facility] Sep 09, 2021 [id number] 3GEHA WELCH,CANDE GLORIA PATIENT [facility] MATHEW AL EMPLO [place] [facility] Sep 09, 2021 [id number] 3GEHA WELCH,CANDE GLORIA PATIENT [facility] Sep 09, 2021 [id number] 3GEHA WELCH,CANDE GLORIA PATIENT [facility] PREFERRED PROVIDER ORGANIZAT ION (PPO) [facility] STAND [facility] Sep 09, 2023 [id number] 3 WELCH,CANDE GLORIA PATIENT [facility] PREFERRED PROVIDER ORGANIZAT ION (PPO) [facility] STAND [facility] Sep 09, 2023 [id number] 3GEHA WELCH,CANDE GLORIA PATIENT [facility] PREFERRED PROVIDER ORGANIZAT ION (PPO) MATHEW AL EMPLO [place] A Sep 09, 2023 [id number] 3 WELCH,CANDE GLORIA PATIENT [facility] MEDICAL EXPENSE (OPT/PROF ) [facility] Sep 09, 2023 [id number] 3GEHA WELCH,CANDE GLORIA PATIENT [facility] PREFERRED PROVIDER ORGANARPAN ADKINS (PPO) MATHEW SMALLWOODToni [place] MICHAELA Sep 09, 2023 [id number] CANDE WELCH PATIENT Selected Encounter This section includes the information on record at [place] for the Encounter. Date/Time Encounter Type Encounter Description Reason Provider Source Mar 24, 2024 03:30 PM OFFICE O/P EST LOW 20 MIN [facility] - IND ICD-10-CM F43.12 Post-traumatic stress disorder, chronic MARVIN BUTLER Janny Encounter Template Text not used by [place] Assessments - Encounter Diagnoses This section includes the primary and secondary diagnoses documented for the Encounter. Date/Time Primary/Secondary Diagnosis Diagnosis Name Provider Source Mar 24, 2024 04:07 PM PRIMARY Post-traumatic stress disorder, chronic MARVIN BUTLER JOLON Plan of Treatment: Future Appointments (+ 6 months) and Future Tests (+/- 45 days) The Plan of Treatment section includes future care activities for the patient from all [place] [facility]. This section includes future appointments and future orders which are active, pending or scheduled. Future Appointments This section includes appointments that were scheduled to occur 6 months from the date of the Encounter, up to a maximum of 20 appointments. The data comes from all [place] treatment facilities. Appointment Date/Time Appointment Type Appointme nt Facility Name Apr 01, 2024 08:00 AM [facility] May 05, 2024 03:30 PM AMBULATORY - PSYCHIATRY [facility] May 22, 2024 09:15 AM [facility] Jul 22, 2024 09:00 AM [facility] MEDICINE [facility] Aug 19, 2024 02:30 PM AMBULATORY - MEDICINE [facility] Aug 25, 2024 02:30 PM [facility] Aug 25, 2024 03:30 PM AMBULATORY - PSYCHIATRY [facility] Social History: Smoking Status (Most current) and Tobacco Use (All prior to encounter date) This section includes the most current, and the historical, smoking and tobacco- related health factors from the [place] facility where the Encounter took place. Current Smoking Status This section includes the most current smoking, or tobacco-related health factor, from the [place] facility where the Encounter took place. Date/Time Current Smoking Status Comment Delon novoa Sep 24, 2023 03:30 PM VA-TOBACCO NEVER USED [facility] Tobacco Use History This section includes a history of the smoking, or tobacco-related health factors, that were collected on or before the date of the Encounter. The data comes from the [place] facility where the Encounter took place. Date/Time Smoking Status/Tobacco Use Comment F acility Aug 14, 2022 01:30 PM VA-TOBACCO NEVER USED [facility] Nov 09, 2020 08:00 AM VA-TOBACCO NEVER USED [facility] Nov 10, 2019 11:10 AM VA-TOBACCO NEVER USED [facility] Nov 19, 2018 07:52 AM VA-TOBACCO NEVER USED [facility] Oct 09, 2017 09:01 AM QUIT TOBACCO USE > 7 YEARS AGO [facility] Jul 17, 2016 08:21 AM QUIT TOBACCO USE > 7 YEARS AGO [facility] Aug 09, 2015 11:33 AM QUIT TOBACCO USE > 7 YEARS AGO [facility] Apr 17, 2012 09:48 AM QUIT TOBACCO USE > 7 YEARS AGO [facility] Nov 18, 2008 10:43 AM CURRENT SMOKER Pt. quit smoking 15 years ago while his spouse when she was !! JOLON Nov 18, 2008 10:43 AM QUIT TOBACCO USE > 7 YEARS AGO quit 15 years ago [facility]OL[facility] Encounter Notes: All associated encounter notes This section contains the clinical notes associated to the Encounter. Date/Time Encounter Note(s) Provider Source Mar 24, 2024 03:57 PM CLINICAL NURSE SPE CIALIST NOTE: LOCAL TITLE: CLINICAL NURSE SPECIALIST/MENTAL HEALTH STANDARD TITLE: CLINICAL NURSE SPECIALIST NOTE DATE OF NOTE: MAR 24, 2024@15:57 ENTRY DATE: MAR 24, 2024@15:57:30 AUTHOR: MARVIN BUTLER EXP COSIGNER: URGENCY: STATUS: COMPLETED Adjustment Disorder with Mixed Anxiety and Depressed Mood -medication management. 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 [place] for PTSD- reports increase in PTSD symptoms - revisiting memories ,sleep disturbance Active problems - Computerized Problem List is [...] ONE TABLET BY MOUTH TWICE ACTIVE DAILY Relevant mental status exam or other objective findings: Appearance: - good self-care- well groomed Thought process- goal directed Speech : normal rate and tone No a/v hallucination/ delusions. Judgement and insight -intact Orientation- x 3 Associations intact Recent and remote memory- intact Attention and concentration- good Language- intact Good fund of knowledge Mood mild -mod anxiety and affect is flexible- No S/I PTSD symptoms: hypervigilance, revisiting memories, social withdrawal, sleep disturbance- increase in symptoms Assessment: Reports PTSD symptoms - more anxiety. sleep . nightmares Discussed restarting SSRI that he us used to take in the past. Would like to try Sertraline and will start with 50 mg x 7 days then 100mg daily for mood x 60 days The rationale for the psychiatric medications and the alternatives to treatment were discussed with the patient. The side effect profile of the psychiatric medications was reviewed with the patient. Patient demonstrated reasonable understanding of the medication side effects and the above issues. The benefits of psychiatric medications outweigh risks for this patient. I asked the patient call [phone] ([facility]) or to come to open access if needed _x_ none ordered __ obtained: labs reviewed Plan: Continue Hydroxyzine 25mg tid prn for anxiety - good response He also takes Propranolol 10 mg bid for htn which also helps with anxiety Rt in 1 months\/prn by request Medication Reconciliation: Outpatient: Has the patient been [...] whether with a VA or non-VA provider. /holger/ Marvin Butler APRN, STAFF CLINICAL NURSE SPECIALIST Signed: 03/24/2024 16:07 MARVIN BUTLER
--- OUTSIDE RECORDS SUMMARY | 2024-08-25 14:05 | XMS_ITS ---
Author Name [facility] [place] Address [address] [place] [id number] Care Team Providers Care Resource Room Teacher Name Role Phone MARIETTA HERNANDEZ Primary Care [...] CAREMARK PRESCRIPT ION GEHA Aug 06, 2020 [id number] CANDE WELCHDO PATIENT CAREMARK PRESCRIPT ION GEHA Aug 06, 2020 [id number] [phone] WELCH,CANDE GLORIA PATIENT CAREMARK PRESCRIPT ION GEHA Apr 01, 2016 [id number] WELCH,CANDE GLORIA PATIENT CAREMARK PRESCRIPT ION GEHA STAND COLEMAN PLAN Apr 01, 2016 [id number] [phone] WELCH,CANDE GLORIA PATIENT CAREMARK PRESCRIPT ION GEHA Apr 01, 2016 [id number] WELCH,CANDE GLORIA PATIENT CAREMARK PRESCRIPT ION GEHA Apr 01, 2016 [id number] [phone] WELCH,CANDE GLORIA PATIENT CAREMARK PRESCRIPT ION [facility] Mar 09, 2016 [id number] WELCH,CANDE GLORIA PATIENT [facility] PREFERRED PROVIDER ORGANIZAT ION (PPO) [facility]w [facility] [place] [facility] Apr 01, 2016 [id number] [phone] WELCH,CANDE GLORIA PATIENT [facility] DENTAL ONLY DENTAL INSURANCE [facility] Apr 01, 2016 [id number] [phone] WELCH,CANDE GLORIA PATIENT [facility] PREFERRED PROVIDER ORGANIZAT ION (PPO) Mathew al [facility] [place] [facility] Jul 27, 2020 [id number] [phone] WELCH,CANDE GLORIA PATIENT [facility] [place] [facility] [place] [facility] Sep 09, 2021 [id number] 3GEHA WELCH,CANDE GLORIA PATIENT [facility] Sep 09, 2021 [id number] 3GEHA WELCH,CANDE GLORIA PATIENT [facility] [place] [facility] Sep 09, 2021 [id number] 3GEHA WELCH,CANDE GLORIA PATIENT [facility] MEDICAL EXPENSE (OPT/PROF ) [facility] Sep 09, 2023 [id number] 3GEHA WELCH,CANDE GLORIA PATIENT [facility] PREFERRED PROVIDER ORGANIZAT ION (PPO) [facility] STAND [facility] Sep 09, 2023 [id number] [phone] WELCH,CANDE GLORIA PATIENT [facility] PREFERRED PROVIDER ORGANIZAT ION (PPO) [facility] STAND [facility] Sep 09, 2023 [id number] 3GEHA WELCH,CANDE GLORIA PATIENT [facility] PREFERRED PROVIDER ORGANIZAT ION (PPO) [place] [facility] Sep 09, 2023 [id number] [phone] CANDE WELCH PATIENT [facility] PREFERRED PROVIDER ORGANIZAT ION (PPO) MATHEW [facility] TRAOREM[facility] Sep 09, 2023 [id number] CANDE WELCH PATIENT Selected Encounter This section includes the information on record at [place] for the Encounter. Date/Time Encounter Type Encounter Description Reason Provider Source Feb 19, 2024 08:00 AM PURE TONE AUDIOMETRY AIR AUDIOLOGY ICD-10-CM Z02.89 Encounter for other administrative examinations DANIEL DAVENPORT [facility] Encounter Template Text not used by [place] Assessments - Encounter Diagnoses This section includes the primary and secondary diagnoses documented for the Encounter. Date/Time Primary/Secondary Diagnosis Diagnosis Name Provider Source Feb 19, 2024 08:14 AM PRIMARY Encounter for other administrative examinations DANIEL DAVENPORT [facility] Plan of Treatment: Future Appointments (+ 6 months) and Future Tests (+/- 45 days) The Plan of Treatment section includes future care activities for the patient from all [place] treatmentfacilities. This section includes future appointments and future orders which are active, pending or scheduled. Future Appointments This section includes appointments that were scheduled to occur 6 months from the date of the Encounter, up to a maximum of 20 appointments. The data comes from all [place] treatment facilities. Appointment Date/Time Appointment Type Appointme nt Facility Name Feb 28, 2024 08:00 AM AMBULATORY - MEDICINE [facility] Mar 18, 2024 08:00 AM AMBULATORY - REHAB [facility]ICIN E [facility] Mar 24, 2024 03:30 PM AMBULATORY - PSYCHIATRY [facility] Apr 01, 2024 08:00 AM AMBULATORY - [place] MEDICIN [place] [facility] May 05, 2024 03:30 PM AMBULATORY - PSYCHIATRY [facility] May 22, 2024 09:15 AM AMBULATORY - MEDICINE [place] [facility] Jul 22, 2024 09:00 AM [facility] Aug 19, 2024 02:30 PM [facility] Encounter Notes: All associated encounter notes This section contains the clinical notes associated to the Encounter. Date/Time Encounter Note(s) Provider Source Feb 19, 2024 07:44 AM AUDIOLOGY NOTE: LOCAL TITLE: EMPLOYEE HEALTH HEARING CONSERVATION STANDARD TITLE: AUDIOLOGY NOTE DATE OF NOTE: FEB 19, 2024@07:44 ENTRY DATE: FEB 19, 2024@07:44:38 AUTHOR: DANIEL DAVENPORT COSIGNER: URGENCY: STATUS: COMPLETED You may not VIEW this COMPLETED EMPLOYEE HEALTH HEARING CONSERVATION. DANIEL DAVENPORT CNTRL [facility]
--- OUTSIDE RECORDS SUMMARY | 2024-08-25 14:05 | XMS_ITS | Encounter Summary ---
Author Name [facility] [place] Address [address] [place] [address] Care Team Providers Care Legal Recruiter Name Role Phone MARIETTA HERNANDEZ Primary Care [...] CAREMARK PRESCRIPT ION GEHA Aug 06, 2020 [id number] [phone] CANDE WELCH PATIENT CAREMARK PRESCRIPT ION GEHA Aug 06, 2020 [id number] WELCHCANDEDO PATIENT CAREMARK PRESCRIPT ION GEHA Apr 01, 2016 [id number] [phone] WELCH,CANDE CASTRO PATIENT CAREMARK PRESCRIPT ION GEHA STAND COLEMAN PLAN Apr 01, 2016 [id number] [phone] WELCH,CANDE GLORIA PATIENT CAREMARK PRESCRIPT ION GEHA Apr 01, 2016 [id number] CANDE WELCHDO PATIENT CAREMARK PRESCRIPT ION GEHA Apr 01, 2016 [id number] [phone] WELCH,CANDE GLORIA PATIENT CAREMARK PRESCRIPT ION [facility] Mar 09, 2016 [id number] [phone] WELCH,CANDE GLORIA PATIENT [facility] PREFERRED PROVIDER ORGANIZAT ION (PPO) [facility]w [facility] [place] [facility] Apr 01, 2016 [id number] [phone] WELCH,CANDE GLORIA PATIENT [facility] DENTAL ONLY [facility] Apr 01, 2016 [id number] [phone] WELCH,CANDE GLORIA PATIENT [facility] PREFERRED PROVIDER ORGANIZAT ION (PPO) Mathew al [place] [place] [facility] Jul 27, 2020 [id number] WELCH,CANDE GLORIA [facility] [place] [facility] Sep 09, 2021 [id number] WELCH,CANDE GLORIA PATIENT [facility] Sep 09, 2021 [id number] 3GEHA WELCH,CANDE GLORIA PATIENT [facility] [place] [facility] Sep 09, 2021 [id number] 3GEHA WELCH,CANDE GLORIA PATIENT [facility] MEDICAL EXPENSE (OPT/PROF ) [facility] Sep 09, 2023 [id number] 3GEHA WELCH,CANDE GLORIA PATIENT [facility] PREFERRED PROVIDER ORGANIZAT ION (PPO) [facility] STAND [facility] Sep 09, 2023 [id number] WELCH,CANDE GLORIA PATIENT [facility] PREFERRED PROVIDER ORGANIZAT ION (PPO) [facility] STAND [facility] Sep 09, 2023 [id number] 3GEHA WELCH,CANDE GLORIA PATIENT [facility] PREFERRED PROVIDER ORGANIZAT ION (PPO) [place] [facility] Sep 09, 2023 [id number] [phone] CANDE WELCH PATIENT [facility] PREFERRED PROVIDER ORGANIZAT ION (PPO) MATHEW [facility] TRAOREMiriam Sep 09, 2023 [id number] CANDE WELCH PATIENT Selected Encounter This section includes the information on record at [place] for the Encounter. Date/Time Encounter Type Encounter Description Reason Provider Source Feb 28, 2024 08:00 AM ACUPUNCT W/O STIMUL ADDL 15M [facility] TREATMENT ICD-10-CM M25.50 Pain in unspecified joint GAUNYA,ROSENDA PHER M E Encounter Template Text not used by [place] Assessments - Encounter Diagnoses This section includes the primary and secondary diagnoses documented for the Encounter. Date/Time Primary/Secondary Diagnosis Diagnosis Name Provider Source Feb 28, 2024 11:24 AM PRIMARY Pain in unspecified joint GAUNYA,ROSENDA PHER M [place] [facility] Feb 28, 2024 11:24 AM SECONDARY Low back pain, unspecified GAUNYA,ROSENDA PHER M [place] [facility] [place] [facility] Feb 28, 2024 11:24 AM SECONDARY Pain in right elbow GAUNYA,ROSENDA PHER M [place] [facility] [place] [facility] Feb 28, 2024 11:24 AM SECONDARY Post-traumatic stress disorder, chronic GAUNYA,ROSENDA PHER M [place] [facility] [place] [facility] Plan of Treatment: Future Appointments (+ 6 months) and Future Tests (+/- 45 days) The Plan of Treatment section includes future care activities for the patient from all [place] treatmentfacilities. This section includes future appointments and future orders which are active, pending or scheduled. Future Appointments This section includes appointments that were scheduled to occur 6 months from the date of the Encounter, up to a maximum of 20 appointments. The data comes from all [place] treatment facilities. Appointment Date/Time Appointment Type Appointme nt Facility Name Mar 18, 2024 08:00 AM AMBULATORY - REHAB MEDICIN E [facility] [place] [facility] Mar 24, 2024 03:30 PM AMBULATORY - PSYCHIATRY [facility] Apr 01, 2024 08:00 AM AMBULATORY - REHAB MEDICIN E [facility] [place] [facility] May 05, 2024 03:30 PM AMBULATORY - PSYCHIATRY [facility] May 22, 2024 09:15 AM AMBULATORY - MEDICINE [place] [facility] Jul 22, 2024 09:00 AM AMBULATORY - MEDICINE [facility] Aug 19, 2024 02:30 PM AMBULATORY - MEDICINE [facility] Aug 25, 2024 02:30 PM [facility] Aug 25, 2024 03:30 PM AMBULATORY - PSYCHIATRY [facility] Encounter Notes: All associated encounter notes This section contains the clinical notes associated to the Encounter. Date/Time Encounter Note(s) Provider Source Feb 28, 2024 11:19 AM ACUPUNCTURE NOTE: LOCAL TITLE: ACUPUNCTURE TREATMENT STANDARD TITLE: ACUPUNCTURE NOTE DATE OF NOTE: FEB 28, 2024@11:19 ENTRY DATE: FEB 28, 2024@11:19:51 AUTHOR: ROMMEL RAMAN EXP COSIGNER: URGENCY: STATUS: COMPLETED MOUNIKA WELCH JR is a 49 WHITE MALE who presents with Low back pain, Shoulder/upper back pain, Right elbow pain, generalized joint pain Active Problem Resting tremor G25.2 12/06/2023 ROSA ELENA LEONARDO Exposure to potentially hazardous s 11/07/2023 PREMA TATUM Polyarthralgia M25.50 10/02/2023 ROSA ELENA LEONARDO Vitamin D Deficiency ([facility] [id number]) 10/02/2023 ROSA ELENA LEONARDO Urine screening abnormal [...] apnea syndrome G4 06/14/2022 JUSTA MUSE HTN-Hypertension (SCT 92818744) I10 12/13/2017 SHANIKA DUQUE ECG: normal sinus rhythm R69. 11/27/2017 SHANIKA DUQUE Panic disorder with agoraphobia R69 10/30/2016 HECTOR BUTLER Anxiety disorder F32.A 08/14/2022 HECTOR BUTLER Tremor 781.0 02/21/2015 LEOBARDO,JODI Chronic low back pain M54.5 06/23/2019 SHANIKA DUQUE Depression (SNOMED CT 68373091) F33 11/10/2019 HECTOR BUTLER Hyperlipidemia (SNOMED CT 54378608) 08/09/2015 SHANIKA DUQUE Pilonidal cyst with abscess (ICD-9- 10/31/2012 LEOBARDO,JODI Pain in joint involving hand (ICD-9 10/23/2012 LEOBARDO,JODI Gastroesophageal reflux disease (SN 08/09/2015 SHANIKA DUQUE Sleep apnea (SNOMED CT 30425809) G4 03/30/2017 DORENE RAGLAND Hypothyroidism (SNOMED CT 53295072) 07/13/2021 JOSE EDEN Tinnitus * (ICD-9-CM 388.30) 388.30 11/22/2008 LEOBARDO,JODI Obesity 278.00 11/22/2008 LEOBARDO,JODI Adjustment disorder with anxious mo 05/28/2018 HECTOR BUTLER Date Feb CC / HPI - presents with a long history of joint [...] is helpful at night. Good has utilized gericare aide teacher in the past but has not done [...] currently utilizing mental health services at the [place] and states he does not want to be on more medication. Appetite is mixed. 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 Bowel movements are regular and unremarkable Good reports no issues with urination. RESPONSE TO PREVIOUS TREATMENT. [place] reports again that he had moderate reduction in his back pain that lasted a few days after his most recent acupuncture treatment. states he has had elevated low back pain for the last couple of days that is affecting his left side low back. He also states his right elbow is still quite sore but did get some moderate relief that was not lasting after his last visit. _ OBJECTIVE General: . Patient in no [...] SUMMARY Affected Channel: Medical Decision Making (MDM) * [ ]Straightforward o [ ]Minimal = 1 self-limited or minor problem * [ ]Low o - 2 or more self-limited or minor problems o - 1 stable chronic illness o - 1 acute, uncomplicated illness or injury * [X]Moderate o - 1 or more chronic illness with exacerbation, progression or side effect from treatment o - 2 or more stable chronic illnesses o - 1 undiagnosed new problem w/uncertain prognosis o - 1 acute illness w/ systemic symptoms o - 1 acute complicated injury * [ ]High o - 1 or more [...] ]Pyonex Needle: remove prior to bathing per traffic analyst INFORMED CONSENT: Oral Consent obtained on Feb [...] [ ]Torso: [ ]Hip / Glute Area: [X]RUE: LK, DB, ZB, SI 4, LI 10, [X]LUE: Frank Barker, Frank Ozuna, [X]RLE: KD 3, KD 4, KD 5 [X]LLE: UB 65, GB 41, GB 40, GB [...] is required /holger/ ROMMEL RAMAN LA.C DIPL.AC GLASS VIAL FILLER Signed: 02/28/2024 11:24 ROMMEL RAMAN CNTRL [facility]
--- OUTSIDE RECORDS SUMMARY | 2024-08-25 14:05 | XMS_ITS | Encounter Summary ---
Author Name [facility] [facility] [place] [facility] [place] Address [address] [place] [id number] Care Team Providers Care Hog Scalder Name Role Phone MARIETTA HERNANDEZ Primary Care [...] CAREMARK PRESCRIPT ION GEHA Aug 06, 2020 [id number] WELCH,CANDE RODRIGUEZDO PATIENT CAREMARK PRESCRIPT ION GEHA Aug 06, 2020 [id number] WELCH,CANDE GLORIA PATIENT CAREMARK PRESCRIPT ION GEHA Apr 01, 2016 [id number] WELCH,CANDE GLORIA PATIENT CAREMARK PRESCRIPT ION GEHA STAND COLEMAN PLAN Apr 01, 2016 [id number] WELCH,CANDE GLORIA PATIENT CAREMARK PRESCRIPT ION GEHA Apr 01, 2016 [id number] [phone] WELCH,CANDE GLORIA PATIENT CAREMARK PRESCRIPT ION GEHA Apr 01, 2016 [id number] [phone] WELCH,CANDE GLORIA PATIENT CAREMARK PRESCRIPT ION GEHA Mar 09, 2016 [id number] [phone] WELCH,CANDE GLORIA PATIENT [facility] PREFERRED PROVIDER ORGANIZAT ION (PPO) [facility]w [facility] [place] [facility] Apr 01, 2016 [id number] WELCH,CANDE GLORIA PATIENT [facility] DENTAL ONLY DENTAL INSURANCE [facility] Apr 01, 2016 [id number] [phone] WELCH,CANDE GLORIA PATIENT [facility] PREFERRED PROVIDER ORGANIZAT ION (PPO) Mathew al [facility] [place] [facility] Jul 27, 2020 [id number] WELCH,CANDE GLORIA PATIENT [facility]ALTH [place] [facility] [place] [facility] Sep 09, 2021 [id number] WELCH,CANDE GLORIA PATIENT HA-BEHAV [facility] MENTAL HEALTH [facility] Sep 09, 2021 [id number] 3GEHA WELCH,CANDE GLORAI PATIENT HA-BEHAV [facility] HEALTH [facility] Sep 09, 2021 [id number] 3GEHA WELCH,CANDE GLORIA PATIENT [facility] PREFERRED PROVIDER ORGANIZAT ION (PPO) HA STAND [facility] Sep 09, 2023 [id number] WELCH,CANDE GLORIA PATIENT [facility] PREFERRED PROVIDER ORGANIZAT ION (PPO) GEHA STAND [facility] Sep 09, 2023 [id number] 3GEHA WELCH,CANDE GLORIA PATIENT [facility] PREFERRED PROVIDER ORGANIZAT ION (PPO) [place] [facility] [place] [facility] Sep 09, 2023 [id number] 3GEHA WELCH,CANDE GLORIA PATIENT [facility] PREFERRED PROVIDER ORGANIZAT ION (PPO) [place] [facility] [place] [facility] Sep 09, 2023 [id number] CANDE WELCH PATIENT [facility] MEDICAL EXPENSE (OPT/PROF ) [facility] Sep 09, 2023 [id number] CANDE WELCH PATIENT Selected Encounter This section includes the information on record at [place] for the Encounter. Date/Time Encounter Type Encounter Description Reason Provider Source May 05, 2024 03:30 PM OFFICE O/P EST LOW 20 MIN [facility] - IND ICD-10-CM F43.12 Post-traumatic stress disorder, chronic MARVIN BUTLER Janny Encounter Template Text not used by [place] Assessments - Encounter Diagnoses This section includes the primary and secondary diagnoses documented for the Encounter. Date/Time Primary/Secondary Diagnosis Diagnosis Name Provider Source May 05, 2024 03:48 PM PRIMARY Post-traumatic stress disorder, chronic MARVIN BUTLER [place] Plan of Treatment: Future Appointments (+ 6 months) and Future Tests (+/- 45 days) The Plan of Treatment section includes future care activities for the patient from all [place] [facility]. This section includes future appointments and future orders which are active, pending or scheduled. Future Appointments This section includes appointments that were scheduled to occur 6 months from the date of the Encounter, up to a maximum of 20 appointments. The data comes from all [place] treatment facilities. Appointment Date/Time Appointment Type Appointme nt Facility Name May 22, 2024 09:15 AM AMBULATORY - MEDICINE [facility] [place] [facility] Jul 22, 2024 09:00 AM AMBULATORY - MEDICINE [facility] Aug 19, 2024 02:30 PM AMBULATORY - MEDICINE [facility] Aug 25, 2024 02:30 PM AMBULATORY - MEDICINE [facility] [place] [facility] Aug 25, 2024 03:30 PM AMBULATORY - PSYCHIATRY [facility] Oct 08, 2024 07:30 AM AMBULATORY - MEDICINE [facility] [place] [facility] Oct 20, 2024 02:00 PM AMBULATORY [facility] Lab Results: +/- 30 days of the encounter This section includes the Chemistry and Hematology Lab Results on record with [place] for the patient. Radiology Reports and Pathology Reports are provided separately, in subsequent sections. Lab Results This section contains the Chemistry/Hematology Results that were resulted 30 days before or 30 daysafter the date of the Encounter. Date/Time Source Result Type Result - Unit Interpretation Reference Range Comment May 21, 2024 09:37 AM [facility] T-SPOT TB PANEL Specimen Type: BLOOD Comment: [...] For additional information, please refer to http://education .LocalCircles/faq/IZD733 (This link is being provided for informational/ educational purposes only.) Test Performed by [facility], [facility], [address] [place] [address] Julius Bell M.D., Ph.D., Director of Laboratories , [place] [id number] TEST PERFORMED AT: , Ordering Provider: NICOLE GRIER Report Released Date/Time: May 14, 2024 03:09 PM Reporting Lab: [facility] [address] [facility] [address] Performing Lab: [facility] [address] [address] C-QUWH-DHPABV (o) Negative Negative T-SPOT-PNLA 0 T-SPOT-PNLB 0 G-ALID-OCIZHY L Passed Y-JICY-HGJLKE L Passed May 21, 2024 09:37 AM [facility] HEPATITIS B SURFACE ANTIBODY (HBsAb)-WH Specimen Type : SERUM Comment: A 'Reactive' result indicates HBsAb results >/= 12.0 mIU/mL and immunity to HBV infection. Ordering Provider: NICOLE GRIER Report Released Date/Time: May 14, 2024 03:09 PM Reporting Lab: [facility] [address] [facility] [address] Performing Lab: [facility] [address] [facility] [address] HBsAb REACTIVE Non Reactive May 21, 2024 09:37 AM [facility] MMRV (IGG) IMMUNE STATUS PANEL Specimen Type: [...] May 14, 2024 03:09 PM Reporting Lab: [address] [address] Performing Lab: [facility] [address] [facility] [address] MEASLES (IGG) REACTIVE SEE COMMENT MUMPS (IGG) REACTIVE SEE COMMENT RUBELLA (IGG) REACTIVE SEE COMMENT VARICELLA (IGG) REACTIVE SEE COMMENT May 21, 2024 09:37 AM [facility] HEMOGLOBIN A1C PANEL Specimen Type: BLOOD Comment: [...] May 14, 2024 03:09 PM Reporting Lab: [address] [address] Performing Lab: [address] [address] HEMOGLOBIN A1C 5.2 4.0-5.6 May 21, 2024 09:37 AM [facility] LIPID PANEL, NON FASTING Specimen Type: SERUM No comment entered. Ordering Provider: NICOLE GRIER Report Released Date/Time: May 14, 2024 03:09 PM Reporting Lab: [facility] [address] [facility] [address] Performing Lab: [facility] [address] [facility] [address] CHOLESTEROL 227 mg/dL H TRIGLYCERIDE 143 mg/dL 0-150 LDL calculated 146 mg/dL H 0-129 CHOL/HDL 4.4 HDL CHOLESTEROL 52 mg/dL 40-60 May 21, 2024 09:37 AM [facility] URINALYSIS Specimen Type: URINE Comment: If Glucose = >500 and Ketones are positive, please alert the Physician. Ordering Provider: NICOLE GRIER Report Released Date/Time: May 14, 2024 03:09 PM Reporting Lab: [facility] [address] [facility] [address] Performing Lab: [facility] [address] [facility] [address] UA COLOR Yellow Yellow UA APPEARANCE Turbid Clear UA GLUCOSE Normal mg/dL Negative UA KETONES NEGATIVE mg/dL Negative UA BLOOD NEGATIVE mg/dL Negative UA PROTEIN 30 mg/dL Negative UA NITRITE NEGATIVE mg/dL Negative UA BILIRUBIN NEGATIVE mg/dL Negative UA SPECIFIC GRAVITY 1.027 H 1.016-1.02 2 UA pH 6.0 5.0-9.0 UA UROBILINOGEN Normal mg/dL <2.0 UA LEUKOCYTE TRACE Negative May 21, 2024 09:37 AM [facility] BASIC METABOLIC PANEL (non-fasting) Specimen Type: SERUM No comment entered. Ordering Provider: NICOLE GRIER Report Released Date/Time: May 14, 2024 03:09 PM Reporting Lab: [facility] [address] [facility] [address] Performing Lab: [address] [address] UREA NITROGEN 11 mg/dL 7-25 GLUCOSE 97 mg/dL 65-100 SODIUM 138 mmol/L 135-145 POTASSIUM 3.9 mmol/L 3.5-5.0 CHLORIDE 106 mmol/L 100-110 CO2 21 meq/L 20-30 CREATININE, Serum 0.98 mg/dL 0.50-1.40 eGFR(CKD-EPI 2020) >90 mL/min >60 May 21, 2024 09:37 AM [facility] LIVER FUNCTION Specimen Type: SERUM No comment entered. Ordering Provider: NICOLE GRIER Report Released Date/Time: May 14, 2024 03:09 PM Reporting Lab: [address] [address] Performing Lab: [address] [address] PROTEIN,TOTAL 7.6 g/dL 6.0-8.3 ALBUMIN 4.0 g/dL 3.5-5.0 ALKALINE PHOSPHATASE 54 U/L 40-150 AST 29 U/L 5-34 ALT 30 U/L BILIRUBIN, TOTAL 1.3 mg/dL H 0.2-1.2 BILIRUBIN, DIRECT 0.5 mg/dL 0-0.5 May 21, 2024 09:37 AM [facility] MICROSCOPIC AUTOMATED, URINE Specimen Type: URINE Comment: If Glucose = >500 and Ketones are positive, please alert the Physician. Ordering Provider: NICOLE GRIER Report Released Date/Time: May 14, 2024 03:09 PM Reporting Lab: [address] [address] Performing Lab: [address] [address] UA WBC 11-20 /[HPF] H 0-5 UA MUCUS MANY /[LPF] Trace UA RBC 3-5 /[HPF] 0-3 UA SQUAMOUS EPITH FEW /[HPF] May 21, 2024 09:37 AM [facility] CBC AND DIFF (AUTO) Specimen Type: BLOOD No comment entered. Ordering Provider: NICOLE GRIER Report Released Date/Time: May 14, 2024 03:09 PM Reporting Lab: [facility] [address] [facility] [address] Performing Lab: [place] [facility] [address] [facility] [address] WBC 9.16 10*3/uL 4.50-11.00 RBC 6.29 10*6/uL [...] 0.0 0.0-0.0 NRBC, ABS 0.00 10*3/uL 0.00-0.00 Social History: Smoking Status (Most current) and Tobacco Use (All prior to encounter date) This section includes the most current, and the historical, smoking and tobacco- related health factors from the [place] facility where the Encounter took place. Current Smoking Status This section includes the most current smoking, or tobacco-related health factor, from the [place] facility where the Encounter took place. Date/Time Current Smoking Status Comment Delon novoa Sep 24, 2023 03:30 PM [place]-TOBACCO NEVER USED [place] Tobacco Use History This section includes a history of the smoking, or tobacco-related health factors, that were collected on or before the date of the Encounter. The data comes from the [place] facility where the Encounter took place. Date/Time Smoking Status/Tobacco Use Comment F acility Aug 14, 2022 01:30 PM VA-TOBACCO NEVER USED [place] Nov 09, 2020 08:00 AM VA-TOBACCO NEVER USED [place] Nov 10, 2019 11:10 AM VA-TOBACCO NEVER USED [place] Nov 19, 2018 07:52 AM VA-TOBACCO NEVER USED [place] Oct 09, 2017 09:01 AM QUIT TOBACCO USE > 7 YEARS AGO [place] Jul 17, 2016 08:21 AM QUIT TOBACCO USE > 7 YEARS AGO [place] Aug 09, 2015 11:33 AM QUIT TOBACCO USE > 7 YEARS AGO [place] Apr 17, 2012 09:48 AM QUIT TOBACCO USE > 7 YEARS AGO [place] Nov 18, 2008 10:43 AM CURRENT SMOKER Pt. quit smoking 15 years ago while his spouse when she was !! [place] Nov 18, 2008 10:43 AM QUIT TOBACCO USE > 7 YEARS AGO quit 15 years ago [place] Encounter Notes: All associated encounter notes This section contains the clinical notes associated to the Encounter. Date/Time Encounter Note(s) Provider Source May 05, 2024 03:28 PM CLINICAL NURSE SPE CIALIST NOTE: LOCAL TITLE: CLINICAL NURSE SPECIALIST/MENTAL HEALTH STANDARD TITLE: CLINICAL NURSE SPECIALIST NOTE DATE OF NOTE: MAY 05, 2024@15:28 ENTRY DATE: MAY 05, 2024@15:28:55 AUTHOR: MARVIN BUTLER EXP COSIGNER: URGENCY: STATUS: COMPLETED Adjustment Disorder with Mixed Anxiety and Depressed Mood -medication management. 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 [place]- Taking Hydroxyzine to help reduce anxiety when [...] Disorder with Mixed Anxiety and Depressed Mood Relevant mental status exam or other objective [...] social withdrawal, sleep disturbance- increase in symptoms Labs/Radiology/Tests/Consultation _x_ none ordered __ obtained: labs reviewed The following VA and Non-VA medications were reconciled with the patient: Active Outpatient Medications (including Supplies): AMLODIPINE BESYLATE 10MG TAB TAKE ONE TABLET BY MOUTH ONCE ACTIVE DAILY FOR BLOOD PRESSURE/HEART, DO NOT TAKE WITH GRAPEFRUIT JUICE CHOLECALCIF 25MCG (D3-1,000UNIT) TAB TAKE ONE TABLET BY ACTIVE MOUTH ONCE DAILY FOR VITAMIN D DEFICIENCY FOR VITAMIN SUPPLEMENTATION DICLOFENAC NA 1% TOP GEL APPLY 4 GRAMS TOPICALLY TWICE ACTIVE DAILY NEEDED FOR OSTEOARTHRITIS - USE DOSING CARD PROVIDED IN BOX HYDROXYZINE HCL 25MG TAB TAKE ONE TABLET BY MOUTH THREE ACTIVE TIMES DAILY NEEDED FOR ANXIETY LOSARTAN 50MG TAB TAKE ONE TABLET BY MOUTH ONCE DAILY FOR ACTIVE BLOOD PRESSURE/HEART METHOCARBAMOL 500MG TAB TAKE ONE TABLET BY MOUTH AT ACTIVE BEDTIME NEEDED FOR MUSCLE SPASM OMEPRAZOLE 20MG EC CAP TAKE TWO CAPSULES BY MOUTH EVERY ACTIVE MORNING 30 MINUTES BEFORE BREAKFAST SERTRALINE HCL 100MG TAB TAKE ONE-HALF TABLET BY MOUTH AM ACTIVE FOR 7 DAYS, THEN TAKE ONE TABLET AM FOR 60 DAYS FOR POSTTRAUMATIC STRESS SYNDROME Assessment: Last visit reported PTSD symptoms - more anxiety. sleep/ nightmares Started SSRI that he used to take in the past for mood (Sertraline) He is taking 100mg at this time -fair response so far. He wishes to continue med at this time The rationale for the psychiatric medications and the alternatives to treatment were discussed with the patient. The side effect profile of the psychiatric medications was reviewed with the patient. Patient demonstrated reasonable understanding of the medication side effects and the above issues. The benefits of psychiatric medications outweigh risks for this patient. I asked the patient call [phone] ([facility]) or to come to open access if needed Plan: Continue Hydroxyzine 25mg tid prn for anxiety - good response He also takes Propranolol 10 mg bid for htn which also helps with anxiety Rt in 4 months\/prn by request Medication Reconciliation: Outpatient: Has the patient been taking medications as documented in the EMLR? YES: The patient has been taking medications as documented in the EMLR. Essential Medication List for Review used to complete this medication reconciliation. INCLUDED IN THIS LIST: Alphabetical list of active outpatient prescriptions dispensed from this [facility] (local) and dispensed from another [place] or [facility] facility (remote) as well as inpatient [...] Butler APRN, STAFF CLINICAL NURSE SPECIALIST Signed: 05/05/2024 15:49 MARVIN BUTLER [place]
--- OUTSIDE RECORDS SUMMARY | 2024-08-25 14:05 | XMS_ITS ---
Author Name [facility] [place] [facility] [place] Address [address] [place] [address] Care Team Providers Care Tool Worker Name Role Phone MARIETTA HERNANDEZ Primary Care [...] CAREMARK PRESCRIPT ION GEHA Aug 06, 2020 [id number] [phone] CANDE WELCHDO PATIENT CAREMARK PRESCRIPT ION GEHA Aug 06, 2020 [id number] [phone] WELCH,CANDE GLORIA PATIENT CAREMARK PRESCRIPT ION GEHA Apr 01, 2016 [id number] WELCH,CANDE GLORIA PATIENT CAREMARK PRESCRIPT ION GEHA STAND COLEMAN PLAN Apr 01, 2016 [id number] [phone] WELCH,CANDE GLORIA PATIENT CAREMARK PRESCRIPT ION GEHA Apr 01, 2016 [id number] WELCH,CANDE GLORIA PATIENT CAREMARK PRESCRIPT ION GEHA Apr 01, 2016 [id number] [phone] WELCH,CANDE GLORIA PATIENT CAREMARK PRESCRIPT ION [facility] Mar 09, 2016 [id number] WELCH,CANDE GLORIA PATIENT [facility] PREFERRED PROVIDER ORGANIZAT ION (PPO) [facility]w [facility] [place] [facility] Apr 01, 2016 [id number] [phone] WELCH,CANDE GLORIA PATIENT [facility] DENTAL ONLY DENTAL INSURANCE [facility] CTION DENT Apr 01, 2016 [id number] [phone] WELCH,CNADE GLORIA PATIENT [facility] PREFERRED PROVIDER ORGANIZAT ION (PPO) Mathew [facility] [place] [facility] Jul 27, 2020 [id number] WELCH,CANDE GLORIA PATIENT [facility] MATHEW AL EM[facility] Sep 09, 2021 [id number] 3GEHA WELCH,CANDE GLORIA [facility] Sep 09, 2021 [id number] 3GEHA WELCH,CANDE GLORIA [facility] MATHEW AL [facility]PLO [facility] Sep 09, 2021 [id number] 3GEHA WELCH,CANDE GLORIA PATIENT [facility] MEDICAL EXPENSE (OPT/PROF ) [facility] Sep 09, 2023 [id number] 3GEHA WELCH,CANDE GLORIA PATIENT [facility] PREFERRED PROVIDER ORGANIZAT ION (PPO) [facility] STAND COLEMAN Sep 09, 2023 [id number] WELCH,CANDE GLORIA PATIENT [facility] PREFERRED PROVIDER ORGANIZAT ION (PPO) [facility] STAND [facility] Sep 09, 2023 [id number] 3GEHA WELCH,CANDE GLORIA PATIENT [facility] PREFERRED PROVIDER ORGANIZAT ION (PPO) [facility] Sep 09, 2023 [id number] 3 CANDE WELCH PATIENT [facility] PREFERRED PROVIDER ORGANIZAT ION (PPO) MATHEW [facility] [place] [facility]ELA Sep 09, 2023 [id number] 3GEHA CANDE WELCH PATIENT Selected Encounter This section includes the information on record at [place] for the Encounter. Date/Time Encounter Type Encounter Description Reason Provider Source Mar 18, 2024 08:00 AM HEARING AID EXAM BOTH EARS AUDIOLOGY ICD-10-CM H90.3 Sensorineural hearing loss, bilateral CAMINITI,TADEO E IHE Encounter Template Text not used by [place] Assessments - Encounter Diagnoses This section includes the primary and secondary diagnoses documented for the Encounter. Date/Time Primary/Secondary Diagnosis Diagnosis Name Provider Source Mar 18, 2024 08:16 AM PRIMARY Sensorineural hearing loss, bilateral CAMINITI,TADEO E [facility] [place] [facility] Mar 18, 2024 08:16 AM SECONDARY Tinnitus, bilateral CAMINITI,TADEO E [facility] [place] [facility] Plan of Treatment: Future Appointments (+ 6 months) and Future Tests (+/- 45 days) The Plan of Treatment section includes future care activities for the patient from all [place] [facility]. This section includes future appointments and future orders which are active, pending or scheduled. Future Appointments This section includes appointments that were scheduled to occur 6 months from the date of the Encounter, up to a maximum of 20 appointments. The data comes from all [place] treatment facilities. Appointment Date/Time Appointment Type Appointme nt Facility Name Mar 24, 2024 03:30 PM AMBULATORY - PSYCHIATRY [facility] Apr 01, 2024 08:00 AM AMBULATORY - REHAB MEDICIN E [facility] [place] [facility] May 05, 2024 03:30 PM AMBULATORY - PSYCHIATRY [facility] May 22, 2024 09:15 AM AMBULATORY - MEDICINE [facility] [place] [facility] Jul 22, 2024 09:00 AM AM[facility]ULATORY - MEDICINE [facility] Aug 19, 2024 02:30 PM [facility]ULATORY - MEDICINE [facility] Aug 25, 2024 02:30 PM AMBULATORY - MEDICINE [facility] [place] [facility] Aug 25, 2024 03:30 PM AMBULATORY - PSYCHIATRY [facility] Encounter Notes: All associated encounter notes This section contains the clinical notes associated to the Encounter. Date/Time Encounter Note(s) Provider Source Mar 18, 2024 07:41 AM AUDIOLOGY E & M NO TE: LOCAL TITLE: AUDIOLOGY CLINIC STANDARD TITLE: AUDIOLOGY E & M NOTE DATE OF NOTE: MAR 18, 2024@07:41 ENTRY DATE: MAR 18, 2024@07:41:55 AUTHOR: TADEO CHRISTOPHER COSIGNER: URGENCY: STATUS: COMPLETED AUDIOLOGY CLINIC Has ADDENDA Pramod was seen 03-18-24 for a hearing re-evaluation. The last full eval was in 2017. He recently underwent hearing testing as part of the employee hearing conservation program. He currently uses a set of privately purchased rechargeable Eargos. He reports the Resound RICs issued in 2018 interfered with the mask during Covid and he prefers his current amplification. He does not use the connectivity and would like small rechargeable devices. He reports no hearing/otologic changes, noting longstanding tinnitus. Results are as follow: Otoscopy is WNL for both ears. Pure tone audiometric testing with headphones revealed normal hearing, sloping to profound sensorineural hearing loss bilaterally. Asymmetry, worse right ear, was noted at 750 and 1000 Hz and at 3000 Hz as well where the left ear is worse. Word recognition scores were good with 88% correct for each ear for recorded speech presented at 75 dB HL (40 EM). A normal tympanogram was obtained left ear while a type As was obtained for the right ear. Results obtained today are considered overall stable in comparison to those from 2017 with slight threshold shifts noted for both ears at select frequencies. Pramod was counseled on today's test results. He is considered eligible for new hearing aids. Binaural rechargeable CICs are recommended and pramod agrees. With his verbal consent, ear impressions were taken without incident. When the hearing aids arrive, pramod will be called to schedule the fitting. He works nights here and prefers an 8am appointment depending on the day. /Samantha Holland, [facility]-A STAFF [employer]ING SUPERVISOR Signed: 03/18/2024 09:54 03/26/2024 ADDENDUM STATUS: COMPLETED Hearing aids received and certified, upcoming appointment scheduled on 04/01/2024. /holger/ JOSE DE JESUS DO Audiology Health Air Support Control Officer Signed: 03/26/2024 09:44 TADEO CHRISTOPHER [facility]
--- OUTSIDE RECORDS SUMMARY | 2024-08-25 14:06 | XMS_ITS | Encounter Summary ---
Author Name [place] Organization [place] Address [address] [place] [address] Care Team Providers Care Felting Machine Operator Helper Name Role Phone MARIETTA HERNANDEZ Primary Care [...] CAREMARK PRESCRIPT ION GEHA Aug 06, 2020 [id number] CANDE WELCHDO PATIENT CAREMARK PRESCRIPT ION GEHA Aug 06, 2020 [id number] WELCH,CANDE GLORIA PATIENT CAREMARK PRESCRIPT ION GEHA Apr 01, 2016 [id number] WELCH,CANDE GLORIA PATIENT CAREMARK PRESCRIPT ION GEHA STAND COLEMAN PLAN Apr 01, 2016 [id number] WELCH,CANDE GLORIA PATIENT CAREMARK PRESCRIPT ION GEHA Apr 01, 2016 [id number] WELCH,CANDE GLORIA PATIENT CAREMARK PRESCRIPT ION GEHA Apr 01, 2016 [id number] WELCH,CANDE GLORIA PATIENT CAREMARK PRESCRIPT ION [facility] Mar 09, 2016 [id number] [phone] WELCH,CANDE GLORIA PATIENT [facility] PREFERRED PROVIDER ORGANIZAT ION (PPO) Mathew al Emplo [place] Apr 01, 2016 [id number] WELCH,CANDE GLORIA PATIENT [facility] D[facility] Apr 01, 2016 [id number] [phone] WELCH,CANDE GLORIA PATIENT [facility] PREFERRED PROVIDER ORGANIZAT ION (PPO) Mathew al Emplo [place] [facility] Jul 27, 2020 [id number] 3 WELCH,CANDE GLORIA PATIENT [facility] Sep 09, 2021 [id number] 3GEHA WELCH,CANDE GLORIA PATIENT [facility] Sep 09, 2021 [id number] 3GEHA WELCH,CANDE GLORIA PATIENT [facility] MATHEW AL EMPLO [facility] Sep 09, 2021 [id number] 3GEHA WELCH,CANDE GLORIA PATIENT [facility] MEDICAL EXPENSE (OPT/PROF ) [facility] Sep 09, 2023 [id number] 3GEHA WELCH,CANDE GLORIA PATIENT [facility] PREFERRED PROVIDER ORGANIZAT ION (PPO) [facility] Sep 09, 2023 [id number] 3 WELCH,CANDE GLORIA PATIENT [facility] PREFERRED PROVIDER ORGANIZAT ION (PPO) [facility] STAND [facility] Sep 09, 2023 [id number] 3GEHA WELCH,CANDE GLORIA PATIENT [facility] PREFERRED PROVIDER ORGANIZAT ION (PPO) [place]W AL EMPLO [place] [facility] Sep 09, 2023 [id number] 3 CANDE WELCH PATIENT [facility] PREFERRED PROVIDER ORGANARPAN ADKINS (PPO) MATHEW SMALLWOODToni TRAOREMiriam Sep 09, 2023 [id number] 3GEHA CANDE WELCH PATIENT Selected Encounter This section includes the information on record at [place] for the Encounter. Date/Time Encounter Type Encounter Description Reason Pro vider Source Jul 27, 2024 11:42 AM Outpatient Encounter GENERAL SURGERY IHE Encounter Template Text not used by [place] Plan of Treatment: Future Appointments (+ 6 months) and Future Tests (+/- 45 days) The Plan of Treatment section includes future care activities for the patient from all [place] [facility]. This section includes future appointments and future orders which are active, pending or scheduled. Future Appointments This section includes appointments that were scheduled to occur 6 months from the date of the Encounter, up to a maximum of 20 appointments. The data comes from all [facility]. Appointment Date/Time Appointment Type Appointme nt Facility Name Aug 19, 2024 02:30 PM [facility] Aug 25, 2024 02:30 PM [facility] Aug 25, 2024 03:30 PM AMBULATORY - PSYCHIATRY [facility] Oct 08, 2024 07:30 AM AMBULAT[facility] - MEDICINE [facility] NTR [facility] Oct 20, 2024 02:00 PM AMBULATORY - [facility]ICINE [facility] WSN [facility] Nov 17, 2024 01:30 PM AMBULATORY - MEDICINE [facility] January 20, 2025 09:00 AM AMBULATORY - MEDICINE [facility] Active, Pending, and Scheduled Orders This section includes a listing of several types of active, pending, and scheduled orders, including clinic medications orders, diagnostic test orders, procedure orders and consult orders; where the start date of the order is 45 days before the date of the Encounter or 45 days after the date of theEncounter. The data comes from all [facility]. 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 Date/Time Encounter Note(s) Provider Source Jul 27, 2024 11:42 AM LETTERS: LOCAL TITLE: PATIENT LETTER (B) STANDARD TITLE: LETTERS DATE OF NOTE: JUL 27, 2024@11:42 ENTRY DATE: JUL 27, 2024@11:42:10 AUTHOR: NOHELIA BARNES COSIGNER: URGENCY: STATUS: COMPLETED JUL 27, 2024 MOUNIKA WELCH [address], [place] [address] Dear MOUNIKA WELCH JR We would like to assist you in scheduling a GENERAL SURGERY appointment at the [place]. We have been unable to reach you by phone. To schedule this appointment please call toll free Ext [phone]. Our booking appointment hours are Saturday through Saturday from 8:00 am to 4:00 pm. Please leave a message if you receive voicemail and let us know a good time and telephone number where we can reach you. If we dont hear back from you within 14 days from the date of this letter we will discontinue the request. If you have already scheduled this appointment, please disregard this letter. Your health is important to us. Sincerely, [facility] [address] [facility] [address] [place] [address] [place] [address] ext. [phone] [facility] [address] [facility] [address] [place] [address] [place] [address] [phone] [facility] 403 [facility] [address] [place] [address] [place] [address] ext. [phone] [facility] [address] [place] [address] ext. [phone] NOHELIA BARNES [place] [facility]
--- OUTSIDE RECORDS SUMMARY | 2024-08-25 14:06 | XMS_ITS | Encounter Summary ---
Author Name [place] Address [address] [place] [address] Care Team Providers Care Supervisor Press Room Name Role Phone MARIETTA HERNANDEZ Primary [...] CAREMARK PRESCRIPT ION GEHA Aug 06, 2020 [id number] [phone] CANDE WELCH PATIENT CAREMARK PRESCRIPT ION GEHA Aug 06, 2020 [id number] [phone] WELCH,CANDE GLORIA PATIENT CAREMARK PRESCRIPT ION GEHA Apr 01, 2016 [id number] WELCH,CANDE GLORIA PATIENT CAREMARK PRESCRIPT ION GEHA STAND COLEMAN PLAN Apr 01, 2016 [id number] WELCH,CANDE GLORIA PATIENT CAREMARK PRESCRIPT ION GEHA Apr 01, 2016 [id number] WELCH,CANDE GLORIA PATIENT CAREMARK PRESCRIPT ION GEHA Apr 01, 2016 [id number] [phone] WELCH,CANDE GLORIA PATIENT CAREMARK PRESCRIPT ION [facility] Mar 09, 2016 [id number] WELCH,CANDE GLORIA PATIENT [facility] PREFERRED PROVIDER ORGANIZAT ION (PPO) Mathew al Emplo [place] [facility] Apr 01, 2016 [id number] [phone] WELCH,CANDE GLORIA PATIENT [facility] DENTAL ONLY DENTAL INSURANCE [facility] CTION DENT Apr 01, 2016 [id number] [phone] WELCH,CANDE GLORIA PATIENT [facility] PREFERRED PROVIDER ORGANIZAT ION (PPO) Mathew al Emplo [place] [facility] Jul 27, 2020 [id number] [phone] WELCH,CANDE GLORAI PATIENT [facility] MATHEW AL EMPLO [facility] Sep 09, 2021 [id number] 3GEHA WELCH,CANDE GLORIA PATIENT [facility] Sep 09, 2021 [id number] 3GEHA WELCH,CANDE GLORIA PATIENT [facility] MATHEW AL EMPLO [facility] Sep 09, 2021 [id number] 3GEHA WELCH,CANDE GLORIA PATIENT [facility] MEDICAL EXPENSE (OPT/PROF ) [facility] Sep 09, 2023 [id number] 3GEHA WELCH,CANDE GLORIA PATIENT [facility] PREFERRED PROVIDER ORGANIZAT ION (PPO) [facility] STAND COLEMAN Sep 09, 2023 [id number] 3 WELCH,CANDE GLORIA PATIENT [facility] PREFERRED PROVIDER ORGANIZAT ION (PPO) [facility] STAND [facility] Sep 09, 2023 [id number] 3GEHA WELCH,CANDE GLORIA PATIENT [facility] PREFERRED PROVIDER ORGANIZAT ION (PPO) MATHEW AL EMPLO [place] [facility] Sep 09, 2023 [id number] CANDE WELCH PATIENT [facility] PREFERRED PROVIDER DENISE ADKINS (PPO) MATHEW SMALLWOODToni TRAOREMiriam Sep 09, 2023 [id number] 3GEHA CANDE WELCH PATIENT Selected Encounter This section includes the information on record at [place] for the Encounter. Date/Time Encounter Type Encounter Description Reason Pro vider Source Jul 16, 2024 02:42 PM Outpatient Encounter PRIMARY CARE/MEDICINE IHE Encounter Template Text not used by [place] Plan of Treatment: Future Appointments (+ 6 months) and Future Tests (+/- 45 days) The Plan of Treatment section includes future care activities for the patient from all [place] [facility]. This section includes future appointments and future orders which are active, pending or scheduled. Future Appointments This section includes appointments that were scheduled to occur 6 months from the date of the Encounter, up to a maximum of 20 appointments. The data comes from all [facility]. Appointment Date/Time Appointment Type Appointme nt Facility Name Jul 22, 2024 09:00 AM AMBULATORY - [facility] Aug 19, 2024 02:30 PM [facility] Aug 25, 2024 02:30 PM [facility] Aug 25, 2024 03:30 PM AMBULATORY - PSYCHIATRY [facility] Oct 08, 2024 07:30 AM [facility] Oct 20, 2024 02:00 PM [facility]ICINE [facility] Nov 17, 2024 01:30 PM AMBULATORY - MEDICINE [facility] Active, Pending, and Scheduled Orders This section includes a listing of several types of active, pending, and scheduled orders, including clinic medications orders, diagnostic test orders, procedure orders and consult orders; where the start date of the order is 45 days before the date of the Encounter or 45 days after the date of theEncounter. The data comes from all [facility]. Test Date/Time Test Type Test Details Facility Name Jul 22, 2024 06:07 PM Consult Order SURGERY/CW M OUTPT Cons Senior [employer] [facility] [place] Jul 22, 2024 06:09 PM Consult Order PHARMACY/S OPC OUTPT Cons [employer] [facility] [place] Encounter Notes: All associated encounter notes This section contains the clinical notes associated to the Encounter. 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
--- OUTSIDE RECORDS SUMMARY | 2024-08-25 14:06 | XMS_ITS ---
Author Name Department [place] Address [address] [place] [address] Care Team Providers Care Manager Perioperative Name Role Phone MARIETTA HERNANDEZ Primary Care [...] CAREMARK PRESCRIPT ION GEHA Aug 06, 2020 [id number] [phone] CANDE WELCH PATIENT CAREMARK PRESCRIPT ION GEHA Aug 06, 2020 [id number] WELCH,CANDE GLORIA PATIENT CAREMARK PRESCRIPT ION GEHA Apr 01, 2016 [id number] WELCH,CANDE GLORIA PATIENT CAREMARK PRESCRIPT ION GEHA STAND COLEMAN PLAN Apr 01, 2016 [id number] [phone] WELCH,CANDE GLORIA PATIENT CAREMARK PRESCRIPT ION GEHA Apr 01, 2016 [id number] WELCH,CANDE GLORIA PATIENT CAREMARK PRESCRIPT ION GEHA Apr 01, 2016 [id number] [phone] WELCH,CANDE GLORIA PATIENT CAREMARK PRESCRIPT ION [facility] Mar 09, 2016 [id number] [phone] WELCH,CANDE GLORIA PATIENT ON LICENSE OF [facility] PREFERRED PROVIDER ORGANIZAT ION (PPO) Mathew al Emplo [place] [facility] Apr 01, 2016 [id number] WELCH,CANDE GLORIA PATIENT ON LICENSE OF [facility] DENTAL ONLY DENTAL INSURANCE [facility] CTION DENT Apr 01, 2016 [id number] [phone] WELCH,CANDE GLORIA PATIENT [facility] PREFERRED PROVIDER ORGANIZAT ION (PPO) Mathew al Emplo [place] [facility] Jul 27, 2020 [id number] [phone] WELCH,CANDE GLORIA PATIENT [facility] Sep 09, 2021 [id number] 3GEHA WELCH,CANDE GLORIA PATIENT [facility] Sep 09, 2021 [id number] 3GEHA WELCH,CANDE GLORIA PATIENT [facility] MATHEW AL EMPLO [facility] Sep 09, 2021 [id number] 3GEHA WELCH,CANDE GLORIA PATIENT [facility] MEDICAL EXPENSE (OPT/PROF ) [facility] Sep 09, 2023 [id number] 3GEHA WELCH,CANDE GLORIA PATIENT [facility] PREFERRED PROVIDER ORGANIZAT ION (PPO) [facility] STAND COLEMAN Sep 09, 2023 [id number] 3 WELCH,CANDE GLORIA PATIENT [facility] PREFERRED PROVIDER ORGANIZAT ION (PPO) [facility] STAND [facility] Sep 09, 2023 [id number] 3GEHA WELCH,CANDE GLORIA PATIENT [facility] PREFERRED PROVIDER ORGANIZAT ION (PPO) MATHEW AL EMPLO [place] [facility] Sep 09, 2023 [id number] 3 CANDE WELCH PATIENT [facility] PREFERRED PROVIDER ORGANARPAN ADKINS (PPO) MATHEW [facility] MIC[facility]ELA Sep 09, 2023 [id number] 3GEHA CANDE WELCH PATIENT Selected Encounter This section includes the information on record at [place] for the Encounter. Date/Time Encounter Type Encounter Description Reason Pro vider Source Jun 09, 2024 12:00 AM Outpatient Encounter EVENT (HISTORICAL) IHE Encounter Template Text not used by [place] Plan of Treatment: Future Appointments (+ 6 months) and Future Tests (+/- 45 days) The Plan of Treatment section includes future care activities for the patient from all [place] [facility]. This section includes future appointments and future orders which are active, pending or scheduled. Future Appointments This section includes appointments that were scheduled to occur 6 months from the date of the Encounter, up to a maximum of 20 appointments. The data comes from all [facility]. Appointment Date/Time Appointment Type Appointme nt Facility Name Jul 22, 2024 09:00 AM AMBULATORY - [facility]INE [facility] Aug 19, 2024 02:30 PM [facility] Aug 25, 2024 02:30 PM AMBULATORY - MEDICINE [facility] Aug 25, 2024 03:30 PM AMBULATORY - PSYCHIATRY [facility] Oct 08, 2024 07:30 AM AMBULATORY - MEDICINE [facility] Oct 20, 2024 02:00 PM AMBULATORY - MEDICINE [facility] Nov 17, 2024 01:30 PM AMBULATORY - MEDICINE [facility] Active, Pending, and Scheduled Orders This section includes a listing of several types of active, pending, and scheduled orders, including clinic medications orders, diagnostic test orders, procedure orders and consult orders; where the start date of the order is 45 days before the date of the Encounter or 45 days after the date of theEncounter. The data comes from all [facility]. Test Date/Time Test Type Test Details Facility Name Jul 22, 2024 06:07 PM Consult Order SURGERY/CW M OUTPT Cons Automatic Typewriter Inspector[facility] [place] Jul 22, 2024 06:09 PM Consult Order PHARMACY/S OPC OUTPT Cons Automatic Type[employer] [facility] [place] Lab Results: +/- 30 days of the encounter This section includes the Chemistry and Hematology Lab Results on record with [place] for the patient. Radiology Reports and Pathology Reports are provided separately, in subsequent sections. Lab Results This section contains the Chemistry/Hematology Results that were resulted 30 days before or 30 daysafter the date of the Encounter. Date/Time Source Result Type Result - Unit Interpretation Reference Range Comment May 21, 2024 09:37 AM [facility] T-SPOT TB PANEL Specimen Type: [...] For additional information, please refer to http://education .ViralGains/faq/TYM968 (This link is being provided for informational/ educational purposes only.) Test Performed by [employer], [employer] [facility], [address] [place] [address] Julius Bell M.D., Ph.D., Director of Laboratories , [place] [id number] TEST PERFORMED AT: , Ordering Provider: NICOLE GRIER Report Released Date/Time: May 14, 2024 03:09 PM Reporting Lab: [facility] [address] [facility] [address] Performing Lab: [facility] [address] [place] [address] [id number] (o) Negative Negative T-SPOT-PNLA 0 T-SPOT-PNLB 0 A-QSNJ-EHAEZH L Passed H-OAVD-OYAXFO L Passed May 21, 2024 09:37 AM [facility] HEPATITIS B SURFACE ANTIBODY (HBsAb)-WH Specimen Type : SERUM Comment: A 'Reactive' result indicates HBsAb results >/= 12.0 mIU/mL and immunity to HBV infection. Ordering Provider: NICOLE GRIER Report Released Date/Time: May 14, 2024 03:09 PM Reporting Lab: [address] [address] Performing Lab: [address] [address] HBsAb REACTIVE Non Reactive May 21, 2024 09:37 AM [facility] MMRV (IGG) IMMUNE STATUS PANEL [...] May 14, 2024 03:09 PM Reporting Lab: [address] [address] Performing Lab: [address] [address] MEASLES (IGG) REACTIVE SEE COMMENT MUMPS (IGG) REACTIVE SEE COMMENT RUBELLA (IGG) REACTIVE SEE COMMENT VARICELLA (IGG) REACTIVE SEE COMMENT May 21, 2024 09:37 AM [facility] HEMOGLOBIN A1C PANEL Specimen Type: [...] May 14, 2024 03:09 PM Reporting Lab: [address] [place] [address] Performing Lab: [facility] [address] [facility] [address] HEMOGLOBIN A1C 5.2 4.0-5.6 May 21, 2024 09:37 AM [facility] LIPID PANEL, NON FASTING Specimen Type: SERUM No comment entered. Ordering Provider: NICOLE GRIER Report Released Date/Time: May 14, 2024 03:09 PM Reporting Lab: [facility] [address] [facility] [address] Performing Lab: [address] [address] CHOLESTEROL 227 mg/dL H TRIGLYCERIDE 143 mg/dL 0-150 LDL calculated 146 mg/dL H 0-129 CHOL/HDL 4.4 HDL CHOLESTEROL 52 mg/dL 40-60 May 21, 2024 09:37 AM [facility] URINALYSIS Specimen Type: URINE Comment: If Glucose = >500 and Ketones are positive, please alert the Physician. Ordering Provider: NICOLE GRIER Report Released Date/Time: May 14, 2024 03:09 PM Reporting Lab: [address] [address] Performing Lab: [address] [address] UA COLOR Yellow Yellow UA APPEARANCE Turbid Clear UA GLUCOSE Normal mg/dL Negative UA KETONES NEGATIVE mg/dL Negative UA BLOOD NEGATIVE mg/dL Negative UA PROTEIN 30 mg/dL Negative UA NITRITE NEGATIVE mg/dL Negative UA BILIRUBIN NEGATIVE mg/dL Negative UA SPECIFIC GRAVITY 1.027 H 1.016-1.02 2 UA pH 6.0 5.0-9.0 UA UROBILINOGEN Normal mg/dL <2.0 UA LEUKOCYTE TRACE Negative May 21, 2024 09:37 AM [facility] MICROSCOPIC AUTOMATED, URINE Specimen Type: URINE Comment: If Glucose = >500 and Ketones are positive, please alert the Physician. Ordering Provider: NICOLE GRIER Report Released Date/Time: May 14, 2024 03:09 PM Reporting Lab: [facility] [address] [facility] [address] Performing Lab: [facility] [address] [facility] [address] UA WBC 11-20 /[HPF] H 0-5 UA MUCUS MANY /[LPF] Trace UA RBC 3-5 /[HPF] 0-3 UA SQUAMOUS EPITH FEW /[HPF] May 21, 2024 09:37 AM [facility] LIVER FUNCTION Specimen Type: SERUM No comment entered. Ordering Provider: NICOLE GRIER Report Released Date/Time: May 14, 2024 03:09 PM Reporting Lab: [facility] [address] [facility] [address] Performing Lab: [address] [address] PROTEIN,TOTAL 7.6 g/dL 6.0-8.3 ALBUMIN 4.0 g/dL 3.5-5.0 ALKALINE PHOSPHATASE 54 U/L 40-150 AST 29 U/L 5-34 ALT 30 U/L BILIRUBIN, TOTAL 1.3 mg/dL H 0.2-1.2 BILIRUBIN, DIRECT 0.5 mg/dL 0-0.5 May 21, 2024 09:37 AM [facility] BASIC METABOLIC PANEL (non-fasting) Specimen Type: SERUM No comment entered. Ordering Provider: NICOLE GRIER Report Released Date/Time: May 14, 2024 03:09 PM Reporting Lab: [facility] [address] [facility] [address] Performing Lab: [address] [address] UREA NITROGEN 11 mg/dL 7-25 GLUCOSE 97 mg/dL 65-100 SODIUM 138 mmol/L 135-145 POTASSIUM 3.9 mmol/L 3.5-5.0 CHLORIDE 106 mmol/L 100-110 CO2 21 meq/L 20-30 CREATININE, Serum 0.98 mg/dL 0.50-1.40 eGFR(CKD-EPI 2020) >90 mL/min >60 May 21, 2024 09:37 AM [facility] CBC AND DIFF (AUTO) Specimen Type: BLOOD No comment entered. Ordering Provider: NICOLE GRIER Report Released Date/Time: May 14, 2024 03:09 PM Reporting Lab: [facility] [address] [facility] [address] Performing Lab: [facility] [address] [facility] [address] WBC 9.16 10*3/uL 4.50-11.00 RBC 6.29 10*6/uL [...] 0.0 0.0-0.0 NRBC, ABS 0.00 10*3/uL 0.00-0.00 Immunizations: All administered on the encounter date This section contains immunizations associated to the Encounter. Immunization Series Date Issued Reaction Comments INFLUENZA, UNSPECIFIED FORMULATION Jun 09, 2024
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
--- OUTSIDE RECORDS SUMMARY | 2024-08-25 14:07 | XMS_ITS ---
Author Name [facility] [place] Address [address] [place] [address] Care Team Providers Care Art Editor Name Role Phone MARIETTA HERNANDEZ Primary Care [...] CAREMARK PRESCRIPT ION GEHA Aug 06, 2020 [id number] CANDE WELCHDO PATIENT CAREMARK PRESCRIPT ION GEHA Aug 06, 2020 [id number] 300 WELCH,CANDE GLORIA PATIENT CAREMARK PRESCRIPT ION GEHA Apr 01, 2016 [id number] WELCH,CANDE GLORIA PATIENT CAREMARK PRESCRIPT ION GEHA STAND [employer]LEMAN PLAN Apr 01, 2016 [id number] WELCH,CANDE GLORIA PATIENT CAREMARK PRESCRIPT ION GEHA Apr 01, 2016 [id number] WELCH,CANDE GLORIA PATIENT CAREMARK PRESCRIPT ION GEHA Apr 01, 2016 [id number] [phone] WELCH,CANDE GLORIA PATIENT CAREMARK PRESCRIPT ION [facility] Mar 09, 2016 [id number] WELCH,CANDE GLORIA PATIENT [facility] PREFERRED PROVIDER ORGANIZAT ION (PPO) Mathew al Emplo [place] [facility] Apr 01, 2016 [id number] WELCH,CANDE GLORIA PATIENT [facility] DENTAL ONLY [facility] Apr 01, 2016 [id number] 2 WELCH,CANDE GLORIA PATIENT [facility] PREFERRED PROVIDER ORGANIZAT ION (PPO) Mathew al Emplo [place] [facility] Jul 27, 2020 [id number] [phone] WELCH,CANDE GLORIA [facility] MATHEW AL EMPLO [place] [facility] Sep 09, 2021 [id number] 3GEHA WELCH,CANDE GLORIA PATIENT [facility] Sep 09, 2021 [id number] 3GEHA WELCH,CANDE GLORIA PATIENT [facility] MATHEW AL EMPLO [place] [facility] Sep 09, 2021 [id number] 3GEHA WELCH,CANDE GLORIA PATIENT [facility] (OPT/PROF ) [facility] Sep 09, 2023 [id number] 3GEHA WELCH,CANDE GLORIA PATIENT [facility] PREFERRED PROVIDER ORGANIZAT ION (PPO) [facility] STAND [facility] Sep 09, 2023 [id number] 3 WELCH,CANDE GLORIA PATIENT [facility] PREFERRED PROVIDER ORGANIZAT ION (PPO) [facility] STAND [facility] Sep 09, 2023 [id number] 3GEHA WELCH,CANDE GLORIA PATIENT [facility] PREFERRED PROVIDER ORGANIZAT ION (PPO) MATHEW AL EMPLO [place] [facility] Sep 09, 2023 [id number] [address] [facility] PREFERRED PROVIDER ORGANIZAT ION (PPO) MATHEW BRIDGSE [facility] TRAOR[facility] Sep 09, 2023 [id number] 3GEHA CANDE WELCH PATIENT Selected Encounter This section includes the information on record at [place] for the Encounter. Date/Time Encounter Type Encounter Description Reason Provider Source Aug 18, 2024 08:12 AM COLLJ & INTERPJ DATA EA 30 D TELEPHONE/MEDICIN E ICD-10-CM G47.30 Sleep apnea, unspecified DARRYL GRANADO Janny Encounter Template Text not used by [place] Assessments - Encounter Diagnoses This section includes the primary and secondary diagnoses documented for the Encounter. Date/Time Primary/Secondary Diagnosis Diagnosis Name Provider Source Aug 18, 2024 08:12 AM PRIMARY Sleep apnea, unspecified DARRYL GRANADO [facility] Plan of Treatment: Future Appointments (+ 6 months) and Future Tests (+/- 45 days) The Plan of Treatment section includes future care activities for the patient from all [place] [facility]. This section includes future [...] 2024 02:30 PM AMBULATORY - MEDICINE [facility] Aug 25, 2024 02:30 PM [facility] Aug 25, 2024 03:30 PM AM[facility]ULATORY - [facility] Oct 08, 2024 07:30 AM [facility] [place] [facility] Oct 20, 2024 02:00 PM [facility] Nov 17, 2024 01:30 PM AMBULATORY - MEDICINE [facility] January 20, 2025 09:00 AM [facility] Active, Pending, and Scheduled Orders This section includes a listing of several types of active, pending, and scheduled orders, including clinic medications orders, diagnostic test orders, procedure orders and consult orders; where the start date of the order is 45 days before the date of the Encounter or 45 days after the date of theEncounter. The data comes from all [place] treatment facilities. Test Date/Time Test Type Test Details Facility Name Jul 22, 2024 06:07 PM Consult Order SURGERY/CW M OUTPT [facility] Jul 22, 2024 06:09 PM Consult Order PHARMACY/S OPC OUTPT [facility] Encounter Notes: All associated encounter notes This section contains the clinical notes associated to the Encounter. Date/Time Encounter Note(s) Provider Source Aug 18, 2024 08:12 AM SLEEP MEDICINE NOT E: LOCAL TITLE: CPAP CLINIC NOTE STANDARD TITLE: SLEEP MEDICINE NOTE DATE OF NOTE: AUG 18, 2024@08:12 ENTRY DATE: AUG 18, 2024@08:12:54 AUTHOR: DARRYL GRANADO EXP COSIGNER: URGENCY: STATUS: COMPLETED Patient diagnosed with sleep apnea data reviewed for Cpap renewal and supplies ordered from [facility]. [employer] COMPLIANCE PROGRAM Patient APAP compliance data reviewed via the [employer] program for the last 90 days. SETTINGS: Apap 5 - [id number] TOTAL DAYS USED 90 DAYS USED > 4hrs 85 AVG USAGE 9 hours AVG PRESSURE [id number] LEAK 1 AHI: 0.6 Central 0 These results indicate is compliant. [place]'s APAP Prescription will be renewed for 1 year. If pt has any questions or concerns regarding Apap, he/she can contact Respiratory at [phone] extension [phone]. /es/ DARRYL GRANADO CRT RESPIRATORY THERAPIST Signed: 08/18/2024 08:23 DARRYL GRANADO
--- OUTSIDE RECORDS SUMMARY | 2024-08-25 14:07 | XMS_ITS ---
Author Name [place] Organization [place] Address [address] [place] [id number] Care Team Providers Care Doll Wig Maker Name Role Phone MARIETTA HERNANDEZ Primary Care [...] CAREMARK PRESCRIPT ION GEHA Aug 06, 2020 [id number] [phone] CANDE WELCH PATIENT CAREMARK PRESCRIPT ION GEHA Aug 06, 2020 [id number] WELCH,CANDE GLORIA PATIENT CAREMARK PRESCRIPT ION GEHA Apr 01, 2016 [id number] [phone] WELCH,CANDE GLORIA PATIENT CAREMARK PRESCRIPT ION GEHA STAND COLEMAN PLAN Apr 01, 2016 [id number] WELCH,CANDE GLORIA PATIENT CAREMARK PRESCRIPT ION GEHA Apr 01, 2016 [id number] [phone] WELCH,CANDE GLORIA PATIENT CAREMARK PRESCRIPT ION GEHA Apr 01, 2016 [id number] [phone] WELCH,CANDE GLORIA PATIENT CAREMARK PRESCRIPT ION [facility] Mar 09, 2016 [id number] [phone] WELCH,CANDE GLORIA PATIENT [facility] PREFERRED PROVIDER ORGANIZAT ION (PPO) Mathew al Em[facility] [place] [facility] Apr 01, 2016 [id number] [phone] WELCH,CANDE GLORIA PATIENT [facility] DENTAL ONLY DENTAL INSURANCE [facility] CTION DENT Apr 01, 2016 [id number] [phone] WELCH,CANDE GLORIA PATIENT [facility] PREFERRED PROVIDER ORGANIZAT ION (PPO) Mathew al Emplo [place] [facility] Jul 27, 2020 [id number] [phone] WELCH,CANDE GLORIA PATIENT [facility] Sep 09, 2021 [id number] 3GEHA WELCH,CANDE GLORIA PATIENT [facility] Sep 09, 2021 [id number] 3GEHA WELCH,CANDE GLORIA PATIENT [facility] MATHEW AL EMPLO [facility] Sep 09, 2021 [id number] 3GEHA WELCH,CANDE GLORIA PATIENT [facility] MEDICAL EXPENSE (OPT/PROF ) [facility] Sep 09, 2023 [id number] 3GEHA WELCH,CANDE GLORIA PATIENT [facility] PREFERRED PROVIDER ORGANIZAT ION (PPO) [facility] STAND COLEMAN Sep 09, 2023 [id number] WELCH,CANDE GLORIA PATIENT [facility] PREFERRED PROVIDER ORGANIZAT ION (PPO) [facility] STAND [facility] Sep 09, 2023 [id number] 3GEHA WELCH,CANDE GLORIA PATIENT [facility] PREFERRED PROVIDER ORGANIZAT ION (PPO) MATHEW AL EMPLO [place] [facility] Sep 09, 2023 [id number] [phone] CANDE WELCH PATIENT [facility] PREFERRED PROVIDER DENISE ADKINS (PPO) MATHEW SMALLWOODToni TRAOR[facility]iam Sep 09, 2023 [id number] CANDE WELCH PATIENT Selected Encounter This section includes the information on record at [place] for the Encounter. Date/Time Encounter Type Encounter Description Reason Pro vider Source Aug 20, 2024 01:08 PM Outpatient Encounter PRIMARY CARE/MEDICINE IHE Encounter Template Text not used by [place] Plan of Treatment: Future Appointments (+ 6 months) and Future Tests (+/- 45 days) The Plan of Treatment section includes future care activities for the patient from all [place] [facility] [place]. This section includes future appointments and future orders which are active, pending or scheduled. Future Appointments This section includes appointments that were scheduled to occur 6 months from the date of the Encounter, up to a maximum of 20 appointments. The data comes from all [facility]. Appointment Date/Time Appointment Type Appointme nt Facility Name Aug 25, 2024 02:30 PM AMBULATORY - MEDICINE [facility] Aug 25, 2024 03:30 PM AMBULATORY - PSYCHIATRY [facility] Oct 08, 2024 07:30 AM AMBULATORY - MEDICINE [facility] Oct 20, 2024 02:00 PM AMBULATORY - MEDICINE [facility] Nov 17, 2024 01:30 PM AMBULATORY - MEDICINE [facility] January 20, 2025 09:00 AM AMBULATORY [...] of theEncounter. The data comes from all [facility]. Test Date/Time Test Type Test Details Facility Name Jul 22, 2024 06:07 PM Consult Order SURGERY/CW M OUTPT Cons [facility] Jul 22, 2024 06:09 PM Consult Order PHARMACY/S OPC OUTPT Cons [facility] Encounter Notes: All associated encounter notes This section contains the clinical notes associated to the Encounter. Date/Time Encounter Note(s) Provider Source Aug 20, 2024 01:10 PM ADMINISTRATIVE NOT E: LOCAL TITLE: ADMINISTRATIVE NOTE STANDARD TITLE: ADMINISTRATIVE NOTE DATE OF NOTE: AUG 20, 2024@13:10 ENTRY DATE: AUG 20, 2024@13:10:18 AUTHOR: LUCERO KERR COSIGNER: URGENCY: STATUS: COMPLETED THIS ELECTRICAL SUBCONTRACTOR CALLED TO SCHEDULE F2F OR VVC APPT (60 MINS) APPT WITH CWM/SO/PHARM/PACT 2 PROVIDER. NO ANSWER, LEFT MESSAGE FOR TO CALL AND SCHEDULE. /katty KERR ADVANCED EMAIL CAMPAIGN MANAGER Signed: 08/20/2024 13:11 VINCE KERR DECATUR Aug 20, 2024 01:08 PM LETTERS: LOCAL TITLE: PATIENT LETTER (T) STANDARD TITLE: LETTERS DATE OF NOTE: AUG 20, 2024@13:08 ENTRY DATE: AUG 20, 2024@13:08:08 AUTHOR: LUCERO KERR COSIGNER: URGENCY: STATUS: COMPLETED PATIENT LETTER (T) Has [facility] Toll Free Number Primary Care Telephone Assistance can be reached at extension [phone] [facility] scheduling can be reached at extension [phone] [facility] scheduling can be reached at ext [phone] MOUNIKA WELCH JR [address], [place], [address] Dear MOUNIKA Funk JR [address], [place] [address] Date: AUG 20, 2024 Dear : Our goal at the [facility] is to provide you with quality medical care. We have been trying to reach you unsuccessfully to schedule your follow up appt with your primary care pharmacist ANA PARADA at the [facility], [address] [place] [address]. Please call us at Saturday through Saturday, 8am-4pm to schedule this appointment. 08/20/2024 ADDENDUM STATUS: COMPLETED THIS ELECTRICAL SUBCONTRACTOR MAILED LETTER TO . /katty KERR ADVANCED EMAIL CAMPAIGN MANAGER Signed: 08/20/2024 13:10 Sincerely, Your Primary Care Team [facility] [address] [facility] [address] [place] [address] [place] [address] [phone] [facility] [address] [place] [address] [place] [address] [phone] [facility] [address] [facility] [place] [address] [place] [address] VINCE KERR DECATUR
--- OUTSIDE RECORDS SUMMARY | 2024-08-25 14:07 | XMS_ITS | Encounter Summary ---
Author Name Department of Vetera Affairs [place] Organization [place] Address [address] [place] [address] Care Team Providers Care Home Weatherizing Worker Name Role Phone MARIETTA HERNANDEZ Primary [...] CAREMARK PRESCRIPT ION GEHA Aug 06, 2020 [id number] [phone] CANDE WELCHDO PATIENT CAREMARK PRESCRIPT ION GEHA Aug 06, 2020 [id number] [phone] WELCH,CANDE GLORIA PATIENT CAREMARK PRESCRIPT ION GEHA Apr 01, 2016 [id number] [phone] WELCH,CANDE GLORIA PATIENT CAREMARK PRESCRIPT ION GEHA STAND COLEMAN PLAN Apr 01, 2016 [id number] [phone] WELCH,CANDE GLORIA PATIENT CAREMARK PRESCRIPT ION GEHA Apr 01, 2016 [id number] [phone] WELCH,CANDE GLORIA PATIENT CAREMARK PRESCRIPT ION GEHA Apr 01, 2016 [id number] [phone] WELCH,CANDE GLORIA PATIENT CAREMARK PRESCRIPT ION [facility] Mar 09, 2016 [id number] WELCH,CANDE GLORIA PATIENT [facility] PREFERRED PROVIDER ORGANIZAT ION (PPO) Mathew al Emplo [place] [facility] Apr 01, 2016 [id number] [phone] WELCH,CANDE GLORIA PATIENT [facility] DENTAL ONLY DENTAL [facility]ANCE [facility] Apr 01, 2016 [id number] [phone] WELCH,CANDE GLORIA PATIENT [facility] PREFERRED PROVIDER ORGANIZAT ION (PPO) Mathew al Emplo [place] [facility] Jul 27, 2020 [id number] WELCH,CANDE GLORIA PATIENT [facility] MATHEW AL [facility] Sep 09, 2021 [id number] [id number] 3GEHA WELCH,CANDE GLORIA PATIENT [facility] Sep 09, 2021 [id number] 3GEHA WELCH,CANDE GLORIA PATIENT [facility]-BEHAV [facility] MATHEW AL EMPLO [facility] Sep 09, 2021 [id number] 3GEHA WELCH,CANDE GLORIA PATIENT [facility] MEDICAL EXPENSE (OPT/PROF ) [facility] Sep 09, 2023 [id number] 3GEHA WELCH,CANDE GLORIA PATIENT [facility] PREFERRED PROVIDER ORGANIZAT ION (PPO) [facility] STAND [facility] Sep 09, 2023 [id number] 3 WELCH,CANDE GLORIA PATIENT [facility] PREFERRED PROVIDER ORGANIZAT ION (PPO) [facility] STAND [facility] Sep 09, 2023 [id number] 3GEHA WELCH,CANDE GLORIA PATIENT [facility] PREFERRED PROVIDER ORGANIZAT ION (PPO) MATHEW AL EMPLO [facility] Sep 09, 2023 [id number] CANDE WELCH PATIENT [facility] PREFERRED PROVIDER ORGANARPAN ADKINS (PPO) MATHEW SMALLWOODToni [facility] MICHAELA Sep 09, 2023 [id number] CANDE WELCH PATIENT Selected Encounter This section includes the information on record at [place] for the Encounter. Date/Time Encounter Type Encounter Description Reason Pro vider Source Aug 13, 2024 10:56 AM Outpatient Encounter TELEPHONE TRIAGE IHE Encounter Template Text not used by [place] Plan of Treatment: Future Appointments (+ 6 months) and Future Tests (+/- 45 days) The Plan of Treatment section includes future care activities for the patient from all [place] [facility]. This section includes future appointments and future orders which are active, pending or scheduled. Future Appointments This section includes appointments that were scheduled to occur 6 months from the date of the Encounter, up to a maximum of 20 appointments. The data comes from all [facility]. Appointment Date/Time Appointment Type Appointme nt Facility Name Aug 19, 2024 02:30 PM [facility] Aug 25, 2024 02:30 PM AMBULATORY - MEDICINE [facility] NTR [facility] Aug 25, 2024 03:30 PM AMBULATORY - PSYCHIATRY [facility] Oct 08, 2024 07:30 AM AMBULATORY - MEDICINE [facility] NTR [facility] Oct 20, 2024 02:00 PM AMBULATORY - MEDICINE [facility] Nov 17, 2024 01:30 PM AMBULATORY - [...] of theEncounter. The data comes from all [facility]. Test Date/Time Test Type Test Details Facility Name Jul 22, 2024 06:07 PM Consult Order SURGERY/CW M OUTPT Cons [facility] Jul 22, 2024 06:09 PM Consult Order PHARMACY/S OPC OUTPT [facility] Encounter Notes: All associated encounter notes This section contains the clinical notes associated to the Encounter. Date/Time Encounter Note(s) Provider Source Aug 13, 2024 10:56 AM RN PROGRESS NOTE: LOCAL TITLE: CCC: CLINICAL TRIAGE STANDARD TITLE: RN PROGRESS NOTE DATE OF NOTE: AUG 13, 2024@10:56:30 ENTRY DATE: AUG 13, 2024@10:56:31 AUTHOR: CARINA CACERES COSIGNER: URGENCY: STATUS: COMPLETED Patient Demographics Patient Name: MOUNIKA WELCH JR Patient Primary [address]: [address] [place] [address] Patient Primary Phone: [phone] Patient : 1975 Patient Age: 49 Current Location: HOME Call Back Number: [phone] Caller/Recipient Relation to Patient: Self Caller Name: MOUNIKA WELCH JR Emergency Contact: STERLING WELCH Triage Summary Conducted triage/discussed symptoms Pain Score: 7 (Moderate to Severe Pain) Utilized the Triage Tool: Yes Chief Complaint: Foot Pain System WHEN: Within 8 Hours Nurse's Recommendation / WHEN: Within 8 Hours System WHERE: Urgent care center Nurse's Recommendation / WHERE: Urgent Non-VA Patient Disposition Patient/Caregiver agrees to plan of care: Yes Patient WHERE: Urgent Care non-VA Patient WHEN: Within 8 hours Patient is Urgent or Emergent Nursing Plan and Disposition Referred patient to higher level of care Instructed to go to Urgent Care () Provided location of Urgent Care Center Nurse Summary Nurse Summary: Vet reports 2 months of left foot pain in the arch without injury and states he will go to Clinical Contact Center Codes Clinic/Location: [facility] PHONE [facility] RN Decision Support System Output: Triage Complete Triage Date: 08/13/2024, 10:53 AM Triage Note: Decision Support Tool Used: [facility] Phone Triage Julia, 13 Aug 2024 15:53:17 +0000 [facility] Demographics 49 y/o Male Results CC: Foot Pain Software suggested: Within 8 Hours Software suggested follow-up location: Urgent care center Values and Measures Duration of CC: 2 Months Positive Responses HPI: leg swelling, localized above the painful foot VS: pulse not taken VS: respiratory rate not taken Negative Responses Denies: HPI: chest pain, pleuritic Denies: HPI: confined passenger travel, duration longer than 6 hours, within past 2 weeks Denies: HPI: dyspnea, new or worsening Denies: HPI: foot erythema Denies: HPI: foot injury, within past 2 days Denies: HPI: foot pain, severe Denies: HPI: heel pain, moderate to severe Denies: HPI: heel pain, severe Denies: HPI: hemoptysis Denies: HPI: leg pain, localized to ankle Denies: HPI: nonambulatory, confined to bed or wheelchair, for more than 4 days Denies: HPI: toe pain, localized to toenail or periungual skin Denies: HPI: wheezing, new Denies: MEDS: chemotherapy Denies: PMH: DVT Denies: PMH: pulmonary embolism Denies: PSH: surgery, trunk, within past month IMPORTANT: This note was created by [facility] Clinical Contact Center staff. Please do not alert the staff member by adding them as a signer for future communications. Alerts are not monitored by this user. /es/ CARINA CACERES RN, MSN Signed: 08/13/2024 10:56 Receipt Acknowledged By: 08/18/2024 15:45 /es/ GENTRY WAKEFIELDN RN-BC REGISTERED NURSE 08/13/2024 12:33 /es/ KRISTY CLEMENTS LPN Licensed Practical Nurse CARINA CACERES [facility]
--- OUTSIDE RECORDS SUMMARY | 2024-08-25 14:07 | XMS_ITS | Encounter Summary ---
Author Name [facility] [facility] [place] [facility] [facility] [place] Address [address] [place] [address] Care Team Providers Care Manager Critical Care Unit Name Role Phone MARIETTA HERNANDEZ Primary Care [...] CAREMARK PRESCRIPT ION GEHA Aug 06, 2020 [id number] [phone] WELCH,CANDE GLORIA PATIENT CAREMARK PRESCRIPT ION GEHA Aug 06, 2020 [id number] [phone] WELCH,CANDE GLORIA PATIENT CAREMARK PRESCRIPT ION GEHA Apr 01, 2016 [id number] [phone] WELCH,CANDE GLORIA PATIENT CAREMARK PRESCRIPT ION GEHA [employer] Apr 01, 2016 [id number] [phone] WELCH,CANDE GLORIA PATIENT CAREMARK PRESCRIPT ION GEHA Apr 01, 2016 [id number] [phone] WELCH,CANDE GLORIA PATIENT CAREMARK PRESCRIPT ION GEHA Apr 01, 2016 [id number] WELCH,CANDE GLORIA PATIENT CAREMARK PRESCRIPT ION [facility] Mar 09, 2016 [id number] [phone] WELCH,CANDE GLORIA PATIENT [facility] PREFERRED PROVIDER ORGANIZAT ION (PPO) Mathew al [facility] [place] [facility] Apr 01, 2016 [id number] [phone] WELCH,CANDE GLORIA PATIENT [facility] DENTAL ONLY [facility]AL [facility]ANCE [facility] Apr 01, 2016 [id number] [phone] WELCH,CANDE GLORIA PATIENT [facility] PREFERRED PROVIDER ORGANIZAT ION (PPO) Mathew al [facility] [place] [facility] Jul 27, 2020 [id number] [phone] WELCH,CANDE GLORIA PATIENT [facility] MATHEW AL [facility] Sep 09, 2021 [id number] [id number] WELCH,CANDE GLORIA PATIENT [facility] Sep 09, 2021 [id number] 3GEHA WELCH,CANDE GLORIA PATIENT [facility]W AL [facility] Sep 09, 2021 [id number] 3GEHA WELCH,CANDE GLORIA PATIENT [facility] MEDICAL EXPENSE (OPT/PROF ) [facility] Sep 09, 2023 [id number] 3GEHA WELCH,CANDE GLORIA PATIENT [facility] PREFERRED PROVIDER ORGANIZAT ION (PPO) [facility] Sep 09, 2023 [id number] WELCH,CANDE GLORIA PATIENT [facility] PREFERRED PROVIDER ORGANIZAT ION (PPO) [facility] Sep 09, 2023 [id number] 3GEHA WELCH,CANDE GLORIA PATIENT [facility] PREFERRED PROVIDER ORGANIZAT ION (PPO) [facility] Sep 09, 2023 [id number] 3 WELCH,CANDE GLORIA PATIENT [facility] PREFERRED PROVIDER ORGANIZAT ION (PPO) [facility]ALKER[facility] Sep 09, 2023 [id number] CANDE WELCH PATIENT Selected Encounter This section includes the information on record at [place] for the Encounter. Date/Time Encounter Type Encounter Description Reason Provider Source Aug 19, 2024 02:30 PM OFFICE O/P EST MOD 30 MIN PRIMARY CARE/MEDICINE ICD-10-CM M72.2 Plantar fascial fibromatosis NEHAL HERNANDEZ [facility] Encounter Template Text not used by [place] Assessments - Encounter Diagnoses This section includes the primary and secondary diagnoses documented for the Encounter. Date/Time Primary/Secondary Diagnosis Diagnosis Name Provider Source Aug 23, 2024 06:15 PM PRIMARY Plantar fascial fibromatosis MARIETTA HERNANDEZ [facility] Plan of Treatment: Future Appointments (+ 6 months) and Future Tests (+/- 45 days) The Plan of Treatment section includes future care activities for the patient from all [place] [facility]. This section includes future appointments and future orders which are active, pending or scheduled. Future Appointments This section includes appointments that were scheduled to occur 6 months from the date of the Encounter, up to a maximum of 20 appointments. The data comes from all [facility] facilities. Appointment Date/Time Appointment Type Appointme nt Facility Name Aug 25, 2024 02:30 PM AMBULATORY - MEDICINE [facility] Aug 25, 2024 03:30 PM AMBULATORY - PSYCHIATRY [facility] Oct 08, 2024 07:30 AM AMBULATORY - MEDICINE [facility] Oct 20, 2024 02:00 PM AMBULATORY - MEDICINE [facility] Nov 17, 2024 01:30 PM AMBUL[facility]ORY - MEDICINE [facility] January 20, 2025 09:00 AM [facility] Active, Pending, and Scheduled Orders This section includes a listing of several types of active, pending, and scheduled orders, including clinic medications orders, diagnostic test orders, procedure orders and consult orders; where the start date of the order is 45 days before the date of the Encounter or 45 days after the date of theEncounter. The data comes from all [facility]. Test Date/Time Test Type Test Details Facility Name Jul 22, 2024 06:07 PM Consult Order SURGERY/CW M OUTPT [facility] Private [facility] Exchange Service Advisor's Choice [facility] Jul 22, 2024 06:09 PM Consult Order PHARMACY/S OPC OUTPT Cons Private [facility] Exchange Service Advisor's Choice [facility] Vital Signs: All taken on the encounter date This section contains inpatient and outpatient Vital Signs collected on the date of the Encounter. Date/Time Temperature Pulse Blood Pressure Respiratory Rate SP02 Pain Height Weight Body Mass Index Source Aug 19, 2024 02:17 PM 75 161/104 97 261 44 [facility] IE Social History: Smoking Status (Most [...] took place. Date/Time Current Smoking Status Comment Facil ity Sep 24, 2023 03:30 PM VA-TOBACCO NEVER USED [facility] Tobacco Use History This section includes a history of the smoking, or tobacco-related health factors, that were collected on or before the date of the Encounter. The data comes from the [place] facility where the Encounter took place. Date/Time Smoking Status/Tobacco Use Comment F acility Aug 14, 2022 01:30 PM VA-TOBACCO NEVER USED [facility] Nov 09, 2020 08:00 AM VA-TOBACCO NEVER USED [facility] Nov 10, 2019 11:10 AM VA-TOBACCO NEVER USED [facility] Nov 19, 2018 07:52 AM VA-TOBACCO NEVER USED [facility] Oct 09, 2017 09:01 AM QUIT TOBACCO USE > 7 YEARS AGO [facility] Jul 17, 2016 08:21 AM QUIT TOBACCO USE > 7 YEARS AGO [facility] Aug 09, 2015 11:33 AM QUIT TOBACCO USE > 7 YEARS AGO [facility] Apr 17, 2012 09:48 AM QUIT TOBACCO USE > 7 YEARS AGO [facility] Nov 18, 2008 10:43 AM CURRENT SMOKER Pt. quit smoking 15 years ago while his spouse when she was !! [facility] Nov 18, 2008 10:43 AM QUIT TOBACCO USE > 7 YEARS AGO quit 15 years ago [facility] Encounter Notes: All associated encounter notes This section contains the clinical notes associated to the Encounter. Date/Time Encounter Note(s) Provider Source Aug 19, 2024 02:39 PM PRIMARY CARE NURSE PRACTITIONER OUTPATIENT NOTE: LOCAL TITLE: NURSE PRACTITIONER OUTPATIENT NOTE STANDARD TITLE: PRIMARY CARE NURSE PRACTITIONER OUTPATIENT NOTE DATE OF NOTE: AUG 19, 2024@14:39 ENTRY DATE: AUG 19, 2024@14:39:18 AUTHOR: MARIETTA HERNANDEZ COSIGNER: URGENCY: STATUS: COMPLETED PRIMARY CARE VISIT MOUNIKA WELCH, is a 49 y/o WHITE MALE [place] who [facility] today [facility] the [place] [facility]. TYPE OF VISIT: Face to face HPI: left foot pain - bottom of foot from arch to heel, worse in the AM and with stretching of the foot. Sx x several months. Has been rolling, stretching without relief. Recent labs reviewed and all medications were reconciled during this visit. HISTORY: PERIOD OF SERVICE - [employer] FROM Apr TO Apr COMBAT SERVICE INDICATED: No VITAL SIGNS: Blood Pressure: 161/104 (08/19/2024 14:17) Pain: 7 (05/15/2023 14:57) Patient Height: 65 in [165.1 cm] (07/13/2021 12:58) Patient Weight: 261 lb [118.39 kg] (08/19/2024 14:17) Pulse: 75 (08/19/2024 14:17) REVIEW OF SYSTEMS: see HPI PHYSICAL EXAMINATION: General: Well-appearing [place] in no obvious distress. Mental Status: Alert and oriented x4. Lungs: respirations easy and unlabored CV: No peripheral edema, + pedal pulses. Ext: No deformity left foot, pain plantar aspect of foot with flexion Psych: Normal mood and affect. Normal judgment. Cooperative with exam, follows commands. ALLERGIES: Patient has answered [facility] - see end of note PREVENTIVE MEDICINE GOALS Info Only: fluid Operations Video Connect Capable DUE NOW Mental Health Treatment Plan DUE NOW Medication Reconciliation DUE NOW (Optional) Whole Health Documentation DUE NOW ASSESSMENT/PLAN: plantar fasciitis left foot - continue stretching, start oral diclofenac x 14 days, oral steroid burst x 7 days. If no improvement will refer to podiatry for possible tendon sheath injection FOLLOW UP: Return to clinic as noted below and/or sooner PRN UPCOMING APPOINTMENTS: 08/25/2024 14:30 COM CARE-NEUROLOGY 08/25/2024 15:30 SPOPC/MHC/BUTLER 10/08/2024 07:30 CWM/NO/OPTOMETRY/BRITTNEY 10/20/2024 14:00 CWM/NO/GS 01/20/2025 09:00 CWM/SO/PACT 7 No barriers noted; patient understands and agrees to current treatment plan. If patient has any questions, concerns or changes in current health status he/she will call or come [facility] the [facility]. HM: Info Only: [facility] Video Connect Capable: Medication Reconciliation: Outpatient: Has the patient been [...] whether with a VA or non-VA provider. /ohlger/ VALORIE GORDON CERTIFIED NURSE PRACTITIONER Signed: 08/23/2024 18:16 MARIETTA HERNANDEZ [facility] Aug 19, 2024 02:18 PM PREVENTIVE MEDICIN E NURSING NOTE: LOCAL TITLE: CLINICAL REMINDERS/NURSING STANDARD TITLE: PREVENTIVE MEDICINE NURSING NOTE DATE OF NOTE: AUG 19, 2024@14:18 ENTRY DATE: AUG 19, 2024@14:18:37 AUTHOR: KRISTY CLEMENTS EXP COSIGNER: URGENCY: STATUS: COMPLETED == NO REMINDERS AT THIS TIME== /holger/ KRISTY CLEMENTS LPN Licensed Practical Nurse Signed: 08/19/2024 14:19 KRISTY CLEMENTS [facility]
--- OUTSIDE RECORDS SUMMARY | 2024-08-25 14:07 | XMS_ITS | Continuity of Care Document ---
Author Organization [facility] ter Address [address] [place] [id number]- Care Team Providers Care Instrumentation Specialist Name Role Phone Caterina MONTOYA, Sherri Pineda Primary Care Physicia n Encounter [facility] Date(s): 06/25/24 - 08/20/[address] [address]- Attending Physician: Neda Solano Admitting Physician: Neda Solano Referring Physician: Neda Solano Encounter Type: Pre-Outpt Allergies, Adverse Reactions, Alerts No Known Medication Allergies Medications amLODIPine 5 mg oral tablet 5 mg, 1, tablet, By Mouth, Daily, # 30 tablet, Refills 0, Tot. Refills 0, Maintenance, 12/11/18 11:31:22 AM EDT, Route to Pharmacy Electronically, [facility] Start Date: 12/11/18 Stop Date: 01/10/19 Status: Ordered Quantity: 30.0 Unit: tablet Repeat number: 1 Omeprazole By Mouth, Daily, 0 Refills, Maintenance, 11/11/17 12:59:24 PM EST Start Date: 11/11/17 Status: Ordered Repeat number: 1 oxyCODONE 5 mg oral tablet 5 mg, 1, tablet, By Mouth, Every 6 hours, Refills 0, Tot. Refills 0, Maintenance, 12/06/18 11:06:14 PM EDT Start Date: 12/06/18 Status: Ordered Repeat number: 1 propranolol 10 mg oral tablet 10 mg, 1, tablet, By Mouth, 2 times a day, # 60 tablet, Refills 0, Maintenance, 12/25/17 2:51:04 PM EDT Start Date: 12/25/17 Status: Ordered Quantity: 60.0 Unit: tablet Repeat number: 1 Protonix 40 mg oral delayed release tablet = 40 mg, By Mouth, Daily in AM, # 30 tablet, 0 Refills, Maintenance, 12/11/18 11:31:51 AM EDT, EC Tablet Start Date: 12/11/18 Stop Date: 01/10/19 Status: Ordered Quantity: 30.0 Unit: tablet Repeat number: 1 Social History Social History Type Response Smoking Status Former smoker; Tobac co user in household: No; Other: quit 24yrs ago; entered on: 11/11/17 Sex Sex Representation Male (finding) Implantable Device List Procedure Provider Procedure Date Device Type Site Repair Hernia Inguinal Laparoscopic Alpesh BAZAN, Tre 01/02/18 Unknown Groin Right Device Identifier Serial Number Lot or Batch Number Manufacturing Date Expiration Date Distinct Identification Code MRI Safety Implantable Status Assigning Authority [id number] Unknown [id number] Unknown 09/05/22 Unknown Unknown Active GS1 Patient Care team information Care Team Personnel Name: Ginna Polanco RN Position: [facility] AMB Nurse Member Role: Primary Care Nurse Name: Sherri Diggs NP Position: [facility] Outreach Member Role: PCP Address: [address] [place] [address] Telecom: Care Team Related Persons Name: STERLING WELCH Insurance Providers Guarantor name: MOUNIKA MATOS Health Plan Information #: 1 Payer: [employer] Member Number: [id number] Policy Number: NA Group Number: NA Health Plan Information #: 2 Payer: [employer] Member Number: [id number] Policy Number: NA Group Number: NA
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
[2024-08-25 14:32] VITALS: BP 160/115; PULSE 66; O2SAT 97; BMI 45.8
== END 2024-08-25 15:04 | disposition home or self-care (01) ==
PROVIDERS: PCP Nurse Practitioner Family; Visit Provider Psychiatry & Neurology Neurology
DX: G25.0 Essential tremor (principal); G25.2 Other specified forms of tremor
CPT/HCPCS: 99204; G2211

== ENCOUNTER → 2024-08-25 13:56 | Outpatient (BNVA) | payer OTHER, SELFPAY | PROVIDERS: PCP Nurse Practitioner Family; Visit Provider Psychiatry & Neurology Neurology | DX: G25.0 Essential tremor (principal); G25.2 Other specified forms of tremor | CPT/HCPCS: 99202 ==

== ENCOUNTER 2024-12-23 09:56 | Outpatient (AMB) | payer OTHER, SELFPAY ==
[2024-12-23 10:06] VITALS: PULSE 84; O2SAT 98; BMI 44.6
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
--- OUTSIDE RECORDS SUMMARY | 2024-12-23 11:21 | XMS_ITS | Clinical Summary ---
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 07/22/2024 Active furosemide (LASIX) 20 mg tablet Take 1 tablet (20 mg total) by mouth 1 (one) time each day. 07/22/2024 Active losartan (COZAAR) 50 mg tablet Take 1 tablet (50 mg total) by mouth 1 (one) time each day. 11/11/2023 Active primidone (MYSOLINE) 50 mg tablet Take 1 tablet (50 mg total) by mouth 2 (two) times a day. 08/25/2024 Active hydrOXYzine pamoate (VISTARIL) 25 mg capsule Take 1 capsule (25 mg total) by mouth 3 (three) times a day if needed for anxiety. Active amLODIPine (NORVASC) 10 mg tablet Take 1 tablet (10 mg total) by mouth 1 (one) time each day. Active Hospital, Clinic, or Other Facility Administered Medication Ordered Dose Route Frequency Start Date End Date Status acetaminophen (TYLENOL) tablet 1,000 mgIndications:Uretera l stone,Acute unilateral obstructive uropathy 1000 mg oral Every 6 hours PRN 11/03/2024 Active Active Problems Problem Noted Date Diagnosed Date Sleep apnea 11/03/2024 Resolved Problems Problem Noted Date Diagnosed Date Resolved Date Acute unilateral obstructive uropathy 11/01/2024 11/03/2024 Encounters Date Type Department Care Team Description 12/07/2024 Telephone Internal Medicine - [place] [address] [phone] Joy Tanner PA 11/04/2024 Telephone Internal Medicine [facility] [address] [phone] Alicia Conte RN 11/03/2024 12:00 PM EST Anesthesia Event [facility] OR [address] [place] [phone] Randy Villasenor DO Millay, Julia, CRNA 11/03/2024 11:15 AM EST - 11/03/2024 12:45 PM EST Surgery [facility] OR [address] [place] [phone] Johnson Crowe MD CYSTOSCOPY LEFT STENT PLACEMENT [99323 (CPT??)] 11/01/2024 9:37 AM EST - 11/03/2024 6:24 PM EST Hospital Encounter [facility] [address] [place] [address] Sampson Zuniga MD Flores, Carlos M, MD Santoyo-Pacheco, Omar D, MD Ureteral stone (Primary Dx); Calculus of kidney; Acute unilateral obstructive uropathy; MIYA (acute kidney injury) (CMS/[facility] V24) Discharge Disposition: Home or Self Care from Last 3 Months Surgical History Surgery Date Site/Laterality Comments OTHER SURGICAL HISTORY 03/15 PROCEDURE: OK EXCISION PREPATELLAR BURSA; COMMENT: right knee, Dr. Monty De Dios, work/comp Medical History Medical History Date Comments Family hx colonic polyps DX:Fami ly hx colonic polyps; COMMENT: Mother?, age 50s Hypothyroid 10/07/2007 DX:Hypothyroid Anxiety and depression DX:Anxiet y and depression Alcohol abuse DX:Alcohol abuse HTN (hypertension) DX:HTN (hyper tension) DDD (degenerative disc disea se), lumbar DX:DDD (degenerative disc di sease), lumbar Family History Relation Name Status Comments Brother Alive x3, youngest br o had atrophic kidney removed, HTN Father Alive Diabetes Mother Alive ?colon polyps a ge 50; hypothyroid Sister Alive x2, healthy Social History Tobacco Use Types Packs/Day Years [...] Orientation Straight 07/14/2024 11 :33 AM EST Obstetrics History Last Filed Vital Signs Vital Sign Reading Time Taken Comments Blood Pressure 133/84 11/03/2024 1:46 PM EST Pulse 87 11/03/2024 1:46 PM EST Temperature 36.7 ??C (98 ??F) 11/03/2024 1:46 PM EST Respiratory Rate 16 11/03/2024 1:46 PM EST Oxygen Saturation 97% 11/03/2024 1:46 PM EST Inhaled Oxygen Concentration - - Weight 113 kg (250 lb) 11/01/2024 9:22 AM EST Height 165.1 cm (5' 5 ) 11/01/2024 9:22 AM EST Body Mass Index 41.6 11/01/2024 9:22 AM EST Plan of Treatment Health Maintenance Due Date Last Done Comments Hepatitis A Vaccines (1 of 2 - Risk 2-dose series) 1994 DTaP,Tdap,and Td Vaccines (4 - Td or Tdap) 10/07/2017 10/07/2007, 09/09/2007, 09/09/2006 Hepatitis B Vaccines (3 of 3 - 19+ 3-dose series) 01/09/2018 10/09/2017, 07/12/2017 Cholesterol Screening (Lipid Panel) 08/12/2022 Colorectal Cancer Screening: Colonoscopy 08/12/2022 Depression Screening 08/12/2022 HIV Screening 08/12/2022 Hepatitis C Screening 08/12/2022 Social Influencers of Health Screening 08/12/2022 COVID-19 Vaccine ( season) 2024 Hypertension/CHF/CAD Annual BMP Blood Test 11/03/2025 11/03/2024, 11/02/2024, 11/01/2024, Additional history exists Influenza Vaccine Completed 06/09/2024, , 08/24/2022, Additional history exists HIB Vaccines Aged Out No longer eligi ble based on patient's age to complete this topic HPV Vaccines Aged Out No longer eligi ble based on patient's age to complete this topic IPV Vaccines Aged Out No longer eligi ble based on patient's age to complete this topic MMR Vaccines Aged Out No longer eligi ble based on patient's age to complete this topic Meningococcal ACWY Vaccine Aged Out N o longer eligible based on patient's age to complete this topic Meningococcal B Vaccine Aged Out No l onger eligible based on patient's age to complete this topic Pneumococcal Vaccine: Pediatrics (0 to 5 Years) and At-Risk Patients (6 to 64 Years) Aged Out No longer eligible based on patient's age to complete this topic RSV Immunization Patients Under 20 months Aged Out No longer eligible based on patient's age to complete this topic Varicella Vaccines Aged Out No longer eligible based on patient's age to complete this topic Medical Devices Implanted Type Area Neck Band Operator Device Identifier Shelf Expiration Date Model / Serial / Lot Stent Uret [id number] Contr Percuflex Hydroplus - Sn/A - [id number] Implanted:Qty: 1 on 11/03/2024 by Johnson Crowe MD at [facility] Stents Left: Ureter [employer]GYNECOLG Y 07/15/2027 [id number] / N/A / [id number] Procedures Procedure Name Priority Date/Time Associated Diagnosis Comments XR UROGRAM RETROGRADE Routine 11/03/2024 12:33 PM EST STONE ANALYSIS STAT 11/03/2024 12:31 PM EST Calculus of kidney TH AN LMA(NO CHARGE) Routine 11/03/2024 12:15 PM EST OK CYSTO W URETEROSCOPY/PYELOSCOPY W LITHOTRIPSY INCL INDWELLING URTRL STNT 11/03/2024 12:00 PM EST Calculus of kidney Case Notes C-ARM, HOLMIUM,MOVE TO OR07 OK CYSTOURETHROSCOPY WITH INSERTION INDWELLING URETERAL STENT 11/03/2024 12:00 PM EST Calculus of kidney Case Notes C-ARM, HOLMIUM,MOVE TO OR07 CBC WITH AUTO DIFFERENTIAL Routine 11/03/2024 5:23 AM EST BASIC METABOLIC PANEL Routine 11/03/2024 5:23 AM EST CBC AND DIFFERENTIAL Routine 11/03/2024 5:23 AM EST RESPIRATORY VIRUS PANEL MOLECULAR STUDY Routine 11/02/2024 6:50 AM EST CBC WITH AUTO DIFFERENTIAL Routine 11/02/2024 5:00 AM EST CBC AND DIFFERENTIAL Routine 11/02/2024 5:00 AM EST MAGNESIUM Routine 11/02/2024 5:00 AM EST BASIC METABOLIC PANEL Routine 11/02/2024 5:00 AM EST CPAP NIV Routine 11/01/2024 10:44 PM EST CPAP NIV Routine 11/01/2024 10:44 PM EST BALDWIN URINE CULTURE TUBE STAT 11/01/19 12:34 PM EST URINALYSIS WITH REFLEX MICROSCOPIC AND CULTURE STAT 11/01/2024 12:34 PM EST URINALYSIS WITH REFLEX MICROSCOPIC AND CULTURE STAT 11/01/2024 12:[address] ABDOMEN PELVIS W CONTRAST STAT 11/01/2024 12:03 PM EST CBC WITH AUTO DIFFERENTIAL STAT 11/01/2024 10:04 AM EST COMPREHENSIVE METABOLIC PANEL STAT 11/01/2024 10:04 AM EST CBC AND DIFFERENTIAL STAT 11/01/2024 10:04 AM EST from Last 3 Months Results * XR Urogram Retrograde (11/03/2024 12:33 PM EST) Anatomical Region Laterality Modality Body Radio Fluoroscop y 11/09/2024 1:23 PM EST Impressions 11/09/2024 1:23 PM EST Impression: 1. Intraoperative images of the upper urinary tract. 2. Fluoroscopy provided in the OR. NC -------- FINAL REPORT -------- Dictated By: Bella Reddy Dictated Date: 11/09/2024 13:23 ET Assigned Physician: Bella Reddy Reviewed and Electronically Signed By: Bella Reddy Signed Date: 11/09/2024 13:23 ET Workstation ID: [id number] Transcribed By: Self Edit Transcribed Date: 11/09/2024 13:23 ET Narrative 11/09/2024 1:23 PM EST Findings: Digital spot images of the upper urinary tract are submitted from the OR, used intraoperatively by Dr. Crowe during a retrograde procedure. No radiologist was in attendance. Fluoroscopy was provided in the OR by a research technologist. Cumulative Air Kerma: 11.017 mGy Procedure Note Bella Reddy MD - 11/09/2024 Findings: Digital spot images of the upper urinary tract are submitted from the OR,used intraoperatively by Dr. Crowe during a retrograde procedure. Noradiologist was in attendance. Fluoroscopy was provided in the OR by a research technologist. Cumulative Air Kerma: 11.017 mGy IMPRESSION: Impression: 1. Intraoperative images of the upper urinary tract. 2. Fluoroscopy provided in the OR. NC -------- FINAL REPORT -------- Dictated By: Bella Reddy Dictated Date: 11/09/2024 13:23 ET Assigned Physician: Bella Reddy Reviewed and Electronically Signed By: Bella Reddy Signed Date: 11/09/2024 13:23 ET Workstation ID: [id number] Transcribed By: Self Edit Transcribed Date: 11/09/2024 13:23 ET us Johnson Crowe MD IMG FLUOROSCOPY PROCEDURES Final Result * Stone analysis (11/03/2024 12:31 PM EST) Component(s) See below 11/09/2024 3:[address] [facility] Comment: 71% Calcium oxalate monohydrate (Whewellite) 25% Calcium oxalate dihydrate (Weddellite) 4% Carbonate apatite (Dahllite) Stone Weight 0.0030 g 11/09/2024 3:[address] [facility] Comment: This test was developed and its performance characteristics determined by [facility] in a manner consistent with CLIA requirements. This test has not been cleared or approved by the U.S. Food and Drug Administration. Test performed at [facility], [address] [place], [place] ??[address] ? [phone] Meryl Jensen MD, PhD - Mechanical Service Representative Calculus Structure of left ureter / Unknown 11/03/2024 12:31 PM EST 11/03/2024 1:58 PM EST us Johnson Crowe MD LAB BODY FLUIDS AND STOOLS ORDER RUIZ Final Result [facility] [address] [place] [address] * TH AN LMA(NO CHARGE) (11/03/2024 12:15 PM EST) Narrative Albertina Perry CRNA - 11/03/2024 12:15 PM EST Albertina Perry CRNA ? 11/03/2024 12:15 PM General Information and Staff Patient location during procedure: OR Performed by: Albertina Perry CRNA Authorized by: Randy Villasenor, DO ?? Intubation Airway not difficult Urgency: elective Final Airway Details Number of attempts at approach: 1 Ventilation between attempts: none Number of other approaches attempted: 0Final airway type: LMA Indications and Patient Condition Indications for airway management: anesthesia Spontaneous ventilation: present Sedation level: Yes Preoxygenated: yes Soft Tissue Damage: No Dentition Unchanged: Yes Patient position: neutral MILS maintained throughout Mask difficulty assessment: 0 - not attempted Start Time: 11/03/2024 12:04 PM Randy Villasenor DO ANESTHESIA ORDERABLES Final Result * (ABNORMAL) CBC auto differential (11/03/2024 5:23 AM EST) Only the most recent of3 resultswithin the time period is included. WBC 7.6 4.8 - 10.8 K/mcL LAB HEMETOLOGY METHOD 11/03/2024 7:02 AM [facility] RBC 5.00 4.50 - 5.50 M/mcL LAB HEMETOLOGY METHOD 11/03/2024 7:02 AM [facility] Hemoglobin 13.8 13.5 - 17.5 g/dL LAB HEMETOLOGY METHOD 11/03/2024 7:02 AM [facility] Hematocrit 42.8 42.0 - 54.0 % LAB HEMETOLOGY METHOD 11/03/2024 7:02 AM [facility] MCV 84.9 79.0 - 98.0 FL LAB HEMETOLOGY METHOD 11/03/2024 7:02 AM [facility] MCH 27.4 27.0 - 32.0 pcg LAB HEMETOLOGY METHOD 11/03/2024 7:02 AM [facility] MCHC 32.2 32.0 - 37.0 g/dL LAB HEMETOLOGY METHOD 11/03/2024 7:02 AM [facility] RDW 13.9 11.0 - 15.0 % LAB HEMETOLOGY METHOD 11/03/2024 7:02 AM [facility] Platelets 230 130 - 400 K/mcL LAB HEMETOLOGY METHOD 11/03/2024 7:02 AM [facility] MPV 10.8 7.0 - 11.0 FL LAB HEMETOLOGY METHOD 11/03/2024 7:02 AM [facility] NRBC 0.0 <1.0 % LAB HEMETOLOGY METHOD 11/03/2024 7:02 AM [facility] NRBC Absolute 0.00 <0.10 K/mcL LAB HEMETOLOGY METHOD 11/03/2024 7:02 AM [facility] Neutrophils Relative 58.3 % LAB HEMETOLOGY METHOD 11/03/2024 7:02 AM [facility] Lymphocytes Relative 26.7 % LAB HEMETOLOGY METHOD 11/03/2024 7:02 AM [facility] Monocytes Relative 10.3 % LAB HEMETOLOGY METHOD 11/03/2024 7:02 AM [facility] Eosinophils Relative 3.2 % LAB HEMETOLOGY METHOD 11/03/2024 7:02 AM [facility] Basophils Relative 0.8 % LAB HEMETOLOGY METHOD 11/03/2024 7:02 AM [facility] Immature Granulocytes Relative 0.7 % LAB HEMETOLOGY METHOD 11/03/2024 7:02 AM [facility] Neutrophils Absolute 4.43 1.50 - 7.00 K/mcL LAB HEMETOLOGY METHOD 11/03/2024 7:02 AM [facility] Lymphocytes Absolute 2.03 1.00 - 5.00 K/mcL LAB HEMETOLOGY METHOD 11/03/2024 7:02 AM [facility] Monocytes Absolute 0.78 0.20 - 1.00 K/mcL LAB HEMETOLOGY METHOD 11/03/2024 7:02 AM [facility] Eosinophils Absolute 0.24 0.00 - 0.50 K/mcL LAB HEMETOLOGY METHOD 11/03/2024 7:02 AM [facility] Basophils Absolute 0.06 0.00 - 0.20 K/mcL LAB HEMETOLOGY METHOD 11/03/2024 7:02 AM [facility] Immature Granulocytes Absolute 0.05(H) 0.00 - 0.03 K/mcL LAB HEMETOLOGY METHOD 11/03/2024 7:02 AM [facility] Blood Venous blood specimen / Unknown Venipuncture / Unknown 11/03/2024 5:23 AM EST 11/03/2024 6:16 AM EST us Jennifer MATTHEWS LAB BLOOD ORDERABLES Final Result [facility] [address] [place] [address], [place] [phone] * (ABNORMAL) Basic metabolic panel (11/03/2024 5:23 AM EST) Only the most recent of2 resultswithin the time period is included. Sodium 139 133 - 145 mmol/L LAB CHEMISTRY METHOD 11/03/2024 7:08 AM [facility] Potassium 3.6 3.5 - 5.5 mmol/L LAB CHEMISTRY METHOD 11/03/2024 7:08 AM [facility] Chloride 106 96 - 110 mmol/L LAB CHEMISTRY METHOD 11/03/2024 7:08 AM [facility] CO2 28 21 - 32 mmol/L LAB CHEMISTRY METHOD 11/03/2024 7:08 AM [facility] Anion Gap 5 3 - 11 LAB CHEMISTRY METHOD 11/03/2024 7:08 AM [facility] Glucose 101(H) 70 - 100 mg/dL LAB CHEMISTRY METHOD 11/03/2024 7:08 AM [facility] BUN 7 5 - 25 mg/dL LAB CHEMISTRY METHOD 11/03/2024 7:08 AM [facility] Creatinine 0.81 0.70 - 1.30 mg/dL LAB CHEMISTRY METHOD 11/03/2024 7:08 AM [facility] eGFR 108 >=60 mL/min/1. 73m2 LAB CHEMISTRY METHOD 11/03/2024 7:08 AM [facility] Comment:Calculation based on the??Chronic Kidney Disease Epidemiology Collaboration (CKD-EPI) equation refit??without adjustment for race. BUN/Creatinine Ratio 8.6 LAB CHEMISTRY METHOD 11/03/2024 7:08 AM EST [facility] Calcium 8.5 8.5 - 10.5 mg/dL LAB CHEMISTRY METHOD 11/03/2024 7:08 AM [facility] Blood Venous blood specimen / Unknown Venipuncture / Unknown 11/03/2024 5:23 AM EST 11/03/2024 6:15 AM EST Jennifer MATTHEWS LAB BLOOD ORDERABLES Final Result [facility] [address] [place] [address], * Respiratory virus panel molecular study (11/02/2024 6:50 AM EST) Adenovirus Detection by PCR Not Detected Not Detected LAB MICROBIOLOGY METHOD 11/02/2024 9:08 AM [facility] Influenza A PCR Not Detected Not Detected LAB MICROBIOLOGY METHOD 11/02/2024 9:08 AM [facility] Influenza B PCR Not Detected Not Detected LAB MICROBIOLOGY METHOD 11/02/2024 9:08 AM [facility] Coronavirus 229E Not Detected Not Detected LAB MICROBIOLOGY METHOD 11/02/2024 9:08 AM [facility] Coronavirus HKU1 Not Detected Not Detected LAB MICROBIOLOGY METHOD 11/02/2024 9:08 AM EST [facility] Coronavirus OC43 Not Detected Not Detected LAB MICROBIOLOGY METHOD 11/02/2024 9:08 AM EST [facility] Coronavirus NL63 Not Detected Not Detected LAB MICROBIOLOGY METHOD 11/02/2024 9:08 AM [facility] Parainfluenza Virus 1 Not Detected Not Detected LAB MICROBIOLOGY METHOD 11/02/2024 9:08 AM [facility] Parainfluenza Virus 2 Not Detected Not Detected LAB MICROBIOLOGY METHOD 11/02/2024 9:08 AM [facility] Parainfluenza Virus 3 Not Detected Not Detected LAB MICROBIOLOGY METHOD 11/02/2024 9:08 AM [facility] Parainfluenza Virus 4 Not Detected Not Detected LAB MICROBIOLOGY METHOD 11/02/2024 9:08 AM [facility] RSV PCR Not Detected Not Detected LAB MICROBIOLOGY METHOD 11/02/2024 9:08 AM [facility] Human Metapneumovirus A and B Not Detected Not Detected LAB MICROBIOLOGY METHOD 11/02/2024 9:08 AM [facility] Rhinovirus/Entero virus Not Detected Not Detected LAB MICROBIOLOGY METHOD 11/02/2024 9:08 AM [facility] Bordetella pertussis Not Detected Not Detected LAB MICROBIOLOGY METHOD 11/02/2024 9:08 AM [facility] Bordetella parapertussis Not Detected Not Detected LAB MICROBIOLOGY METHOD 11/02/2024 9:08 AM [facility] Mycoplasma pneumo by PCR Not Detected Not Detected LAB MICROBIOLOGY METHOD 11/02/2024 9:08 AM [facility] Chlamydia pneumoniae Not Detected Not Detected LAB MICROBIOLOGY METHOD 11/02/2024 9:08 AM [facility] SARS COV-2 Not Detected Not Detected LAB MICROBIOLOGY METHOD 11/02/2024 9:08 AM [facility] Swab Both anterior nares / Unknown Non-blood Collection / Unknown 11/02/2024 6:50 AM EST 11/02/2024 8:12 AM EST Narrative [facility] - 11/02/2024 9:08 AM EST Testing was performed using the [employer] Respiratory Pathogen PCR Assay. All results must be correlated with the clinical findings. Results should not be used as the sole basis for diagnosis. False Negative results may occur from the presence of sequence variants in the region targeted by the assay or the presence of inhibitors. Results may be affected by concurrent antiviral/antimicrobial therapy or levels of organisms that are below the limit of detection. Marilu MATTHEWS LAB MICROBIOLOGY - GENERAL O RDERABLES Final Result Performing Organization Address [facility]/ZIP Co de Phone Number [facility] [address] [place] [address], * Magnesium (11/02/2024 5:00 AM EST) [facility] Magnesium 2.0 1.9 - 2.6 mg/dL LAB CHEMISTRY METHOD 11/02/2024 5:56 AM [facility] Blood Venous blood specimen / Unknown Venipuncture / Unknown 11/02/2024 5:00 AM EST 11/02/2024 5:32 AM EST Zachary MATTHEWS LAB BLOOD ORDERABLES Final Resu lt Performing Organization Address [facility]/ZIP Co de Phone Number [facility] [address] [place] [address], [place] [phone] * (ABNORMAL) Urinalysis with reflex microscopic and culture (11/01/2024 12:34 PM EST) [facility] Specific [place] Urine 1.027 1.003 - 1.030 LAB URINALYSIS - AUTOMATED METHOD 11/01/2024 1:29 PM [facility] pH, Urine 7.5 5.0 - 8.0 pH LAB URINALYSIS - AUTOMATED METHOD 11/01/2024 1:29 PM [facility] Leukocytes, Urine Negative Negative LAB URINALYSIS - AUTOMATED METHOD 11/01/2024 1:29 PM [facility] Nitrite, Urine Negative Negative LAB URINALYSIS - AUTOMATED METHOD 11/01/2024 1:29 PM [facility] Protein, Urine Negative <=Trace mg/dL LAB URINALYSIS - AUTOMATED METHOD 11/01/2024 1:29 PM [facility] Glucose, Urine Negative Negative mg/dL LAB URINALYSIS - AUTOMATED METHOD 11/01/2024 1:29 PM [facility] Ketones, Urine Negative Negative mg/dL LAB URINALYSIS - AUTOMATED METHOD 11/01/2024 1:29 PM [facility] Urobilinogen , Urine 0.2 0.2 - 1.0 mg/dL LAB URINALYSIS - AUTOMATED METHOD 11/01/2024 1:29 PM [facility] Bilirubin, Urine Negative Negative LAB URINALYSIS - AUTOMATED METHOD 11/01/2024 1:29 PM [facility] Blood, Urine Moderate(A) Negative LAB URINALYSIS - AUTOMATED METHOD 11/01/2024 1:29 PM [facility] RBC, Urine 21.9(H) 0 - 4 /HPF LAB URINALYSIS - AUTOMATED METHOD 11/01/2024 1:29 PM [facility] WBC, Urine 1.9 0 - 4 /HPF LAB URINALYSIS - AUTOMATED METHOD 11/01/2024 1:29 PM [facility] Squamous Epithelial, Urine 51 0 - 60 /LPF LAB URINALYSIS - AUTOMATED METHOD 11/01/2024 1:29 PM [facility] Bacteria, Urine Negative Negative /HPF LAB URINALYSIS - AUTOMATED METHOD 11/01/2024 1:29 PM [facility] Hyaline Casts, Urine 0.4 0 - 3 /LPF LAB URINALYSIS - AUTOMATED METHOD 11/01/2024 1:29 PM [facility] Urine Urine specimen obtained by clean catch procedure / Unknown Non-blood Collection / Unknown 11/01/2024 12:34 PM EST 11/01/2024 12:55 PM EST Sampson Zuniga MD LAB URINE ORDERABLES Johanne l Result Performing Organization Address [facility]/ZIP Co de Phone Number [facility] [address] [place] [address], [place] [phone] * Baldwin urine culture tube (11/01/2024 12:34 PM EST) Extra Tube Hold for add-ons. 11/01/2024 2:02 PM EST [facility] Comment:Auto resulted. Urine Urine specimen obtained by clean catch procedure / Unknown Non-blood Collection / Unknown 11/01/2024 12:34 PM EST 11/01/2024 12:55 PM EST Sampson Zuniga MD LAB URINE ORDERABLES Johanne l Result Performing Organization Address [facility]/ZIP Co de Phone Number [facility] [address] [place] [address], [place] [phone] * CT Abdomen Pelvis w Contrast (11/01/2024 12:03 PM EST) Anatomical Region Laterality Modality Body Computed Tomogra phy 11/01/2024 12:5 7 PM EST Impressions 11/01/2024 1:01 PM EST Mild left-sided obstructive uropathy secondary to 3 mm distal left ureteral stone which has migrated from the mid ureter when compared to study from September 10, 2024 -------- FINAL REPORT -------- Dictated By: David Núñez Dictated Date: 11/01/2024 12:57 ET Assigned Physician: David Núñez Reviewed and Electronically Signed By: David Núñez Signed Date: 11/01/2024 13:01 ET Workstation ID: [id number] Transcribed By: Self Edit Transcribed Date: 11/01/2024 12:57 ET Narrative 11/01/2024 1:01 PM EST INDICATION: Acute abdominal pain, flank pain, nephrolithiasis TECHNIQUE: CT scan of the abdomen and pelvis obtained with a total of 90 cc of Isovue-370 administered intravenously without incident. Oral contrast was not administered. Scanner: [employer] 64 slice VCT Dose reduction technique: ASIR (Adaptive statistical iterative reconstruction) and/or AEC (automated exposure control) Dose: total exam DLP 1311 mGY per cm COMPARISON: Compared to multiple prior studies most recent from September 10, 2024. FINDINGS: Lung bases are clear. Bony structures are unremarkable for the patient's age. Liver, spleen, pancreas, gallbladder, adrenal glands and right kidney are within normal limits. Persistent mild right-sided hydronephrosis and hydroureter with migration of 3 mm stone in the mid ureter to the distal ureter. No other stones noted. Mild left- sided perinephric and periureteral stranding. Stomach and small bowel are within normal limits. Terminal ileum and appendix normal in the right lower quadrant. Colon normal in course and caliber. No colonic wall thickening or pericolonic inflammatory changes. Left-sided colonic diverticulosis without acute diverticulitis. Small right-sided fatty inguinal hernia. Urinary bladder normal. Grossly normal prostate gland for the patient's age. Abdominal aorta normal in course and caliber. No lymphadenopathy. Procedure Note David Núñez MD - 11/01/2024 INDICATION: Acute abdominal pain, flank pain, nephrolithiasis TECHNIQUE: CT scan of the abdomen and pelvis obtained with a total of 90cc of Isovue-[id number] administered intravenously without incident. Oralcontrast was not administered. Scanner: [employer] 64 slice VCT Dose reduction technique: ASIR (Adaptive statistical iterativereconstruction) and/or AEC (automated exposure control) Dose: total exam DLP 1311 mGY per cm COMPARISON: Compared to multiple prior studies most recent from September. FINDINGS: Lung bases are clear. Bony structures are unremarkable for the patient's age. Liver, spleen, pancreas, gallbladder, adrenal glands and right kidney arewithin normal limits. Persistent mild right-sided hydronephrosis and hydroureter with migrationof 3 mm stone in the mid ureter to the distal ureter. No other stonesnoted. Mild left- sided perinephric and periureteral stranding. Stomach and small bowel are within normal limits. Terminal ileum andappendix normal in the right lower quadrant. Colon normal in course andcaliber. No colonic wall thickening or pericolonic inflammatory changes.Left-sided colonic diverticulosis without acute diverticulitis. Small right-sided fatty inguinal hernia. Urinary bladder normal. Grossly normal prostate gland for the patient's age. Abdominal aorta normal in course and caliber. No lymphadenopathy. IMPRESSION: Mild left-sided obstructive uropathy secondary to 3 mm distal leftureteral stone which has migrated from the mid ureter when compared tostudy from September 10, 2024 -------- FINAL REPORT -------- Dictated By: David Núñez Dictated Date: 11/01/2024 12:57 ET Assigned Physician: David Núñez Reviewed and Electronically Signed By: David Núñez Signed Date: 11/01/2024 13:01 ET Workstation ID: [id number] Transcribed By: Self Edit Transcribed Date: 11/01/2024 12:57 ET Marni MATTHEWS IMG CT PROCEDURES Final Result * (ABNORMAL) Comprehensive metabolic panel (11/01/2024 10:04 AM EST) Sodium 140 133 - 145 mmol/L LAB CHEMISTRY METHOD 11/01/2024 11:33 AM [facility] Potassium 3.5 3.5 - 5.5 mmol/L LAB CHEMISTRY METHOD 11/01/2024 11:33 AM [facility] Chloride 106 96 - 110 mmol/L LAB CHEMISTRY METHOD 11/01/2024 11:33 AM [facility] CO2 23 21 - 32 mmol/L LAB CHEMISTRY METHOD 11/01/2024 11:33 AM [facility] Anion Gap 11 3 - 11 LAB CHEMISTRY METHOD 11/01/2024 11:33 AM [facility] Glucose 142(H) 70 - 100 mg/dL LAB CHEMISTRY METHOD 11/01/2024 11:33 AM [facility] BUN 13 5 - 25 mg/dL LAB CHEMISTRY METHOD 11/01/2024 11:33 AM [facility] Creatinine 1.39(H) 0.70 - 1.30 mg/dL LAB CHEMISTRY METHOD 11/01/2024 11:33 AM [facility] eGFR 62 >=60 mL/min/1. 73m2 LAB CHEMISTRY METHOD 11/01/2024 11:33 AM [facility] Comment:Calculation based on the??Chronic Kidney Disease Epidemiology Collaboration (CKD-EPI) equation refit??without adjustment for race. BUN/Creatinine Ratio 9.4 LAB CHEMISTRY METHOD 11/01/2024 11:33 AM [facility] Calcium 9.2 8.5 - 10.5 mg/dL LAB CHEMISTRY METHOD 11/01/2024 11:33 AM [facility] AST (SGOT) 33 10 - 42 unit/L LAB CHEMISTRY METHOD 11/01/2024 11:33 AM [facility] ALT (SGPT) 36 10 - 60 unit/L LAB CHEMISTRY METHOD 11/01/2024 11:33 AM [facility] Alkaline Phosphatase 66 42 - 121 unit/L LAB CHEMISTRY METHOD 11/01/2024 11:33 AM [facility] Total Protein 7.0 6.0 - 8.0 g/dL LAB CHEMISTRY METHOD 11/01/2024 11:33 AM [facility] Albumin 3.7 3.2 - 5.0 g/dL LAB CHEMISTRY METHOD 11/01/2024 11:33 AM [facility] Total Bilirubin 1.0 0.0 - 1.4 mg/dL LAB CHEMISTRY METHOD 11/01/2024 11:33 AM [facility] Blood Venous blood specimen / Unknown Venipuncture / Unknown 11/01/2024 10:04 AM EST 11/01/2024 11:03 AM EST us Sampson Zuniga MD LAB BLOOD ORDERABLES Johanne babb Result [facility] [address] [place] [address], from Last 3 Months Insurance [facility] [place] [address] [place] [address] Advance Directives * Full Code - Confirmed (Latest Code Status on File) Date Activated Date Inactivated Comments 11/01/2024 6:59 PM 11/03/2024 8:[address] at[facility] was ascertained in the following way: Code status discussion: discussion with patient To update the patient's code status, place a code status order. Do not modify or discontinue any currently active code status orders. * Full Code - Default Date Activated Date Inactivated Comments 11/01/2024 5:40 PM 11/01/2024 6:59 PM This is orde r is used when code status has not been discussed with the patient, or code status is otherwise unknown/unconfirmed To update the patient's code status, place a code status order. Do not modify or discontinue any currently active code status orders. Care Teams Senior Graphic Designer Relationship Specialty Start Date End Date Joy Tanner PA [address] [place] [address] PCP - General Primary Care 11/01/24
== END 2024-12-23 10:35 | disposition home or self-care (01) ==
LOC: HO.HSMS 09:57
PROVIDERS: PCP Nurse Practitioner Family; Visit Provider Psychiatry & Neurology Neurology
DX: G25.0 Essential tremor (principal); G25.2 Other specified forms of tremor
CPT/HCPCS: 99214

== ENCOUNTER → 2024-12-23 09:56 | Outpatient (BNVA) | payer OTHER, SELFPAY | PROVIDERS: PCP Nurse Practitioner Family; Visit Provider Psychiatry & Neurology Neurology | DX: G25.0 Essential tremor (principal); G25.2 Other specified forms of tremor | CPT/HCPCS: 99212 ==

== ENCOUNTER 2025-06-23 08:06 | Outpatient (AMB) | payer OTHER, SELFPAY ==
--- NOTE | 2025-06-23 08:07 | A.OFFVIS_ITS ---
Vital Signs 06/23/25 08:08 Height 5 ft 5 in Weight 271 lb 8 oz BMI 45.2 BP 148/100 H Blood Pressure Location Rt brachial Position Sitting Pulse 74 Pulse Source Pulse Oximeter Pulse Oximetry (%) 97 Oxygen Delivery Method Room Air Intake Visit Reasons: 6 mnts f/u appt Intake Note: Follow up Essential and other specified forms of tremor Assistant To The President Required: No Accompanied by: Self / Same As Patient Allergies No Known Allergies Allergy (Verified 06/23/25 08:07) Medication List - Last Reconciled 06/23/25 by Hiwot Larios MD chlorthalidone 25 mg PO DAILY cholecalciferol (vitamin D3) (Vitamin D3) 25 mcg PO DAILY diclofenac sodium 1% 4 grams topical QID hydroxyzine HCl 25 mg PO BEDTIME losartan 100 mg PO DAILY methocarbamol 500 mg PO BEDTIME omeprazole 20 mg PO DAILY pregabalin 50 mg PO BID primidone 125 mg PO BID HPI Comments Details: 50y/o Right handed male comes for f/u of tremors.He is scheduled for MRI at [facility] with sedation. He is not sure if primidone helped. History from initial visit- He was in the from [id number]. He served in [employer] for 6 mths . 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 Now he has trouble eating soup, drinking liquids without spilling, has trouble writing,dressing, computer, using the phone etc. He does not like going out to eat because of his tremors.His tremors are with action, posture. He was tried on gabapentin and propranalol in the past. He denies any head or voice tremors No fh/o tremors He denies any major head injuries. 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 He has anxiety and PTSD . He has AGUILA and is on CPAP. [facility] Medical History Essential and other specified forms of tremor Vitamin D deficiency, unspecified Unspecified osteoarthritis, unspecified site Unspecified abnormal findings in urine Tremor, unspecified Tinnitus Sleep apnea, unspecified Post-traumatic stress disorder, chronic Pilonidal cyst with abscess Panic disorder with agoraphobia Other specified forms of tremor Obesity Major depressive disorder, recurrent, mild Pain in joint, hand Inguinal hernia Hypothyroidism, unspecified Hyperlipidemia, unspecified Heartburn Gastro-esophageal reflux disease without esophagitis Familial erythrocytosis Essential (primary) hypertension Diverticulosis of large intestine without perforation or abscess without bleeding Depression, unspecified Contact with and (suspected) exposure to other hazardous substances Calculus of kidney Bacteriuria Adjustment disorder with anxiety Abnormal involuntary movements Surgical History H/O inguinal hernia repair S/P surgical removal of pilonidal cyst H/O bursectomy Other specified postprocedural states Family History Mother HTN (hypertension) Father HTN (hypertension) Brother HTN (hypertension) Social History Household Members: Spouse and Children Physical Exam Vital Signs: Last Vital Signs Pulse 74 06/23/25 08:08 BP 148/100 H 06/23/25 08:08 Pulse Ox 97 06/23/25 08:08 Oxygen Delivery Method Room Air 06/23/25 08:08 BMI result Body Mass Index 45.2 Const General: cooperative, healthy appearing, comfortable and anxious Nutritional Appearance: obese Orientation/consciousness: patient oriented x3 Eyes Pupils: Equal, round and reactive pupils present Neuro Other: Venkat UE action and postural tremors, mild to moderate amplitude. Mild dysconjugate gaze General: patient oriented x3, gait normal, tone normal, moves all extremities and no focal motor deficits Cranial nerves: Yes Equal, round and reactive pupils present and Yes Normal facial strength present Cognition (Neuro): normal cognition Gait exam (Neuro): Antalgic gait present Motor exam (neuro): 5/5 motor strength present throughout and Normal motor muscle tone present throughout Coordination: iyafas-el-poxo test normal Assessment & Plan Assessment & Plan (1) Essential and other specified forms of tremor: Code(s): G25.0 - Essential tremor; G25.2 - Other specified forms of tremor Category: Medical Plan Trial Primidone 100mg qam and 100mg qhs Trial pregabalin 50mg bid Info on caltrio given- he will be a good candidate will consider OT He was tried on propranolol and gabapentin, primidone in the past . H/o kidney stones - no zonisamide for hime Medications: New pregabalin 50 mg PO BID 60 caps 3RF Changed From primidone 1 tab qam and 2 tabs qhs orally 2 times a day; 90 tabs 3RF To primidone 125 mg PO BID 60 tabs 6RF Coding Level of Care Code Est Pt Level 4 (91983) Complex EM visit Add On G2211 Diagnoses Essential and other specified forms of tremor G25.0; G25.2
[2025-06-23 08:08] VITALS: BP 148/100; PULSE 74; O2SAT 97; BMI 45.2
--- OUTSIDE RECORDS SUMMARY | 2025-06-23 08:18 | XMS_ITS | Clinical Summary ---
Author Organization [facility] Address [address] [place] [address] Phone Care Team Providers Care Manifold Operator Name Role Phone Joy Tanner Primary Care [...] mouth 1 (one) time each day. Active Active Problems Problem Noted Date Diagnosed Date Sleep apnea 11/03/2024 HTN (hypertension) Overview (04/23/2025): DX:HTN (hypertension) Anxiety and depression Overview (04/23/2025): DX:Anxiety and depression Alcohol abuse Overview (04/23/2025): DX:Alcohol abuse Resolved Problems Problem Noted Date Diagnosed Date Resolved Date Acute unilateral obstructive uropathy 11/01/2024 11/03/2024 Encounters Date Type Department Care Team Description 04/23/2025 10:00 AM EDT Office Visit Internal Medicine - [place] [address] [facility] [address] [place] [address] Joy Tanner PA Routine physical examination (Primary Dx); Primary hypertension from Last 3 Months Surgical History Surgery Date Site/Laterality Comments OTHER SURGICAL HISTORY 03/15 PROCEDURE: [place] EXCISION PREPATELLAR BURSA; COMMENT: right knee, Dr. [...] Safety Answer Date Record ed Physical Abuse Unrecognized value 11/03/2024 Verbal Abuse Unrecognized value 11/03/2024 Sex and Gender Information Value Date Recorded Sex Assigned at Male 07/14/2024 11:33 AM EST Legal Sex Male 11:45 PM EST Gender Identity Male 07/14/2024 11:33 AM EST Sexual Orientation Straight 07/14/2024 11 :33 AM EST Occupation Industry Job Start Date Job End Date [place] [employer], overnight shift Not on file Not on file Not on file Obstetrics History Last Filed Vital Signs Vital Sign Reading Time Taken Comments Blood Pressure 172/92 04/23/2025 9:51 AM EDT Pulse 73 04/23/2025 9:51 AM EDT Temperature 36.9 C (98.4 F) 04/23/2025 9:51 AM EDT Respiratory Rate 16 11/03/2024 1:46 PM EST Oxygen Saturation 97% 04/23/2025 9:51 AM EDT Inhaled Oxygen Concentration - - Weight 120 kg (265 lb) 04/23/2025 9:51 AM EDT Height 165.1 cm (5' 5 ) 04/23/2025 9:51 AM EDT Body Mass Index 44.1 04/23/2025 9:51 AM EDT Plan of Treatment Health Maintenance Due Date Last Done Comments Colorectal Cancer Screening: Colonoscopy 1975 Hepatitis A Vaccines (1 of 2 - Risk 2-dose series) 1994 DTaP,Tdap,and Td Vaccines (4 - Td or Tdap) 10/07/2017 10/07/2007, 09/09/2007, 09/09/2006 Hepatitis B Vaccines (3 of 3 - 19+ 3-dose series) 01/09/2018 10/09/2017, 07/12/2017 Cholesterol Screening (Lipid Panel) 08/12/2022 HIV Screening 08/12/2022 Hepatitis C Screening 08/12/2022 Social Influencers of Health Screening 08/12/2022 Depression Screening 09/09/2024 Pneumococcal Vaccine: 50+ Years (1 of 1 - PCV) 2025 RSV Immunization Adult Patients (1 - Risk 50-74 years 1-dose series) 2025 Zoster Vaccines (1 of 2) 2025 COVID-19 Vaccine (1 - season) 2025 Influenza Vaccine (#1) 2025 , 07/10/2023, 08/24/2022, Additional history exists Hypertension/CHF/CAD Annual BMP Blood Test 11/03/2025 11/03/2024, 11/02/2024, 11/01/2024, Additional history exists HIB Vaccines Aged Out [...] this topic Medical Devices Implanted Type Area Forward Air Controller/Air Officer Device Identifier Shelf Expiration Date Model / Serial / Lot Stent Uret [id number] Contr Percuflex Hydroplus - Sn/A - [id number] Implanted:Qty: 1 on 11/03/2024 by Johnson Crowe MD at [facility] Stents Left: Ureter [employer] [employer]GYNECOLG Y 07/15/2027 [id number] / N/A / [id number] Procedures Procedure Name Priority Date/Time Associated Diagnosis Comments BASIC METABOLIC PANEL Routine 11/03/2024 5:23 AM EST from Last 3 Months or Most Recently Relevant to Health Maintenance Results * (ABNORMAL) Basic metabolic panel (11/03/2024 5:23 AM EST) Sodium 139 133 - 145 mmol/L LAB CHEMISTRY METHOD 11/03/2024 7:08 AM [facility] Potassium 3.6 3.5 - 5.5 mmol/L LAB CHEMISTRY METHOD 11/03/2024 7:08 AM EST [facility] Chloride 106 96 - 110 mmol/L LAB CHEMISTRY METHOD 11/03/2024 7:08 AM [facility] CO2 28 21 - 32 mmol/L LAB CHEMISTRY METHOD 11/03/2024 7:08 AM [facility] Anion Gap 5 3 - 11 LAB CHEMISTRY METHOD 11/03/2024 7:08 AM [facility] Glucose 101(H) 70 - 100 mg/dL LAB CHEMISTRY METHOD 11/03/2024 7:08 AM [facility] BUN 7 5 - 25 mg/dL LAB CHEMISTRY METHOD 11/03/2024 7:08 AM [facility] Creatinine 0.81 0.70 - 1.30 mg/dL LAB CHEMISTRY METHOD 11/03/2024 7:08 AM [facility] eGFR 108 >=60 mL/min/1. 73m2 LAB CHEMISTRY METHOD 11/03/2024 7:08 AM [facility] Comment:Calculation based on the Chronic Kidney Disease Epidemiology Collaboration (CKD-EPI) equation refit without adjustment for race. BUN/Creatinine Ratio 8.6 LAB CHEMISTRY METHOD 11/03/2024 7:08 AM [facility] Calcium 8.5 8.5 - 10.5 mg/dL LAB CHEMISTRY METHOD 11/03/2024 7:08 AM [facility] Blood Venous blood specimen / Unknown Venipuncture / Unknown 11/03/2024 5:23 AM EST 11/03/2024 6:15 AM EST Jennifer MATTHEWS LAB BLOOD ORDERABLES Final Result [facility] [address] [place] [address], from Last 3 Months or Most Recently Relevant to Health Maintenance Insurance [facility] Advance Directives * Full Code - Confirmed [...] currently active code status orders. Care Teams Manifold Operator Relationship Specialty Start Date End Date Joy Tanner PA [address] [facility] [address] [place] [address] PCP - General Primary Care 11/01/24
--- OUTSIDE RECORDS SUMMARY | 2025-06-23 08:19 | XMS_ITS | Encounter Summary ---
Author Organization [facility] Address [address] [place] [address] [place] [address] Phone Care Team Providers Care Rating Examiner Name Role Phone Adilson Duran MD Primary Care Provider [phone] Joy Tanner Primary Care Provider + Encounter Details Date Type Department Care Team (Latest Contact Info) Description 11/20/2017 Transcribe Orders [facility] Specimen Processing [address] [place] [address] Adilson Duran MD [address] [place] [address] Diagnosis unknown (Primary Dx) Social History Tobacco Use Types Packs/Day Years Used Date Smoking Tobacco: Never Assessed Sex and Gender Information Value Date Recorded Sex Assigned at Not on file Legal Sex Male 12:32 AM EDT Gender Identity Not on file Sexual Orientation Not on file documented as of this encounter Plan of Treatment Not on file documented as of this encounter Results * Electrolytes (11/20/2017 12:05 AM EDT) SODIUM 142 133 - 146 mmol/L [facility] POTASSIUM 3.8 3.3 - 5.1 mmol/L [facility] CHLORIDE 101 96 - 108 mmol/L [facility] CO2 27 21 - 35 mmol/L [facility] ANION GAP 18 10 - 20 mmol/L [facility] Blood 11/20/2017 12:0 5 AM EDT 11/20/2017 12:48 AM EDT us Issam Elle Duran MD LAB BLOOD ORDERABLES Final Result Performing Organization Address [facility] Co de Phone Number [address] [address] * Glucose (11/20/2017 12:05 AM EDT) GLUCOSE 94 70 - 99 mg/dL [facility] Blood 11/20/2017 12:0 5 AM EDT 11/20/2017 12:48 AM EDT us Issam Elle Duran MD LAB BLOOD ORDERABLES Final Result Performing Organization Address [facility] de Phone Number [address] [address] * Creatinine/eGFR (11/20/2017 12:05 AM EDT) CREATININE 0.90 0.5 - 1.5 mg/dL [facility] EGFR 105 >59 mL/min/1.7 3m2 [facility] Comment:If patient is black, multiply result by 1.159. The eGFR calculation has changed from the MDRD equation to the CKD-EPI equation as of November 12, 2017. Blood 11/20/2017 12:0 5 AM EDT 11/20/2017 12:48 AM EDT us Issam Elle Duran MD LAB BLOOD ORDERABLES Final Result Performing Organization Address [facility] Co de Phone Number [address] [address] * BUN (11/20/2017 12:05 AM EDT) BUN 8 6 - 19 mg/dL [facility] Blood 11/20/2017 12:0 5 AM EDT 11/20/2017 12:48 AM EDT us Issam Elle Duran MD LAB BLOOD ORDERABLES Final Result [address] [address] * Troponin (11/20/2017 12:05 AM EDT) Pathologist [facility] TROPONIN-T <0.01 0.00 - 0.03 ng/mL [facility] Blood 11/20/2017 12:0 5 AM EDT 11/20/2017 12:48 AM EDT us Issam Elle Duran MD LAB BLOOD ORDERABLES Final Result Performing Organization Address [facility]/ZIP Co de Phone Number [address] [address] * (ABNORMAL) CBC and differential (11/20/2017 12:05 AM EDT) Pathologist [facility] WBC 9.99 3.40 - 11.20 K/uL [facility] RBC 6.23(H) 4.50 - 5.50 M/uL [facility] HGB 17.0 13.0 - 17.0 g/dL [facility] HCT 51.4(H) 40.0 - 51.0 % [facility] PLT 285 130 - 400 K/uL [facility] MCV 82.5 79.0 - 98.0 [facility] MCH 27.3 27.0 - 34.8 pg [facility] MCHC 33.1 31.5 - 36.0 g/dL [facility] RDW 13.2 10.8 - 14.6 % [facility] MPV 10.6 9.4 - 12.4 [facility] NRBC 0.00 /100 WBCs [facility] ABSOLUTE NRBC 0.00 K/uL [facility] DIFF METHOD Auto [facility] NEUTS 61.1 45.30 - 77.70 % [facility] LYMPHS 28.3 12.30 - 39.70 % [facility] MONOS 8.1 4.10 - 12.80 % [facility] EOS 1.1 0 - 7.2 % [facility] BASOS 0.7 0 - 2.80 % [facility] Granulocytes, immature (%) 0.7 0.0 - 0.9 % [facility] ABSOLUTE NEUTS 6.10 1.40 - 7.70 K/uL [facility] ABSOLUTE LYMPHS 2.83 0.60 - 3.20 K/uL [facility] ABSOLUTE MONOS 0.81(H) 0.11 - 0.59 K/uL [facility] ABSOLUTE EOS 0.11 0.01 - 0.50 K/uL [facility] ABSOLUTE BASOS 0.07 0.00 - 0.08 K/uL [facility] Granulocytes, immature 0.07(H) 0.00 - 0.05 K/uL [facility] Blood 11/20/2017 12:0 5 AM EDT 11/20/2017 12:48 AM EDT Adilson Duran MD LAB BLOOD ORDERABLES Final Result Performing Organization Address City/State/[facility] Co de Phone Number [facility] [address] [place] [address] documented in this encounter Visit Diagnoses Diagnosis Diagnosis unknown- Primary documented in this encounter Care Teams Rating Examiner Relationship Specialty Start Date End Date Adilson Duran MD [address] [place] [address] PCP - General Internal Medicine 11/20/17 06/17/22 Joy Tanner PA [address] [place] [address] PCP - General 06/18/22 documented as of this encounter Additional Source Comments The information contained in this document represents components of the legal health record. It is not the complete legal health record.[facility]
--- OUTSIDE RECORDS SUMMARY | 2025-06-23 08:19 | XMS_ITS | Clinical Summary ---
Author Organization [facility] Address [address] [place] [address] Phone Care Team Providers Care Supplier Engineer Name Role Phone Joy Tanner Primary Care Provider + Allergies No known active allergies Social History Tobacco Use Types Packs/Day Years Used Date Smoking Tobacco: Never Assessed Education Answer Date Recorded Are you interested in more education? Not on harpreet e 01/04/2023 Are you concerned about learning? Not on file 01/04/2023 No 01/04/2023 No 01/04/2023 Digital Access Answer Date Recorded No 02/02/2023 No 02/02/2023 No 02/02/2023 Reliable internet access at home? Not on file 02/02/2023 Device with a working camera? Not on file Sex and Gender Information Value Date Recorded Sex Assigned at Not on file Legal Sex Male 12:32 AM EDT Gender Identity Not on file Sexual Orientation Not on file Last Filed Vital Signs Vital Sign Reading Time Taken Comments Blood Pressure 120/74 06/18/2022 2:16 PM EDT Pulse 73 06/18/2022 12:53 PM EDT Temperature 36.7 C (98.1 F) 06/18/2022 2:16 PM EDT Respiratory Rate 16 06/18/2022 12:53 PM EDT Oxygen Saturation 95% 06/18/2022 2:16 PM EDT Inhaled Oxygen Concentration - - Weight - - Height - - Body Mass Index - - Plan of Treatment Health Maintenance Due Date Last Done Comments LIPID PANEL 1975 DEPRESSION SCREENING 1987 SMOKING Hx and SMOKELESS TOB ACCO SCREENING 01/08/1988 HEPATITIS C SCREENING 1993 HIV ONE-TIME SCREENING (18-6 5 YEARS) 1993 Adult Td,Tdap Booster 09/09/2016 09/09/2006 COLOGUARD 01/08/2020 COLONOSCOPY 01/08/2020 COLORECTAL CANCER SCREENING 01/08/2020 FIT TEST 01/08/2020 FOBT 01/08/2020 SIGMOIDOSCOPY 01/08/2020 VIRTUAL COLONOSCOPY 01/08/2020 PNEUMOCOCCAL VACCINES (50+ y ears) (1 of 1 - PCV) 2025 ZOSTER VACCINES (1 of 2) 2025 INFLUENZA VACCINE (#1) 2025 COVID-19 VACCINE (1 - 2024-2 6 season) 2025 RSV VACCINE (1 - 1-dose 75+ series) 2050 HEPATITIS A VACCINES Aged Out No long er eligible based on patient's age to complete this topic HIB VACCINES Aged Out No longer eligi ble based on patient's age to complete this topic MENINGOCOCCAL VACCINES (ACWY) Aged Out No longer eligible based on patient's age to complete this topic MENINGOCOCCAL VACCINES (B) Aged Out N o longer eligible based on patient's age to complete this topic Medical Devices Not on file Insurance [facility] [address] [address] [place] [address] [facility] [address] [place] [address] [facility] [address] [employer] Care Teams Supplier Engineer Relationship Specialty Start Date End Date Joy Tanner PA [address] [facility] [address] [place] [address] PCP - General 06/18/22 Additional Source Comments The information contained in this document represents components of the legal health record. It is not the complete legal health record.[facility]
== END 2025-06-23 08:27 | disposition home or self-care (01) ==
LOC: HO.HSMS 08:06
PROVIDERS: PCP Nurse Practitioner Family; Visit Provider Psychiatry & Neurology Neurology
DX: G25.0 Essential tremor (principal); G25.2 Other specified forms of tremor
CPT/HCPCS: 99214; G2211

== ENCOUNTER → 2025-06-23 08:06 | Outpatient (BNVA) | payer OTHER, SELFPAY | PROVIDERS: PCP Nurse Practitioner Family; Visit Provider Psychiatry & Neurology Neurology | DX: G25.0 Essential tremor (principal); G25.2 Other specified forms of tremor; Z79.899 Other long term (current) drug therapy | CPT/HCPCS: 99212 ==